=== PATIENT | female | born 1945 | race Caucasian/White ===

== ENCOUNTER → 2025-02-01 11:42 | Outpatient (BNVA) | payer MEDICARE, SELFPAY | PROVIDERS: Visit Provider Internal Medicine Cardiovascular Disease | DX: I11.0 Hypertensive heart disease with heart failure (principal); I50.22 Chronic systolic (congestive) heart failure; I25.10 Atherosclerotic heart disease of native coronary artery without angina pectoris; E78.2 Mixed hyperlipidemia; Z95.0 Presence of cardiac pacemaker; I25.2 Old myocardial infarction; R06.09 Other forms of dyspnea; R06.02 Shortness of breath; R07.9 Chest pain, unspecified | CPT/HCPCS: 36415; 80048; 83880; 93005; 99205 ==

== ENCOUNTER 2025-03-14 19:45 | Inpatient (IN) | payer MEDICARE, SELFPAY ==
--- OUTSIDE RECORDS SUMMARY | 2018-07-20 06:00 | XMS_ITS | Continuity of Care Document ---
Author Organization [facility] Address [address] [place] [address] [place] [id number] Phone Care Team Providers Care Fisher Dip Net Name Role Phone Flako PT, Esperanza Unavailable Unavailable Procedures Procedure Date PT Re-evaluation Therapeutic Exercise Neuromuscular Re-Ed Hot or Cold Pack Therapeutic Exercise Neuromuscular Re-Ed Hot or Cold Pack Therapeutic Exercise Neuromuscular Re-Ed Hot or Cold Pack Therapeutic Exercise Neuromuscular Re-Ed Therapeutic Exercise Neuromuscular Re-Ed Therapeutic Exercise Neuromuscular Re-Ed Therapeutic Exercise Neuromuscular Re-Ed Therapeutic Exercise Neuromuscular Re-Ed Changing And Maintaining Body Position-C urrent Changing And Maintaining Body Position-G oal Therapeutic Exercise Neuromuscular Re-Ed Therapeutic Exercise Neuromuscular Re-Ed Therapeutic Exercise Therapeutic Exercise Neuromuscular Re-Ed Therapeutic Exercise Neuromuscular Re-Ed Therapeutic Exercise Neuromuscular Re-Ed Manual Therapy Progress Note Therapeutic Exercise Neuromuscular Re-Ed Manual Therapy Therapeutic Exercise Neuromuscular Re-Ed Manual Therapy Therapeutic Exercise Neuromuscular Re-Ed Manual Therapy Changing And Maintaining Body Position-C urrent Changing And Maintaining Body Position-G oal Therapeutic Exercise Neuromuscular Re-Ed Manual Therapy Therapeutic Exercise Neuromuscular Re-Ed Manual Therapy Therapeutic Exercise Neuromuscular Re-Ed Manual Therapy Therapeutic Exercise Neuromuscular Re-Ed Manual Therapy Therapeutic Exercise Neuromuscular Re-Ed Manual Therapy Therapeutic Exercise Neuromuscular Re-Ed Manual Therapy Therapeutic Exercise Neuromuscular Re-Ed Manual Therapy Therapeutic Exercise Neuromuscular Re-Ed Progress Note Therapeutic Exercise Neuromuscular Re-Ed Changing And Maintaining Body Position-C urrent Changing And Maintaining Body Position-G oal Therapeutic Exercise Neuromuscular Re-Ed Therapeutic Exercise Neuromuscular Re-Ed Therapeutic Exercise Neuromuscular Re-Ed Therapeutic Exercise Manual Therapy Hot or Cold Pack Therapeutic Exercise Neuromuscular Re-Ed Therapeutic Exercise Neuromuscular Re-Ed Changing And Maintaining Body Position-C urrent Changing And Maintaining Body Position-G oal Therapeutic Exercise Neuromuscular Re-Ed Changing And Maintaining Body Position-C urrent Changing And Maintaining Body Position-G oal PT Evaluation High Complexity 8 Therapeutic Exercise Neuromuscular Re-Ed Changing And Maintaining Body Position-C urrent Changing And Maintaining Body Position-G oal Therapeutic Exercise Neuromuscular Re-Ed Therapeutic Exercise Neuromuscular Re-Ed Therapeutic Exercise Neuromuscular Re-Ed Therapeutic Exercise Neuromuscular Re-Ed Therapeutic Exercise Neuromuscular Re-Ed Therapeutic Exercise Neuromuscular Re-Ed Therapeutic Exercise Neuromuscular Re-Ed Therapeutic Exercise Changing And Maintaining Body Position-C urrent Changing And Maintaining Body Position-G oal PT Evaluation Moderate Complexity Therapeutic Exercise Neuromuscular Re-Ed Changing And Maintaining Body Position-C urrent Changing And Maintaining Body Position-G oal PT Re-Evaluation THERAPEUTIC EXERCISES NEUROMUSCULAR RE-ED FUNC ACTIVITY Mobility: Walking And Moving Limitaion- Discharge Mobility: Walking And Moving Limitation- Goal Medications Name Dose Freq Route DOC Oct THERAPEUTIC EXERCISES MANUAL THERAPY FUNC ACTIVITY HOT/COLD PACK THERAPEUTIC EXERCISES FUNC ACTIVITY HOT/COLD PACK THERAPEUTIC EXERCISES NEUROMUSCULAR RE-ED MANUAL THERAPY FUNC ACTIVITY HOT/COLD PACK THERAPEUTIC EXERCISES NEUROMUSCULAR RE-ED MANUAL THERAPY FUNC ACTIVITY HOT/COLD PACK PT Re-Evaluation THERAPEUTIC EXERCISES MANUAL THERAPY HOT/COLD PACK Mobility: Walking And Moving Limitations -Curent Mobility: Walking And Moving Limitation- Goal Medications Name Dose Freq Route DOC Oct THERAPEUTIC EXERCISES THERAPEUTIC EXERCISES NEUROMUSCULAR RE-ED MANUAL THERAPY HOT/COLD PACK THERAPEUTIC EXERCISES NEUROMUSCULAR RE-ED MANUAL THERAPY FUNC ACTIVITY HOT/COLD PACK THERAPEUTIC EXERCISES MANUAL THERAPY HOT/COLD PACK THERAPEUTIC EXERCISES NEUROMUSCULAR RE-ED MANUAL THERAPY FUNC ACTIVITY HOT/COLD PACK PT Evaluation Moderate Complexity THERAPEUTIC EXERCISES Mobility: Walking And Moving Limitations -Curent Mobility: Walking And Moving Limitation- Goal Medications Name Dose Freq Route DOC Sep Pain Assess Positive DOC 2016 BMI High F/U Plan DOC Future Fall Risk Positive 2+ Falls or 1 Fall w/ Injury RA DOC Scre ened for Fall Risk Plan of Care DOC Functional Outcome Assessmen t documented, deficits identified, treatment plan es Advance Directives Directive Yes / No Effective Date File Name No Information Encounters Encounter Description Practice Location Reason(s) For Visit Diagnoses Date Provider Providers Copied on Encounter [facility] [employer] [address], [place], [place], [id number], [place] tel:[phone] [facility] Spondylolysis, lumbar regionSpinal instabilities, lumbar regionSacroili itis, not elsewhere classifiedLow back pain 201 8 Flako Mata. . Referring Provider: Abigail Eric, [address] [address], [place], [address]. tel:[phone] [facility] [employer] [address], [place], [place], [address], [place] tel:[phone] [facility] Spondylolysis, lumbar regionSpinal instabilities, lumbar regionSacroili itis, not elsewhere classifiedLow back pain Dec-2 8201 8 [place] Esperanza. . Referring Provider: Abigail Eric, [address] [facility] [address], [place], [address]. tel:[phone] [facility], [place], [place], [address], [place] tel:[phone] [facility] Spondylolysis, lumbar regionSpinal instabilities, lumbar regionSacroili itis, not elsewhere classifiedLow back pain Dec-2 8 [place] Esperanza. . Referring Provider: Abigail Eric, [address], [place], [address]. tel:[phone] [facility], [place], [place], [address], [place] tel:[phone] [facility] Spondylolysis, lumbar regionSpinal instabilities, lumbar regionSacroili itis, not elsewhere classifiedLow back pain Dec-2 8 [place]. Referring Provider: Abigail Eric, [address], [place], [address]. tel:[phone] [facility], [place], [place], [address], [place] tel:[phone] [facility] Spondylolysis, lumbar regionSpinal instabilities, lumbar regionSacroili itis, not elsewhere classifiedLow back pain Dec-2 8 [place]. Referring Provider: Abigail Eric, [address] [facility] [address], [place], [address]. tel:[phone] [facility] [address], [place], [place], [address], [place] tel:[phone] [place] Spondylolysis, lumbar regionSpinal instabilities, lumbar regionSacroili itis, not elsewhere classifiedLow back pain Dec-1 8 [place]. Referring Provider: Abigail Eric, [address] [facility] [facility] [address], [place], [address]. tel:[phone] [facility] [address], [place], [place], [address], tel:[phone] [facility] Spondylolysis, lumbar regionSpinal instabilities, lumbar regionSacroili itis, not elsewhere classifiedLow back pain Dec-1 4-201 8 [place]. Referring Provider: Abigail Eric, [address] [facility] [address], [place], [address]. tel:[phone] [facility] [address], [place], [place], [address], [place] tel:[phone] [facility] Spondylolysis, lumbar regionSpinal instabilities, lumbar regionSacroili itis, not elsewhere classifiedLow back pain Dec-1 2-201 8 [place]. Referring Provider: Abigail Eric, [address] [facility], [place], [address]. tel:[phone] [facility] [address], [place], [place], [address], [place] tel:[phone] [facility] Spondylolysis, lumbar regionSpinal instabilities, lumbar regionSacroili itis, not elsewhere classifiedLow back pain Dec-1 0-201 8 [place]. Referring Provider: bAigail Eric, [address] [facility], [place], [address]. tel:[phone] [facility] [address], [place], [place], [address], [place] tel:[phone] [facility] Spondylolysis, lumbar regionSpinal instabilities, lumbar regionSacroili itis, not elsewhere classifiedLow back pain Dec-0 7-201 8 [place]. Referring Provider: Abigail Eric, [address] [facility], [place], [address]. tel:[phone] [facility], [place], [place], [address], [place] tel:[phone] [facility] Spondylolysis, lumbar regionSpinal instabilities, lumbar regionSacroili itis, not elsewhere classifiedLow back pain Dec-0 5-201 8 [place]. Referring Provider: Abigail Eric, [address] [facility] [address], [place], [address]. tel:[phone] [facility], [place], [place], [address], [place] tel:[phone] [facility] Spondylolysis, lumbar regionSpinal instabilities, lumbar regionSacroili itis, not elsewhere classifiedLow back pain Dec-0 3-201 8 [place]. Referring Provider: Abigail Eric, [address] [facility] [address], [place], [address]. tel:[phone] [facility], [place], [place], [address], [place] tel:[phone] [facility] Spondylolysis, lumbar regionSpinal instabilities, lumbar regionSacroili itis, not elsewhere classifiedLow back pain Nov-3 0-201 8 [place]. Referring Provider: Abigail Eric, [address] [facility] [address], [place], [address]. tel:[phone] [facility], [place], [place], [address], [place] tel:[phone] [facility] Spondylolysis, lumbar regionSpinal instabilities, lumbar regionSacroili itis, not elsewhere classifiedLow back pain Nov-2 8-201 8 [place] Referring Provider: Abigail Eric, [address] [facility] [address], [place], [address]. tel:[phone] [facility], [place], [place], [address], [place] tel:[phone] [facility] Spondylolysis, lumbar regionSpinal instabilities, lumbar regionSacroili itis, not elsewhere classifiedLow back pain 8 [place]. Referring Provider: Abigail Eric, [address] [facility] [address], [place], [address]. tel:[phone] [facility], [place], [place], [address], [place] tel:[phone] [facility] Spondylolysis, lumbar regionSpinal instabilities, lumbar regionSacroili itis, not elsewhere classifiedLow back pain 8 [place]. Referring Provider: Abigail Eric, [address] [facility] [address], [place], [address]. tel:[phone] [facility], [place], [place], [address], [place] tel:[phone] [facility] Spondylolysis, lumbar regionSpinal instabilities, lumbar regionSacroili itis, not elsewhere classifiedLow back pain [place]. Referring Provider: Abigail Eric, [address] [facility] [address], [place], [address]. tel:[phone] [facility], [place], [place], [address], [place] tel:[phone] [facility] Spondylolysis, lumbar regionSpinal instabilities, lumbar regionSacroili itis, not elsewhere classifiedLow back pain 8 Redd [place], [place]. Referring Provider: Abigail Eric, [address] [facility] [address], [place], [address]. tel:[phone] [facility], [place], [place], [address], [place] tel:[phone] [facility] Spondylolysis, lumbar regionSpinal instabilities, lumbar regionSacroili itis, not elsewhere classifiedLow back pain Nov-1 - 8 [facility] [place] [place]. Referring Provider: Abigail Eric, [address], [place], [address]. tel:[phone] [facility], [place], [place], [address], [place] tel:[phone] [facility] Spondylolysis, lumbar regionSpinal instabilities, lumbar regionSacroili itis, not elsewhere classifiedLow back pain Nov-1 2-201 8 [facility] [place]. Referring Provider: Abigail Eric, [address], [place], [address]. tel:[phone] [facility], [address], [place], [place], [address], [place] tel:[phone] [facility] Spondylolysis, lumbar regionSpinal instabilities, lumbar regionSacroili itis, not elsewhere classifiedLow back pain Nov-0 - 8 [place]. Referring Provider: Abigail Eric, [address] [facility] [address], [place], [address]. tel:[phone] [facility], [place], [place], [address], [place] tel:[phone] [facility] Spondylolysis, lumbar regionSpinal instabilities, lumbar regionSacroili itis, not elsewhere classifiedLow back pain Nov-0 - 8 [facility] [place]. Referring Provider: Abigail Eric, [address] [facility] [address], [place], [address]. tel:[phone] [facility], [place], [place], [address], [place] tel:[phone] [place] Spondylolysis, lumbar regionSpinal instabilities, lumbar regionSacroili itis, not elsewhere classifiedLow back pain Nov-0 8 [place]. Referring Provider: Abigail Eric, [address] [facility] [facility] [address], [place], [address]. tel:[phone] [facility], [place], [place], [address], tel:[phone] [facility] Spondylolysis, lumbar regionSpinal instabilities, lumbar regionSacroili itis, not elsewhere classifiedLow back pain May-0 8 [place]. Referring Provider: Abigail Eric, [address] [facility] [address], [place], [address]. tel:[phone] [facility] [address], [place], [place], [address], [place] tel:[phone] [place] Spondylolysis, lumbar regionSpinal instabilities, lumbar regionSacroili itis, not elsewhere classifiedLow back pain Apr- 8 [place]. Referring Provider: Abigail Eric, [address] [facility] [address], [place], [address]. tel:[phone] [facility], [place], [place], [address], [place] tel:[phone] [facility] Spondylolysis, lumbar regionSpinal instabilities, lumbar regionSacroili itis, not elsewhere classifiedLow back pain Apr-2 8 [place]. Referring Provider: Abigail Eric, [address] [facility] [address], [place], [address]. tel:[phone] [facility], [place], [place], [address], [place] tel:[phone] [facility] Spondylolysis, lumbar regionSpinal instabilities, lumbar regionSacroili itis, not elsewhere classifiedLow back pain Apr-2 8 [place]. Referring Provider: Abigail Eric, [address] [facility] [address], [place], [address]. tel:[phone] [facility], [place], [place], [address], [place] tel:[phone] [facility] Spondylolysis, lumbar regionSpinal instabilities, lumbar regionSacroili itis, not elsewhere classifiedLow back pain Apr- 8 [place], . Referring Provider: Abigail Eric, [address] [facility] [address], [place], [address]. tel:[phone] [facility], [place], [place], [address], [place] tel:[phone] [facility] Spondylolysis, lumbar regionSpinal instabilities, lumbar regionSacroili itis, not elsewhere classifiedLow back pain Apr- 8 [place], . Referring Provider: Abigail Eric, [address] [facility] [address], [place], [address]. tel:[phone] [facility], [place], [place], [address], [place] tel:[phone] [facility] Spondylolysis, lumbar regionSpinal instabilities, lumbar regionSacroili itis, not elsewhere classifiedLow back pain Apr- 8 Flako Mata. . Referring Provider: Abigail Eric, [address] [facility] [address], [place], [address]. tel:[phone] [facility], [place], [place], [address], [place] tel:[phone] [facility] Spondylolysis, lumbar regionSpinal instabilities, lumbar regionSacroili itis, not elsewhere classifiedLow back pain Apr- 8 [place] Referring Provider: Abigail Eric, [address] [facility] [address], [place], [address]. tel:[phone] [facility], [place], [place], [address], [place] tel:[phone] [facility] Spondylolysis, lumbar regionSpinal instabilities, lumbar regionSacroili itis, not elsewhere classifiedLow back pain 8 Rainey [place]asto. [place]. Referring Provider: Abigail Eric, 3 [facility] [address], [place], [address]. tel:[phone] [facility], [place], [place], [address], [place] tel:[phone] [place] Spondylolysis, lumbar regionSpinal instabilities, lumbar regionSacroili itis, not elsewhere classifiedLow back pain 8 Rainey Erasto. [place]. Referring Provider: Abigail Eric, [address] [facility] [address], [place], [address]. tel:[phone] [facility], [place], [place], [address], [place] tel:[phone] [facility] Spondylolysis, lumbar regionSpinal instabilities, lumbar regionSacroili itis, not elsewhere classifiedLow back pain 0 8 Rainey [place]asto. [place]. Referring Provider: Abigail Eric, [address] [facility] [address], [place], [address]. tel:[phone] [facility], [place], [place], [address], [place] tel:[phone] [facility] No Information 7 Rainey Erasto. , [place], [place]. [facility], [place], [place], [address], [place] tel:[phone] [facility] No Information 7 Rainey Erasto. , [place], [place]. [facility], [place], [place], [address], [place] tel:[phone] [facility] No Information 7 Redd Mal[place]on. , [place], [place]. [facility], [address], [place], [place], [address], [place] tel:[phone] [facility] No Information 0 7 Rainey Erasto. , [place], [place]. [facility], [place], [place], [address], [place] tel:[phone] [facility] No Information 0 7 Redd Maldon[place]on. , [place], [place]. [facility], [place], [place], [address], [place] tel:[phone] [facility] No Information 3 7 Redd Maldon[place]on. , [place], [place]. [facility], [place], [place], [address], [place] tel:[phone] [facility] No Information 7 Redd Mal[place]. , [place], [place]. [facility], [place], [place], [address], [place] tel:[phone] [place] Spondylolysis, site unspecifiedLow back pain 7 Redd Maldon[place]on. , [place], [place]. [facility], [place], [place], [address], [place] tel:[phone] [facility] No Information 7 Redd Maurer. , [place], [place]. [facility], [place], [place], [address], [place] tel:[phone] [facility] No Information 2 0 7 Sutherlin Tahira. [address] [facility], [address], [place], [place], [facility], [place]. tel:[phone] [facility], [place], [place], [address], [place] tel:[phone] [facility] No Information 7 Sutherlin Tahira. [address] [facility], [address], [place], [address], [place]. tel:[phone], [place], [place], [address], [place] tel:[phone] [facility] No Information Apr-1 4-201 7 Sutherlin Tahira. [address] [place] [address], [address], [place], [address], [place]. tel:[phone], [place], [place], [address], [place] tel:[phone] [facility] No Information Apr-1 0-201 7 Whit Tahira. [address] [place] [address], [address], [place], [place], [facility], [place]. tel:[phone], [place], [place], [address], [place] tel:[phone] [facility] No Information Apr-0 7-201 7 Whit Tahira. [address] [place] [address], [address], [place], [place], [facility], [place]. tel:[phone], [place], [place], [address], [place] tel:[phone] [facility] No Information Apr-0 3-201 7 Whit Tahira. [address] [place] [address], [address], [place], [address], [place]. tel:[phone], [place], [place], [address], [place] tel:[phone] [facility] No Information Mar-3 1-201 7 Whit Tahira. [address] [place] [address], [address], [place], [address], [place]. tel:[phone], [place], [place], [address], [place] tel:[phone] [facility] No Information Mar-2 7-201 7 Sutherlin Tahira. [address] [place] [address], [address], [place], [place], [facility], [place]. tel:[phone], [place], [place], [address], tel:[phone] [facility] No Information Sep- 4-201 7 Sutherlin Tahira. [address] [place] [address], [facility] [address] [address], . tel:[phone] [address], [address], tel:[phone] [facility] No Information 0-201 7 Sutherlin Tahira. [address] [place] [address], [facility] [address] [address], . tel:[phone], [place], [place], [address], tel:[phone] [facility] No Information 7-201 7 Sutherlin Tahira. [address] [place] [address], [facility] [address] [address], . tel:[phone], [id number], tel:[phone] [facility] Unilateral primary osteoarthritis , left kneePain in left kneeStiffness of left knee, not elsewhere classifiedOth symptoms and signs involving the musculoskeleta l systemDisorder of muscle, unspecified 4 7 Whit Tahira. [address] [place] [address], [facility] [address], [place], [facility], . tel:[phone] Family History Family Member Type Diagnosis Age At Onset No Information Payers Payer name Insurance type Covered green party ID Authoriza tisalvador(s) Medicare [place] [id number] [facility] [id number] Social History Type Description Quantity Date Captured Comments Sex Female Smoking Status No Information Chief Complaint And Reason For Visit No Information Reason For Referral Reason For Referral No Information History Of Present Illness Encounter Date Complaint History Of Prese nt Illness No Information Functional Status Date Functional Assessmen t No Information Instructions Date Instruction Additional Infor mation No Information Assessments Type Assessment Date No Information Patient Care Teams Name Effective Dates (start - stop) Status Members No Information
[2025-03-14 19:50] VITALS: BP 122/58; PULSE 55; RESP 18; TEMP 36.9; O2SAT 95; BMI 38.0
--- OUTSIDE RECORDS SUMMARY | 2025-03-14 19:55 | XMS_ITS | Encounter Summary ---
Author Organization [facility] [employer], [facility] Address [address] [facility] [address] [place] [address] Phone Care Team Providers Care Software Implementation Specialist Name Role Phone Gemma Schmidt MD Primary Care Provider [phone] Encounter Details Date Type Department Care Team (Late Contact Info) Description 03/11/2025 Telephone [facility] [employer] [address] [facility] [address] [place] [address] Dior Geller Social History Tobacco Use Types Packs/Day Years Used Date Smoking Tobacco: Never Assessed Comments Unknown Sex and Gender Information Value Date Recorded Sex Assigned at Not on file Legal Sex Female 2:32 PM EDT Gender Identity Not on file Sexual Orientation Not on file documented as of this encounter Miscellaneous Notes * Telephone Encounter - Dior Geller - 03/11/2025 4:19 PM CDT Called referring provider's office and notified them that the patient has been scheduled with nephrology. documented in this encounter Plan of Treatment Upcoming Encounters Date Type Department Care Team (Late st Contact Info) Description 08/29/2025 1:00 PM CREELER Office Visit [facility] [employer] [address] [place] [address] Hamlet Andersen MD [address] [place] [address] documented as of this encounter Visit Diagnoses Not on filedocumented in this encounter Care Teams Software Implementation Specialist Relationship Specialty Start Date End Date Gemma Schmidt MD [address] [address] PCP - General Family Medicine 03/04/25 documented as of this encounter
--- OUTSIDE RECORDS SUMMARY | 2025-03-14 19:55 | XMS_ITS | Encounter Summary ---
Author Organization [facility] Address [address] [place] [address] Care Team Providers Care Work Order Detailer Name Role Phone Gemma Schmidt MD Primary Care Provider Encounter Details Date Type Department Care Team (Late Contact Info) Description 12/27/2024 Lab Requisition [facility] [place] [address] [address] Jaja Dillon, [facility] [address] [address] Urinary tract infection, site not specified Social History Tobacco Use Types Packs/Day Years Used Date Smoking Tobacco: Never Smokeless Tobacco: Never Alcohol Use Standard Drinks/Week Comments Not Currently 0 (1 standard drink = 0.6 oz pur e alcohol) Comments No Sex and Gender Information Value Date Recorded Sex Assigned at Not on file Legal Sex Female 1:19 PM CDT Gender Identity Not on file Sexual Orientation Not on file documented as of this encounter Plan of Treatment Upcoming Encounters Date Type Department Care Team (Late Contact Info) Description 04/18/2025 3:20 PM CDT Office Visit [facility] [place] [address] [address] Gemma Schmidt MD [address] [address] 06/06/2025 2:20 PM 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 Office Visit [facility] [address] [address] Gemma Schmidt MD [address] [place] [address] documented as of this encounter Procedures Procedure Name Priority Date/Time Associated Diagnosis Comments CBC WITH DIFFERENTIAL Stat 12/27/2024 9:41 AM CDT Urinary tract infection, site not specified C-REACTIVE PROTEIN Stat 12/27/2024 9: 41 AM CDT Urinary tract infection, site not specified BASIC METABOLIC PANEL Stat 12/27/2024 9:41 AM CDT Urinary tract infection, site not specified documented in this encounter Results * (ABNORMAL) BASIC METABOLIC PANEL (12/27/2024 9:41 AM CDT) SODIUM 134(L) 136 - 145 mmol/L 12/27/2024 10:22 AM [facility] POTASSIUM 4.8 3.5 - 5.1 mmol/L 12/27/2024 10:22 AM [facility] CHLORIDE 96(L) 98 - 107 mmol/L 12/27/2024 10:22 AM [facility] CO2 21(L) 22 - 29 mmol/L 12/27/2024 10:22 AM [facility] CALCIUM 9.3 8.8 - 10.2 mg/dL 12/27/2024 10:22 AM [facility] BUN 71(H) 8 - 23 mg/dL 12/27/2024 10:22 AM [facility] CREATININE 2.16(H) 0.51 - 0.95 mg/dL 12/27/2024 10:22 AM [facility] Comment:The GFR result is no t clinically significant on patients <18 or >70 years of age. GLUCOSE 386(H) 74 - 99 mg/dL 12/27/2024 10:22 AM CDT [facility] GFR 23 mL/min/1.7 3 sq meter 12/27/2024 10:22 AM CDT [facility] Comment:eGFR calculated with 2020 CKD-EPI equation. Vegetarian diet, extremely high or low muscle mass, and may affect results. Cystatin C with Glomerular Filtration Rate is a suitable alternative for these patients. ANION GAP 17 5 - 20 mmol/L 12/27/2024 10:22 AM CDT [facility] Blood 12/27/2024 9:41 AM CDT 12/27/2024 9:56 AM CDT Jaja Dillon [facility] CHEMISTRY ORDERABLES Final Result Performing Organization Address [facility] Co de Phone Number [facility] CLIA # [id number] [address] [place] [address] * C-REACTIVE PROTEIN (12/27/2024 9:41 AM CDT) CRP 4.8 <5.0 mg/L 12/27/2024 10:21 AM CDT [facility] Blood 12/27/2024 9:41 AM CDT 12/27/2024 9:56 AM CDT Jaja Dillon [facility] CHEMISTRY ORDERABLES Final Result Performing Organization Address City/[facility]/ZIP Co de Phone Number [facility] CLIA # [id number] [address] [place] [address] * (ABNORMAL) CBC WITH DIFFERENTIAL (12/27/2024 9:41 AM CDT) WBC 8.6 4.0 - 10.0 K/uL 12/27/2024 9:58 AM CDT [facility] RBC 4.18 3.93 - 5.22 M/uL 12/27/2024 9:58 AM [facility] HEMOGLOBIN 13.3 11.2 - 15.7 g/dL 12/27/2024 9:58 AM [facility] HEMATOCRIT 41.0 34.1 - 44.9 % 12/27/2024 9:58 AM [facility] MCV 98.1(H) 79.4 - 94.8 fL 12/27/2024 9:58 AM [facility] MCH 31.8 25.6 - 32.2 pg 12/27/2024 9:58 AM [facility] MCHC 32.4 32.2 - 35.5 g/dL 12/27/2024 9:58 AM [facility] RDW 14.4 11.0 - 14.5 % 12/27/2024 9:58 AM [facility] RDW-STDEV 52.0 36.9 - 56.9 fL 12/27/2024 9:58 AM [facility] PLATELETS 182 163 - 337 K/uL 12/27/2024 9:58 AM [facility] MPV 11.5 10.0 - 14.8 fL 12/27/2024 9:58 AM [facility] NEUTROPHILS 74(H) 34 - 71 % 12/27/2024 9:58 AM [facility] LYMPHOCYTES 15(L) 19 - 52 % 12/27/2024 9:58 AM [facility] MONOCYTES 7 5 - 13 % 12/27/2024 9:58 AM [facility] EOSINOPHILS 4 1 - 6 % 12/27/2024 9:58 AM [facility] BASOPHILS 1 0 - 1 % 12/27/2024 9:58 AM [facility] IMMATURE GRANULOCYTES 0 % 12/27/2024 9:58 AM [facility] NEUTROPHIL ABSOLUTE 6.32(H) 1.56 - 6.13 K/uL 12/27/2024 9:58 AM [facility] LYMPHOCYTE ABSOLUTE 1.24 1.20 - 3.40 K/uL 12/27/2024 9:58 AM [facility] MONOCYTE ABSOLUTE 0.61(H) 0.24 - 0.36 K/uL 12/27/2024 9:58 AM CDT [facility] EOSINOPHIL ABSOLUTE 0.32 0.04 - 0.36 K/uL 12/27/2024 9:58 AM CDT [facility] BASOPHILS ABSOLUTE 0.04 0.01 - 0.08 K/uL 12/27/2024 9:58 AM CDT [facility] IMMATURE GRANULOCYTES ABSOLUTE 0.02 K/uL 12/27/2024 9:58 AM CDT [facility] Blood 12/27/2024 9:41 AM CDT 12/27/2024 9:55 AM CDT us Jaja Dillon [employer] HEMATOLOGY ORDERABLES Final Result [facility] CLIA # [id number] [address] [id number] documented in this encounter Visit Diagnoses Diagnosis Urinary tract infection, site not specified documented in this encounter Care Teams Work Order Detailer Relationship Specialty Start Date End Date Gemma Schmidt MD [address] [address] PCP - General Family Practice 11/23/24 documented as of this encounter
--- OUTSIDE RECORDS SUMMARY | 2025-03-14 19:55 | XMS_ITS | Encounter Summary ---
Author Organization [facility] Address [address] [place] [address] Phone Care Team Providers Care Small Business Consultant Name Role Phone Gemma Schmidt MD Primary Care Provider [phone] Reason for Referral * Consultation (Routine) - Closed Specialty Diagnoses / Procedures Referred By Sathish t Referred To Contact Nephrology Diagnoses Chronic kidney disease stage 4 (HCC) Hamlet Andersen MD [address] [address] Phone: tel: fax: [facility] [address] [facility] [address] [place] [address] Phone: tel: fax: Referral ID Status Reason Start Date Expiration Date V isits Requested Visits Authorized [id number] Closed Specialty Services Required 03/04/2025 03/04/2026 1 1 Encounter Details Date Type Department Care Team (Late st Contact Info) Description 03/04/2025 Telephone [facility] [employer] [employer] [address] [place] [address] Hamlet Andersen MD [address] [place] [address] Social History Tobacco Use Types Packs/Day Years Used Date Smoking Tobacco: Never Assessed Comments Unknown Sex and Gender Information Value Date Recorded Sex Assigned at Not on file Legal Sex Female 2:32 PM EDT Gender Identity Not on file Sexual Orientation Not on file documented as of this encounter Miscellaneous Notes * Telephone Encounter - Katie Patiño NP - 03/11/2025 8:10 AM CDT Call made to patient for initial scheduling. Left message for return call. * Telephone Encounter - Katie Patiño NP - 03/11/2025 8:10 AM CDT Images from the original note were not included. Hamlet Andersen MD to [place] (Selected Message) 03/10/25 4:21 PM Can do on next 2-3 months Hamlet Lucero * Telephone Encounter - Katie Patiño NP - 03/04/2025 1:42 PM CDT Referral received: 03/04/2025 Referring Provider: Dr. Schmidt Referral Diagnosis: chronic kidney disease 4 Preferred Location: [place] GFR trend: 12/27/2024 23 03/03/2025 26 Comments: Patient moved here from [place] and needs to establish care. Patient previously managed by nephrology. Further records available in [facility]. Referral Scanned to Media. 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 [address] [place] [id number] Scheduled Referrals Name Type Priority Associated Diagnoses Order Schedule Ambulatory referral to Nephrology Outpatient Referral Routine Chronic kidney disease stage 4 (HCC) Expected: 03/04/2025, Expires: 04/04/2026 documented as of this encounter Visit Diagnoses Diagnosis Chronic kidney disease stage 4 (HCC)- Primary documented in this encounter Care Teams Small Business Consultant Relationship Specialty Start Date End Date Gemma Schmidt MD [address] [address] PCP - General Family Medicine 03/04/25 documented as of this encounter
--- OUTSIDE RECORDS SUMMARY | 2025-03-14 19:55 | XMS_ITS | Encounter Summary ---
Author Organization [facility] Healthcare Address [address] [place] [address] Care Team Providers Care Physician'S Aide Name Role Phone Keven Wallace MD Primary Care Provider Keven Wallace MD Unavailable [phone] Fili Nielsen MD Primary Care Provider [phone] Yisel Vega DO Primary Care Provider [phone] Encounter Details Date Type Department Care Team (Late st Contact Info) Description 09/17/2017 Orders Only [facility] Information Management [address] [place] [address] Scanning, Provider Social History Tobacco Use Types Packs/Day Years Used Date Smoking Tobacco: Never Smokeless Tobacco: Never Alcohol Use Standard Drinks/Week Comments Yes 0 (1 standard drink = 0.6 oz pur e alcohol) rarely Comments Unknown Sex and Gender Information Value Date Recorded Sex Assigned at Not on file Legal Sex Female 1:02 PM CDT Gender Identity Not on file Sexual Orientation Not on file documented as of this encounter Plan of Treatment Not on file documented as of this encounter Procedures Procedure Name Priority Date/Time Associated Diagnosis Comments SCAN - LABS 09/17/2017 documented in this encounter Results * SCAN - LABS (09/17/2017) us Provider Scanning Final Result documented in this encounter Visit Diagnoses Not on filedocumented in this encounter Care Teams Physician'S Aide Relationship Specialty Start Date End Date Keven Wallace MD [address] [place] [address] PCP - General Family Medicine 08/11/17 12/20/18 Fili Nielsen MD [address] [place] [address] PCP - General Family Practice 12/21/18 12/14/20 Yisel Vega DO [address] [place] [address] PCP - General Family Practice 12/15/20 Keven Wallace MD [address] [facility] [address] [place] [address] 08/11/17 documented as of this encounter
--- OUTSIDE RECORDS SUMMARY | 2025-03-14 19:55 | XMS_ITS | Encounter Summary ---
Author Organization [facility] Address [address] [place] [address] Care Team Providers Care Enamel Machine Operator Name Role Phone Gemma Schmidt MD Primary Care Provider [phone] Reason for Visit * Reason Onset Date Comments Lab Results 03/06/2025 Provider Call Encounter Details Date Type Department Care Team (Late st Contact Info) Description 03/06/2025 Results Follow-Up [facility] Medicine [address] [address] Gemma Schmidt MD [address] [place] [address] HEMOGLOBIN A1C, BASIC METABOLIC PANEL, CBC WITH DIFFERENTIAL, Additional followed-up results: 2 Social History Tobacco Use Types Packs/Day Years [...] encounter Miscellaneous Notes * Telephone Encounter - NarenNeda rose - 03/11/2025 4:20 PM CDT Copied from [facility] #[id number]. Topic: [id number] Call >> Mar 11, 2025 4:19 PM Neda Yadav wrote: Caller is requesting to speak with Clinical Care Team. Caller Name: [facility] Chad Callback Number: [phone] Is the caller a Physician, Nurse Practitioner or Physician Non Destructive Evaluation Specialist? No Call Notes: Courtesy call: Patient has been scheduled with [facility] . Is this addressing an immediate patient care need? No * Telephone Encounter - Val Gaston RN - 03/07/2025 9:25 AM CDT 03/07/2025 9:25 AM Called and notified patient of results. Voiced understanding. Val WOODWARD * Telephone Encounter - Val Gaston RN - 03/07/2025 9:22 AM CDT ----- Message from Dr. Gemma Schmidt sent at 03/06/2025 8:54 PM CDT ----- Contact patient regarding result. Pt has nephrology referral placed for stage 4 CKD. DM is uncontrolled, changes were discussed at her visit which she will be implementing. Recommend f/u in 6 weeks with blood sugar readings. ----- Message ----- From: Harry Starks [facility]coming [facility] Results Sent: 03/04/2025 5:23 AM CDT To: Gemma Schmidt MD * Result Encounter Note - Gemma Schmidt MD - 03/06/2025 8:54 PM CDT Contact patient regarding result. Pt has nephrology referral placed for stage 4 CKD. DM is uncontrolled, changes were discussed at her visit which she will be implementing. Recommend f/u in 6 weeks with blood sugar readings. documented in this encounter Plan of Treatment Upcoming Encounters Date Type Department Care Team (Late st Contact Info) Description 04/18/2025 3:20 PM CDT Office Visit [facility] [address] [place] [address] Gemma Schmidt MD [address] [place] [address] 06/06/2025 2:20 PM LIQUID YEAST SUPERVISOR Office Visit [facility] [address] [place] [address] Gemma Schmidt MD [address] [place] [address] documented as of this encounter Visit Diagnoses Not on filedocumented in this encounter Care Teams Enamel Machine Operator Relationship Specialty Start Date End Date Gemma Schmidt MD [address] [place] [address] PCP - General Family Practice 11/23/24 documented as of this encounter
--- OUTSIDE RECORDS SUMMARY | 2025-03-14 19:55 | XMS_ITS | Encounter Summary ---
Author Organization [facility] Address [address] [place] [address] Care Team Providers Care Lawn Sprinkler Installer Name Role Phone Gemma Schmidt MD Primary Care Provider Encounter Details Date Type Department Care Team (Late st Contact Info) Description 03/09/2025 External Device Data ST[facility] ABSTRACTION Provider, Abstract NO ADDRESS ON FILE Social History Tobacco Use Types Packs/Day Years [...] Description 04/18/2025 3:20 PM CDT Office Visit [address] [address] Gemma Schmidt MD [address] [address] 06/06/2025 2:20 PM HSE COORDINATOR Office Visit [address] [address] Gemma Schmidt MD [address] [address] documented as of this encounter Visit Diagnoses Not on filedocumented in this encounter Care Teams Lawn Sprinkler Installer Relationship Specialty Start Date End Date Gemma Schmidt MD [address] [address] PCP - General Family Practice 11/23/24 documented as of this encounter
--- OUTSIDE RECORDS SUMMARY | 2025-03-14 19:55 | XMS_ITS | Clinical Summary ---
Author Organization [facility] Michael salazar [place] Address [address] [place] [address] Phone Care Team Providers Care Manager Fraud Name Role Phone Gemma Schmidt MD Primary Care Provider [phone] Allergies Active Allergy Reactions Criticality Noted Date Comments Levofloxacin Other (See Comments) Medium 07/20/2024 Joint pains Penicillins Rash Medium 09/01/2017 Tolerated ceftriaxone 06/26/21 Sulfa (Sulfonamide Antibiotics) Rash Medium 12/30/2011 Medications calcium phosphate trib/vit D3 (calcium phosphate-vitami n D3) 200 mg-5 mcg (200 unit) Tablet, Chewable Take 1 Tablet by mouth daily. Active busPIRone (BUSPAR) 10 mg tablet Take 1 Tablet by mouth 2 times daily. Active OXYGEN-AIR DELIVERY SYSTEMS MISC Administer 2 L/min in each nostril. 4 Active calcium as CARBONATE-vitami n D3 (Oyster Shell Calcium-Vit D3) 500 mg-5 mcg (200 unit) tablet Take 1 Tablet by mouth 2 times daily. Active atorvastatin (LIPITOR) 20 mg tablet Take 20 mg by mouth. 5 Active apixaban (ELIQUIS) 2.5 mg tablet Take 2.5 mg by mouth. 4 025 Active albuterol (PROVENTIL,JOHN PAT) 2.5 mg /3 mL (0.083 %) Solution for Nebulization Take 2.5 mg by inhalation. 3 Active albuterol sulfate HFA 90 mcg/actuation aerosol inhaler Take 2 Puffs by inhalation. 3 Active acetaminophen (TYLENOL) 500 mg tablet Take 2 Tablets by mouth. Active acetaminophen (TYLENOL) 325 mg tablet Take 650 mg by mouth. Active cephALEXin (KEFLEX) 250 mg capsule Take 250 mg by mouth daily. Prophalactic. Active dilTIAZem (CARDIZEM CD, CARTIA XT) 240 mg Controlled Delivery 24 hour capsule Take 240 mg by mouth daily. Active escitalopram oxalate (LEXAPRO) 10 mg tablet Take 15 mg by mouth daily. Active gabapentin (NEURONTIN) 300 mg capsule Take 300 mg by mouth 2 times daily. Active insulin lispro (HumaLOG,ADMELOG ) 100 unit/mL vial Inject by subcutaneous injection 3 times daily with meals. Sliding scale Active hydrOXYzine HCL (ATARAX) 10 mg tablet Take 10 mg by mouth 3 times daily as needed for Itching. Active Insulin [place], Disposable, (Lite Touch Insulin Pen [place]) 29 gauge x 1/2 Needle by [facility].(Non-Drug; Combo Route) route. Active isosorbide mononitrate (ISMO) 20 mg tablet Take 30 mg by mouth daily. Active levothyroxine 100 mcg tablet Take 100 mcg by mouth daily in the morning. Active melatonin 1 mg Tablet Take by mouth nightly as needed. Active memantine (NAMENDA) 5 mg Tablet Take 14 mg by mouth daily. Active metoprolol succinate (TOPROL XL) 25 mg Extended Release 24 hour tablet Take 25 mg by mouth 2 times daily. HOLD IF PULSE LESS THAN 60 Active montelukast (SINGULAIR) 10 mg tablet Take 10 mg by mouth daily at bedtime. Active omeprazole (PriLOSEC) 20 mg Capsule, Delayed Release(E.C.) Take 20 mg by mouth daily. Active Saccharomyces boulardii (FLORASTOR) 250 mg Capsule Take by mouth daily at bedtime. Active phenazopyridine 100 mg tablet Take 100 mg by mouth 3 times daily as needed for Pain. Active QUEtiapine (SEROquel) 25 mg tablet Take 25 mg by mouth daily at bedtime. Active spironolactone (ALDACTONE) 25 mg tablet Take 25 mg by mouth daily. Active diclofenac sodium (VOLTAREN) 1 % gel Apply to affected area 4 times daily. Active fluticasone-umec lidinium-vilante rol (Trelegy Ellipta) 100-62.5-25 mcg Disk with DeviceIndication s:Acute hypoxic respiratory failure (CMS/HCC),Dyspne a on exertion Take 1 Puff by inhalation daily. 1 Each 3 5 Active insulin glargine (LANTUS) 100 unit/mL pen syringeIndicatio ns: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 (CMS/HCC) Inject 26 Units by subcutaneous injection daily with supper. 15 mL 3 5 Active Blood-Glucose Sensor (Dexcom G7 Sensor) DeviceIndication s: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 (CMS/HCC) 1 Device by Other route every 7 days. 1 Each 3 5 Active Blood-Glucose Meter,Continuous (Dexcom G7 Library Aide)Indicat ions: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 (CMS/HCC) Inject 1 Each by subcutaneous injection every 7 days. 4 Each 3 5 Active portable oxygenIndication s:Acute hypoxic respiratory failure (CMS/HCC),Oxygen dependent,Dyspne a on exertion Face to Face completed within 30 days: yes Length of Need: 99 months By: Nasal Cannula Continuously at 2 L/min. 1 Each 5 Active oxygen home deliveryIndicati ons:Acute hypoxic respiratory failure (CMS/HCC) Home Oxygen Concentrator no at 2 L/M Rest, 2 L/M Activity, 2 L/M Sleep, Delivery Device: Nasal Cannula Portability: yes, 2 L/M Rest, 2 L/M Activity, May provide device best for patient needs(E system,home fill, conserving device) Length of Need: 99 months 1 Each 5 Active torsemide (DEMADEX) 20 mg tablet Take 1 Tablet (20 mg) by mouth 2 times daily. 200 Tablet 5 Active SUMAtriptan (IMITREX) 50 mg tablet Take 1 Tablet (50 mg) by mouth every 2 hours as needed for Headaches. may repeat in 2 hours; max dose 200mg in 24 hours 100 Tablet 5 Active ciclopirox (LOPROX) 1 % Shampoo APPLY TOPICALLY TO AFFECTED AREAEVERY DAY FOR 1 WEEK, THEN EVERY OTHER DAY. 5 Active clobetasoL (TEMOVATE) 0.05 % Solution APPLY TO ITCHY AREAS OF SCALP NEEDED Active Dupixent Pen 300 mg/2 mL Pen Injector INJECT ONE pen UNDER THE SKIN EVERY FOUR weeks Active nystatin (NYSTOP) 100,000 unit/gram powder APPLY POWDER TOPICALLY TWICE DAILY NEEDED (GROIN AND BREAST FOLD) Active tacrolimus (PROTOPIC) 0.1 % Ointment APPLY TO FACE TWICE DAILY FOR TWO WEEKS ON AND TWO WEEKS OFF NEEDED-ALTERNATE WITH STEROID Active triamcinolone acetonide (KENALOG) 0.1 % Cream APPLY TWICE DAILY TO RED/ITCHY AREAS ON ARMS,LEGS,ABDOME N, AND BACK NEEDED. NO MORE THAN 2 WEEKS PER MONTH. NOT FOR USE ON FACE, GROIN, OR SKIN FOLDS. Active memantine (NAMENDA XR) 14 mg Extended Release 24 hour capsule Take 1 Tablet by mouth daily. Active Insulin [place], Disposable, 31 gauge x 10/03 Needle USE DIRECTED 3 (THREE) TIMES DAILY BEFORE MEALS AND AT BEDTIME Active tirzepatide (Mounjaro) 2.5 mg/0.5 mL Pen Injector Inject 0.5 mL (2.5 mg) by subcutaneous injection every 7 days. 2 mL 3 Active Active Problems Problem Noted Date Diagnosed Date Pulmonary embolism 03/03/2025 Vitamin B12 deficiency 03/03/2025 Iron deficiency 11/23/2024 Acute hypoxic respiratory failure 06/28/2024 Pneumonia of left lower lobe due to infectious o rganism 06/28/2024 Type 2 NE (myocardial infarction) 06/28/2024 PATRICE (acute kidney injury) 03/02/2024 Stage 3b chronic kidney disease 02/23/2024 CKD (chronic kidney disease) stage 4, GFR 15-29 ml/min 01/14/2024 Heart failure with preserved left ventricular function (HFpEF) 12/17/2023 GERD (gastroesophageal reflux disease) 4 Overview (11/23/2024): only with NSAIDs VRE (vancomycin-resistant Enterococci) infection 09/19/2023 Sepsis with encephalopathy without septic shock 07/01/2023 Type 2 diabetes mellitus wit h stage 3b chronic kidney disease and hypertension 06/03/2023 Weakness 06/01/2023 COVID-19 virus infection 05/21/2023 Detrusor overactivity 01/09/2023 Retention of urine 01/09/2023 Voiding dysfunction 10/04/2022 Urinary frequency 10/04/2022 Urinary urgency 10/04/2022 Vaginal atrophy 10/04/2022 Vulvar irritation 10/04/2022 Vulvar lesion 10/04/2022 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 07/15/2022 Caregiver burden 07/02/2022 Chronic migraine without aur a without status migrainosus, not intractable 02/06/2022 Decrease in appetite 01/29/2022 Gastroparesis 01/29/2022 Stage 3a chronic kidney disease 01/29/2022 Pericardial effusion 01/25/2022 Potential for deficient knowledge of diabetes me llitus 01/24/2022 Pacemaker 12/27/2021 Uncomplicated asthma 08/16/2021 Urinary tract infection without hematuria 2020 Meibomian gland dysfunction (MGD) of both eyes 1 08/11/2020 Coronary artery abnormality 06/06/2021 Chronic heart failure with p reserved ejection fraction (HFpEF) 06/06/2021 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 04/25/2021 EDGAR (obstructive sleep apnea) 03/05/2021 Distal radius fracture 01/22/2021 Scalp pruritus 09/19/2020 Pulmonary hypertension 08/20/2020 Dermatochalasis of both upper eyelids 01/20/2020 Dry eye syndrome of bilateral lacrimal glands Convergence insufficiency 01/20/2020 Disorder of refraction and accommodation 020 Fall at home, initial encounter 05/29/2019 Type 2 diabetes mellitus wit h diabetic autonomic neuropathy, with long-term current use of insulin 05/03/2019 Overview (11/23/2024): Managed by Endocrinology Longstanding type 2 diabetes Complications of diabetes: Neuropathy for which she takes gabapentin Dexcom, is set up to share data remotely Current Medications: Metformin caused GI distress Prior Medications: Lantus 26 units daily Humalog 14-12-14 1u:25>150 on premeal glucose Diabetic Monitoring: Last Diabetic Foot Exam: 02/09/2024 Last Diabetic Eye Exam: 12/31/2023 Last Urine Microalbumin: 01/16/2024 Last Lipid Panel: 01/16/2024 On ACEI/ARB?: No On Statin?: Atorvastatin 20 mg daily emt intermediate current use of anticoagulant therapy 0 07/31/2018 Hyperlipidemia 05/04/2018 Overview (11/23/2024): Statin therapy: Atorvastatin Lipitor 20 mg (low intensity), fenofibrate Labs: FLP q 12 months, CMP if symptoms of myalgia, fatigue, fever, weakness, jaundice, abdominal pain Lumbar pars defect 03/24/2018 Lumbar spine instability 03/24/2018 S/P lumbar spinal fusion 03/24/2018 Spinal pain 03/24/2018 Spinal stenosis of lumbar region 03/24/2018 Preop cardiovascular exam 02/20/2018 Heart block, first degree 12/29/2017 Overview (11/23/2024): Last Assessment & Plan: At this time she is in sinus tachycardia but I cannot increase the diltiazem because of first-degree heart block. Will assess after monitor Paroxysmal atrial fibrillation 09/01/2017 Dyspnea on exertion 09/01/2017 Overview (11/23/2024): Last Assessment & Plan: Normal ejection fraction. Negative stress test for ischemia. Continue to observe. Likely from atrial fibrillation. Will consider repeating a limited echocardiogram next visit to assess pericardial effusion that was small in August 2017. Spondylolisthesis of lumbar region 07/11/2017 Dry ARMD 10/03/2015 Pseudophakia 10/03/2015 Depression 10/13/2014 Renal cyst, right 10/13/2014 Overview (03/03/2025): Noted on US 09/28/14, pt asymptomatic. Degeneration of lumbar or lumbosacral interverte bral disc 02/01/2013 Hypothyroidism 12/01/2012 Overview (11/23/2024): Current levothyroxine dose: 100 mcg daily (dose decreased 07/08/2023) Primary hypertension 12/01/2012 Overview (11/23/2024): BP goal < 130/80 LDL goal < 100 Meds: Diltiazem, lisinopril, metoprolol tartrate Labs: BMP q 6 months, CBC yearly Diet: Heart healthy, DASH, Mediterranean Visit frequency: Every 6 months Next steps: Titrate blood pressure medication for any blood pressures greater than 150/90 Allergic rhinitis 12/01/2012 Resolved Problems Problem Noted Date Diagnosed Date Resolved Date Adverse effect of glucocorti coid or synthetic analogue 05/27/2023 11/23/2024 Encounters Date Type Department Care Team Description 03/10/2025 Orders Only [facility] [address] [place] [address] Provider, Abstract 03/09/2025 External Device Data [facility] ABSTRACTION Provider, Abstract 03/06/2025 Results Follow-Up [address] [phone] Gemma Schmidt MD HEMOGLOBIN A1C, BASIC METABOLIC PANEL, CBC WITH DIFFERENTIAL, Additional followed-up results: 2 03/03/2025 3:20 PM CDT Office Visit [address] [phone] Gemma Schmidt MD CKD (chronic kidney disease) stage 4, GFR 15-29 ml/min (CMS/HCC) (Primary Dx); Controlled type 2 diabetes mellitus without complication, with long-term current use of insulin (CMS/[facility]); Hypertension, unspecified type; Paroxysmal atrial fibrillation (CMS/HCC) 02/08/2025 External Device Data [facility] ABSTRACTION Provider, Abstract 02/02/2025 External Device Data [facility] Provider, Abstract 02/01/2025 External Device Data [facility] [place]STRACTION Provider, Abstract 01/26/[address] [address] Provider, Abstract 01/05/2025 External Device Data [facility] ABSTRACTION Provider, Abstract 01/04/2025 External Device Data [facility] [place]STRACTION Provider, Abstract 12/30/2024 Results Follow-Up [address] [phone] Jaja Dillon, ETIQUETTE COACH POC URINALYSIS DIPSTICK AUTOMATED, URINE CULTURE 12/30/2024 Orders Only [address] [phone] Jaja Dillon, ETIQUETTE COACH Urinary tract infection without hematuria, site unspecified (Primary Dx) 12/28/2024 External Device Data [facility] ABSTRACTION Provider, Abstract 12/28/[address] [phone] Provider, Abstract 12/27/2024 9:29 AM CDT - 12/27/2024 11:59 PM CDT Hospital Encounter [facility] [address] [phone] Jaja Dillon, ETIQUETTE COACH Urinary tract infection, site not specified Discharge Disposition: Home or Self Care 12/27/2024 9:00 AM CDT Office Visit [address] [phone] Jaja Dillon, ETIQUETTE COACH Urinary pain (Primary Dx); Urinary tract infection with hematuria, site unspecified 12/27/2024 Results Follow-Up [address] [place] [phone] Jaja Dillon, ETIQUETTE COACH CBC WITH DIFFERENTIAL, C-REACTIVE PROTEIN, BASIC METABOLIC PANEL 12/27/2024 Lab Requisition [facility] General Laboratory [facility] [address] [phone] Jaja Dillon, ETIQUETTE COACH Urinary tract infection, site not specified 12/20/[address] [phone] Gemma Schmidt MD 12/17/2024 Telephone [place] [address] [place] [address] Nikole Gilliam NP Provider Call from Last 3 Months Immunizations Immunization Administration Dates Next Due (ABRYSVO)(60 YR UP/GA 32-36 WKS) RSV, BIVALENT, PROTEIN SUBUNIT RSVPREF, DILUENT RECONSTITUTED, 0.5 ML, PF 05/05/2023 (ADACEL/BOOSTRIX)(10 YR UP) TDAP VACCINE, 0.5ML, IM 05/25/2019 (COMIRNATY)(12 YR UP) COVID- 19 VACCINE, MRNA, SPIKE PROTEIN, LNP, SHANTELL(PF) 30 MCG/0.3 ML IM SUSP 04/16/2024 (PNEUMOVAX 23)(50 YRS UP) PN EUMOCOCCAL POLYSACCHARIDE (PPV23) 0.5 ML, IM 07/08/2013 (PREVNAR 13)(6 WKS UP) PNEUM OCOCCAL CONJUGATE (PCV13) 0.5 ML, IM 04/20/2019 (SHINGRIX)(50 YRS UP) ZOSTER VACCINE RECOMBINANT, 0.5 ML, IM 11/09/2020,04/20/2019 (TENIVAC)(7 YRS UP) TETANUS AND DIPHTHERIA TOXOIDS, ADSORBED (5 LF OF TETANUS TOXOID AND 2 LF OF DIPHTHERIA TOXOID), 0.5ML (PF), IM 10/20/2003,12/26/1994 INFLUENZA VACCINE HIGH DOSE QUADRIVALENT 65 YR UP PF IM 04/15/2023 INFLUENZA VACCINE QUADRIVALE NT 6 MOS UP PF IM 2010 Influenza Seasonal Unspecifi ed Formulation PF IM 2010 Influenza Vaccine High Dose 65+ Yrs IM 0 04/16/2024,04/20/2022,04/14/2021,04/15,04/20/2019,05/04/2018,05/03/2018 ,05/18/2016 Pneumococcal 7-valent conjug ate vaccine IM 07/21/2014 Social History Tobacco Use Types Packs/Day Years Used Date Smoking Tobacco: Never Smokeless Tobacco: Never Tobacco Cessation:Counseling Given: No Alcohol Use Standard Drinks/Week Comments Not Currently 0 (1 standard drink = 0.6 oz pur e alcohol) Comments No Sex and Gender Information Value Date Recorded Sex Assigned at Not on file Legal Sex Female 1:19 PM CDT Gender Identity Not on file Sexual Orientation Not on file Last Filed Vital Signs Vital Sign Reading Time Taken Comments Blood Pressure 104/58 03/03/2025 3:16 PM CDT Pulse 65 03/03/2025 3:16 PM CDT Temperature 36.6 C (97.8 F) 03/03/2025 3:16 PM CDT Respiratory Rate 17 03/03/2025 3:16 PM CDT Oxygen Saturation 95% 03/03/2025 3:16 PM CDT Inhaled Oxygen Concentration - - Weight 98.9 kg (218 lb) 03/03/2025 3:16 PM CDT Height 160 cm (5' 3 ) 03/03/2025 3:16 PM CDT Body Mass Index 38.62 03/03/2025 3:16 PM CDT Plan of Treatment Upcoming Encounters Date Type Department Care Team (Late st Contact Info) Description 04/18/2025 3:20 PM CDT Office Visit [address] [phone] Gemma Shcmidt MD [address] [phone] 06/06/2025 2:20 PM 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 Office Visit [address] [phone] Gemma Schmidt MD [address] [phone] Health Maintenance Due Date Last Done Comments DIABETES MICROALBUMIN ANNUAL SCREEN 1963 LDL CHOLESTEROL ANNUAL 1963 OSTEOPOROSIS SCREENING 2010 Medicare Advantage ([place]) Preventative Visit/Annual Wellness Visit 07/21/2024 COVID-19 Vaccine (6 2023-2 5 season) 2024 04/16/2024, 03/31/2022, 05/03/2021, Additional history exists DIABETES ANNUAL FOOT EXAM 02/08/2025 02/09/2024 INFLUENZA VACCINE (#1) 2025 , 04/15/2023, 04/20/2022, Additional history exists DIABETES HBA1C Q 6 MONTHS 09/03/2025 03/03/2025, DIABETES ANNUAL RETINAL EXAM 01/28/202605/2025, 07/27/2024, 12/02/2023, Additional history exists DTAP/TDAP/TD VACCINES (2 - T d or Tdap) 05/25/2029 05/25/2019, 10/20/2003, 12/26/1994 PNEUMOCOCCAL VACCINE 50+ YEARS Completed 1 , 07/21/2014, 07/08/2013 ZOSTER VACCINE Completed 11/09/2020, 04/20/2019 RSV VACCINE (60+ or ) Completed 05/05/2023 Procedures Procedure Name Priority Date/Time Associated Diagnosis Comments PTH INTACT Routine 03/03/2025 4:21 PM CDT CKD (chronic kidney disease) stage 4, GFR 15-29 ml/min (CMS/HCC) VITAMIN D 25 HYDROXY Routine 03/03/2025 4:21 PM CDT CKD (chronic kidney disease) stage 4, GFR 15-29 ml/min (CMS/HCC) CBC WITH DIFFERENTIAL Routine 03/03/2025 4:21 PM CDT CKD (chronic kidney disease) stage 4, GFR 15-29 ml/min (CMS/HCC) BASIC METABOLIC PANEL Routine 03/03/2025 4:21 PM CDT CKD (chronic kidney disease) stage 4, GFR 15-29 ml/min (CMS/HCC) HEMOGLOBIN A1C Routine 03/03/2025 4:21 PM CDT Controlled type 2 diabetes mellitus without complication, with long-term current use of insulin (CMS/HCC) HM DIABETES EYE EXAM Routine 01/28/2025 12:20 PM CDT BASIC METABOLIC PANEL Stat 12/27/2024 9:41 AM CDT Urinary tract infection, site not specified C-REACTIVE PROTEIN Stat 12/27/2024 9: 41 AM CDT Urinary tract infection, site not specified CBC WITH DIFFERENTIAL Stat 12/27/2024 9:41 AM CDT Urinary tract infection, site not specified URINE CULTURE Routine 12/27/2024 9:37 AM CDT Urinary tract infection with hematuria, site unspecified POC URINALYSIS DIPSTICK AUTOMATED Routine 12/27/2024 9:08 AM CDT Urinary pain from Last 3 Months Results * CBC WITH DIFFERENTIAL (03/03/2025 4:21 PM CDT) Only the most recent of2 resultswithin the time period is included. WBC 6.6 3.8 - 10.8 Thousand/u L [facility] RBC 4.35 3.80 - 5.10 Million/uL [facility] HEMOGLOBIN 14.3 11.7 - 15.5 g/dL [facility] HEMATOCRIT 43.1 35.0 - 45.0 % [facility] MCV 99.1 80.0 - 100.0 fL [facility] MCH 32.9 27.0 - 33.0 pg [facility] MCHC 33.2 32.0 - 36.0 g/dL [facility] Comment: For adults, a slight decrease in the calculated MCHC value (in the range of 30 to 32 g/dL) is most likely not clinically significant; however, it should be interpreted with caution in correlation with other red cell parameters and the patient's clinical condition. RDW 12.0 11.0 - 15.0 % [facility] PLATELETS 178 140 - 400 Thousand/u L [facility] MPV 11.4 7.5 - 12.5 fL [facility] NEUTROPHIL ABSOLUTE 4,613 1,500 - 7,800 cells/uL [facility] LYMPHOCYTE ABSOLUTE 1,307 850 - 3,900 cells/uL [facility] MONOCYTE ABSOLUTE 449 200 - 950 cells/uL [facility] EOSINOPHIL ABSOLUTE 191 15 - 500 cells/uL [facility] BASOPHILS ABSOLUTE 40 0 - 200 cells/uL [facility] NEUTROPHIL 69.9 % [facility] LYMPHOCYTES 19.8 % [facility] MONOCYTE 6.8 % [facility] EOSINOPHILS 2.9 % [facility] BASOPHILS 0.6 % [facility] Comment: Test Performed at: [facility] [address] Chiquita Rodriguez MD Blood 03/03/2025 4:21 PM CDT 03/04/2025 2:54 AM CDT us Gemma Schmidt MD HEMATOLOGY ORDERABLES Final Result [facility] [phone] [address] * VITAMIN D 25 HYDROXY (03/03/2025 4:21 PM CDT) Pathologist [facility] VITAMIN D, 25 OH, TOTAL 40 30 - 100 ng/mL [facility] Comment: Vitamin D Status 25-OH Vitamin D: Deficiency: <20 ng/mL Insufficiency: 20 - 29 ng/mL Optimal: > or = 30 ng/mL For 25-OH Vitamin D testing on patients on D2-supplementation and patients for whom quantitation of D2 and D3 fractions is required, the [facility] 25-OH VIT D, (D2,D3), LC/MS/MS is recommended: order code 77517 (patients >2yrs). See Note 1 Note 1 For additional information, please refer to [email or web address] (This link is being provided for informational/ educational purposes only.) Test Performed at: [facility] [address] Chiquita Rodriguez MD Blood 03/03/2025 4:21 PM CDT 03/04/2025 2:54 AM CDT Gemma Schmidt MD CHEMISTRY ORDERABLES Final Result Performing Organization Address City/[facility]/ZIP Co de Phone Number [facility] [phone] [facility] [address] [place] [address] * (ABNORMAL) PTH INTACT (03/03/2025 4:21 PM CDT) PTH INTACT 129(H) 16 - 77 pg/mL [facility] Comment: Interpretive Guide Intact PTH Calcium ------- Normal Parathyroid Normal Normal Hypoparathyroidism Low or Low Normal Low Hyperparathyroidism Primary Normal or High High Secondary High Normal or Low Tertiary High High Non-Parathyroid Hypercalcemia Low or Low Normal High Test Performed at: [facility] [address] Chiquita Rodriguez MD Blood 03/03/2025 4:21 PM CDT 03/04/2025 2:54 AM CDT Gemma Schmidt MD CHEMISTRY ORDERABLES Final Result Performing Organization Address [facility] de Phone Number [facility] [phone] [facility] [address] [place] [address] * (ABNORMAL) HEMOGLOBIN A1C (03/03/2025 4:21 PM CDT) HEMOGLOBIN A1C 8.3(H) <5.7 % [facility] Comment: For someone without known diabetes, a hemoglobin A1c value of 6.5% or greater indicates that they may have diabetes and this should be confirmed with a follow-up test. For someone with known diabetes, a value <7% indicates that their diabetes is well controlled and a value greater than or equal to 7% indicates suboptimal control. A1c targets should be individualized based on duration of diabetes, age, comorbid conditions, and other considerations. Currently, no consensus exists regarding use of hemoglobin A1c for diagnosis of diabetes for children. ESTIMATED AVERAGE GLUCOSE (MG/DL) 192 mg/dL [facility] ESTIMATED AVERAGE GLUCOSE (MMOL/L) 10.6 mmol/L [facility] Comment: Test Performed at: [facility] [address] [facility] [place] [address] Chiquita Rodriguez MD Blood 03/03/2025 4:21 PM CDT 03/04/2025 2:54 AM CDT us Gemma Schmidt MD CHEMISTRY ORDERABLES Final Result [facility] [phone] [facility] [address] * (ABNORMAL) BASIC METABOLIC PANEL (03/03/2025 4:21 PM CDT) Only the most recent of2 resultswithin the time period is included. GLUCOSE 227(H) 65 - 99 mg/dL [facility] Comment: Fasting reference interval For someone without known diabetes, a glucose value >125 mg/dL indicates that they may have diabetes and this should be confirmed with a follow-up test. BUN 63(H) 7 - 25 mg/dL [facility] CREATININE 1.92(H) 0.60 - 1.00 mg/dL [facility] GFR 26(L) > OR = 60 mL/min/1.7 3m2 [facility] BUN/CREAT RATIO 33(H) 6 - 22 (calc) [facility] SODIUM 134(L) 135 - 146 mmol/L [facility] POTASSIUM 4.9 3.5 - 5.3 mmol/L [facility] CHLORIDE 100 98 - 110 mmol/L [facility] CO2 21 20 - 32 mmol/L [facility] CALCIUM 9.3 8.6 - 10.4 mg/dL [facility] Comment: Test Performed at: [facility] [address] [place] [address] Chiquita Rodriguez MD Blood 03/03/2025 4:21 PM CDT 03/04/2025 2:54 AM CDT us Gemma Schmidt MD CHEMISTRY ORDERABLES Final Result Performing Organization Address City/[facility]/ZIP Co de Phone Number [facility] [phone] [facility] [address] [place] [address] * DIABETES EYE EXAM (01/28/2025 12:20 PM CDT) us Abstract Provider HEALTH MAINTENANCE Final Resul t * C-REACTIVE PROTEIN (12/27/2024 9:41 AM CDT) CRP 4.8 <5.0 mg/L 12/27/2024 10:21 AM CDT [facility] Blood 12/27/2024 9:41 AM CDT 12/27/2024 9:56 AM CDT us Jaja Dillon ETIQUETTE COACH CHEMISTRY ORDERABLES Final Result Performing Organization Address City/[facility]/ZIP Co de Phone Number [facility] CLIA # [id number] [address] [place] [id number] * (ABNORMAL) URINE CULTURE (12/27/2024 9:37 AM CDT) URINE CULTURE SEE NOTE(A) [facility] Comment: CULTURE, URINE, ROUTINE Micro Number: [id number] Test Status: Final Specimen Source: Urine, clean catch Specimen Quality: Adequate Result: Greater than 100,000 CFU/mL of Enterobacter cloacae E.cloacae INT LAISHA AMOX/CLAVULANATE R >=32 CEFAZOLIN R >=64 1 CEFEPIME S 0.25 CEFTAZIDIME R 16 CIPROFLOXACIN S 0.12 GENTAMICIN S <=1 IMIPENEM S 1 LEVOFLOXACIN S 0.5 MEROPENEM S <=0.25 NITROFURANTOIN R 128 PIP/TAZOBACTAM R 64 TRIMETHOPRIM/SULFA S <=20 S = Susceptible I = Intermediate R = Resistant NS = Not susceptible SDD = Susceptible Dose Dependent * = Not Tested NR = Not Reported NN = See Therapy Comments THERAPY COMMENTS Note 1: For uncomplicated UTI caused by E. coli, K. pneumoniae or P. mirabilis: Cefazolin is susceptible if LAISHA <32 mcg/mL and predicts susceptible to the oral agents cefaclor, cefdinir, cefpodoxime, cefprozil, cefuroxime, cephalexin and loracarbef. Test Performed at: [facility] [place] [address] Chiquita Rodriguez MD Urine URINE SPECIMEN OBTAINED BY CLEAN CATCH PROCEDURE / Unknown 12/27/2024 9:37 AM CDT 12/28/2024 3:14 AM CDT Jaja Dillon [facility] MICROBIOLOGY - [facility]AL [facility] [place] Final Result [facility] [phone] [facility] [address] [place] [address] * (ABNORMAL) POC URINALYSIS DIPSTICK AUTOMATED (12/27/2024 9:08 AM CDT) COLOR UA POC [place](A) Pale to Dark Yellow [facility] CLARITY UA POC Clear Clear, Other [facility] GLUCOSE UA POC Trace(A) Negative, Normal [facility] BILIRUBIN UA POC Negative Negative [facility] [place] UA POC Negative Negative [facility] SPECIFIC GRAVITY UA POC 1.020 1.000 - 1.030 [facility] BLOOD UA POC 3+(A) Negative [facility] UA POC 6.0 5.0 - 8.0 [facility] PROTEIN UA POC 2+(A) Negative [facility] UROBILINOGEN UA POC 0.2 <2.0 mg/dL [facility] NITRITE UA POC Positive(A) Negative [facility] [place] LEUKOCYTE ESTERASE UA POC 3+(A) Negative [facility] KIT LOT NUMBER POC [phone] [facility] KIT EXP DATE POC [id number] [facility] Urine 12/27/2024 9:08 AM CDT Jaja Dillon ETIQUETTE COACH POINT OF CARE TESTING Final Result [facility] CLIA# [id number] [address] [place] [address] from Last 3 Months Insurance [facility] [id number] [place] [id number] Care Teams Manager Fraud Relationship Specialty Start Date End Date Gemma Schmidt MD [address] [place] [address] PCP - General Family Practice 11/23/24
--- OUTSIDE RECORDS SUMMARY | 2025-03-14 19:55 | XMS_ITS | Encounter Summary ---
Author Organization [facility] Address [address] [place] [address] Care Team Providers Care Brick Yard Hand Name Role Phone Gemma Schmidt MD Primary Care Provider Encounter Details Date Type Department Care Team ([facility] Contact Info) Description 03/10/2025 Orders Only [facility] [address] [place] [id number] Provider, Abstract NO ADDRESS ON FILE Social [...] Description 04/18/2025 3:20 PM CDT Office Visit [address] [phone] Gemma Schmidt MD [facility] [address] [address] 06/06/2025 2:20 PM DIGITAL CONTENT PRODUCER Office Visit [address] [address] Gemma Schmidt MD [address] [address] documented as of this encounter Procedures Procedure Name Priority Date/Time Associated Diagnosis Comments DIABETES EYE EXAM Routine 01/28/2025 12:20 PM CDT documented in this encounter Results * DIABETES EYE EXAM (01/28/2025 12:20 PM CDT) us Abstract Provider HEALTH MAINTENANCE Final Resul t documented in this encounter Visit Diagnoses Not on filedocumented in this encounter Care Teams Brick Yard Hand Relationship Specialty Start Date End Date Gemma Schmidt MD [address] [address] PCP - General Family Practice 11/23/24 documented as of this encounter
--- OUTSIDE RECORDS SUMMARY | 2025-03-14 19:55 | XMS_ITS | Clinical Summary ---
Author Organization [facility] [address] Address [address] [place] [address] Care Team Providers Care Yarding And Folding Machine Operator Name Role Phone Keven Wallace MD Unavailable Yisel Vega Christiano DO Primary Care Provider [phone] Allergies Active Allergy Reactions Criticality Noted Date Comments Penicillins Rash,Unknown Medium 09/01/2017 Sulfa (Sulfonamide Antibiotics) Rash Medium 12/19 Medications acetaminophen (TYLENOL) 325 mg tablet Take 650 mg by mouth every 6 (six) hours as needed for pain. Active famotidine (PEPCID) 20 mg tablet Take 20 mg by mouth 2 (two) times a day. Active POTASSIUM CHLORIDE ER 10 mEq CR tablet TK 1 T PO QD WF 0 9 Active atorvastatin (LIPITOR) 20 mg tablet Take 20 mg by mouth 0 Active FreeStyle Lite Strips strip USE DIRECTED EVERY DAY 1 Active blood-glucose meter (FreeStyle Lite Meter) kit 1 each as directed 9 Active Symbicort 160-4.5 mcg/actuation inhaler 1 Active buPROPion SR (WELLBUTRIN SR) 100 mg 12 hr tablet 1 Active cholecalciferol (VITAMIN D-3) 2000 unit tablet Take by mouth Active gabapentin (NEURONTIN) 100 mg capsule Take 1 capsule mid-day, 3 capsules at night. 1 Active lancets 28 gauge misc daily 1 Active busPIRone (BUSPAR) 15 mg tablet 1 Active fluticasone propionate (FLONASE) 50 mcg/actuation nasal spray Apply 2 sprays to mouth 2 (two) times a day 6 Active levothyroxine (SYNTHROID) 125 mcg tablet Take 125 mcg by mouth daily 1 Active montelukast (SINGULAIR) 10 mg tablet Take 10 mg by mouth nightly 0 Active furosemide (LASIX) 20 mg tablet Take 1 tablet (20 mg total) by mouth daily 90 tablet 3 1 Active metoprolol tartrate (LOPRESSOR) 75 mg tablet immediate release tablet Take 1 tablet (75 mg total) by mouth 2 (two) times a day 60 tablet 1 Active dilTIAZem CD (CARDIZEM CD) 300 mg 24 hr capsule Take 1 capsule (300 mg total) by mouth daily 30 capsule 1 Active hydrOXYzine (VISTARIL) 25 mg capsule Take 1 capsule (25 mg total) by mouth every 6 (six) hours as needed for anxiety 30 capsule 1 Active warfarin (COUMADIN) 3 mg tablet Humsini Viswanath 30 tablet 1 Active Active Problems Problem Noted Date Diagnosed Date EDGAR (obstructive sleep apnea) 03/05/2021 Atrial tachycardia 12/28/2018 Atrial fibrillation ([facility]) [I48.91] 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 Next visit recheck lipid panel and if remains elevated then we suggest to add low-dose statin Preop cardiovascular exam 02/20/2018 Assessment & Plan (02/20/2018 9:18 AM CDT): May proceed for the back surgery as planned. Heart block, first degree 12/29/2017 Assessment & Plan (12/29/2017 11:55 AM CDT): At this time she is in sinus tachycardia but I cannot increase the diltiazem because of first-degree heart block. Will assess after monitor Paroxysmal atrial fibrillation 09/01/2017 Assessment & Plan (05/04/2018 9:31 AM CDT): She converted on her own to sinus rhythm. Continue diltiazem, metoprolol and Eliquis. Assessment & Plan (02/20/2018 9:16 AM CDT): Atrial fibrillation is not well controlled. Start metoprolol 25 mg b.i.d. and discontinue losartan to allow blood pressure room.. Will attempt to do cardioversion after her back surgery scheduled on March 24. Continue Eliquis for now. Assessment & Plan (12/29/2017 11:54 AM CDT): In sinus rhythm. Continue Eliquis.. Will arrange for 15 day event monitor to evaluate her symptoms of excessive sweating and fatigue and rule out atrial fibrillation and significant pauses as possible etiology. Assessment & Plan (11/03/2017 1:18 PM CDT): I will increase diltiazem from 120-180 mg daily. Continue Eliquis Assessment & Plan (09/15/2017 11:36 AM SUPERVISOR CAPACITOR PROCESSING): Chads Vasc score 3. Will start Xarelto 20 mg p.o. Daily. Continue diltiazem. No need to take aspirin now. Advised patient to reduce meloxicam intake. Assessment & Plan (09/01/2017 12:28 PM SUPERVISOR CAPACITOR PROCESSING): Will order an echocardiogram to assess cardiac structure and function and rule out underlying structural heart disease as possible etiology. Chads score 1, chads Vasc 3. She will benefit from anticoagulation and therefore I will discuss that with her next visit. Dyspnea on exertion 09/01/2017 Assessment & Plan (02/20/2018 9:17 AM CDT): Normal ejection fraction. Negative stress test for ischemia. Continue to observe. Likely from atrial fibrillation. Will consider repeating a limited echocardiogram next visit to assess pericardial effusion that was small in August 2017. Assessment & Plan (12/29/2017 11:54 AM CDT): Lexiscan nuclear stress test negative for ischemia. She has underlying asthma. Assessment & Plan (11/03/2017 1:19 PM CDT): Lexiscan nuclear stress test was negative for ischemia. Continue to observe. Likely dyspnea on exertion secondary to asthma. Assessment & Plan (09/15/2017 11:31 AM SUPERVISOR CAPACITOR PROCESSING): She has strong family history for coronary artery disease. She gets very fatigue on exertion. Cannot rule out angina equivalent. Schedule Lexiscan nuclear stress test to rule out ischemia. Assessment & Plan (09/01/2017 12:46 PM SUPERVISOR CAPACITOR PROCESSING): This patient does have underlying asthma however given her symptoms and family history for coronary artery disease I will recommend for her to undergo a stress test. Will discuss with her ordering the stress test next visit. Essential hypertension 09/01/2017 Assessment & Plan (05/04/2018 9:31 AM CDT): Blood pressure is controlled. Continue current medications Assessment & Plan (02/20/2018 9:16 AM CDT): Blood pressure is controlled. Continue current treatment Assessment & Plan (12/29/2017 11:54 AM CDT): Blood pressure is well controlled. Continue current treatment Assessment & Plan (11/03/2017 1:19 PM CDT): Blood pressure is controlled. Continue current treatment Assessment & Plan (09/15/2017 11:31 AM SUPERVISOR CAPACITOR PROCESSING): Blood pressure is controlled. Continue current treatment Assessment & Plan (09/01/2017 12:47 PM SUPERVISOR CAPACITOR PROCESSING): Blood pressure is controlled. Continue current medications. Pulmonary embolism Immunizations Immunization Administration Dates Next Due Influenza, Trivalent, High D ose, Split, Preservative Free, Intramuscular 04/15/2020,04/20/2019,05/04/2018,05/03,05/18/2016 Influenza, Trivalent, Preser vative Free, Intramuscular 2010 Pneumococcal Conjugate 7-Valent 07/21/2014 Pneumococcal Conjugate PCV 13 04/20/2019 Pneumococcal Polysaccharide PPV23 07/08/2013 TD Preservative Free 10/20/2003,12/26/1994 Tdap 05/25/2019 ZOSTER Recombinant 11/09/2020,04/20/2019 Surgical History Surgery Date Site/Laterality Comments CATARACT EXTRACTION, BILATERAL CHOLECYSTECTOMY TOTAL HIP ARTHROPLASTY BACK SURGERY Medical History Medical History Date Comments Atrial fibrillation (HCC) Pneumonia Anxiety Depression Asthma Arthritis Hypertension Thyroid disease Hyperlipidemia Family History Medical History Relation Name Comments Heart attack Brother Heart attack Father Heart failure Father Hypertension Father Alzheimer's disease Mother Relation Name Status Comments Brother Father (Age 69) Mother (Age 93) Social History Tobacco Use Types Packs/Day Years Used Date Smoking Tobacco: Never Smokeless Tobacco: Never Alcohol Use Standard Drinks/Week Comments Yes 0 (1 standard drink = 0.6 oz pur e alcohol) rarely Personal Safety Answer Date Recorded Getting School Help Needed Not on file 10/04 Comments Unknown Sex and Gender Information Value Date Recorded Sex Assigned at Not on file Legal Sex Female 1:02 PM CDT Gender Identity Not on file Sexual Orientation Not on file Obstetrics History Last Filed Vital Signs Vital Sign Reading Time Taken Comments Blood Pressure 123/62 03/07/2021 3:57 PM CDT Pulse 95 03/07/2021 3:57 PM CDT Temperature 36.4 C (97.5 F) 03/07/2021 3:57 PM CDT Respiratory Rate 17 03/07/2021 3:57 PM CDT Oxygen Saturation 96% 03/07/2021 11: 20 AM CDT Inhaled Oxygen Concentration - - Weight 86.6 kg (190 lb 14.4 oz) 03/07/2021 1:40 AM CDT Height 160 cm (5' 3 ) 03/05/2021 8:50 PM CDT Body Mass Index 33.82 03/05/2021 8:50 PM CDT Plan of Treatment Not on file Insurance MEDICARE [employer] CHOICE MEDICARE PPO [facility] MEDICARE HMO/PPO Advance Directives For more information, please contact: [phone] * Full Code (Latest Code Status on File) Date Activated Date Inactivated Comments 03/05/2021 9:51 PM 03/07/2021 11:28 PM Care Teams Yarding And Folding Machine Operator Relationship Specialty Start Date End Date Gary Yiselzeinab Alvarado DO [address] [place] [address] PCP - General Family Practice 12/15/20 Keven Wallace MD [address] [place] [address] 08/11/17
--- OUTSIDE RECORDS SUMMARY | 2025-03-14 19:55 | XMS_ITS | Clinical Summary ---
Author Organization [facility] Address [address] [address] Phone Care Team Providers Care Tractor Expert Name Role Phone Gemma Schmidt MD Primary Care Provider Encounters Date Type Department Care Team Description 03/11/[address] [facility], [facility] [address] [place] [address] Dior Geller 03/04/[address] [facility], [facility] [address] [place] [address] Hamlet Andersen MD from Last 3 Months Social History Tobacco Use Types Packs/Day Years Used Date Smoking Tobacco: Never Assessed Comments Unknown Sex and Gender Information Value Date Recorded Sex Assigned at Not on file Legal Sex Female 2:32 PM EDT Gender Identity Not on file Sexual Orientation Not on file Plan of Treatment Upcoming Encounters Date Type Department Care Team (Late st Contact Info) Description 08/29/2025 1:00 PM STATISTICAL TYPIST Office Visit [facility] [address] [address] Hamlet Andersen MD [address] [place] [address] Health Maintenance Due Date Last Done Comments Diabetes: Hemoglobin A1C 03/04/2025 11/08/2024 Diabetes: Ophthalmology Exam 03/04/2025, 06/11/2021, 01/20/2020 Diabetes: Pedal Pulse Checked 03/04/2025 Diabetes: Sensory Foot Exam 03/04/2025 Diabetes: Visual Foot Exam 03/04/2025 Influenza Vaccine (#1) 2025 4, 04/20/2022, 04/14/2021, Additional history exists Pneumococcal Vaccine: 50+ Years Completed 04/20/2019, 07/21/2014, 07/08/2013 Hepatitis B Vaccine Aged Out No longe r eligible based on patient's age to complete this topic Insurance [facility] [place] [address] Care Teams Tractor Expert Relationship Specialty Start Date End Date Gemma Schmidt MD [address] [facility] [address] [place] [address] PCP - General Family Medicine 03/04/25
--- OUTSIDE RECORDS SUMMARY | 2025-03-14 19:55 | XMS_ITS | Encounter Summary ---
Author Organization [facility] Address [address] [place] [address] Care Team Providers Care Cfa Name Role Phone Keven Wallace MD Primary Care Provider Keven Wallace MD Unavailable [phone] Fili Nielsen MD Primary Care Provider + [phone] Yisel Vega DO Primary Care Provider [phone] Encounter Details Date Type Department Care Team (Late st Contact Info) Description 10/01/2017 Orders Only [facility] Health Information Management [address] [place] [id number] Scanning, Provider Social History Tobacco Use [...] Procedure Name Priority Date/Time Associated Diagnosis Comments SLEEP LAB/STUDY - RESULT 10/01/2017 documented in this encounter Results * SLEEP LAB/STUDY - RESULT (10/01/2017) us Provider Scanning Final Result documented in this encounter Visit Diagnoses Not on filedocumented in this encounter Care Teams Cfa Relationship Specialty Start Date End Date Keven Wallace MD [address] [place] [address] PCP - General Family Medicine 08/11/17 12/20/18 Fili Nielsen MD [address] [place] [address] PCP - General Family Practice 12/21/18 12/14/20 Yisel Vega DO [address] [place], [place] [id number] PCP - General Family Practice 12/15/20 Keven Wallace MD [address] [place] [address] 08/11/17 documented as of this encounter
--- NOTE | 2025-03-14 20:11 | XRR_ITS ---
PROCEDURE INFORMATION: Exam: XR Left Ankle Exam date and time: 03/14/2025 8:15 PM Age: 79 years old Clinical indication: Injury or trauma; Fall; Blunt trauma; Ankle; Left TECHNIQUE: Imaging protocol: Radiologic exam of the left ankle. Views: 3 or more views. COMPARISON: No relevant prior studies available. FINDINGS: Bones/joints: Fractures of the medial malleolus and fibula above the level of the ankle mortise, probably with callus formation though no priors for comparison. Heel spurs. Soft tissues: Normal. XR/XR ankle LT min 3V* [id number] IMPRESSION: Fractures of the medial malleolus and fibula above the level of the ankle mortise, probably with callus formation though no priors for comparison. Heel spurs.
--- NOTE | 2025-03-14 20:21 | XRR_ITS ---
PROCEDURE INFORMATION: Exam: XR Chest Exam date and time: 03/14/2025 8:19 PM Age: 79 years old Clinical indication: Condition or disease; Other: Pre-surgical clearance; Prior surgery; Surgery date: 6+ months; Surgery type: Pacemaker TECHNIQUE: Imaging protocol: Radiologic exam of the chest. Views: 1 view. COMPARISON: No relevant prior studies available. FINDINGS: Tubes, catheters and devices: Left chest cardiac device. Lungs: Patchy perihilar opacities in the right irjfo-gaytfqw-dref-left lung, may be related to chronic findings, especially given chronic appearings strands throughout both lungs, although no priors for comparison; correlate for infection. Pleural spaces: Unremarkable. No pleural effusion. No pneumothorax. Heart/Mediastinum: Unremarkable. No cardiomegaly. Bones/joints: Unremarkable. XR/XR chest 1V portable [id number] IMPRESSION: Patchy perihilar opacities in the right xxxyu-jtevxyq-mucj-left lung, may be related to chronic findings, especially given chronic appearings strands throughout both lungs, although no priors for comparison; correlate for infection.
[2025-03-14 20:24] LABS: Hematocrit 38.0 % (36-47); Hemoglobin 12.60 g/dL (11.27-16.99); Mean Corpuscular HGB Conc 33.2 g/dL (30-55); Mean Corpuscular Hemoglobin 31.7 pg (27-33); Mean Corpuscular Volume 95.7 fl (85-98); Nucleated Red Blood Cells % 0 %; Platelet Count 173 10^3/cmm (157-399); Red Blood Count 3.97 10^6/uL (3.85-5.65); White Blood Count 7.83 10^3/uL (3.29-11.43)
[2025-03-14 20:27] VITALS: BP 129/57; PULSE 59; O2SAT 95
[2025-03-14] MEDS: morphine 4 mg/mL SDV 1 mL IVP ×2 (20:27→22:07)
[2025-03-14 20:38] LABS: Alanine Aminotransferase 18 U/L (0-33); Albumin Level 4.2 g/dL (3.5-5.2); Alkaline Phosphatase 133 U/L (35-105); Anion Gap 22.6 (5-19); Aspartate Amino Transferase 14 U/L (0-32); Blood Urea Nitrogen 60 mg/dL (8-23); Calcium 8.9 mg/dL (8.5-10.5); Carbon Dioxide 18 mmol/L (22-29); Chloride 100 mmol/L (98-107); Creatinine Clr Calc Pharmacy 25.3665; Globulin 2.3 g/dL (1.3-4.6); Glucose 176 mg/dL (65-115); Osmolality Calculated 301 mOsm/kg (285-295); Potassium 5.6 mmol/L (3.5-5.1); Sodium 135 mmol/L (136-145); Total Protein 6.5 g/dL (6.6-8.7)
--- NOTE | 2025-03-14 20:40 | ECG_ITS ---
[facility] [employer] Test Date: 2025-03-15 Pat Name: Kiana Trivedi Department: Room: 271 Gender: Female Head Grinder: : 1945 Requested By: Gabriel Cook Order Number: [id number] Naylor MD: Luciano Dumont M.D. Measurements Intervals Sims Rate: 97 P: 0 IL: 0 QRS: -5 QRSD: 100 T: 122 QT: 358 QTc: 456 Interpretive Statements ATRIAL FIBRILLATION LOW QRS VOLTAGE IN PRECORDIAL LEADS [QRS DEFLECTION < 1.0 mV IN CHEST LEADS] PATTERN CONSISTENT WITH PULMONARY DISEASE ST DEVIATION AND MODERATE T-WAVE ABNORMALITY, CONSIDER LATERAL ISCHEMIA [-0.1+ mV T-WAVE IN I/aVL/V5/V6] Compared to ECG 02/01/2025 11:51:12 Low QRS voltage now present T-wave abnormality now present Possible ischemia now present Ventricular-paced complex(es) or rhythm no longer present Electronically Signed On 03-15-2025 08:03:53 CDT by Luciano Dumont M.D. [email or web address]
--- NOTE | 2025-03-14 20:48 | W.ED.FALL ---
HPI - Fall General: Chief Complaint: Fall Stated Complaint: fall Time Seen by Provider: 03/14/25 19:48 Related Data Home Medications ?Medication ?Instructions ?Recorded ?Confirmed Saccharomyces boulardii 250 mg 250 mg PO .q hs 02/01/25 capsule (Florastor) escitalopram oxalate 10 mg tablet 15 mg PO DAILY 02/01/25 fluticasone fur. 100 mcg-umeclid 1 inh inhalation DAILY 02/01/25 62.5 mcg-vilant 25 mcg inhalat.powder (Trelegy Ellipta) gabapentin 300 mg capsule 300 mg PO BID 02/01/25 hydroxyzine HCl 10 mg tablet 10 mg PO TID PRN 02/01/25 insulin glargine 100 unit/mL (3 26 unit SUBCUT QAM 02/01/25 mL) subcutaneous pen (Lantus Solostar U-100 Insulin) insulin lispro 100 unit/mL 3 unit SUBCUT TID 02/01/25 subcutaneous pen, sensor isosorbide mononitrate 30 mg 30 mg PO DAILY 02/01/25 tablet,extended release 24 hr levothyroxine 100 mcg capsule 100 mcg PO DAILY 02/01/25 melatonin 1 mg tablet 1 mg PO DAILY PRN 02/01/25 memantine 5 mg tablet (Namenda) 5 mg PO QAM 02/01/25 metoprolol succinate 25 mg 25 mg PO BID 02/01/25 tablet,extended release 24 hr montelukast 10 mg tablet 10 mg PO DAILY 02/01/25 omeprazole 20 mg capsule,delayed 20 mg PO DAILY 02/01/25 release phenazopyridine 100 mg tablet 100 mg PO TID PRN 02/01/25 quetiapine 25 mg tablet 25 mg PO .q hs 02/01/25 spironolactone 25 mg tablet 25 mg PO DAILY 02/01/25 sumatriptan succinate 50 mg tablet See Rx Instructions PO .COMPLEX 02/01/25 torsemide 20 mg tablet 20 mg PO BID 02/01/25 Allergies Allergy/AdvReac Type Severity Reaction Status Date / Time Penicillins Allergy ALGY-Hives Verified 02/01/25 10:43 Sulfa (Sulfonamide Allergy Rash Verified 02/01/25 10:43 Antibiotics) PFS ED PFSH: Medical History (Updated 02/02/25 @ 00:15 by Luciano Dumont MD) CAD (coronary artery disease) of artery bypass graft Afib Iron deficiency GERD (gastroesophageal reflux disease) CHF (congestive heart failure) Hyperlipemia Pacemaker Hypothyroid EDGAR (obstructive sleep apnea) Hypertension Diabetes mellitus Social History Smoking and tobacco/nicotine status: never used tobacco/nicotine Second hand smoke exposure: Yes Alcohol intake: current Alcohol intake frequency: holidays/special occasions only Substance/Drug Use: never Course Vital Signs: Vital signs: Vital Signs Temperature 98.4 F 03/14/25 19:50 Pulse Rate 59 L 03/14/25 20:27 Respiratory Rate 18 03/14/25 19:50 Blood Pressure 129/57 03/14/25 20:27 Pulse Oximetry 95 03/14/25 20:27 Oxygen Delivery Me thod Nasal Cannula 03/14/25 20:27 Oxygen Flow Rate 2 03/14/25 20:27 MDM - Fall Lab Data 03/14/25 20:15 03/14/25 20:15 Radiology Impressions Ankle X-Ray 03/14/25 20:11 IMPRESSION: Fractures of the medial malleolus and fibula above the level of the ankle mortise, probably with callus formation though no priors for comparison. Heel spurs. Chest X-Ray 03/14/25 20:21 IMPRESSION: Patchy perihilar opacities in the right [id number]-cuiz-left lung, may be related to chronic findings, especially given chronic appearings strands throughout both lungs, although no priors for comparison; correlate for infection. Laboratory Results WBC 7.83 10^3/uL (3.29-11.43) 03/14/25 20:15 RBC 3.97 10^6/uL (3.85-5.65) 03/14/25 20:15 Hgb 12.60 g/dL (11.27-16.99) 03/14/25 20:15 Hct 38.0 % (36-47) 03/14/25 20:15 MCV 95.7 fl (85-98) 03/14/25 20:15 MCH 31.7 pg (27-33) 03/14/25 20:15 MCHC 33.2 g/dL (30-55) 03/14/25 20:15 RDW 12.7 % (12.1-15.1) 03/14/25 20:15 Plt Count 173 10^3/cmm (157-399) 03/14/25 20:15 MPV 11.5 fL (7.4-10.4) H 03/14/25 20:15 Neut % (Auto) 73.5 % 03/14/25 20:15 Lymph % (Auto) 14.4 % 03/14/25 20:15 Collier % (Auto) 7.5 % 03/14/25 20:15 Eos % (Auto) 3.6 % 03/14/25 20:15 Baso % (Auto) 0.5 % 03/14/25 20:15 Neut # (Auto) 5.75 10^3/uL (1.8-7.7) 03/14/25 20:15 Lymph # (Auto) 1.1 10^3/uL (0.8-4.8) 03/14/25 20:15 Collier # (Auto) 0.6 10^3/uL (0.2-0.9) 03/14/25 20:15 Eos # (Auto) 0.3 10^3/uL (0.0-0.8) 03/14/25 20:15 Baso # (Auto) 0.0 10^3/uL (0.0-0.1) 03/14/25 20:15 Nucleated RBC % (auto) 0 % 03/14/25 20:15 Nucleated RBCs # 0.0 /100WBC 03/14/25 20:15 Sodium 135 mmol/L (136-145) L 03/14/25 20:15 Potassium 5.6 mmol/L (3.5-5.1) H 03/14/25 20:15 Chloride 100 mmol/L (98-107) 03/14/25 20:15 Carbon Dioxide 18 mmol/L (22-29) L 03/14/25 20:15 Anion Gap 22.6 (5-19) H 03/14/25 20:15 BUN 60 mg/dL (8-23) H 03/14/25 20:15 Creatinine 2.0 mg/dL (0.5-0.9) H 03/14/25 20:15 GFR Calculation Not Reportable 03/14/25 20:15 Glucose 176 mg/dL (65-115) H 03/14/25 20:15 Calculated Osmolality 301 mOsm/kg (285-295) H 03/14/25 20:15 Calcium 8.9 mg/dL (8.5-10.5) 03/14/25 20:15 Total Bilirubin 0.4 mg/dL (0.15-1.2) 03/14/25 20:15 AST 14 U/L (0-32) 03/14/25 20:15 ALT 18 U/L (0-33) 03/14/25 20:15 Alkaline Phosphatase 133 U/L (35-105) H 03/14/25 20:15 Total Protein 6.5 g/dL (6.6-8.7) L 03/14/25 20:15 Albumin 4.2 g/dL (3.5-5.2) 03/14/25 20:15 Globulin 2.3 g/dL (1.3-4.6) 03/14/25 20:15 Discharge Plan Discharge Condition: Stable Prescriptions: No Action quetiapine 25 mg tablet 25 mg PO .q hs torsemide 20 mg tablet 20 mg PO BID isosorbide mononitrate 30 mg tablet extended release 24 hr 30 mg PO DAILY sumatriptan succinate 50 mg tablet See Rx Instructions PO .COMPLEX Rx Instructions: take 1 tab at onset of headache; if no relief may repeat 1 tab after at least 2 hrs; max = 4 tabs/24 hr PO spironolactone 25 mg tablet 25 mg PO DAILY phenazopyridine 100 mg tablet 100 mg PO TID PRN gabapentin 300 mg capsule 300 mg PO BID omeprazole 20 mg capsule,delayed release(DR/EC) 20 mg PO DAILY montelukast 10 mg tablet 10 mg PO DAILY metoprolol succinate 25 mg tablet extended release 24 hr 25 mg PO BID hydroxyzine HCl 10 mg tablet 10 mg PO TID PRN escitalopram oxalate 10 mg tablet 15 mg PO DAILY melatonin 1 mg tablet 1 mg PO DAILY PRN Saccharomyces boulardii [Florastor] 250 mg capsule 250 mg PO .q hs memantine [Namenda] 5 mg tablet 5 mg PO QAM insulin glargine [Lantus Solostar U-100 Insulin] 100 unit/mL (3 mL) insulin pen 26 unit SUBCUT QAM levothyroxine 100 mcg capsule 100 mcg PO DAILY Trelegy Ellipta 100-62.5-25 mcg blister with device 1 inh inhalation DAILY insulin lispro 100 unit/mL insulin pen, sensor 3 unit SUBCUT TID Rx Instructions: sliding scale Referrals: Nikole Gilliam [Primary Care Provider] Print Language: Cape Verdean Coding Level of Care Code ED Dip Dyer for Ryland Gordillo
--- NOTE | 2025-03-14 20:50 | PM.CONSULT ---
Providers/Reason For Consult Consulting Physician/Specialty*: Torsten Perez D.P.M./podiatry Reason for Consult*: Left trimalleolar fracture Primary Care Provider: Tawana Agustin History of Present Illness History of Present Illness Kiana Trivedi is a 79 year old female presents to the emergency department with left ankle injury, tripped at home while using a walker. Endorses left knee pain. Patient denies any subjective nausea, vomiting, fever, chills, shortness of breath or chest pain. Denies any other concomitant injuries. Denies loss of consciousness, neck pain or back pain. History of insulin-dependent diabetes, is unsure of her A1c but believes it is somewhere between 8 and 9. History of A-fib, CHF, hypertension, atherosclerotic heart disease. 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 Saw Dr. Dumont 02/01/2025 to establish care with cardiology after having moved here from [place] 3 months ago. Review of Systems Const: Denies: fever(s) or chills Resp: Denies: dyspnea or productive cough GI: Denies: abdominal pain, nausea or vomiting : Denies: difficulty voiding Musc: Reports: extremity pain and limited range of motion; Denies: extremity swelling, joint pain, joint swelling or deformity Skin/Breast: Denies: changes in skin color, dry skin, nail changes or change in hair Neuro: Denies: numbness in extremities or weakness in extremities Psych: Denies: anxiety Denys/Lymph: Denies: easy bruising or easy bleeding Medications/Allergies Home Medications ?Medication ?Instructions ?Recorded ?Confirmed ?Last Taken ?Type Saccharomyces boulardii 250 mg 250 mg PO .q hs 02/01/25 Unknown History capsule (Florastor) escitalopram oxalate 10 mg tablet 15 mg PO DAILY 02/01/25 Unknown History fluticasone fur. 100 mcg-umeclid 1 inh inhalation DAILY 02/01/25 Unknown History 62.5 mcg-vilant 25 mcg inhalat.powder (Trelegy Ellipta) gabapentin 300 mg capsule 300 mg PO BID 02/01/25 Unknown History hydroxyzine HCl 10 mg tablet 10 mg PO TID PRN 02/01/25 Unknown History insulin glargine 100 unit/mL (3 26 unit SUBCUT QAM 02/01/25 Unknown History mL) subcutaneous pen (Lantus Solostar U-100 Insulin) insulin lispro 100 unit/mL 3 unit SUBCUT TID 02/01/25 Unknown History subcutaneous pen, sensor isosorbide mononitrate 30 mg 30 mg PO DAILY 02/01/25 Unknown History tablet,extended release 24 hr levothyroxine 100 mcg capsule 100 mcg PO DAILY 02/01/25 Unknown History melatonin 1 mg tablet 1 mg PO DAILY PRN 02/01/25 Unknown History memantine 5 mg tablet (Namenda) 5 mg PO QAM 02/01/25 Unknown History metoprolol succinate 25 mg 25 mg PO BID 02/01/25 Unknown History tablet,extended release 24 hr montelukast 10 mg tablet 10 mg PO DAILY 02/01/25 Unknown History omeprazole 20 mg capsule,delayed 20 mg PO DAILY 02/01/25 Unknown History release phenazopyridine 100 mg tablet 100 mg PO TID PRN 02/01/25 Unknown History quetiapine 25 mg tablet 25 mg PO .q hs 02/01/25 Unknown History spironolactone 25 mg tablet 25 mg PO DAILY 02/01/25 Unknown History sumatriptan succinate 50 mg tablet See Rx Instructions PO .COMPLEX 02/01/25 Unknown History torsemide 20 mg tablet 20 mg PO BID 02/01/25 Unknown History Allergies Allergy/AdvReac Type Severity Reaction Status Date / Time Penicillins Allergy ALGY-Hives Verified 02/01/25 10:43 Sulfa (Sulfonamide Allergy Rash Verified 02/01/25 10:43 Antibiotics) PFSH Acute PFSH: Medical History (Updated 03/14/25 @ 21:40 by Torsten Perez DPM) CAD (coronary artery disease) of artery bypass graft Afib Iron deficiency GERD (gastroesophageal reflux disease) CHF (congestive heart failure) Hyperlipemia Pacemaker Hypothyroid EDGAR (obstructive sleep apnea) Hypertension Diabetes mellitus Social History Smoking and tobacco/nicotine status: never used tobacco/nicotine Second hand smoke exposure: Yes Alcohol intake: current Alcohol intake frequency: holidays/special occasions only Substance/Drug Use: never Vitals/I&O/Wt Last Vital Signs Temp 98.4 F 03/14/25 19:50 Pulse 59 L 03/14/25 20:27 Resp 18 03/14/25 19:50 BP 129/57 03/14/25 20:27 Pulse Ox 95 03/14/25 20:27 O2 Del Method Nasal Cannula 03/14/25 20:27 O2 Flow Rate 2 03/14/25 20:27 Weight last 48 hrs Weight 215 lb Physical Exam Const: COMMON NORMALS: no acute distress, patient oriented x3 and alert HENMT: COMMON NORMALS: normocephalic HEAD & SCALP: normocephalic Eye: COMMON NORMALS: Equal, round and reactive pupils present, EOMs intact bilaterally and conjunctivae normal CONJUNCTIVA: Yes conjunctivae normal PUPIL: Yes Equal, round and reactive pupils present Chest: CHEST: Yes Symmetrical chest wall rise Resp: COMMON NORMALS: normal respiratory effort, No use of accessory muscles and clear to auscultation bilaterally EFFORT & INSPECTION: Yes able to speak in complete sentences and Yes symmetric chest movement AUSCULTATION: clear to auscultation bilaterally Cardio: COMMON NORMALS: regular rate, regular rhythm, No murmurs present (Cardio) and Peripheral pulses 2+ throughout RATE: regular rate RHYTHM: regular rhythm PERIPHERAL PULSES: Peripheral pulses 2+ throughout Extremity: COMMON NORMALS: capillary refill normal, no calf tenderness and no pedal edema (Focal edema right ankle medial and lateral malleolus) GENERAL: Yes edema LEFT LOWER EXTREMITY: Yes ankle joint (Pain at medial and lateral malleolus.) Left ankle: Yes inspection (No abrasion or laceration), Yes palpation (Pain to palpation medial and lateral malleolus.), Yes ROM (Guarded secondary to pain), Yes neurovascular exam (Dorsalis pedis and posterior tibial arteries palpable) and Yes other Neuro: COMMON NORMALS: patient oriented x3 SENSORIUM/ORIENTATION: Yes alert Psych: COMMON NORMALS: mental status grossly normal and cooperative Skin: NARRATIVE SKIN EXAM: Superficial abrasion at the left anterior medial ankle. No fracture blister. GENERAL SKIN EXAM: no erythema TRAUMA: no lacerations HAIR: general thinning Data 03/14/25 20:15 03/14/25 20:15 A&P Assessment and plan 1. Closed trimalleolar fracture of left ankle, initial encounter: X-ray left ankle 3 views significant for Hugo Mendez B fracture and transverse fracture of the medial malleolus at the level of the tibial plafond, nondisplaced avulsion fracture at the posterior malleolus. Calcaneal enthesophyte and Achilles calcifications. 2. Risk for falls: 3. Abrasion, left ankle, initial encounter: Dressed with Xeroform Plan: 79-year-old insulin-dependent diabetic female with history of CHF presents with left trimalleolar fracture date of injury 03/14/2025 fell at home. Recommend admission to hospital service and anticipate ORIF of left ankle tomorrow morning 03/15/2025 Posterior splint applied to left lower extremity Strict nonweightbearing Elevate left foot N.p.o. at midnight Patient is a fall risk, unsafe to go home due to wheelchair inaccessible living conditions and no help with everyday living. She is agreeable to correction placement after fracture is stabilized and prefers correction in the [facility] if possible. PDMP PDMP Reviewed: Not Reviewed Coding Level of Care Code Acute Code for [facility] Fwd Diagnoses Closed trimalleolar fracture of left ankle, initial encounter S82.852A Encounter type: initial encounter Fracture type: closed Risk for falls Z91.81 Abrasion, left ankle, initial encounter S90.512A
--- NOTE | 2025-03-14 21:03 | W.ED.FALL ---
HPI - Fall General: Chief Complaint: Fall Stated Complaint: fall Time Seen by Provider: 03/14/25 19:48 History of Present Illness: 79 yo F with history of atrial fibrillation on Eliquis presented to the ED after tripping at her doorway while using a walker. She states the walker became stuck, she could not move her right leg, and her left leg ?caved in,? causing her to land on the left ankle and knee. Denies head strike, loss of consciousness, or neck pain. Reports immediate inability to bear weight, with severe pain when standing but current pain 2/10 at rest. She notes chronic knee problems and believes there is ?fluid? in the knee. No numbness; intact sensation to toes. Denies chest pain, shortness of breath, or other injuries. Related Data Home Medications ?Medication ?Instructions ?Recorded ?Confirmed Saccharomyces boulardii 250 mg 250 mg PO .q hs 02/01/25 capsule (Florastor) escitalopram oxalate 10 mg tablet 15 mg PO DAILY 02/01/25 fluticasone fur. 100 mcg-umeclid 1 inh inhalation DAILY 02/01/25 62.5 mcg-vilant 25 mcg inhalat.powder (Trelegy Ellipta) gabapentin 300 mg capsule 300 mg PO BID 02/01/25 hydroxyzine HCl 10 mg tablet 10 mg PO TID PRN 02/01/25 insulin glargine 100 unit/mL (3 26 unit SUBCUT QAM 02/01/25 mL) subcutaneous pen (Lantus Solostar U-100 Insulin) insulin lispro 100 unit/mL 3 unit SUBCUT TID 02/01/25 subcutaneous pen, sensor isosorbide mononitrate 30 mg 30 mg PO DAILY 02/01/25 tablet,extended release 24 hr levothyroxine 100 mcg capsule 100 mcg PO DAILY 02/01/25 melatonin 1 mg tablet 1 mg PO DAILY PRN 02/01/25 memantine 5 mg tablet (Namenda) 5 mg PO QAM 02/01/25 metoprolol succinate 25 mg 25 mg PO BID 02/01/25 tablet,extended release 24 hr montelukast 10 mg tablet 10 mg PO DAILY 02/01/25 omeprazole 20 mg capsule,delayed 20 mg PO DAILY 02/01/25 release phenazopyridine 100 mg tablet 100 mg PO TID PRN 02/01/25 quetiapine 25 mg tablet 25 mg PO .q hs 02/01/25 spironolactone 25 mg tablet 25 mg PO DAILY 02/01/25 sumatriptan succinate 50 mg tablet See Rx Instructions PO .COMPLEX 02/01/25 torsemide 20 mg tablet 20 mg PO BID 02/01/25 Allergies Allergy/AdvReac Type Severity Reaction Status Date / Time Penicillins Allergy ALGY-Hives Verified 02/01/25 10:43 Sulfa (Sulfonamide Allergy Rash Verified 02/01/25 10:43 Antibiotics) PFS ED PFSH: Medical History (Updated 03/14/25 @ 21:00 by Gabriel Trivedi MD) CAD (coronary artery disease) of artery bypass graft Afib Iron deficiency GERD (gastroesophageal reflux disease) CHF (congestive heart failure) Hyperlipemia Pacemaker Hypothyroid EDGAR (obstructive sleep apnea) Hypertension Diabetes mellitus Social History Smoking and tobacco/nicotine status: never used tobacco/nicotine Second hand smoke exposure: Yes Alcohol intake: current Alcohol intake frequency: holidays/special occasions only Substance/Drug Use: never Physical Exam Const: COMMON NORMALS: no acute distress, patient oriented x3 and alert HENMT: COMMON NORMALS: normocephalic and atraumatic HEAD & SCALP: normocephalic and atraumatic Eye: COMMON NORMALS: Equal, round and reactive pupils present, EOMs intact bilaterally and no scleral icterus PUPIL: Yes Equal, round and reactive pupils present Resp: COMMON NORMALS: normal respiratory effort and No retractions Cardio: COMMON NORMALS: regular rate, regular rhythm and No murmurs present (Cardio) RATE: regular rate RHYTHM: regular rhythm GI: COMMON NORMALS: Normal to inspection, nondistended, normoactive bowel sounds present, Soft to palpation and non-tender PALPATION: Yes Soft to palpation Extremity: NARRATIVE EXTREMITY EXAM: Swelling and tenderness of the left ankle with exquisite pain with any motion of the ankle. Very small abrasion overlying the medial lower leg just above the medial malleolus. Distal pulses and sensory intact. Neuro: COMMON NORMALS: patient oriented x3 SENSORIUM/ORIENTATION: Yes alert Procedures Orthopedic Splinting/Casting Injury #1: Side: left Lower Extremity Injury Location: ankle Lower Extremity Immobilizer: posterior splint Course Vital Signs: Vital signs: Vital Signs Temperature 98.4 F 08/25/25 19:50 Pulse Rate 59 L 03/14/25 20:27 Respiratory Rate 18 03/14/25 19:50 Blood Pressure 129/57 03/14/25 20:27 Pulse Oximetry 95 03/14/25 20:27 Oxygen Delivery Me thod Nasal Cannula 03/14/25 20:27 Oxygen Flow Rate 2 03/14/25 20:27 MDM - Fall Medical Decision Making The patient is a 79-year-old female on Eliquis for atrial fibrillation who fell and now has left ankle and knee pain, severe with weight bearing but mild at rest, without head injury or loss of consciousness. . Physical exam shows left ankle swelling, malleolar tenderness, painful range of motion, knee tenderness, and intact neurovascular status. Differential diagnosis: left ankle fracture versus severe sprain; possible occult knee injury. On anticoagulation, but no signs of head trauma or other bleeding. Fracture favored given bony tenderness over both malleoli and painful range of motion. Diagnostics and treatment: Left ankle and knee X-rays ordered; analgesia initiated; will reassess after imaging and manage based on results. X-ray shows bimalleolar fracture. I spoke with on-call podiatry who graciously came and evaluated the patient and will plan to take her to surgery tomorrow. I spoke with the hospitalist service will be the patient to optimize presurgically. Patient is agreeable to the plan. Pain is much better with morphine. She was placed in a short posterior splint. No reduction was necessary Lab Data 03/14/25 20:15 03/14/25 20:15 Radiology Impressions Ankle X-Ray 03/14/25 20:11 IMPRESSION: Fractures of the medial malleolus and fibula above the level of the ankle mortise, probably with callus formation though no priors for comparison. Heel spurs. Chest X-Ray 03/14/25 20:21 IMPRESSION: Patchy perihilar opacities in the right [id number]-dubf-left lung, may be related to chronic findings, especially given chronic appearings strands throughout both lungs, although no priors for comparison; correlate for infection. Laboratory Results WBC 7.83 10^3/uL (3.29-11.43) 03/14/25 20:15 RBC 3.97 10^6/uL (3.85-5.65) 03/14/25 20:15 Hgb 12.60 g/dL (11.27-16.99) 03/14/25 20:15 Hct 38.0 % (36-47) 03/14/25 20:15 MCV 95.7 fl (85-98) 03/14/25 20:15 MCH 31.7 pg (27-33) 03/14/25 20:15 MCHC 33.2 g/dL (30-55) 03/14/25 20:15 RDW 12.7 % (12.1-15.1) 03/14/25 20:15 Plt Count 173 10^3/cmm (157-399) 03/14/25 20:15 MPV 11.5 fL (7.4-10.4) H 03/14/25 20:15 Neut % (Auto) 73.5 % 03/14/25 20:15 Lymph % (Auto) 14.4 % 03/14/25 20:15 Schley % (Auto) 7.5 % 03/14/25 20:15 Eos % (Auto) 3.6 % 03/14/25 20:15 Baso % (Auto) 0.5 % 03/14/25 20:15 Neut # (Auto) 5.75 10^3/uL (1.8-7.7) 03/14/25 20:15 Lymph # (Auto) 1.1 10^3/uL (0.8-4.8) 03/14/25 20:15 Schley # (Auto) 0.6 10^3/uL (0.2-0.9) 03/14/25 20:15 Eos # (Auto) 0.3 10^3/uL (0.0-0.8) 03/14/25 20:15 Baso # (Auto) 0.0 10^3/uL (0.0-0.1) 03/14/25 20:15 Nucleated RBC % (auto) 0 % 03/14/25 20:15 Nucleated RBCs # 0.0 /100WBC 03/14/25 20:15 Sodium 135 mmol/L (136-145) L 03/14/25 20:15 Potassium 5.6 mmol/L (3.5-5.1) H 03/14/25 20:15 Chloride 100 mmol/L (98-107) 03/14/25 20:15 Carbon Dioxide 18 mmol/L (22-29) L 03/14/25 20:15 Anion Gap 22.6 (5-19) H 03/14/25 20:15 BUN 60 mg/dL (8-23) H 03/14/25 20:15 Creatinine 2.0 mg/dL (0.5-0.9) H 03/14/25 20:15 GFR Calculation Not Reportable 03/14/25 20:15 Glucose 176 mg/dL (65-115) H 03/14/25 20:15 Calculated Osmolality 301 mOsm/kg (285-295) H 03/14/25 20:15 Calcium 8.9 mg/dL (8.5-10.5) 03/14/25 20:15 Total Bilirubin 0.4 mg/dL (0.15-1.2) 03/14/25 20:15 AST 14 U/L (0-32) 03/14/25 20:15 ALT 18 U/L (0-33) 03/14/25 20:15 Alkaline Phosphatase 133 U/L (35-105) H 03/14/25 20:15 Total Protein 6.5 g/dL (6.6-8.7) L 03/14/25 20:15 Albumin 4.2 g/dL (3.5-5.2) 03/14/25 20:15 Globulin 2.3 g/dL (1.3-4.6) 03/14/25 20:15 All radiology interpretation(s) finalized by discharge Discharge Plan Discharge Patient Disposition: Admitted As Inpatient Clinical Impression: Ankle fracture, left Qualifiers: Encounter type: initial encounter Fracture type: closed Qualified Code(s): S82.892A - Other fracture of left lower leg, initial encounter for closed fracture Condition: Stable Coding Level of Care Code ED Tie In Machine Operator for Ryland Gordillo
[2025-03-14 21:28] LABS: INR 1.11 (0.8-1.2); Prothrombin Time 15.00 SECONDS (12.1-14.9)
[2025-03-14 21:29] LABS: Partial Thromboplastin Time 28.7 SECONDS (23.9-36.7)
[2025-03-14 21:37] VITALS: BP 119/58; PULSE 60; RESP 16; O2SAT 95
[2025-03-14 22:07] VITALS: RESP 20
[2025-03-14 22:11] VITALS: BP 113/71; PULSE 78; RESP 15; TEMP 36.7; O2SAT 92
--- NOTE | 2025-03-14 22:26 | PM.HP ---
Providers/Chief Complaint Admitting Physician: GARDENIA HEAD DO--patient seen and evaluated before 12 midnight Primary Care Provider: Tawana Agustin Chief Complaint: fall History of Present Illness Kiana Trivedi is a 79 year old female who gets around with a walker, sustained a mechanical fall today and fracturing the left ankle above the mortise. Patient came to the emergency room seeking for help. Left ankle was splinted Dr. Perez was consulted by the emergency room who saw the patient already in the ED. I have seen and evaluated patient patient is in a lot of pain and given a dose of morphine IV 4 mg in the ED. Patient had maintain good circulation and capillary refill less than 3 seconds on the affected leg and was able to move all toes. Patient is n.p.o. and will be going to surgery in the afternoon tomorrow. Patient is also very dry with an acute renal failure significant for a prerenal azotemia with a BUN of 60 and creatinine of 2. I have initiated gentle hydration at this point. Review of Systems Narrative: System review upon 10 organ review were significant for musculoskeletal system regarding left ankle fracture with pain. Patient for surgical repair tomorrow Medications/Allergies Home Medications ?Medication ?Instructions ?Recorded ?Confirmed ?Last Taken ?Type Saccharomyces boulardii 250 mg 250 mg PO .q hs 02/01/25 Unknown History capsule (Florastor) escitalopram oxalate 10 mg tablet 15 mg PO DAILY 02/01/25 Unknown History fluticasone fur. 100 mcg-umeclid 1 inh inhalation DAILY 02/01/25 Unknown History 62.5 mcg-vilant 25 mcg inhalat.powder (Trelegy Ellipta) gabapentin 300 mg capsule 300 mg PO BID 02/01/25 Unknown History hydroxyzine HCl 10 mg tablet 10 mg PO TID PRN 02/01/25 Unknown History insulin glargine 100 unit/mL (3 26 unit SUBCUT QAM 02/01/25 Unknown History mL) subcutaneous pen (Lantus Solostar U-100 Insulin) insulin lispro 100 unit/mL 3 unit SUBCUT TID 02/01/25 Unknown History subcutaneous pen, sensor isosorbide mononitrate 30 mg 30 mg PO DAILY 02/01/25 Unknown History tablet,extended release 24 hr levothyroxine 100 mcg capsule 100 mcg PO DAILY 02/01/25 Unknown History melatonin 1 mg tablet 1 mg PO DAILY PRN 02/01/25 Unknown History memantine 5 mg tablet (Namenda) 5 mg PO QAM 02/01/25 Unknown History metoprolol succinate 25 mg 25 mg PO BID 02/01/25 Unknown History tablet,extended release 24 hr montelukast 10 mg tablet 10 mg PO DAILY 02/01/25 Unknown History omeprazole 20 mg capsule,delayed 20 mg PO DAILY 02/01/25 Unknown History release phenazopyridine 100 mg tablet 100 mg PO TID PRN 02/01/25 Unknown History quetiapine 25 mg tablet 25 mg PO .q hs 02/01/25 Unknown History spironolactone 25 mg tablet 25 mg PO DAILY 02/01/25 Unknown History sumatriptan succinate 50 mg tablet See Rx Instructions PO .COMPLEX 02/01/25 Unknown History torsemide 20 mg tablet 20 mg PO BID 02/01/25 Unknown History Allergies Allergy/AdvReac Type Severity Reaction Status Date / Time Penicillins Allergy ALGY-Hives Verified 02/01/25 10:43 Sulfa (Sulfonamide Allergy Rash Verified 02/01/25 10:43 Antibiotics) PFSH Acute PFSH: Medical History CAD (coronary artery disease) of artery bypass graft Afib Iron deficiency GERD (gastroesophageal reflux disease) CHF (congestive heart failure) Hyperlipemia Pacemaker Hypothyroid EDGAR (obstructive sleep apnea) Hypertension Diabetes mellitus Social History Smoking and tobacco/nicotine status: never used tobacco/nicotine Second hand smoke exposure: Yes Alcohol intake: current Alcohol intake frequency: holidays/special occasions only Substance/Drug Use: never Vitals/I&O/Wt Last Vital Signs Temp 98.4 F 03/14/25 19:50 Pulse 60 03/14/25 21:37 Resp 20 H 03/14/25 22:07 BP 119/58 03/14/25 21:37 Pulse Ox 95 03/14/25 21:37 O2 Del Method Nasal Cannula 03/14/25 20:27 O2 Flow Rate 2 03/14/25 20:27 Weight last 48 hrs Weight 97.522 kg Physical Exam Narrative: Generally patient is relaxed but in pain and was given some morphine IV that helps Patient looking forward to surgical repair tomorrow HEENT normocephalic/atraumatic neck neck is supple cardiovascular heart rate is regular lungs are pretty much clear abdomen soft nontender nondistended unremarkable extremities are intact no edema has good pulses neurology has no focality lab studies lab studies reviewed and noted and significant for prerenal azotemia with acute renal failure and hyperkalemia secondary to acute renal failure Data 03/14/25 20:15 03/14/25 20:15 A&P Assessment and plan 1. Abrasion, left ankle, initial encounter: 2. Closed trimalleolar fracture of left ankle, initial encounter: 3. Benign essential HTN: 4. Arteriosclerotic heart disease (ASHD): 5. Chronic systolic congestive heart failure: Plan: Close trimalleolar fracture of the left ankle - Affected extremity splinted with consultation of podiatry Dr. Perez who had already seen the patient in the emergency room - Patient kept n.p.o. after midnight for impending surgery tomorrow in the afternoon - Pain management in place with morphine patient is not to have Toradol as patient is already in acute renal failure at this time of presentation with a BUN of 60 and creatinine of 2 Acute renal failure - Gentle hydration initiated - Follow up electrolytes such as potassium and also BUN and creatinine for desired result - Must continue to optimize Hypertension - Keep patient normotensive - Continue outpatient medication Chronic systolic congestive heart failure - Patient not in any overt heart failure - Continue to treat and monitor GI and DVT prophylaxis in place PDMP PDMP Reviewed: Last Reviewed 03/15/25 00:58 by Gardenia Head MD Attestations Medical Necessity Statement*: Patient with left ankle fracture in need of surgery tomorrow meets inpatient criteria to optimize left ankle fracture prior to discharge. Patient meets inpatient criteria to spent at least 2 midnights for care. Coding Level of Care Code 16784 Diagnoses Abrasion, left ankle, initial encounter S90.512A Closed trimalleolar fracture of left ankle, initial encounter S82.852A Encounter type: initial encounter Fracture type: closed Benign essential HTN I10 Arteriosclerotic heart disease (ASHD) I25.10 Chronic systolic congestive heart failure I50.22 Heart failure chronicity: chronic Time Spent (min) 60
[2025-03-14 23:13] VITALS: BP 115/76; PULSE 73; RESP 16; O2SAT 95
[2025-03-15] VITALS (103 sets, daily range): BP systolic 65–136; BP diastolic 48–91; PULSE 72–111; RESP 0–31; TEMP 36.5–37.3; O2SAT 88–99
[2025-03-15 05:03] LABS: Hematocrit 41.9 % (36-47); Hemoglobin 12.70 g/dL (11.27-16.99); Mean Corpuscular HGB Conc 30.3 g/dL (30-55); Mean Corpuscular Hemoglobin 31.2 pg (27-33); Mean Corpuscular Volume 102.9 fl (85-98); Nucleated Red Blood Cells % 0 %; Platelet Count 153 10^3/cmm (157-399); Red Blood Count 4.07 10^6/uL (3.85-5.65); White Blood Count 7.22 10^3/uL (3.29-11.43)
[2025-03-15 05:18] LABS: Estmated Average Glucose 200; Hemoglobin A1C 8.6 % (4.0-6.0)
[2025-03-15 05:23] LABS: Alanine Aminotransferase 613 U/L (0-33); Albumin Level 4.1 g/dL (3.5-5.2); Alkaline Phosphatase 453 U/L (35-105); Anion Gap 18.7 (5-19); Blood Urea Nitrogen 58 mg/dL (8-23); Calcium 8.8 mg/dL (8.5-10.5); Carbon Dioxide 22 mmol/L (22-29); Chloride 100 mmol/L (98-107); Creatinine Clr Calc Pharmacy 25.8042; Globulin 2.8 g/dL (1.3-4.6); Glucose 188 mg/dL (65-115); Magnesium 2.5 mg/dL (1.7-2.3); Osmolality Calculated 301 mOsm/kg (285-295); Potassium 5.7 mmol/L (3.5-5.1); Sodium 135 mmol/L (136-145); Total Protein 6.9 g/dL (6.6-8.7)
[2025-03-15 05:33] LABS: Aspartate Amino Transferase > 957 U/L (0-32)
--- NOTE | 2025-03-15 09:05 | CT_ITS ---
WS: [id number] CT ABDOMEN PELVIS TECHNIQUE: Noncontrast CT of the abdomen and pelvis with coronal and sagittal reformatted images. CLINICAL INFORMATION: acute liver failure? COMPARISON: None. DLP: 968.[address] scans at [facility] use at least one of these dose optimization techniques: automated exposure control; mA and/or kV adjustment per patient size (includes targeted exams where dose is matched to clinical indication); or iterative reconstruction. FINDINGS: Slight atelectasis in the lung bases. 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 Cardiomegaly. Mild hepatomegaly. Noncontrast liver otherwise appears normal. Cholecystectomy clips. Adrenal glands are normal. Fatty atrophy of the pancreas. Splenic artery calcifications. Aortic ca lcification. Normal caliber abdominal aorta. Adrenal glands are normal. No hydronephrosis in either kidney. Large RIGHT lower pole renal cyst measuring 5.2 cm. Tiny fat-containing umbilical hernia. Pierce catheter. Sigmoid constipation. Sigmoid diverticulosis. No evidence of small or large bowel obstruction. Air- fluid level in the stomach. No other acute findings. Bilateral THAs degraded images in the pelvis. Pedicle screw fixation L5-S1. Exaggeration of the normal lumbar lordosis. Grade 1 anterolisthesis L5 on S1. CT/CT abdomen pelvis [facility] [id number] IMPRESSION: 1. Mild hepatomegaly. Noncontrast liver otherwise normal. 2. 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 3. Prior cholecystectomy. 4. Sigmoid diverticulosis with constipation. 5. Pierce catheter 6. No other acute findings.
[2025-03-15 09:32] LABS: ABG PCO2 43.4 mmHg (35-45); ABG PH Result 7.35 (7.35-7.45); Alveolar-Arterial Oxygen Gradi 1.9 mmHg (5-10); Arterial Blood Gas Hematocrit 40.0 % (37-47); Blood Gas Allen Test Pos; Blood Gas LPM 2.0 %; Blood Gas Operator Identificat WALCI; Blood Gas Sample Site Radial, left; Blood Gas Sample Type Arterial; Carboxyhemoglobin 0.4 %THgb (0.4-20.1); Glucose Level-ABG 195.0 mg/dL (70-115); HCO3 ABG 24.1 mmol/L (22-26); Ionized Calcium Level - ABG 1.2 mmol/L (1.1-1.4); Methemoglobin 2.2 % (0.4-1.5); Oxygen Saturation ABG 94.7; PO2 ABG 82.6 mmHg (80.0-100.0); Potassium Level - ABG 5.4 mmol/L (3.5-5.0); Sodium Level - ABG 138.0 mmol/L (131-143)
--- NOTE | 2025-03-15 09:41 | PC.CHAP ---
Pastoral Care Encounter/Spiritual Assessment Type of Contact [] Declined supervisor special effects visit [] Patient/Family/Request visit [] Outpatient visit [] Follow-up visit [] Physician referral [] Code/Alert [] Routine visit [] Staff referral [] Actively dying [] Patient sleeping [] Family support [] [] Out of room [] Palliative care [] [x] Receiving care in room [] Pre-surgical visit [] Trauma [] Long length of stay [] ICU visit [] Other: Relational/Emotional Strength [] Patient feels connected with others/family/visitors/staff [] Distress [] Loneliness/isolation [] Abandonment Spirituality of Patient [] Person of Lizabeth [] Attends Congregational of their Lizabeth [] Believes in Prayer [] Reads Bible or Pentecostalism materials [] There are Spiritual issues to be addressed Outpatient Services Director Interventions [] Prayer [] Active listening [] Non-anxious presence [] Spiritual/emotional support [] Crisis/trauma care [] Spiritual counseling [] Bereavement support [] Provided bereavement packet [] Provided Bible/devotional materials [] Provided toy/stuffed animal, coloring book to patient or family member [] Provided Communion [] Anointing/[employer] [] Salvation [] Completed spiritual assessment [] Other: Impact on Illness or Injury [] Angry [] Fearful [] Anxious [] Often cries [] Exhaustion [] Unable to work [] Unable to attend synagogue [] Unable to walk/stand [] Unable to read [] Unable to drive [] Unable to eat/drink [] Unable to sleep [] Unable to be with family [] Patient intubated [] Other: Summary Time spent with patient
--- NOTE | 2025-03-15 09:47 | PHA.VACGOAL ---
Vancomycin Goal - Goal Vancomycin Goal:: 10-15 mg/L Vancomycin Indication:: Other - Therapy Day of therpy:: Day []of [] . Actual body weight (kg): 221 lb 11.2 oz - Data Labs: WBC 7.22 10^3/uL (3.29-11.43) 03/15/25 04:30 RBC 4.07 10^6/uL (3.85-5.65) 03/15/25 04:30 Hgb 12.70 g/dL (11.27-16.99) 03/15/25 04:30 Hct 41.9 % (36-47) 03/15/25 04:30 MCV 102.9 fl (85-98) H D 03/15/25 04:30 MCH 31.2 pg (27-33) 03/15/25 04:30 MCHC 30.3 g/dL (30-55) D 03/15/25 04:30 RDW 12.9 % (12.1-15.1) 03/15/25 04:30 Sodium 135 mmol/L (136-145) L 03/15/25 04:30 Potassium 5.7 mmol/L (3.5-5.1) H 03/15/25 04:30 Chloride 100 mmol/L (98-107) 03/15/25 04:30 Carbon Dioxide 22 mmol/L (22-29) 03/15/25 04:30 Anion Gap 18.7 (5-19) 03/15/25 04:30 BUN 58 mg/dL (8-23) H 03/15/25 04:30 Creatinine 2.0 mg/dL (0.5-0.9) H 03/15/25 04:30 GFR Calculation Not Reportable 03/15/25 04:30 Last dialysis session:: N/A Treatment plan:: new consult Regimen:: LOADING DOSE OF 1500 MG X 1 PER DOSING PROTOCOL. PLAN TO PULSE DOSE DUE TO REDUCED RENAL FUNCTION. Follow up:: WILL OBTAIN TROUGH 24 HOURS POST LOADING DOSE
[2025-03-15 10:00] LABS: Ammonia 48 umol/L (11-51)
[2025-03-15 10:02] LABS: Alanine Aminotransferase 656 U/L (0-33); Albumin Level 4.1 g/dL (3.5-5.2); Alkaline Phosphatase 434 U/L (35-105); Anion Gap 14.8 (5-19); Blood Urea Nitrogen 61 mg/dL (8-23); Calcium 8.7 mg/dL (8.5-10.5); Carbon Dioxide 25 mmol/L (22-29); Chloride 101 mmol/L (98-107); Creatinine Clr Calc Pharmacy 28.6713; Globulin 2.9 g/dL (1.3-4.6); Glucose 216 mg/dL (65-115); Osmolality Calculated 304 mOsm/kg (285-295); Potassium 5.8 mmol/L (3.5-5.1); Sodium 135 mmol/L (136-145); Total Protein 7.0 g/dL (6.6-8.7)
[2025-03-15 10:04] LABS: Acetaminophen < 5.0 ug/mL (10-30)
[2025-03-15 10:20] LABS: Aspartate Amino Transferase 780 U/L (0-32)
--- NOTE | 2025-03-15 10:44 | CT_ITS ---
WS: [id number] CT HEAD TECHNIQUE: Noncontrast CT of the head obtained from the skullbase to the vertex. CLINICAL INFORMATION: ams COMPARISON: None. DLP: 1204.[address] scans at [facility] use at least one of these dose optimization techniques: automated exposure control; mA and/or kV adjustment per patient size (includes targeted exams where dose is matched to clinical indication); or iterative reconstruction. FINDINGS: No evidence of intracranial hemorrhage or mass effect. Ventricular system and basal cisterns are patent. Moderate small vessel changes with moderate parenchymal volume loss. No extra-axial fluid collections. No evidence of mass or mass effect. Vascular calcification. Paranasal sinuses and mastoid air cells are well aerated. Mild mucosal thickening ethmoid air cells.Normal visualized soft tissues. CT/CT head wo con* [id number] IMPRESSION: 1. No evidence of intracranial hemorrhage or mass effect. 2. No acute intracranial findings.
[2025-03-15] MEDS: HYDROcodone-acetaminophen 5-325 mg Tablet 1 TAB PO ×3 (10:54→22:47)
[2025-03-15 11:04] LABS: Salicylate < 0.3 mg/dL (3-10)
--- NOTE | 2025-03-15 11:08 | PC.PHAR ---
Talked to Son about Patient's Medication. He sets them up and states Patient takes morning medications around 10;30am or 11 am, then noon Medications around 3;00pm , 3:30pm, and has dinner around 6:30 or 7:00pm and then night medications around 9pm.
[2025-03-15 11:13] LABS: Lactate (Lactic Acid level) 1.4 mmol/L (0.5-2.2)
--- NOTE | 2025-03-15 11:13 | PC.PHAR ---
Patient's son states he gave staff a list upon arrival ,but a lot of medications weren't listed according to Pharmacy instructions. I have updated them according to the instructions and put in fill dates .
[2025-03-15] MEDS: dextrose 5%-sod chloride 0.9% 1,000 ML 50 ML IV (11:15)
[2025-03-15 11:17] LABS: Vitamin B12 1771 pg/mL (232-1245)
[2025-03-15 11:44] LABS: PCP Screen Urine Negative (Negative)
[2025-03-15 12:15] LABS: Add Urine Microscopic? YES; UA Manual Slide Review YES; UA Slide Review UA Slide Review Perf
--- NOTE | 2025-03-15 12:20 | PM.CONSULT ---
Providers/Reason For Consult Consulting Physician/Specialty*: kommana/nEPHROLOGY Reason for Consult*: Acute on CKD Attending Physician: Flaquito Olea MD Primary Care Provider: Tawana Agustin History of Present Illness History of Present Illness Kiana Trivedi is a 79 year old female With past medical history significant for atrial fibrillation, dyslipidemia, diabetes, hypertension, chronic kidney disease, CHF, history of AV block and status post PPM presented to the emergency department after she had sustained a fall and noted to have left ankle fracture. Patient reports that she had recently moved to this area about 2 months ago and prior to that patient was followed by plans examiner for CKD. Patient is unsure of her baseline creatinine and GFR. On presentation, lab data shows potassium of 5.6, CO2 level of 18 and creatinine of 2.0. Most recent labs are from January 2025 which showed creatinine of 1.8. No prior labs available. Patient has received gentle IV fluids-D5 normal saline at 50 cc an hour and creatinine is 1.8 currently with a potassium of 5.2. CT abdomen did not show any hydronephrosis, noted to have elevated LFTs Review of Systems Narrative: negative Medications/Allergies Home Medications ?Medication ?Instructions ?Recorded ?Confirmed ?Last Taken ?Type escitalopram oxalate 10 mg tablet 15 mg PO DAILY 02/01/25 03/15/25 Unknown History gabapentin 300 mg capsule 300 mg PO BID 02/01/25 03/15/25 03/14/25 11:00 History insulin glargine 100 unit/mL (3 26 unit SUBCUT QPM 02/01/25 03/15/25 03/13/25 19:00 History mL) subcutaneous pen (Lantus Solostar U-100 Insulin) levothyroxine 100 mcg capsule 100 mcg PO QAM 02/01/25 03/15/25 03/14/25 10:00 History melatonin 1 mg tablet 1 mg PO BEDTIME 02/01/25 03/15/25 03/13/25 22:00 History metoprolol succinate 25 mg 25 mg PO BID 02/01/25 03/15/25 03/14/25 11:00 History tablet,extended release 24 hr montelukast 10 mg tablet 10 mg PO BEDTIME 02/01/25 03/15/25 03/13/25 21:00 History omeprazole 20 mg capsule,delayed 20 mg PO DAILY 0703/15/25 03/14/25 History release phenazopyridine 100 mg tablet 100 mg PO TID PRN UTI 02/01/25 03/15/25 Unknown History (Pyridium) quetiapine 25 mg tablet 25 mg PO BEDTIME 02/01/25 03/15/25 03/13/25 22:00 History spironolactone 25 mg tablet 25 mg PO DAILY 02/01/25 03/15/25 03/14/25 11:00 History sumatriptan succinate 50 mg tablet See Rx Instructions PO .COMPLEX 02/01/25 03/15/25 Unknown History PRN Headache Lactobacillus acidophilus 10 10,000 mmu cells PO DAILY 03/15/25 03/15/25 03/14/25 11:00 History billion cell capsule (Probiotic) acetaminophen 500 mg tablet 1,000 mg PO BID Pain / arthritis 03/15/25 03/15/25 Unknown History apixaban 2.5 mg tablet (Eliquis) 2.5 mg PO BID 03/15/25 03/15/25 03/14/25 History lwbmdtg-vdzhknkbccjpc-mkumijnj 250 2 tab PO Q6H PRN Migraine Headache 03/15/25 03/15/25 Unknown History mg-250 mg-65 mg tablet (Excedrin Migraine) atorvastatin 20 mg tablet 20 mg PO QPM 03/15/25 03/15/25 03/14/25 18:35 History cephalexin 250 mg tablet 250 mg PO QNOON 03/15/25 03/15/25 03/14/25 13:00 History clobetasol 0.05 % scalp solution See Rx Instructions .Route .COMPLEX 03/15/25 03/15/25 Unknown History d-mannose 500 mg chewable tablet 500 mg PO BID 03/15/25 03/15/25 03/14/25 10:00 History (AZO D-Mannose) diclofenac sodium 1 % topical gel 1 ea topical BID PRN Pain 03/15/25 03/15/25 Unknown History diltiazem HCl 240 mg capsule,24 240 mg PO QNOON 03/15/25 03/15/25 03/14/25 14:00 History hr,extended release diphenhydramine HCl 25 mg capsule 25 mg PO TID PRN Itching 03/15/25 03/15/25 Unknown History (Benadryl) docusate sodium 100 mg capsule See Rx Instructions .Route 03/15/25 03/15/25 Unknown History (Colace) .COMPLEX PRN Constipation escitalopram oxalate 5 mg tablet 15 mg PO DAILY 03/15/25 03/15/25 03/14/25 10:00 History fluticasone fur. 100 mcg-umeclid 1 inh inhalation DAILY 03/15/25 03/15/25 03/14/25 11:00 History 62.5 mcg-vilant 25 mcg inhalat.powder (Trelegy Ellipta) insulin lispro 100 unit/mL See Rx Instructions .Route .COMPLEX 03/15/25 03/15/25 03/14/25 15:00 History subcutaneous pen (Humalog KwikPen (U-100) Insulin) isosorbide mononitrate 30 mg 30 mg PO DAILY 03/15/25 03/15/25 03/14/25 11:00 History tablet,extended release 24 hr memantine 14 mg capsule 14 mg PO DAILY 03/15/25 03/15/25 03/14/25 11:00 History sprinkle,extended release 24hr tirzepatide 2.5 mg/0.5 mL 2.5 mg SUBCUT Q7D 03/15/25 03/15/25 03/12/25 History subcutaneous pen injector (Mounjaro) torsemide 20 mg tablet 20 mg PO BID 03/15/25 03/15/25 03/14/25 15:35 History Allergies Allergy/AdvReac Type Severity Reaction Status Date / Time Penicillins Allergy ALGY-Hives Verified 02/01/25 10:43 Sulfa (Sulfonamide Allergy Rash Verified 02/01/25 10:43 Antibiotics) Current Medications Generic Name Dose Route Start Last Admin Trade Name Freq PRN Reason Stop Dose Admin Hydrocodone Bitart/Acetaminophen 1 tab 03/14/25 22:16 03/15/25 10:54 Hydrocodone-Acetaminophen 5-325 Mg Tablet PO 1 tab Q4H PRN Administration MODERATE TO SEVERE PAIN Sodium Chloride 1,000 mls @ 100 mls/hr 03/14/25 22:15 03/15/25 11:19 Sodium Chloride 0.9% IV Infused .Q10H POONAM Infusion Dextrose/Sodium Chloride 1,000 mls @ 50 mls/hr 03/15/25 10:45 03/15/25 11:15 Dextrose 5%-Sod Chloride 0.9% IV 03/17/25 10:44 50 mls/hr .Q20H POONAM Administration Pantoprazole Sodium 40 mg 03/15/25 09:00 03/15/25 08:[address] 40 Mg Tablet PO Not Given DAILY POONAM PFSH Acute PFSH: Medical History (Updated 03/15/25 @ 14:28 by Jacki Schumacher MD) CAD (coronary artery disease) of artery bypass graft Afib Iron deficiency GERD (gastroesophageal reflux disease) CHF (congestive heart failure) Hyperlipemia Pacemaker Hypothyroid EDGAR (obstructive sleep apnea) Hypertension Diabetes mellitus Social History Smoking and tobacco/nicotine status: never used tobacco/nicotine Second hand smoke exposure: Yes Alcohol intake: current Alcohol intake frequency: holidays/special occasions only Substance/Drug Use: never Vitals/I&O/Wt Last Vital Signs Temp 99.1 F 03/15/25 07:12 Pulse 97 03/15/25 09:25 Resp 16 03/15/25 09:25 BP 116/76 03/15/25 07:12 Pulse Ox 96 03/15/25 09:25 O2 Del Method Nasal Cannula 03/15/25 09:25 O2 Flow Rate 2 03/15/25 09:25 03/14/25 03/15/25 03/15/25 22:59 06:59 14:59 Intake Total 1000 / 1000 Balance 1000 / 1000 Weight last 48 hrs Weight 100.561 kg Weight 101.469 kg Weight 97.522 kg Physical Exam Narrative: awake , alert ,no distress No jvd PEERLA s1s2 RRR Lungs clear edgard Abd - dost ,non tender Ext , no edema skin , no rash Data 03/15/25 04:30 03/15/25 12:48 A&P Assessment and plan 1. Acute kidney injury superimposed on CKD: 1. Renal insufficiency: Unknown creatinine baseline but patient had known history of CKD. Associated with hyperkalemia. No hydronephrosis, - Agree with gentle IV fluid resuscitation , - Will obtain prior records if available - Check urine analysis, UPCR and urine electrolytes, check CK level avoid IV contrast if possible - No acute indication for dialysis 2. Hyperkalemia, mild, medical management and potassium has improved to 5.2 currently, low K diet, status post 1 dose IV Lasix Patient was on Aldactone at home which is currently on hold 3. CHF , ejection fraction not known, await echocardiogram, as needed Lasix for now, holding scheduled diuretics, patient takes torsemide and spironolactone at home which are currently on hold 4. Metabolic acidosis, mild improved 5. Status post fall and left ankle fracture 6.H/o CAD 7. Elevated LFTs, question etiology, workup in progress, -hepatitis panel pending, question hepatic congestion, check echocardiogram Patient evaluated using audiovisual cart. Time spent 40 minutes. PDMP PDMP Reviewed: Not Reviewed Consult Attestations Medical Necessity Statement: per amina Coding Level of Care Code Acute Code for Chg Fwd Diagnoses Acute kidney injury superimposed on CKD N17.9; N18.9
[2025-03-15 13:12] LABS: Anion Gap 15.2 (5-19); Blood Urea Nitrogen 59 mg/dL (8-23); Calcium 8.4 mg/dL (8.5-10.5); Carbon Dioxide 25 mmol/L (22-29); Chloride 101 mmol/L (98-107); Creatinine Clr Calc Pharmacy 28.6713; Glucose 259 mg/dL (65-115); Osmolality Calculated 307 mOsm/kg (285-295); Potassium 5.2 mmol/L (3.5-5.1); Sodium 136 mmol/L (136-145)
--- NOTE | 2025-03-15 13:36 | PM.PN ---
Subjective Subjective: Patient was seen in the morning and was having dry mouth, a little drowsy state. However alert oriented to place and person. Able to speak sentences. Patient was having positive asterixis Vitals/I&O/Wt Last Vital Signs Temp 98.9 F 03/15/25 12:15 Pulse 93 03/15/25 13:15 Resp 18 03/15/25 13:15 BP 122/71 03/15/25 13:15 Pulse Ox 95 03/15/25 13:15 O2 Del Method Nasal Cannula 03/15/25 09:25 O2 Flow Rate 2 03/15/25 09:25 03/14/25 03/15/25 03/15/25 22:59 06:59 14:59 Intake Total 1300 / 1300 Balance 1300 / 1300 Weight last 48 hrs Weight 100.561 kg Weight 101.469 kg Weight 97.522 kg Physical Exam Narrative: General: Disoriented to time however oriented to place and person. Having positive asterixis HEENT: Normocephalic, atraumatic, EOMI, breathing through 2 to 3 L nasal cannula Cardio: Regular rate rhythm, normal S1-S2, no murmurs rubs gallops, JVD normal Respiratory: Good bilateral air entry, no wheezes no rhonchi appreciated GI: Abdomen soft, nontender, nondistended, normoactive bowel sounds present all 4 quadrants, Neuro: Patient a little bit drowsy however able to protect her airways, alert able to interact however seems little tired no gross focal neurological deficit Behavior: Appropriate and cooperative Extremities: Pulse bilateral equal, mild trace edema Skin: Grossly unremarkable Data 03/15/25 04:30 03/15/25 12:48 A&P Assessment and plan 1. Abrasion, left ankle, initial encounter: 2. Closed trimalleolar fracture of left ankle, initial encounter: 3. Benign essential HTN: 4. Arteriosclerotic heart disease (ASHD): 5. Chronic systolic congestive heart failure: 6. Sepsis: Plan: Sepsis with organ failure not in shock/severe sepsis : Avoid fluid considering patient renal failure and can have fluid overload Blood cultures Serum lactate Levofloxacin and metronidazole considering possible intra-abdominal source versus pneumonia or any other source to cover? Monitor hemodynamics and maintain MAP above 65 Hold any antihypertensive or any beta-blockers at the moment, patient on diltiazem, beta-blockers and nitrates at home to hold it acute liver injury : Increased transaminitis Ammonia levels normal salicylate and acetaminophen levels not raised Possible underlying sepsis ? CT scan abdomen pelvis did not show any acute pathology, patient s/p cholecystectomy, Having mild hepatomegaly Continue to monitor liver enzymes currently mild trending down. Avoid any hepatotoxic drugs, hold statins Acute hepatitis panel Hold any sedating medications to avoid altered sensorium Daily coagulation profile and liver panel, if further deterioration then for possible transfer to higher level of care facility Acute renal failure Nephrology consulted to follow the further plan of care - Gentle hydration initiated - Follow up electrolytes such as potassium and also BUN and creatinine for desired result - Must continue to optimize Hyperkalemia: Stat nebulization and sent for CPK Hold spironolactone (patient is taking 25 mg at home) Calcium polystyrene sulfonate stat and bowel regimen to make the patient have a bowel motion in order to decrease potassium Calcium gluconate stat although the potassium level is less than 6 considering patient acute illness to avoid any further deterioration Lasix dosing in boluses based on the patient blood pressure and potassium level Monitor BMP in the evening and correction accordingly close trimalleolar fracture of the left ankle - Affected extremity splinted with consultation of podiatry Dr. Perez who had already seen the patient in the emergency room - Patient kept n.p.o. after midnight for impending surgery tomorrow in the afternoon - Pain management in place with morphine patient is not to have Toradol as patient is already in acute renal failure at this time of presentation with a BUN of 60 and creatinine of 2 History of COPD: Patient on fluticasone/umeclidinium/vilanter at home DuoNebs while inpatient Monitor O2 sats History of migraine: Patient on sumatriptan succinate 50 mg tablet as needed for migraine To hold considering liver injury Hypothyroidism: Continue home medicine 100 mcg in the morning daily Chronic systolic congestive heart failure - Patient not in any overt heart failure -Patient on nitrates beta-teresa spironolactone at home, hold nitrates beta-blockers and spironolactone considering patient acute illness as mentioned above -Repeat echo - Continue to treat and monitor Diabetes type 2: Patient taking insulin glargine 26 units at home and insulin lispro 14 units at breakfast 12 units at lunch and 14 at dinner Concerning patient acute liver injury, continue on insulin sliding scale moderate dose Based on the blood glucose readings to initiate insulin regimen with reduced home dose Monitor blood glucose GI and DVT prophylaxis in place PDMP PDMP Reviewed: Not Reviewed Attestations Medical Necessity Statement*: Patient will stay in the hospital more than 2 midnights due to acute liver injury, PATRICE on CKD and possible sepsis management Time Spent in Patient Care: 16 - 35 minutes (>than 50% of time spent in counselling and/or direct pt care on unit). Critical Care Time: The high probability of a clinically significant, sudden or life threatening deterioration, as referenced in this documentation, required my full and direct attention, intervention and personal management. The critical care time shown is in addition to time spent performing any reported separately billable procedures and includes the following: [x] Data and vital sign review and interpretation [x] Patient assessment, examination and intervention [x] Medication orders and management [x] Patient/Family updates as able [x] Care Coordination and Documentation. Critical Care Time (min): 35 Other Attestations: Patient condition has been discussed at length with the patient/family, I have independently reviewed the chart labs imaging and diagnostics and EKG. the goals of care and code status with the patient/family/NOK/legal customer service representative teller, and documented accordingly. The patient/family has been informed about the current condition and further plan of care. Agreed with the plan of care and understood without any language barrier. This documentation was created by [employer] ([employer] fence post cutter software. Every effort was made to ensure accuracy of fence post cutter. Any obvious errors or omissions should be clarified with the author of the document. Coding Level of Care Code Critical Care >/= 30 minutes Diagnoses Abrasion, left ankle, initial encounter S90.512A Closed trimalleolar fracture of left ankle, initial encounter S82.852A Encounter type: initial encounter Fracture type: closed Benign essential HTN I10 Arteriosclerotic heart disease (ASHD) I25.10 Chronic systolic congestive heart failure I50.22 Heart failure chronicity: chronic Sepsis A41.9
--- NOTE | 2025-03-15 13:45 | USCV_ITS ---
Kiana Trivedi Age: 79 Gender: F : 1945 Exam Date: 03/15/2025 14:20 Ordering Phys: Flaquito Olea MD Technologist: JLUIS [place] [facility] [place]: CHF BP: 122 / 71 HR: 92 Rhythm: Sinus Technical Quality: MEASUREMENTS (Male / Female) Normal Values 2D ECHO LV Diastolic Diameter PLAX 4.0 cm 4.2 - 5.9 / 3.9 - 5.3 cm IVS Diastolic Thickness 1.1 cm 0.6 - 1.0 / 0.6 - 0.9 cm IVS Systolic Thickness 2.1 cm LVPW Diastolic Thickness 1.0 cm 0.6 - 1.0 / 0.6 - 0.9 cm LVPW Systolic Thickness 1.3 cm LVOT Diameter 1.9 cm LV Ejection Fraction 2D Teich 48.6 % LV Ejection Fraction MOD 4C 56.7 % LV Ejection Fraction MOD 2C 53.2 % LV Ejection Fraction 2C AL 52.6 % LA Diameter 3.6 cm RA Systolic Volume 4C AL 50.0 ml RA Systolic Volume 4C MOD 47.7 ml LA Sys Volume AL 69.6 cm cubed LA Sys Volume Index AL 32.2 cm cubed/m squared Aorta at Sinotubular Diameter 2.2 cm M-MODE LA Ao Ratio MM 1.7 AV Cusp Separation MM 2.0 cm DOPPLER AV Peak Velocity 113.0 cm/s LVOT Peak Velocity 88.0 cm/s AV Area Cont Eq vti 2.1 cm squared AV Area Cont Eq pk 2.3 cm squared MV Peak Velocity 120.0 cm/s MV Area PHT 5.7 cm squared Mitral E to A Ratio 2.9 TR Peak Velocity 257.0 cm/s TR Peak Gradient 26.4 mmHg TV Peak E Velocity 89.0 cm/s PV Peak Velocity 118.0 cm/s FINDINGS Left Ventricle Normal left ventricular size and systolic function, EF 56%. Indeterminate diastolic function due to irregular rhythm. Normal LV wall thickness. Right Ventricle Normal right ventricular size and systolic function. Right Atrium Normal right atrial size. Left Atrium Normal left atrial size. Mitral Valve Trace mitral valve regurgitation. Aortic Valve No aortic valve stenosis. No aortic valve regurgitation. Tricuspid Valve Trace tricuspid valve regurgitation. normal pulmonary pressure. Pulmonic Valve No pulmonary valve stenosis. No pulmonary valve regurgitation. Pericardium No pericardial effusion. Aorta Normal size aortic root and proximal ascending aorta. IVC Inferior vena cava not well visualized. CONCLUSIONS 1. Normal LV size and systolic function, EF 56% 2. Indeterminant left ventricular diastolic function due to irregular rhythm 3. No significant valvular abnormalities. Maldonado Clarke MD, FACC (Electronically Signed) Final Date: 15 March 2025 21:34 S
[2025-03-15 14:32] LABS: Hepatitis A Antibody IgM Non-Reactive (Nonreactive); Hepatitis B Surface Antigen Non-Reactive (Nonreactive)
[2025-03-15] MEDS: levofloxacin-dextrose 5 % 750 MG/150 ML PREMIX 100 MG IV (14:34)
[2025-03-15] MEDS: metroNIDAZOLE IV 500 MG/100 ML PREMIX 100 MG IV ×2 (14:34→21:16)
[2025-03-15] MEDS: FUROsemide 10 mg/mL SDV 4mL 40 MG IVP (14:34)
[2025-03-15] MEDS: APIXABAN 2.5 MG TABLET PO (17:10)
[2025-03-15 18:01] LABS: Creatinine Urine, Random 68 mg/dL (28-217)
[2025-03-15 18:38] LABS: Urine Random Sodium 34 mmol/L
[2025-03-15] MEDS: HYDROmorphone tab 2 MG TABLET 4 MG PO (19:40)
[2025-03-15 20:42] LABS: Alanine Aminotransferase 574 U/L (0-33); Albumin Level 3.8 g/dL (3.5-5.2); Alkaline Phosphatase 412 U/L (35-105); Blood Urea Nitrogen 47 mg/dL (8-23); Calcium 8.4 mg/dL (8.5-10.5); Carbon Dioxide 24 mmol/L (22-29); Chloride 102 mmol/L (98-107); Creatinine Clr Calc Pharmacy 36.8631; Globulin 2.8 g/dL (1.3-4.6); Glucose 222 mg/dL (65-115); Osmolality Calculated 305 mOsm/kg (285-295); Sodium 138 mmol/L (136-145); Total Protein 6.6 g/dL (6.6-8.7)
[2025-03-15 20:57] LABS: Anion Gap 16.3 (5-19); Aspartate Amino Transferase 459 U/L (0-32); Potassium 4.3 mmol/L (3.5-5.1)
[2025-03-16] VITALS (50 sets, daily range): BP systolic 88–152; BP diastolic 55–109; PULSE 86–131; RESP 4–28; TEMP 36.6–37.2; O2SAT 85–98
[2025-03-16 01:16] LABS: Hematocrit 37.3 % (36-47); Hemoglobin 11.70 g/dL (11.27-16.99); Mean Corpuscular HGB Conc 31.4 g/dL (30-55); Mean Corpuscular Hemoglobin 31.8 pg (27-33); Mean Corpuscular Volume 101.4 fl (85-98); Nucleated Red Blood Cells % 0 %; Platelet Count 120 10^3/cmm (157-399); Red Blood Count 3.68 10^6/uL (3.85-5.65); White Blood Count 5.16 10^3/uL (3.29-11.43)
[2025-03-16 01:27] LABS: INR 1.20 (0.8-1.2); Prothrombin Time 16.00 SECONDS (12.1-14.9)
[2025-03-16] MEDS: HYDROmorphone tab 2 MG TABLET 4 MG PO (02:05)
[2025-03-16 02:07] LABS: Alanine Aminotransferase 514 U/L (0-33); Albumin Level 3.6 g/dL (3.5-5.2); Alkaline Phosphatase 391 U/L (35-105); Aspartate Amino Transferase 347 U/L (0-32); Blood Urea Nitrogen 41 mg/dL (8-23); Calcium 8.2 mg/dL (8.5-10.5); Carbon Dioxide 23 mmol/L (22-29); Chloride 102 mmol/L (98-107); Creatinine Clr Calc Pharmacy 39.6987; Globulin 2.6 g/dL (1.3-4.6); Glucose 221 mg/dL (65-115); Osmolality Calculated 303 mOsm/kg (285-295); Sodium 138 mmol/L (136-145); Total Protein 6.2 g/dL (6.6-8.7)
[2025-03-16 02:08] LABS: Anion Gap 17.1 (5-19); Potassium 4.1 mmol/L (3.5-5.1)
[2025-03-16] MEDS: metroNIDAZOLE IV 500 MG/100 ML PREMIX 100 MG IV ×2 (05:07→13:15)
[2025-03-16] MEDS: HYDROcodone-acetaminophen 5-325 mg Tablet 1 TAB PO ×2 (13:15→18:44)
--- NOTE | 2025-03-16 14:23 | P.PN_ITS ---
Subjective 2 Subjective: no new c/o Medications: Reviewed: Yes Vitals/I&O/Wt Last Vital Signs Temp 97.9 F 03/16/25 12:00 Pulse 123 H 03/16/25 13:45 Resp 18 03/16/25 13:33 BP 92/67 03/16/25 13:30 Pulse Ox 94 03/16/25 13:33 O2 Del Method Nasal Cannula 03/16/25 13:33 O2 Flow Rate 2 03/16/25 13:33 03/15/25 03/16/25 03/16/25 22:59 06:59 14:59 Intake Total 350 / 1650 1100 / 2750 Output Total 1400 / 1400 1100 / 2500 Balance -1050 / 250 0 / 250 Weight last 48 hrs Weight 100.68 kg Weight 100.561 kg Weight 101.469 kg Weight 97.522 kg Physical Exam 2 Narrative: awake , alert ,no distress No jvd PEERLA s1s2 RRR Lungs clear edgard Abd - dost ,non tender Ext , no edema skin , no rash Data 03/16/25 01:05 03/16/25 01:00 Micro: Microbiology 03/15/25 10:52 Urine Culture - Preliminary Urine,Clean Catch Gram Negative Rods 03/16/25 01:00 Blood Culture - Preliminary Blood SPECIMEN COLLECTED 03/16/25 01:05 Blood Culture - Preliminary Blood SPECIMEN COLLECTED A&P Assessment and plan 1. Acute kidney injury superimposed on CKD: 1. Renal insufficiency: Unknown creatinine baseline but patient had known history of CKD. Associated with hyperkalemia. No hydronephrosis, - s/p IVFs , - Will obtain prior records if available - If PO intake remains poor, will start Maintenece IVFs - Cr improved 2. Hyperkalemia, mild, improved , low K deit Patient was on Aldactone at home which is currently on hold 3. CHF , EF 56 % , as needed Lasix for now, holding scheduled diuretics, patient takes torsemide and spironolactone at home which are currently on hold 4. Metabolic acidosis, mild improved 5. Status post fall and left ankle fracture 6.H/o CAD 7. Elevated LFTs, question etiology, workup in progress, -hepatitis panel pending, 8.UTI Patient evaluated using audiovisual cart. Time spent 40 minutes. PDMP PDMP Reviewed: Not Reviewed Attestations 2 Medical Necessity Statement*: PER [facility] Coding Level of Care Code Acute Code for Chg Fwd Diagnoses Acute kidney injury superimposed on CKD N17.9; N18.9
[2025-03-16] MEDS: vancomycin 500 MG in sodium chloride 0.9% (plus) 100 ML 200 MG IV (14:25)
--- NOTE | 2025-03-16 15:19 | PC.SOCIAL ---
IMM UPDATED IMM dated and initialed copy given to patient and copy placed in chart.
--- NOTE | 2025-03-16 16:25 | P.PN_ITS ---
Subjective 2 Subjective: Patient seen bedside this p.m. Is conversive and oriented. Endorses left ankle pain. Vitals/I&O/Wt Last Vital Signs Temp 97.8 F 03/17/25 05:16 Pulse 113 H 03/17/25 06:00 Resp 16 03/17/25 06:00 BP 161/83 03/17/25 06:00 Pulse Ox 93 03/17/25 05:00 O2 Del Method Nasal Cannula 03/16/25 20:00 O2 Flow Rate 2 03/17/25 02:23 03/16/25 03/16/25 03/17/25 14:59 22:59 06:59 Intake Total 200 / 200 Output Total 450 / 450 650 / 1100 Balance 200 / 200 -450 / -250 -650 / -900 Weight last 48 hrs Weight 221 lb 1.6 oz Weight 221 lb 15.382 oz Physical Exam 2 Const: COMMON NORMALS: no acute distress, patient oriented x3 and alert HENMT: COMMON NORMALS: normocephalic HEAD & SCALP: normocephalic Eye: COMMON NORMALS: Equal, round and reactive pupils present, EOMs intact bilaterally and conjunctivae normal CONJUNCTIVA: Yes conjunctivae normal P UPIL: Yes Equal, round and reactive pupils present Chest: CHEST: Yes Symmetrical chest wall rise Resp: COMMON NORMALS: normal respiratory effort, No use of accessory muscles and clear to auscultation bilaterally EFFORT & INSPECTION: Yes able to speak in complete sentences and Yes symmetric chest movement AUSCULTATION: clear to auscultation bilaterally Cardio: COMMON NORMALS: regular rate, regular rhythm, No murmurs present (Cardio) and Peripheral pulses 2+ throughout RATE: regular rate RHYTHM: r egular rhythm PERIPHERAL PULSES: Peripheral pulses 2+ throughout Extremity: COMMON NORMALS: capillary refill normal, no calf tenderness and no pedal edema (Focal edema right ankle medial and lateral malleolus) GENERAL: Y es edema LEFT LOWER EXTREMITY: Yes ankle joint (Pain at medial and lateral malleolus.) Left ankle: Yes inspection (No abrasion or laceration), Yes palpation (Pain to palpation medial and lateral malleolus.), Yes ROM (Guarded secondary to pain), Yes neurovascular exam (Dorsalis pedis and posterior tibial arteries palpable) and Yes other Neuro: COMMON NORMALS: patient oriented x3 SENSORIUM/ORIENTATION: Yes alert Psych: COMMON NORMALS: mental status grossly normal and cooperative Skin: NARRATIVE SKIN EXAM: Superficial abrasion at the left anterior medial ankle. No fracture blister. GENERAL SKIN EXAM: no erythema TRAUMA: no lacerations HAIR: general thinning Data 03/17/25 03:50 03/17/25 03:50 Micro: Microbiology 03/16/25 01:00 Blood Culture - Preliminary Blood NEGATIVE TO DATE 03/16/25 01:05 Blood Culture - Preliminary Blood NEGATIVE TO DATE 03/15/25 10:52 Urine Culture - Preliminary Urine,Clean Catch Gram Negative Rods A&P Assessment and plan 1. Closed trimalleolar fracture of left ankle, initial encounter: X-ray left ankle 3 views significant for Hugo Mendez B fracture and transverse fracture of the medial malleolus at the level of the tibial plafond, nondisplaced avulsion fracture at the posterior malleolus. Calcaneal enthesophyte and Achilles calcifications. 2. Risk for falls: 3. Abrasion, left ankle, initial encounter: Dressed with Xeroform Plan: 79-year-old insulin-dependent diabetic female with history of CHF presents with left trimalleolar fracture date of injury 03/14/2025 fell at home. Planned ORIF left ankle tomorrow 03/18/2025 if medically optimized N.p.o. at midnight Patient is a fall risk, unsafe to go home due to wheelchair inaccessible living conditions and no help with everyday living. She is agreeable to fdc placement after fracture is stabilized and prefers fdc in the [facility] if possible. PDMP PDMP Reviewed: Not Reviewed Attestations 2 Medical Necessity Statement*: Deferred to primary Coding Level of Care Code Acute Code for Chg Fwd Diagnoses Closed trimalleolar fracture of left ankle, initial encounter S82.852A Encounter type: initial encounter Fracture type: closed Risk for falls Z91.81 Abrasion, left ankle, initial encounter S90.512A
[2025-03-16] MEDS: dilTIAZem ER (24HR) 240 mg Capsule PO (17:45)
--- NOTE | 2025-03-16 18:12 | P.PN_ITS ---
Subjective 2 Subjective: Reports she is feeling somewhat groggy this morning. She is oriented. Vitals/I&O/Wt Last Vital Signs Temp 97.9 F 03/16/25 12:00 Pulse 116 H 03/16/25 14:00 Resp 18 03/16/25 13:33 BP 92/67 03/16/25 13:30 Pulse Ox 94 03/16/25 13:33 O2 Del Method Nasal Cannula 03/16/25 13:33 O2 Flow Rate 2 03/16/25 13:33 03/16/25 03/16/25 03/16/25 06:59 14:59 22:59 Intake Total 1100 / 2750 200 / 200 Output Total 1100 / 2500 450 / 450 Balance 0 / 250 200 / 200 -450 / -250 Weight last 48 hrs Weight 100.68 kg Weight 100.561 kg Weight 101.469 kg Weight 97.522 kg Physical Exam 2 Const: COMMON NORMALS: patient oriented x3 and alert GENERAL APPEARANCE: c ooperative ORIENTATION/CONSCIOUSNESS: Yes awake HENMT: COMMON NORMALS: oropharynx normal Neck/C-Spine: COMMON NORMALS: no JVD Resp: COMMON NORMALS: normal respiratory effort and clear to auscultation bilaterally AUSCULTATION: clear to auscultation bilaterally Cardio: COMMON NORMALS: no JVD, regular rhythm, S1 normal heart sound present, S2 normal heart sound present and No murmurs present (Cardio) RHYTHM: regular rhythm HEART SOUNDS: S1 normal heart sound present and S2 normal heart sound present GI: COMMON NORMALS: Normal to inspection, nondistended, normoactive bowel sounds present, Soft to palpation and non-tender PALPATION: Yes Soft to palpation Extremity: COMMON NORMALS: no joint enlargement and no pedal edema N ARRATIVE EXTREMITY EXAM: Left ankle boot Neuro: COMMON NORMALS: patient oriented x3 and moves all extremities S ENSORIUM/ORIENTATION: Yes alert Skin: COMMON NORMALS: no rashes or lesions noted GENERAL SKIN EXAM: no rashes or lesions noted Data 03/16/25 01:05 03/16/25 01:00 Micro: Microbiology 03/15/25 10:52 Urine Culture - Preliminary Urine,Clean Catch Gram Negative Rods 03/16/25 01:00 Blood Culture - Preliminary Blood SPECIMEN COLLECTED 03/16/25 01:05 Blood Culture - Preliminary Blood SPECIMEN COLLECTED A&P Assessment and plan 1. Abrasion, left ankle, initial encounter: 2. Closed trimalleolar fracture of left ankle, initial encounter: 3. Benign essential HTN: 4. Arteriosclerotic heart disease (ASHD): 5. Chronic systolic congestive heart failure: 6. Sepsis: Plan: A-fib with RVR: Resume Cardizem. If blood pressure allows resume metoprolol. Monitor on telemetry. If heart rate becomes optimized may be able to proceed to surgery tomorrow. N.p.o. after midnight. Otherwise may need to continue optimization. Transferred to [facility]. close trimalleolar fracture of the left ankle In case A-fib with RVR optimized, may proceed to surgery tomorrow. However, if not, since podiatry service will be unavailable from day after tomorrow over the weekend and back on Friday could consider consultation with orthopedics in case ready to proceed with surgery, in case needing further protracted hospitalization and surgery could be done early next week upon return to podiatry, or if otherwise will be ready for discharge could discharge to [facility] with short-term follow-up with orthopedics for outpatient arrangements for surgical repair early next week. Nonweightbearing on left lower extremity. PT assessment is requested. Discussed with piano case maker, nursing. - Affected extremity splinted with consultation of podiatry Dr. Perez who had already seen the patient in the emergency room - Pain management in place with morphine patient is not to have Toradol as patient is already in acute renal failure at this time of presentation with a BUN of 60 and creatinine of 2 acute liver injury : Decreasing transaminitis on review of CMP. Reassess. Noted lagging bilirubin. Some fluctuation of cognitive function, mild intermittent confusion, although overall improved. Ammonia levels normal salicylate and acetaminophen levels not raised. Reviewed hepatitis panel, noted negative. Repeat CMP. INR. CT scan abdomen pelvis did not show any acute pathology, patient s/p cholecystectomy, Having mild hepatomegaly Continue to monitor liver enzymes currently mild trending down. Avoid any hepatotoxic drugs, hold statins Hold any sedating medications to avoid altered sensorium Daily coagulation profile and liver panel, if further deterioration then for possible transfer to higher level of care facility Sepsis with organ failure not in shock/severe sepsis : Resolved sepsis. Continue treatment of UTI. Continue Cipro. Stop Flagyl. Gram-negative rods in urine. Blood culture reviewed, no organisms. Stop vancomycin. Acute renal failure PATRICE is improving, reviewed BUN, creatinine. Hold further IV fluids today. Reviewed nephrology note. Per nephrology in case of further drop in urine output may resume gentle hydration tonight. Caution with IV fluids with risk of acute CHF. Reassess chemistry. Hyperkalemia: Resolved Reviewed CK Hold spironolactone (patient is taking 25 mg at home) History of COPD: Patient on fluticasone/umeclidinium/vilanter at home DuoNebs while inpatient Monitor O2 sats History of migraine: Patient on sumatriptan succinate 50 mg tablet as needed for migraine To hold considering liver injury Hypothyroidism: Continue home medicine 100 mcg in the morning daily Chronic systolic congestive heart failure - Patient not in any overt heart failure -Patient on nitrates beta-teresa spironolactone at home, hold nitrates beta- blockers and spironolactone considering patient acute illness as mentioned above -Repeat echo reviewed - Continue to treat and monitor Diabetes type 2: Reviewed POC glucose, elevated. Resume Lantus 10 units. Continue SSI, changed to ACHS. Monitor blood glucose DVT prophylaxis: Eliquis held due to possible surgery. Lovenox VTE prophylaxis. PDMP PDMP Reviewed: Not Reviewed Attestations 2 Medical Necessity Statement*: Continue admission for optimization of control of A-fib with RVR, reassessment of liver parameters after acute liver injury, UTI, preparation for left ankle fracture repair, post discharge planning and arrangements. and High MDM includes amount and/or complexity of data reviewed/ordered [ previous or external records, resulted lab(s)/test(s), ordered lab(s)/test(s) and other healthcare professional discussion] and described risk of complication, morbidity or mortality of management as documented Diagnoses Abrasion, left ankle, initial encounter S90.512A Closed trimalleolar fracture of left ankle, initial encounter S82.852A Encounter type: initial encounter Fracture type: closed Benign essential HTN I10 Arteriosclerotic heart disease (ASHD) I25.10 Chronic systolic congestive heart failure I50.22 Heart failure chronicity: chronic Sepsis A41.9
[2025-03-16] MEDS: insulin glargine 100 units/1 mL 10 UNIT SUBCUT (20:54)
[2025-03-17] VITALS (60 sets, daily range): BP systolic 87–161; BP diastolic 39–108; PULSE 100–135; RESP 8–24; TEMP 36.4–36.8; O2SAT 87–98
--- NOTE | 2025-03-17 | XR_ITS ---
WS: [id number] C-ARM RADIOGRAPHS LEFT ANKLE; 5 IMAGES HISTORY: KARYN PICS COMPARISON: 03/14/2025 Plate and screw fixation distal fibular fracture now in good position and alignment. Screw fixation medial malleolus fracture now in good position and alignment. XR/XR ankle LT 2V [id number] IMPRESSION: Status post ORIF bimalleolar fractures in good position and alignment.
[2025-03-17] MEDS: HYDROcodone-acetaminophen 5-325 mg Tablet 1 TAB PO ×3 (01:00→19:59)
[2025-03-17 04:14] LABS: Hematocrit 37.5 % (36-47); Hemoglobin 11.90 g/dL (11.27-16.99); Mean Corpuscular HGB Conc 31.7 g/dL (30-55); Mean Corpuscular Hemoglobin 32.0 pg (27-33); Mean Corpuscular Volume 100.8 fl (85-98); Nucleated Red Blood Cells % 0 %; Platelet Count 132 10^3/cmm (157-399); Red Blood Count 3.72 10^6/uL (3.85-5.65); White Blood Count 5.06 10^3/uL (3.29-11.43)
[2025-03-17 04:27] LABS: INR 1.06 (0.8-1.2); Prothrombin Time 14.60 SECONDS (12.1-14.9)
[2025-03-17 04:39] LABS: Alanine Aminotransferase 349 U/L (0-33); Albumin Level 3.6 g/dL (3.5-5.2); Alkaline Phosphatase 371 U/L (35-105); Anion Gap 19.4 (5-19); Aspartate Amino Transferase 98 U/L (0-32); Blood Urea Nitrogen 30 mg/dL (8-23); Calcium 9.1 mg/dL (8.5-10.5); Carbon Dioxide 23 mmol/L (22-29); Chloride 104 mmol/L (98-107); Creatinine Clr Calc Pharmacy 51.6426; Globulin 3.0 g/dL (1.3-4.6); Glucose 210 mg/dL (65-115); Osmolality Calculated 306 mOsm/kg (285-295); Potassium 4.4 mmol/L (3.5-5.1); Sodium 142 mmol/L (136-145); Total Protein 6.6 g/dL (6.6-8.7)
--- NOTE | 2025-03-17 06:01 | ANES.PREANE2 ---
Pre-Anesthetic Assessment Height/Weight: Height 5 ft 3 in Weight 221 lb 1.6 oz Temp Pulse Resp BP Pulse Ox O2 Del Method O2 Flow Rate 97.8 F 114 H 12 135/87 90 Nasal Cannula 2 03/17/25 05:16 03/17/25 05:55 03/17/25 04:00 03/17/25 04:00 03/17/25 04:00 03/16/25 20:00 03/17/25 02:23 Preop Diagnosis: Left trimalleolar fracture Operation Date: 03/15/25 12:00 Proposed Procedures p ORIF Ankle ORIF Trimalleolar Fracture(Left) - Torsten Perez DPM Operation Date: 03/17/25 07:00 Proposed Procedures p ORIF Ankle ORIF Trimalleolar Fracture(Left) - Torsten Perez DPM Was Beta Griffin taken within 24 hours: Yes Was Clonidine taken within 24 hours: N/A Social No alcohol and No tobacco Exam alert, oriented x 3, clear to auscultation bilaterally and regular rate & rhythm Airway Submandibular: within normal limits Cervical ROM: within normal limits Mallampati: Class III Comments: Comments: Poor dentition, denies any loose Anesthetic Plan ASA status: 3 Anesthesia: General Other: Patient initially admitted 03/14/2026 with a trimalleolar fracture complicated by acute kidney injury Patient is is not the best historian, spoke with patient's son George on the phone in company of Dr. Perez Patient's son states that she has prolonged sedation, took 2-3 days to wake up after her previous surgery Patient admitted to the ICU for hyperkalemia management initially History of hypertension on metoprolol and spironolactone Hypothyroidism on Synthroid IDDM, BS 210 this a.m. Labs from this a.m. reviewed, WBC 5, hemoglobin 11.9, NA 142, K+ 4.4, creatinine 1.0(down from 2.0 at admission) Current pacemaker in place Echo performed on 03/15/2025 reviewed, EF 56% Plan for general anesthesia with popliteal block Medications/Allergies Home Medications ?Medication ?Instructions ?Recorded ?Confirmed ?Last Taken ?Type escitalopram oxalate 10 mg tablet 15 mg PO DAILY 02/01/25 03/15/25 Unknown History gabapentin 300 mg capsule 300 mg PO BID 02/01/25 03/15/25 03/14/25 11:00 History insulin glargine 100 unit/mL (3 26 unit SUBCUT QPM 02/01/25 03/15/25 03/13/25 19:00 History mL) subcutaneous pen (Lantus Solostar U-100 Insulin) levothyroxine 100 mcg capsule 100 mcg PO QAM 02/01/25 03/15/25 03/14/25 10:00 History melatonin 1 mg tablet 1 mg PO BEDTIME 02/01/25 03/15/25 03/13/25 22:00 History metoprolol succinate 25 mg 25 mg PO BID 02/01/25 03/15/25 03/14/25 11:00 History tablet,extended release 24 hr montelukast 10 mg tablet 10 mg PO BEDTIME 02/01/25 03/15/25 03/13/25 21:00 History omeprazole 20 mg capsule,delayed 20 mg PO DAILY 02/01/25 03/15/25 03/14/25 History release phenazopyridine 100 mg tablet 100 mg PO TID PRN UTI 02/01/25 03/15/25 Unknown History (Pyridium) quetiapine 25 mg tablet 25 mg PO BEDTIME 02/01/25 03/15/25 03/13/25 22:00 History spironolactone 25 mg tablet 25 mg PO DAILY 02/01/25 03/15/25 03/14/25 11:00 History sumatriptan succinate 50 mg tablet See Rx Instructions PO .COMPLEX 02/01/25 03/15/25 Unknown History PRN Headache Lactobacillus acidophilus 10 10,000 mmu cells PO DAILY 03/15/25 03/15/25 03/14/25 11:00 History billion cell capsule (Probiotic) acetaminophen 500 mg tablet 1,000 mg PO BID Pain / arthritis 03/15/25 03/15/25 Unknown History apixaban 2.5 mg tablet (Eliquis) 2.5 mg PO BID 03/15/25 03/15/25 03/14/25 History wnnnbry-bxqjibktkhvmg-vlsgoyjm 250 2 tab PO Q6H PRN Migraine Headache 03/15/25 03/15/25 Unknown History mg-250 mg-65 mg tablet (Excedrin Migraine) atorvastatin 20 mg tablet 20 mg PO QPM 03/15/25 03/15/25 03/14/25 18:35 History cephalexin 250 mg tablet 250 mg PO QNOON 03/15/25 03/15/25 03/14/25 13:00 History clobetasol 0.05 % scalp solution See Rx Instructions .Route .COMPLEX 03/15/25 03/15/25 Unknown History d-mannose 500 mg chewable tablet 500 mg PO BID 03/15/25 03/15/25 03/14/25 10:00 History (AZO D-Mannose) diclofenac sodium 1 % topical gel 1 ea topical BID PRN Pain 03/15/25 03/15/25 Unknown History diltiazem HCl 240 mg capsule,24 240 mg PO QNOON 03/15/25 03/15/25 03/14/25 14:00 History hr,extended release diphenhydramine HCl 25 mg capsule 25 mg PO TID PRN Itching 03/15/25 03/15/25 Unknown History (Benadryl) docusate sodium 100 mg capsule See Rx Instructions .Route 03/15/25 03/15/25 Unknown History (Colace) .COMPLEX PRN Constipation escitalopram oxalate 5 mg tablet 15 mg PO DAILY 03/15/25 03/15/25 03/14/25 10:00 History fluticasone fur. 100 mcg-umeclid 1 inh inhalation DAILY 03/15/25 03/15/25 03/14/25 11:00 History 62.5 mcg-vilant 25 mcg inhalat.powder (Trelegy Ellipta) insulin lispro 100 unit/mL See Rx Instructions .Route .COMPLEX 03/15/25 03/15/25 03/14/25 15:00 History subcutaneous pen (Humalog KwikPen (U-100) Insulin) isosorbide mononitrate 30 mg 30 mg PO DAILY 03/15/25 03/15/25 03/14/25 11:00 History tablet,extended release 24 hr memantine 14 mg capsule 14 mg PO DAILY 03/15/25 03/15/25 03/14/25 11:00 History sprinkle,extended release 24hr tirzepatide 2.5 mg/0.5 mL 2.5 mg SUBCUT Q7D 03/15/25 03/15/25 03/12/25 History subcutaneous pen injector (Anjelica) torsemide 20 mg tablet 20 mg PO BID 03/15/25 03/15/2503/14/25 15:35 History Allergies Allergy/AdvReac Type Severity Reaction Status Date / Time Penicillins Allergy ALGY-Hives Verified 02/01/25 10:43 Sulfa (Sulfonamide Allergy Rash Verified 02/01/25 10:43 Antibiotics) Current Medications Generic Name Dose Route Start Last Admin Trade Name Freq PRN Reason Stop Dose Admin Hydrocodone Bitart/Acetaminophen 1 tab 03/14/25 22:16 03/17/25 01:00 Hydrocodone-Acetaminophen 5-325 Mg Tablet PO 1 tab Q4H PRN Administration MODERATE TO SEVERE PAIN Albuterol/Ipratropium 3 ml 03/15/25 14:00 03/17/25 02:23 Ipratropium-Albuterol 3 Ml Neb INHALATION Not Given Q6H.RESP POONAM Diltiazem HCl 240 mg 03/16/25 17:30 03/16/25 17:45 Diltiazem Er (24hr) 240 Mg Capsule PO 240 mg DAILY POONAM Administration Enoxaparin Sodium 30 mg 03/16/25 18:45 03/16/25 20:41 Enoxaparin 30 Mg/0.3 Ml Syringe SUBCUT 30 mg Q24H POONAM Administration Hydromorphone HCl 4 mg 03/14/25 22:35 03/16/25 02:05 Hydromorphone Tab 2 Mg Tablet PO 4 mg Q6H PRN Administration SEVERE PAIN Levofloxacin/Dextrose 750 mg in 150 mls @ 100 mls/hr 03/15/25 14:00 03/15/25 16:24 Levaquin-D5w IV Infused Q48H POONAM Infusion Protocol Insulin Glargine 10 unit 03/16/25 21:00 03/16/25 20:54 Insulin Glargine 100 Units/1 Ml SUBCUT 10 unit BEDTIME POONAM Administration Insulin Human Lispro 0 unit 03/16/25 21:00 03/16/25 20:42 Insulin Lispro 100 Unit/1 Ml SUBCUT 3 unit AC&BEDTIME POONAM Administration Protocol Levothyroxine Sodium 100 mcg 03/16/25 06:00 03/17/25 05:07 Levothyroxine 100 Mcg Tablet PO 100 mcg QAM POONAM Administration Montelukast Sodium 10 mg 03/15/25 21:00 03/16/25 20:42 Montelukast Sodium 10 Mg Tablet PO 10 mg BEDTIME POONAM Administration Pantoprazole Sodium 40 mg 03/15/25 09:00 03/16/25 09:[address] 40 Mg Tablet PO 40 mg DAILY POONAM Administration [facility] Anesthesia Medical History (Updated 03/15/25 @ 14:28 by Jacki Schumacher MD) CAD (coronary artery disease) of artery bypass graft Afib Iron deficiency GERD (gastroesophageal reflux disease) CHF (congestive heart failure) Hyperlipemia Pacemaker Hypothyroid EDGAR (obstructive sleep apnea) Hypertension Diabetes mellitus Social History Smoking and tobacco/nicotine status: never used tobacco/nicotine Second hand smoke exposure: Yes Alcohol intake: current Alcohol intake frequency: holidays/special occasions only Substance/Drug Use: never Data Anesthesia 03/17/25 03:50 03/17/25 03:50 Short CBC 03/16/25 03/17/25 Range/Units 01:05 03:50 WBC 5.16 5.06 (3.29-11.43) 10^3/uL Hgb 11.70 11.90 (11.27-16.99) g/dL Hct 37.3 37.5 (36-47) % MCV 101.4 H 100.8 H (85-98) fl Plt Count 120 L 132 L (157-399) 10^3/cmm Neut % (Auto) 71.5 71.3 % Neut # (Auto) 3.69 3.61 (1.8-7.7) 10^3/uL BMP 03/15/25 03/15/25 03/15/25 09:33 12:48 20:15 Sodium 135 L 136 138 Potassium 5.8 H 5.2 H 4.3 Chloride 101 101 102 Carbon Dioxide 25 25 24 BUN 61 H 59 H 47 H Creatinine 1.8 H 1.8 H 1.4 H Glucose 216 H 259 H 222 H Calcium 8.7 8.4 L 8.4 L 03/16/25 03/17/25 01:00 03:50 Sodium 138 142 Potassium 4.1 4.4 Chloride 102 104 Carbon Dioxide 23 23 BUN 41 H 30 H Creatinine 1.3 H 1.0 H Glucose 221 H 210 H Calcium 8.2 L 9.1 Cardiac Enzymes 03/15/25 Range/Units 15:05 Creatine Kinase 131 (26-192) U/L Liver Function 08/26/25 08/26/25 08/27/25 Range/Units 09:33 20:15 01:00 Total Bilirubin 1.3 H 1.4 H 1.7 H (0.15-1.2) mg/dL AST 780 H 459 H 347 H (0-32) U/L ALT 656 H 574 H 514 H (0-33) U/L Alkaline Phosphatase 434 H 412 H 391 H (35-105) U/L Albumin 4.1 3.8 3.6 (3.5-5.2) g/dL 03/17/25 Range/Units 03:50 Total Bilirubin 1.2 (0.15-1.2) mg/dL AST 98 H (0-32) U/L ALT 349 H (0-33) U/L Alkaline Phosphatase 371 H (35-105) U/L Albumin 3.6 (3.5-5.2) g/dL Urine 03/15/25 Range/Units 10:52 Urine Color Bryan A (Yellow) Urine Appearance Cloudy A (CLEAR) Urine pH Not Reportable Ur Specific Bradley Not Reportable Urine Protein Not Reportable Urine Glucose (UA) Not Reportable Urine Ketones Not Reportable Urine Nitrate Not Reportable Urine Bilirubin Not Reportable Ur Leukocyte Esterase Not Reportable Urine RBC 0-4 H (0-2) /hpf Urine WBC >100 H (0-5) /hpf Coags 03/16/25 03/17/25 01:05 03:50 PT 16.00 H 14.60 INR 1.20 1.06 ABG 03/15/25 09:21 Specimen Type Arterial Sample Site Radial, left ABG pH 7.35 ABG pCO2 43.4 ABG pO2 82.6 ABG HCO3 24.1 ABG O2 Saturation 94.7 ABG Base Excess -1.6 A-a O2 Gradient 1.9 L O2 Delivery Device Nc O2 Liters/Min 2.0 Microbiology 03/16/25 01:00 Blood Culture - Preliminary Blood NEGATIVE TO DATE 03/16/25 01:05 Blood Culture - Preliminary Blood NEGATIVE TO DATE 03/15/25 10:52 Urine Culture - Preliminary Urine,Clean Catch Gram Negative Rods Cardiac Studies: Echocardiogram 03/15/25
--- NOTE | 2025-03-17 06:49 | W.PM.OPSUD ---
Surgery/Procedure H&P Update DATE OF PROCEDURE: March 17, 2025 DATE H&P PERFORMED: 03/14/25 H&P UPDATE INFORMATION: I have reviewed H&P completed within last 30 days, I have examined patient prior to procedure, No changes to prior documentation and Risks and benefits of the procedure reviewed PREOP DIAGNOSIS: Left trimalleolar fracture PLANNED PROCEDURE: Operation Date: 03/15/25 12:00 Proposed Procedures p ORIF Ankle ORIF Trimalleolar Fracture(Left) - Torsten Perez DPM Operation Date: 03/17/25 07:00 Proposed Procedures p ORIF Ankle ORIF Trimalleolar Fracture(Left) - Torsten Perez DPM
--- NOTE | 2025-03-17 07:00 | PC.NURSE ---
Pt off unit to surgery.
--- NOTE | 2025-03-17 08:02 | ANES.PROC ---
Anesthesia Procedures Procedure/Date: 03/17/25 Nerve Block ^: Nerve Block 1: Main Anesthesia: general anesthesia Time Out Performed: Yes Consent: requested by attending/covering physician and from patient Laterality: Left Nerve block location: popliteal Anesthesia monitors applied: pulse oximetry, EKG, BP cuff and oxygen Nerve block position: supine Anesthetic Used: ropivicaine 0.5% Amount of anesthesia used (mL): 30 Ultrasound used to: recognize landmarks Nerve Stimulator Used?: Yes Interscalene/Femoral BLK: other needle (pjunk 4inch) Injection: neg aspiration of heme Patient Tolerated Procedure: well Complications: none Additional Comments: decadron 4mg added to block
--- NOTE | 2025-03-17 08:35 | P.BOP_ITS ---
Date of Procedure: 10/03/23 Surgeon: Torsten Perez DPM Leasing Sales Consultant(s): Carolyn Procedure(s) performed: Open reduction internal fixation left trimalleolar fracture with syndesmotic repair. Findings of the procedure(s): Syndesmotic disruption and trimalleolar fracture left ankle Estimated blood loss: 5 mL Specimen(s) removed: No specimens Post-operative diagnosis: Left trimalleolar fracture with syndesmotic disruption
--- NOTE | 2025-03-17 08:35 | P.OP_ITS ---
Operative Report Date of procedure: March 17, 2025 Pre-op diagnosis: Left trimalleolar fracture. Left ankle syndesmotic disruption. Post-op diagnosis: same Procedure done: 1) open reduction internal fixation left trimalleolar fracture. CPT code 11769 2) open reduction internal fixation left ankle syndesmosis. CPT code 27892 Implants: Waverly 3 mm cannulated headed screw 16 mm in length interfrag screw. Waverly one third tubular plate with 3.5 mm locking screws Waverly reflex syndesmotic fixation Waverly 3.5 mm cannulated screws x 55 mm in length x 2 4-0 nylon 2-0 Vicryl, 3-0 Vicryl, skin diony Specimens removed/disposition: None Pathology: No pathology Surgeon: Torsten Perez DPM Director Of Analytics: Carolyn Estimated blood loss: 5 mL 47 minutes IV fluids: See intraoperative documentation Urine output: See intraoperative documentation Complications: No complications Findings: Left trimalleolar fracture with syndesmotic disruption Brief History: Kiana Trivedi is a 79 year old female presents to the emergency department with left ankle injury, tripped at home while using a walker. Endorses left knee pain. Patient denies any subjective nausea, vomiting, fever, chills, shortness of breath or chest pain. Denies any other concomitant injuries. Denies loss of consciousness, neck pain or back pain. History of insulin-dependent diabetes, is unsure of her A1c but believes it is somewhere between 8 and 9. History of A-fib, CHF, hypertension, atherosclerotic heart disease. 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 Saw Dr. Dumont 02/01/2025 to establish care with cardiology after having moved here from [place] 3 months ago. Educated patient on the nature of her unstable left trimalleolar fracture with suspicion of syndesmotic disruption. Recommended once medically optimized. I reviewed at length with the patient, the risks, potential complications, benefits, alternatives, expectations, and typical outcomes associated with the surgery. The risks and potential complications were explained in detail, including but not limited to infection, wound dehiscence or soft tissue complications, bleeding and hematoma, chronic edema, neuritis or nerve damage producing numbness or chronic pain, CRPS, failure to relieve pain or worsening pain, thick / painful / unsightly scar, limited motion / stiffness, malposition, delayed union, malunion, or nonunion, fracture, reaction to implants, anesthetic complications, venous thromboembolism, and deformity recurrence. I discussed the notion of no regrets with the patient as it pertains to complications and outcomes. The patient seemed to understand the nature of the proposed care and required convalescence. They asked appropriate questions, answered to their satisfaction. They are aware no guarantees can be made as to a satisfactory outcome and they understand there may be other possible unforeseen complications or outcomes not listed here that will be treated accordingly if they arise. There were no written or implied guarantees given to the patient. They gave informed consent to proceed. Procedure: Under mild sedation the patient was brought to the operating room and positioned onto the operating table in supine position. Timeout was performed. Popliteal block performed per anesthesia. Well-padded pneumatic tourniquet applied to the left high calf. The left lower extremity was then scrubbed, prepped and draped utilizing normal aseptic technique. Left foot and ankle were exanguinated with an Esmarch bandage and tourniquet inflated to 250 mmHg. Attention was directed to the left ankle where a linear longitudinal incision made over the distal fibula through skin with a #15 blade with dissection carried down through subcutaneous tissue to layer periosteum and fracture utilizing a combination of sharp and blunt technique. Care was taken to retract and preserve neurovascular and tendinous structures. All bleeders were ligated and cauterized as necessary. Fracture was distracted and curettaged of hematoma followed by saline flush and reduced with fracture forceps in all 3 planes with anatomic reduction having been achieved and then temporarily stabilized this was then fixated utilizing a interfrag screw with 3 mm by Tyrell 16 mm in length short thread overdrill under drill like technique with excellent bony apposition and compression noted, temporary fixation removed and a one third tubular plate utilized to provide additional fixation into the distal fibula with one third tubular plate and 3.5 mm locking screws not violating the ankle mortise confirmed on AP oblique and lateral view with intraoperative C arm. Cotton hook test revealed interruption of the syndesmosis which was fixated utilizing a tricortical soft tissue implant secured to the plate this was a reflex provided by Tyrell 28 with excellent reduction of the syndesmosis and smooth range of motion of the ankle. Attention directed to the medial malleolus which was fixated utilizing standard AO technique with parallel 3.5 mm harshly threaded cannulated screws with excellent bony apposition and compression noted and anatomic reduction of the fracture fragment without violating the ankle mortise confirmed with AP oblique and lateral views and operatively with C arm. Smooth range of motion of the left ankle appreciated intraoperatively with 8 degrees of dorsiflexion and 45 degrees of plantarflexion. No crepitus appreciated. Final x-rays AP oblique and lateral view confirmed excellent placement of hardware and congruent ankle mortise. Incisions were irrigated with saline solution, medial malleolar incisions closed with 4-0 nylon and the lateral incision closed in a layered fashion with periosteum reapproximated with 2-0 Vicryl, subcutaneous tissue with 3-0 Vicryl and skin with skin diony. Dressings consisting of Xeroform, sterile 4 x 4 gauze, Kerlix followed by application of a well-padded short leg cast to the left lower extremity with ankle joint in neutral position. Tourniquet was deflated and a prompt hyperemic response was noted to the distal digits of the left foot. Patient tolerated the procedure and anesthesia well and was transferred to the PACU with vital signs stable and vascular status intact. Following a period of postoperative monitoring she will be transferred back to the ICU. Patient is to remain strict nonweightbearing for the next 6 to 8 weeks. She is to keep the short leg cast clean, dry and intact until her follow-up visit outpatient with Dr. Perez in podiatry clinic 2 weeks from surgery. Patient requires placement to intermediate for rehab, assistance for everyday living, she is a fall risk and is unable to care for herself being nonweightbearing at home but the environment she currently lives in.
--- NOTE | 2025-03-17 08:45 | PC.NURSE ---
Pt back from surgery. Iv noted in left FA patent and infusing NS. Cast noted o left foot. Popliteal pulse palpable. Toes warm with cap refill < 3.
[2025-03-17] MEDS: dilTIAZem ER (24HR) 120 mg Capsule 240 MG PO (09:29)
--- NOTE | 2025-03-17 12:59 | P.PN_ITS ---
Subjective 2 Subjective: s/p OR today for ORIF for ankle fracture Medications: Reviewed: Yes Vitals/I&O/Wt Last Vital Signs Temp 97.6 F 03/17/25 08:45 Pulse 112 H 03/17/25 11:45 Resp 10 L 03/17/25 11:45 BP 136/81 03/17/25 11:45 Pulse Ox 92 03/17/25 11:45 O2 Del Method Room Air 03/17/25 11:45 O2 Flow Rate 3 03/17/25 09:15 03/16/25 03/17/25 03/17/25 22:59 06:59 14:59 Intake Total 400 / 400 Output Total 450 / 450 650 / 1100 305 / 305 Balance -450 / -250 -650 / -900 95 / 95 Weight last 48 hrs Weight 100.289 kg Weight 100.68 kg Physical Exam 2 Narrative: ,no distress No jvd PEERLA s1s2 RRR Lungs clear edgard Abd - dost ,non tender Ext , no edema skin , no rash Data 03/18/25 03:15 03/18/25 03:15 Micro: Microbiology 03/15/25 10:52 Urine Culture - Final Urine,Clean Catch Escherichia coli esbl 03/16/25 01:00 Blood Culture - Preliminary Blood NEGATIVE TO DATE 03/16/25 01:05 Blood Culture - Preliminary Blood NEGATIVE TO DATE A&P Assessment and plan 1. Acute kidney injury superimposed on CKD: 1. Renal insufficiency: Unknown creatinine baseline but patient had known history of CKD. Associated with hyperkalemia. No hydronephrosis, - Cr improved - on maintenence IVFs due to poor PO intake and NPO status - can DC once PO intake adequate 2. Hyperkalemia, mild, improved , low K deit Patient was on Aldactone at home which is currently on hold 3. CHF , EF 56 % , as needed Lasix for now, holding scheduled diuretics, patient takes torsemide and spironolactone at home which are currently on hold 4. Metabolic acidosis, mild improved 5. Status post fall and left ankle fracture 6.H/o CAD 7. Elevated LFTs, question etiology, workup in progress, -hepatitis panel pending, 8.UTI Patient evaluated using audiovisual cart. Time spent 40 minutes. PDMP PDMP Reviewed: Not Reviewed Attestations 2 Medical Necessity Statement*: per medicine Coding Level of Care Code Acute Code for Chg Fwd Diagnoses Acute kidney injury superimposed on CKD N17.9; N18.9
[2025-03-17] MEDS: levofloxacin-dextrose 5 % 750 MG/150 ML PREMIX 100 MG IV (13:38)
--- NOTE | 2025-03-17 14:53 | PC.OT ---
OT TREATMENT HELD DUE TO SX THIS MORNING
--- NOTE | 2025-03-17 16:35 | P.PN_ITS ---
Subjective 2 Subjective: s/p OR today for ORIF for left ankle fracture, seen in the morning. The patient was alert oriented and cooperative No asterixis present at the moment Medications: Reviewed: Yes Vitals/I&O/Wt Last Vital Signs Temp 98.3 F 03/17/25 13:45 Pulse 103 H 03/17/25 14:00 Resp 18 03/17/25 13:51 BP 121/73 03/17/25 13:45 Pulse Ox 93 03/17/25 13:51 O2 Del Method Room Air 03/17/25 13:51 O2 Flow Rate 3 03/17/25 09:15 03/17/25 03/17/25 03/17/25 06:59 14:59 22:59 Intake Total 725 / 725 Output Total 650 / 1100 305 / 305 Balance -650 / -900 420 / 420 Weight last 48 hrs Weight 100.289 kg Weight 100.68 kg Physical Exam 2 Narrative: General: Patient is alert oriented to time place and person. Asterixis is resolved s/p ORIF for left ankle fracture HEENT: Normocephalic, atraumatic, EOMI, breathing comfortably on room air Cardio: Regular rate rhythm, normal S1-S2, no murmurs rubs gallops, JVD normal Respiratory: Good bilateral air entry, no wheezes no rhonchi appreciated GI: Abdomen soft, nontender, nondistended, normoactive bowel sounds present all 4 quadrants, Neuro: Patient alert and interactive, her drowsiness is resolved, gross focal neurological deficit Behavior: Appropriate and cooperative Extremities: Status post left ankle fracture ORIF and stabilized with a stabilizer Skin: Grossly unremarkable Data 03/17/25 03:50 03/17/25 03:50 Micro: Microbiology 03/15/25 10:52 Urine Culture - Final Urine,Clean Catch Escherichia coli esbl 03/16/25 01:00 Blood Culture - Preliminary Blood NEGATIVE TO DATE 03/16/25 01:05 Blood Culture - Preliminary Blood NEGATIVE TO DATE A&P Assessment and plan 1. Abrasion, left ankle, initial encounter: 2. Closed trimalleolar fracture of left ankle, initial encounter: 3. Benign essential HTN: 4. Arteriosclerotic heart disease (ASHD): 5. Chronic systolic congestive heart failure: 6. Sepsis: Plan: A-fib with RVR: Continue Cardizem to 40 mg daily Consider metoprolol if the heart rate is not controlled and the blood pressure is in the normal range Telemetry Transfer to CSU close trimalleolar fracture of the left ankle Patient s/p ORIF of the left ankle fracture Adequate analgesia OT PT evaluation acute liver injury : Acute liver injury of unknown reason possible sepsis?, Currently liver enzyme improving Acute hepatitis workup and CT abdomen pelvis was unremarkable Monitor liver parameters and avoid hepatotoxic medications Sepsis with organ failure not in shock/severe sepsis : Patient out of sepsis however, Urine culture showed E. coli with ESBL sensitive to imipenem, Meropenem based on patient renal parameters started Adequate hydration to maintain Acute renal failure PATRICE is improving, reviewed BUN, creatinine Nephrology on board and to follow the plan Monitor renal parameters Avoid nephrotoxic medications Hyperkalemia: Resolved Reviewed CK Hold spironolactone (patient is taking 25 mg at home) History of COPD: Patient on fluticasone/umeclidinium/vilanter at home DuoNebs while inpatient Monitor O2 sats History of migraine: Patient on sumatriptan succinate 50 mg tablet as needed for migraine Alternative adequate analgesia to initiate Hypothyroidism: Continue home medicine 100 mcg in the morning daily Chronic systolic congestive heart failure - Patient not in any overt heart failure -Patient on nitrates beta-teresa spironolactone at home, hold nitrates beta- blockers and spironolactone considering patient acute illness as mentioned above -Repeat echo reviewed - Continue to treat and monitor Diabetes type 2: Reviewed POC glucose, elevated. Resume Lantus 10 units. Continue SSI, changed to ACHS. Monitor blood glucose DVT prophylaxis: Eliquis held due to possible surgery. Lovenox VTE prophylaxis. PDMP PDMP Reviewed: Not Reviewed Attestations 2 Medical Necessity Statement*: The patient will stay more than 2 midnights for the management of her acute liver injury, PATRICE on CKD, s/p ORIF of the left ankle fracture and ESBL E. coli UTI Time Spent in Patient Care: 16 - 35 minutes (>than 50% of time sp ent in counselling and/or direct pt care on unit) . Critical Care Time: The high probability of a clinically significant, sudden or life threatening deterioration, as referenced in this documentation, required my full and direct attention, intervention and personal management. The critical care time shown is in addition to time spent performing any reported separately billable procedures and includes the following: [x] Data and vital sign review and interpretation [x ] Patient assessment, examination and intervention [x] Medication orders and management [x] Patient/Family updates as able [x] Care Coordination and Documentation. Critical Care Time (min): 35 Coding Level of Care Code Critical Care >/= 30 minutes Diagnoses Abrasion, left ankle, initial encounter S90.512A Closed trimalleolar fracture of left ankle, initial encounter S82.852A Encounter type: initial encounter Fracture type: closed Benign essential HTN I10 Arteriosclerotic heart disease (ASHD) I25.10 Chronic systolic congestive heart failure I50.22 Heart failure chronicity: chronic Sepsis A41.9
[2025-03-17] MEDS: meropenem 1,000 mg SDV 1000 MG IVP ×2 (17:36→23:35)
--- NOTE | 2025-03-17 19:29 | PC.NURSE ---
Shift summary: Pt remains confused. She is able to follow commands. She was parroting staff this am immediately after surgery. VSS. Afebrile. Afib noted on monitor throughout shift. Pt has denied pain in left leg/foot today bu t she did remport generalized discomfort, Hydrocodone admin once this afternoon for her comfort. Urine output of 500ml . Son visisted today. Very attentive. Pt picked at her evening meal, ate slightly less than half.
[2025-03-17] MEDS: insulin glargine 100 units/1 mL 10 UNIT SUBCUT (19:59)
[2025-03-18] VITALS (30 sets, daily range): BP systolic 112–146; BP diastolic 55–101; PULSE 91–125; RESP 11–25; TEMP 36.9–37.2; O2SAT 89–95
[2025-03-18 04:18] LABS: Hematocrit 35.2 % (36-47); Hemoglobin 11.10 g/dL (11.27-16.99); Mean Corpuscular HGB Conc 31.5 g/dL (30-55); Mean Corpuscular Hemoglobin 31.9 pg (27-33); Mean Corpuscular Volume 101.1 fl (85-98); Nucleated Red Blood Cells % 0 %; Platelet Count 131 10^3/cmm (157-399); Red Blood Count 3.48 10^6/uL (3.85-5.65); White Blood Count 5.27 10^3/uL (3.29-11.43)
[2025-03-18 04:51] LABS: Alanine Aminotransferase 214 U/L (0-33); Albumin Level 3.5 g/dL (3.5-5.2); Alkaline Phosphatase 288 U/L (35-105); Aspartate Amino Transferase 33 U/L (0-32); Blood Urea Nitrogen 24 mg/dL (8-23); Calcium 9.0 mg/dL (8.5-10.5); Carbon Dioxide 20 mmol/L (22-29); Chloride 106 mmol/L (98-107); Creatinine Clr Calc Pharmacy 51.5300; Globulin 2.9 g/dL (1.3-4.6); Glucose 279 mg/dL (65-115); Osmolality Calculated 308 mOsm/kg (285-295); Sodium 142 mmol/L (136-145); Total Protein 6.4 g/dL (6.6-8.7)
[2025-03-18 04:55] LABS: Anion Gap 21.0 (5-19); Potassium 5.0 mmol/L (3.5-5.1)
[2025-03-18] MEDS: meropenem 1,000 mg SDV 1000 MG IVP ×2 (07:55→20:01)
[2025-03-18] MEDS: HYDROcodone-acetaminophen 5-325 mg Tablet 1 TAB PO ×3 (08:26→19:43)
[2025-03-18] MEDS: dilTIAZem ER (24HR) 120 mg Capsule 240 MG PO (08:26)
[2025-03-18] MEDS: metoprolol succinate ER (24 HR) 25 mg Tablet PO ×2 (11:08→17:13)
[2025-03-18] MEDS: ondansetron 2 mg/ML SDV 2 mL 4 MG IVP (13:45)
--- NOTE | 2025-03-18 13:56 | P.PN_ITS ---
Subjective 2 Subjective: s/p OR today for ORIF for left ankle fracture, seen in the morning. The patient was alert oriented and cooperative Lying comfortably on the chair, no drowsiness and no asterixis Medications: Reviewed: Yes Vitals/I&O/Wt Last Vital Signs Temp 98.9 F 03/18/25 09:00 Pulse 96 03/18/25 13:51 Resp 16 03/18/25 13:51 BP 122/72 03/18/25 09:00 Pulse Ox 94 03/18/25 13:51 O2 Del Method Room Air 03/18/25 13:51 O2 Flow Rate 3 03/17/25 09:15 03/17/25 03/18/25 03/18/25 22:59 06:59 14:59 Intake Total 500 / 1225 Output Total 500 / 805 875 / 1680 225 / 225 Balance 0 / 420 -875 / -455 -225 / -225 Weight last 48 hrs Weight 100.788 kg Weight 100.289 kg Physical Exam 2 Narrative: General: Patient is alert oriented to time place and person. Asterixis is resolved s/p ORIF for left ankle fracture and feeling better today HEENT: Normocephalic, atraumatic, EOMI, breathing comfortably on room air Cardio: Regular rate rhythm, normal S1-S2, no murmurs rubs gallops, JVD normal Respiratory: Good bilateral air entry, no wheezes no rhonchi appreciated GI: Abdomen soft, nontender, nondistended, normoactive bowel sounds present all 4 quadrants, Neuro: Patient alert and interactive, her drowsiness is resolved, gross focal neurological deficit Behavior: Appropriate and cooperative Extremities: Status post left ankle fracture ORIF and stabilized with a stabilizer Skin: Grossly unremarkable Data 03/18/25 03:15 03/18/25 03:15 Micro: Microbiology 03/15/25 10:52 Urine Culture - Final Urine,Clean Catch Escherichia coli esbl A&P Assessment and plan 1. Abrasion, left ankle, initial encounter: 2. Closed trimalleolar fracture of left ankle, initial encounter: 3. Benign essential HTN: 4. Arteriosclerotic heart disease (ASHD): 5. Chronic systolic congestive heart failure: 6. Sepsis: Plan: A-fib with RVR: Continue Cardizem to 240 mg daily Heart rate still uncontrolled and to start her on home dose metoprolol 25 XL daily Can be transferred to [facility] Echo showed normal left ventricular size and systolic function of 56% close trimalleolar fracture of the left ankle Patient s/p ORIF of the left ankle fracture Adequate analgesia OT PT evaluation acute liver injury : Acute liver injury of unknown reason possible sepsis?, Currently liver enzyme improving Acute hepatitis workup and CT abdomen pelvis was unremarkable Monitor liver parameters and avoid hepatotoxic medications Sepsis with organ failure not in shock/severe sepsis : Resolved Urine culture showed E. coli with ESBL sensitive to imipenem, Meropenem based on patient renal parameters started Adequate hydration to maintain Acute renal failure: Resolved PATRICE is improving, reviewed BUN, creatinine Nephrology on board and to follow the plan Monitor renal parameters Avoid nephrotoxic medications Hyperkalemia: Resolved Reviewed CK Hold spironolactone (patient is taking 25 mg at home) History of COPD: Patient on fluticasone/umeclidinium/vilanter at home DuoNebs while inpatient Monitor O2 sats History of migraine: Patient on sumatriptan succinate 50 mg tablet as needed for migraine Alternative adequate analgesia to initiate Hypothyroidism: Continue home medicine 100 mcg in the morning daily Chronic systolic congestive heart failure - Patient not in any overt heart failure -Patient on nitrates beta-teresa spironolactone at home, hold nitrates beta- blockers and spironolactone considering patient acute illness as mentioned above -Repeat echo reviewed - Continue to treat and monitor Diabetes type 2: Reviewed POC glucose, elevated. Insulin adjustment as per patient's blood glucose readings Increase Lantus to 15 units and continue sliding scale Monitor blood glucose Disposition: Patient need authorization for skilled nursing and case management already informed for further plan of care DVT prophylaxis: Eliquis to continue. PDMP PDMP Reviewed: Not Reviewed Attestations 2 Medical Necessity Statement*: The patient will stay more than 2 midnights since her liver functions are getting better and to see the improvement, urosepsis currently improving on meropenem and further disposition to skilled nursing as per case management and to follow accordingly Time Spent in Patient Care: 16 - 35 minutes (>than 50% of time sp ent in counselling and/or direct pt care on unit) . Other Attestations: Patient condition has been discussed at length with the patient/family, I have independently reviewed the chart labs imaging and diagnostics and EKG. the goals of care and code status with the patient/family/NOK/legal statement services representative, and documented accordingly. The patient/family has been informed about the current condition and further plan of care. Agreed with the plan of care and understood without any language barrier. This documentation was created by [employer] lodge attendant software. Every effort was made to ensure accuracy of lodge attendant. Any obvious errors or omissions should be clarified with the author of the document. Coding Level of Care Code 56267 Diagnoses Abrasion, left ankle, initial encounter S90.512A Closed trimalleolar fracture of left ankle, initial encounter S82.852A Encounter type: initial encounter Fracture type: closed Benign essential HTN I10 Arteriosclerotic heart disease (ASHD) I25.10 Chronic systolic congestive heart failure I50.22 Heart failure chronicity: chronic Sepsis A41.9
--- NOTE | 2025-03-18 14:02 | P.PN_ITS ---
Subjective 2 Subjective: no new c/o on room air Medications: Reviewed: Yes Vitals/I&O/Wt Last Vital Signs Temp 98.9 F 03/18/25 09:00 Pulse 96 03/18/25 13:51 Resp 16 03/18/25 13:51 BP 122/72 03/18/25 09:00 Pulse Ox 94 03/18/25 13:51 O2 Del Method Room Air 03/18/25 13:51 O2 Flow Rate 3 03/17/25 09:15 03/17/25 03/18/25 03/18/25 22:59 06:59 14:59 Intake Total 500 / 1225 1000 / 1000 Output Total 500 / 805 875 / 1680 225 / 225 Balance 0 / 420 -875 / -455 775 / 775 Weight last 48 hrs Weight 100.788 kg Weight 100.289 kg Physical Exam 2 Narrative: ,no distress No jvd PEERLA s1s2 RRR Lungs clear edgard Abd - dost ,non tender Ext , no edema skin , no rash Data 03/18/25 03:15 03/18/25 03:15 Micro: Microbiology 03/15/25 10:52 Urine Culture - Final Urine,Clean Catch Escherichia coli esbl A&P Assessment and plan 1. Acute kidney injury superimposed on CKD: 1. Renal insufficiency: Unknown creatinine baseline but patient had known history of CKD. Associated with hyperkalemia. No hydronephrosis, - Cr improved - on maintenence IVFs due to poor PO intake and NPO status - can DC once PO intake adequate 2. Hyperkalemia, mild, improved , low K deit Patient was on Aldactone at home which is currently on hold 3. CHF , EF 56 % , as needed Lasix for now, holding scheduled diuretics, patient takes torsemide and spironolactone at home which are currently on hold 4. Metabolic acidosis, mild improved 5. Status post fall and left ankle fracture 6.H/o CAD 7. Elevated LFTs, question etiology, workup in progress, -hepatitis panel pending, 8.UTI Patient evaluated using audiovisual cart. Time spent 40 minutes. PDMP PDMP Reviewed: Not Reviewed Attestations 2 Medical Necessity Statement*: per [facility] Coding Level of Care Code Acute Code for Chg Fwd Diagnoses Acute kidney injury superimposed on CKD N17.9; N18.9
[2025-03-18] MEDS: sennosides-docusate Tablet 1 TAB PO (14:45)
--- NOTE | 2025-03-18 18:06 | PC.NURSE ---
SHift SUmmary: Mental status improved, still sluggish responses at times, but much more awake and alert. Can usually answer all orientation questions. Patient has become more indipendent with feeding herself throughout the day. Started on home dose of metoprolol, Heart rate is now frequently below 100 and afib, compared to in the 120's at beginning of shift. Insulin dose increased. Complains of bloating , no bowel movement since arrival, started on senna.
[2025-03-18] MEDS: APIXABAN 2.5 MG TABLET PO (21:06)
[2025-03-18] MEDS: insulin glargine 100 units/1 mL 15 UNIT SUBCUT (21:20)
[2025-03-19] VITALS (21 sets, daily range): BP systolic 107–146; BP diastolic 71–91; PULSE 88–142; RESP 13–29; TEMP 36.6–37.5; O2SAT 89–97; BMI 39.2
[2025-03-19] MEDS: morphine 4 mg/mL SDV 1 mL IVP (02:28)
--- NOTE | 2025-03-19 02:55 | PC.NURSE ---
Pain: patient complained of 10/10 pain in her left ankle. Dr. Head gave telephone orders for 4mg IVP morphine ONCE, and 5-325mg hydrocodone PO PRN Q4h. Patient had also received a nebulizer treatment and her HR increased from 110-140s. Dr. Head gave orders for 25mg PO metoprolol ONCE.
[2025-03-19 04:47] LABS: Hematocrit 34.3 % (36-47); Hemoglobin 10.90 g/dL (11.27-16.99); Mean Corpuscular HGB Conc 31.8 g/dL (30-55); Mean Corpuscular Hemoglobin 31.6 pg (27-33); Mean Corpuscular Volume 99.4 fl (85-98); Nucleated Red Blood Cells % 0 %; Platelet Count 152 10^3/cmm (157-399); Red Blood Count 3.45 10^6/uL (3.85-5.65); White Blood Count 6.54 10^3/uL (3.29-11.43)
[2025-03-19 05:14] LABS: Alanine Aminotransferase 134 U/L (0-33); Albumin Level 3.3 g/dL (3.5-5.2); Alkaline Phosphatase 238 U/L (35-105); Anion Gap 16.6 (5-19); Aspartate Amino Transferase 18 U/L (0-32); Blood Urea Nitrogen 22 mg/dL (8-23); Calcium 8.9 mg/dL (8.5-10.5); Carbon Dioxide 23 mmol/L (22-29); Chloride 105 mmol/L (98-107); Creatinine Clr Calc Pharmacy 64.5921; Globulin 2.8 g/dL (1.3-4.6); Glucose 210 mg/dL (65-115); Osmolality Calculated 300 mOsm/kg (285-295); Potassium 4.6 mmol/L (3.5-5.1); Sodium 140 mmol/L (136-145); Total Protein 6.1 g/dL (6.6-8.7)
[2025-03-19] MEDS: meropenem 1,000 mg SDV 1000 MG IVP ×2 (09:41→20:30)
[2025-03-19] MEDS: dilTIAZem ER (24HR) 120 mg Capsule 240 MG PO (09:42)
[2025-03-19] MEDS: metoprolol succinate ER (24 HR) 25 mg Tablet PO (09:42)
[2025-03-19] MEDS: sennosides-docusate Tablet 1 TAB PO (09:42)
[2025-03-19] MEDS: APIXABAN 2.5 MG TABLET PO ×2 (09:43→20:30)
[2025-03-19] MEDS: water for injection-sterile 10 ML 1000 ML (10:06)
[2025-03-19 10:51] LABS: Thyroid Stimulating Hormone 16.40 uIU/mL (0.27-4.20)
--- NOTE | 2025-03-19 11:44 | PC.NURSE ---
report given , son notified of transfer moved to room 258
--- NOTE | 2025-03-19 12:59 | P.PN_ITS ---
Subjective 2 Subjective: no new c/o Medications: Reviewed: Yes Vitals/I&O/Wt Last Vital Signs Temp 97.8 F 03/19/25 12:00 Pulse 125 H 03/19/25 12:00 Resp 14 03/19/25 12:00 BP 128/85 03/19/25 12:00 Pulse Ox 95 03/19/25 12:00 O2 Del Method Nasal Cannula 03/19/25 12:00 O2 Flow Rate 2 03/19/25 08:00 03/18/25 03/19/25 03/19/25 22:59 06:59 14:59 Intake Total 480 / 1480 1000 / 2480 450 / 450 Output Total 725 / 950 1100 / 2050 Balance -245 / 530 -100 / 430 450 / 450 Weight last 48 hrs Weight 100.5 kg Weight 100.788 kg Physical Exam 2 Narrative: ,no distress No jvd PEERLA s1s2 RRR Lungs clear edgard Abd - dost ,non tender Ext , no edema skin , no rash Data 03/19/25 04:27 03/19/25 04:27 A&P Assessment and plan 1. Acute kidney injury superimposed on CKD: 1. Renal insufficiency: Unknown creatinine baseline but patient had known history of CKD. Associated with hyperkalemia. No hydronephrosis, - Cr improved back to baseline 2. Hyperkalemia, mild, improved , low K deit Patient was on Aldactone at home which is currently on hold 3. CHF , EF 56 % , as needed Lasix for now, holding scheduled diuretics, patient takes torsemide and spironolactone at home which are currently on hold 4. Metabolic acidosis, mild improved 5. Status post fall and left ankle fracture 6.H/o CAD 7.UTI will sign off Patient evaluated using audiovisual cart. Time spent 40 minutes. PDMP PDMP Reviewed: Not Reviewed Attestations 2 Medical Necessity Statement*: per medicine Coding Level of Care Code Acute Code for Chg Fwd Diagnoses Acute kidney injury superimposed on CKD N17.9; N18.9
--- NOTE | 2025-03-19 16:29 | P.PN_ITS ---
Subjective 2 Subjective: Patient was seen in the morning, currently doing well and on 2 to 3 L oxygen nasal cannula and saturating at 94% The patient is alert oriented to time place and person Feels a little tired however relatively better than before Medications: Reviewed: Yes Vitals/I&O/Wt Last Vital Signs Temp 97.8 F 03/19/25 12:00 Pulse 101 H 03/19/25 15:16 Resp 18 03/19/25 14:00 BP 128/85 03/19/25 12:00 Pulse Ox 94 03/19/25 14:00 O2 Del Method Nasal Cannula 03/19/25 14:00 O2 Flow Rate 2 03/19/25 08:00 03/19/25 03/19/25 03/19/25 06:59 14:59 22:59 Intake Total 1000 / 2480 450 / 450 Output Total 1100 / 2050 Balance -100 / 430 450 / 450 Weight last 48 hrs Weight 100.5 kg Weight 100.788 kg Physical Exam 2 Narrative: General: Patient is alert oriented to time place and person. s/p ORIF for left ankle fracture and is much better today HEENT: Normocephalic, atraumatic, EOMI, breathing comfortably on room air Cardio: Regular rate rhythm, normal S1-S2, no murmurs rubs gallops, JVD normal Respiratory: Good bilateral air entry, no wheezes no rhonchi appreciated GI: Abdomen soft, nontender, nondistended, normoactive bowel sounds present all 4 quadrants, Neuro: Patient alert and interactive, her drowsiness is resolved, gross focal neurological deficit Behavior: Appropriate and cooperative Extremities: Status post left ankle fracture ORIF and stabilized with dressing Skin: Grossly unremarkable Data 03/19/25 04:27 03/19/25 04:27 A&P Assessment and plan 1. Abrasion, left ankle, initial encounter: 2. Closed trimalleolar fracture of left ankle, initial encounter: 3. Benign essential HTN: 4. Arteriosclerotic heart disease (ASHD): 5. Chronic systolic congestive heart failure: 6. Sepsis: Plan: A-fib with RVR: Currently on and off uncontrolled and to change metoprolol 25 mg XL to metoprolol 50 mg twice daily Echo showed normal left ventricular size and systolic function of 56% close trimalleolar fracture of the left ankle Patient s/p ORIF of the left ankle fracture Adequate analgesia OT PT evaluation acute liver injury : Resolving Acute liver injury of unknown reason possible sepsis?, Currently liver enzyme improving Acute hepatitis workup and CT abdomen pelvis was unremarkable Monitor liver parameters and avoid hepatotoxic medications Sepsis with organ failure not in shock/severe sepsis : Resolved Urine culture showed E. coli with ESBL sensitive to imipenem, Meropenem based on patient renal parameters started Adequate hydration to maintain Acute renal failure: Resolved PATRICE is improving, reviewed BUN, creatinine Nephrology on board and to follow the plan Monitor renal parameters Avoid nephrotoxic medications Hyperkalemia: Resolved Reviewed CK Hold spironolactone (patient is taking 25 mg at home) History of COPD: Patient on fluticasone/umeclidinium/vilanter at home avoid albuterol Continue on levalbuterol and ipratropium Monitor O2 sats History of migraine: Patient on sumatriptan succinate 50 mg tablet as needed for migraine Alternative adequate analgesia to initiate Hypothyroidism: Continue home medicine 100 mcg in the morning daily Chronic systolic congestive heart failure - Patient not in any overt heart failure - Continue home medications -Repeat echo reviewed - Continue to treat and monitor Diabetes type 2: Reviewed POC glucose, elevated. Insulin adjustment as per patient's blood glucose readings Lantus to 18 units and continue sliding scale Monitor blood glucose Disposition: Patient need authorization for [place] [facility] and case management already informed for further plan of care DVT prophylaxis: Eliquis to continue. PDMP PDMP Reviewed: Not Reviewed Attestations 2 Medical Necessity Statement*: The patient will stay more than 2 midnights since her liver functions are getting better and to see the improvement, urosepsis currently improving on meropenem and further disposition to [place] [facility] as per case management and to follow accordingly Time Spent in Patient Care: 16 - 35 minutes (>than 50% of time sp ent in counselling and/or direct pt care on unit) . Other Attestations: Patient condition has been discussed at length with the patient/family, I have independently reviewed the chart labs imaging and diagnostics and EKG. the goals of care and code status with the patient/family/NOK/legal maintenance representative, and documented accordingly. The patient/family has been informed about the current condition and further plan of care. Agreed with the plan of care and understood without any language barrier. This documentation was created by [employer] ear mold laboratory technician software. Every effort was made to ensure accuracy of ear mold laboratory technician. Any obvious errors or omissions should be clarified with the author of the document. Coding Level of Care Code 05007 Diagnoses Abrasion, left ankle, initial encounter S90.512A Closed trimalleolar fracture of left ankle, initial encounter S82.852A Encounter type: initial encounter Fracture type: closed Benign essential HTN I10 Arteriosclerotic heart disease (ASHD) I25.10 Chronic systolic congestive heart failure I50.22 Heart failure chronicity: chronic Sepsis A41.9
[2025-03-19] MEDS: ATORVASTATIN 10 MG TABLET 20 MG PO (17:23)
[2025-03-19] MEDS: HYDROcodone-acetaminophen 5-325 mg Tablet 1 TAB PO (17:30)
[2025-03-19] MEDS: insulin glargine 100 units/1 mL 18 UNIT SUBCUT (20:32)
--- NOTE | 2025-03-19 22:31 | PC.NURSE ---
Addendum entered by Christin Dumont RN 03/19/25 22:36: Note entered on wrong pt. Pt did not ambulate in hallway. Original Note: 1030 Pt up and ambulating in hallway. Ambulated to end of murphy from her room 261 past room 273 and back to her room. Approximately 150 feet. Tolerated well
[2025-03-20] VITALS (13 sets, daily range): BP systolic 103–150; BP diastolic 64–83; PULSE 58–115; RESP 16–19; TEMP 36.7–37.7; O2SAT 91–95
[2025-03-20] MEDS: dilTIAZem ER (24HR) 120 mg Capsule 240 MG PO (08:41)
[2025-03-20] MEDS: APIXABAN 2.5 MG TABLET PO ×2 (08:42→20:26)
[2025-03-20] MEDS: sennosides-docusate Tablet 1 TAB PO (08:42)
[2025-03-20] MEDS: meropenem 1,000 mg SDV 1000 MG IVP ×2 (08:42→20:24)
[2025-03-20] MEDS: MEMANTINE 14 MG 14 EACH PO (10:16)
--- NOTE | 2025-03-20 13:06 | PM.PN ---
Subjective Subjective: Patient was seen in the morning,overall improving no acute concerns voiced by the patient Medications: Reviewed: Yes Vitals/I&O/Wt Last Vital Signs Temp 98.8 F 03/20/25 11:09 Pulse 108 H 03/20/25 11:09 Resp 19 H 03/20/25 11:09 BP 112/66 03/20/25 11:09 Pulse Ox 91 03/20/25 11:09 O2 Del Method Nasal Cannula 03/20/25 11:09 O2 Flow Rate 2 03/20/25 07:44 03/19/25 03/20/25 03/20/25 22:59 06:59 14:59 Intake Total 360 / 810 120 / 120 Output Total 925 / 925 600 / 1525 Balance -565 / -115 -600 / -715 120 / 120 Weight last 48 hrs Weight 103.646 kg Weight 100.5 kg Physical Exam Narrative: General: Patient is alert oriented to time place and person. s/p ORIF for left ankle fracture on 2-3 L NC without any resp distress HEENT: Normocephalic, atraumatic, EOMI, breathing comfortably Cardio: Regular rate rhythm, normal S1-S2, no murmurs rubs gallops, JVD normal Respiratory: Good bilateral air entry, no wheezes no rhonchi appreciated GI: Abdomen soft, nontender, nondistended, normoactive bowel sounds present all 4 quadrants, Neuro: Patient alert and interactive, her drowsiness is resolved, gross focal neurological deficit Behavior: Appropriate and cooperative Extremities: Status post left ankle fracture ORIF and stabilized with dressing and healing well, no tenderness or skin changes seen around the tissue Skin: Grossly unremarkable Data 03/20/25 13:21 03/20/25 13:21 A&P Assessment and plan 1. Abrasion, left ankle, initial encounter: 2. Closed trimalleolar fracture of left ankle, initial encounter: 3. Benign essential HTN: 4. Arteriosclerotic heart disease (ASHD): 5. Chronic systolic congestive heart failure: 6. Sepsis: Plan: A-fib with RVR: intermittently uncontrolled Currently on and off uncontrolled and to change metoprolol 25 mg XL to metoprolol 50 mg twice daily Echo showed normal left ventricular size and systolic function of 56% tsh was high, t3, t4 requested close trimalleolar fracture of the left ankle Patient s/p ORIF of the left ankle fracture Adequate analgesia OT PT evaluation acute liver injury : Resolving Acute liver injury of unknown reason possible sepsis?, Currently liver enzyme improving Acute hepatitis workup and CT abdomen pelvis was unremarkable Monitor liver parameters and avoid hepatotoxic medications Sepsis with organ failure not in shock/severe sepsis : Resolved Urine culture showed E. coli with ESBL sensitive to imipenem, Meropenem based on patient renal parameters started Adequate hydration to maintain Acute renal failure: Resolved PATRICE is improving, reviewed BUN, creatinine Nephrology on board and to follow the plan Monitor renal parameters Avoid nephrotoxic medications Hyperkalemia: Resolved Reviewed CK Hold spironolactone (patient is taking 25 mg at home) History of COPD: Patient on fluticasone/umeclidinium/vilanter at home avoid albuterol Continue on levalbuterol and ipratropium Monitor O2 sats History of migraine: Patient on sumatriptan succinate 50 mg tablet as needed for migraine Alternative adequate analgesia to initiate Hypothyroidism: Continue home medicine 100 mcg in the morning daily tsh was high, t3, t4 requested Chronic systolic congestive heart failure - Patient not in any overt heart failure - Continue home medications -Repeat echo reviewed - Continue to treat and monitor Diabetes type 2: Reviewed POC glucose, elevated. Insulin adjustment as per patient's blood glucose readings Lantus to 18 units and continue sliding scale Monitor blood glucose Disposition: Patient need authorization for long term and case management already informed for further plan of care DVT prophylaxis: Eliquis to continue. PDMP PDMP Reviewed: Not Reviewed Attestations Medical Necessity Statement*: The patient will stay more than 2 midnights since her liver functions are getting better and to see the improvement, urosepsis currently improving on meropenem and further disposition to long term as per case management and to follow accordingly Time Spent in Patient Care: 16 - 35 minutes (>than 50% of time spent in counselling and/or direct pt care on unit). Other Attestations: Patient condition has been discussed at length with the patient/family, I have independently reviewed the chart labs imaging and diagnostics and EKG. the goals of care and code status with the patient/family/NOK/legal client support representative, and documented accordingly. The patient/family has been informed about the current condition and further plan of care. Agreed with the plan of care and understood without any language barrier. This documentation was created by dragon administrative supervisor software. Every effort was made to ensure accuracy of administrative supervisor. Any obvious errors or omissions should be clarified with the author of the document. Coding Level of Care Code 50311 Diagnoses Abrasion, left ankle, initial encounter S90.512A Closed trimalleolar fracture of left ankle, initial encounter S82.852A Encounter type: initial encounter Fracture type: closed Benign essential HTN I10 Arteriosclerotic heart disease (ASHD) I25.10 Chronic systolic congestive heart failure I50.22 Heart failure chronicity: chronic Sepsis A41.9
[2025-03-20 13:27] LABS: Hematocrit 35.5 % (36-47); Hemoglobin 11.20 g/dL (11.27-16.99); Mean Corpuscular HGB Conc 31.5 g/dL (30-55); Mean Corpuscular Hemoglobin 31.3 pg (27-33); Mean Corpuscular Volume 99.2 fl (85-98); Nucleated Red Blood Cells % 0 %; Platelet Count 167 10^3/cmm (157-399); Red Blood Count 3.58 10^6/uL (3.85-5.65); White Blood Count 6.45 10^3/uL (3.29-11.43)
[2025-03-20 13:55] LABS: Alanine Aminotransferase 72 U/L (0-33); Albumin Level 3.0 g/dL (3.5-5.2); Alkaline Phosphatase 195 U/L (35-105); Anion Gap 17.5 (5-19); Aspartate Amino Transferase 11 U/L (0-32); Blood Urea Nitrogen 15 mg/dL (8-23); Calcium 8.6 mg/dL (8.5-10.5); Carbon Dioxide 23 mmol/L (22-29); Chloride 103 mmol/L (98-107); Creatinine Clr Calc Pharmacy 65.6212; Free T4 Free Thyroxine 1.12 ng/dL (0.82-1.77); Globulin 3.0 g/dL (1.3-4.6); Glucose 189 mg/dL (65-115); Osmolality Calculated 294 mOsm/kg (285-295); Potassium 4.5 mmol/L (3.5-5.1); Sodium 139 mmol/L (136-145); Total Protein 6.0 g/dL (6.6-8.7)
[2025-03-20] MEDS: ATORVASTATIN 10 MG TABLET 20 MG PO (17:09)
[2025-03-20] MEDS: insulin glargine 100 units/1 mL 18 UNIT SUBCUT (20:26)
[2025-03-21] VITALS (11 sets, daily range): BP systolic 113–137; BP diastolic 66–81; PULSE 70–93; RESP 16–21; TEMP 36.5–37.2; O2SAT 93–97
[2025-03-21 00:04] LABS: Procalcitonin 0.07 ng/mL (0-0.5)
[2025-03-21 00:41] LABS: Iron 27 ug/dL (37-145); Total Iron Binding Capacity 197 mcg/dl; Unsaturated Iron Binding 170 ug/dL (112-347)
[2025-03-21 03:20] LABS: Hematocrit 34.8 % (36-47); Hemoglobin 11.30 g/dL (11.27-16.99); Mean Corpuscular HGB Conc 32.5 g/dL (30-55); Mean Corpuscular Hemoglobin 32.4 pg (27-33); Mean Corpuscular Volume 99.7 fl (85-98); Nucleated Red Blood Cells % 0 %; Platelet Count 165 10^3/cmm (157-399); Red Blood Count 3.49 10^6/uL (3.85-5.65); White Blood Count 6.70 10^3/uL (3.29-11.43)
[2025-03-21 03:51] LABS: Cholesterol 111 mg/dL (0-200); HDL Cholesterol 31 mg/dL (60-100); Magnesium 1.9 mg/dL (1.7-2.3); Triglycerides 118 mg/dL (0-150); VLDL Cholestrol Calculation 24 mg/dL (0-30)
[2025-03-21 03:53] LABS: Alanine Aminotransferase 54 U/L (0-33); Albumin Level 2.9 g/dL (3.5-5.2); Alkaline Phosphatase 169 U/L (35-105); Anion Gap 12.1 (5-19); Aspartate Amino Transferase 9 U/L (0-32); Blood Urea Nitrogen 18 mg/dL (8-23); Calcium 8.4 mg/dL (8.5-10.5); Carbon Dioxide 27 mmol/L (22-29); Chloride 106 mmol/L (98-107); Creatinine Clr Calc Pharmacy 64.7884; Globulin 2.7 g/dL (1.3-4.6); Glucose 123 mg/dL (65-115); Osmolality Calculated 295 mOsm/kg (285-295); Potassium 4.1 mmol/L (3.5-5.1); Sodium 141 mmol/L (136-145); Total Protein 5.6 g/dL (6.6-8.7)
[2025-03-21] MEDS: HYDROcodone-acetaminophen 5-325 mg Tablet 1 TAB PO ×3 (06:40→20:55)
--- NOTE | 2025-03-21 07:54 | PC.SOCIAL ---
IMM Update Pg 2 of IMM Updated. Copy provided at bedside.
[2025-03-21] MEDS: meropenem 1,000 mg SDV 1000 MG IVP ×2 (08:45→20:27)
[2025-03-21] MEDS: dilTIAZem ER (24HR) 120 mg Capsule 240 MG PO (08:49)
[2025-03-21] MEDS: MEMANTINE 14 MG 14 EACH PO (08:49)
[2025-03-21] MEDS: APIXABAN 2.5 MG TABLET PO (08:52)
[2025-03-21] MEDS: sennosides-docusate Tablet 1 TAB PO (08:52)
--- NOTE | 2025-03-21 13:51 | PC.NURSE ---
Pierce catheter removed at 1230
--- NOTE | 2025-03-21 14:22 | P.PN_ITS ---
Subjective 2 Subjective: Hospital course, labs appreciated. Patient has remained hemodynamically stable and afebrile. Laying comfortably in bed. Denies any nausea, vomiting, headache. Vitals/I&O/Wt Last Vital Signs Temp 98.5 F 03/21/25 11:21 Pulse 82 03/21/25 13:21 Resp 18 03/21/25 13:21 BP 119/66 03/21/25 11:21 Pulse Ox 96 03/21/25 13:21 O2 Del Method Nasal Cannula 03/21/25 13:21 O2 Flow Rate 1 03/21/25 13:21 03/20/25 03/21/25 03/21/25 22:59 06:59 14:59 Intake Total 320 / 520 600 / 600 Output Total 700 / 700 650 / 1350 450 / 450 Balance -380 / -180 -650 / -830 150 / 150 Weight last 48 hrs Weight 101.333 kg Weight 103.646 kg Physical Exam 2 Narrative: General: Patient is alert oriented to time place and person. s/p ORIF for left ankle fracture on 2-3 L NC without any resp distress HEENT: Normocephalic, atraumatic, EOMI, breathing comfortably Cardio: Regular rate rhythm, normal S1-S2, no murmurs rubs gallops, JVD normal Respiratory: Good bilateral air entry, no wheezes no rhonchi appreciated GI: Abdomen soft, nontender, nondistended, normoactive bowel sounds present all 4 quadrants, Neuro: Patient alert and interactive, her drowsiness is resolved, gross focal neurological deficit Behavior: Appropriate and cooperative Extremities: Status post left ankle fracture ORIF and stabilized with dressing and healing well, no tenderness or skin changes seen around the tissue Skin: Grossly unremarkable Data 03/21/25 02:19 03/21/25 02:19 Micro: Microbiology 03/16/25 01:00 Blood Culture - Final Blood NO GROWTH AFTER 5 DAYS 03/16/25 01:05 Blood Culture - Final Blood NO GROWTH AFTER 5 DAYS A&P Assessment and plan 1. Closed trimalleolar fracture of left ankle, initial encounter: 2. Sepsis: 3. UTI due to extended-spectrum beta lactamase (ESBL) producing Escherichia coli: 4. Acute on chronic diastolic congestive heart failure: 5. Benign essential HTN: 6. Arteriosclerotic heart disease (ASHD): 7. Abrasion, left ankle, initial encounter: Plan: A-fib with RVR: Currently rate controlled. Continue with metoprolol 50 mg twice daily. Eliquis 2.5 mg twice daily. Will increase the dose to 5 mg twice daily to match the correct dose given her age and creatinine. Echo showed normal left ventricular size and systolic function of 56% Appreciate thyroid panel Close trimalleolar fracture of the left ankle Patient s/p ORIF of the left ankle fracture Adequate analgesia OT PT evaluation. Patient most likely will require transition to SNF for rehabitation. DC Pierce catheter. Acute liver injury : Resolved. Monitor daily. Hepatitis panel negative. Sepsis with organ failure not in shock/severe sepsis: Due to ESBL UTI : Resolved Urine culture showed E. coli with ESBL sensitive to imipenem. Continue on meropenem. Will plan for overall 5-day course. DC Pierce catheter., Acute renal failure: Resolved Monitor daily. Hyperkalemia: Resolved Reviewed CK Hold spironolactone (patient is taking 25 mg at home) History of COPD: Patient on fluticasone/umeclidinium/vilanter at home Avoid albuterol Continue on levalbuterol and ipratropium Monitor O2 sats Hypothyroidism: Continue home medicine 100 mcg in the morning daily Appreciate thyroid panel. Chronic systolic congestive heart failure Repeat echo shows EF of 56%. Possible diastolic dysfunction. Diabetes type 2: A1c- 8.6. Sliding scale insulin. Lantus 18 U Monitor blood glucose Disposition: Patient would benefit from SNF placement for rehabitation given nonweightbearing status of the ankle. Case management alerted. Carb cardiac diet Protonix for PUD ppx DVT prophylaxis: Eliquis to continue. PDMP PDMP Reviewed: Not Reviewed Attestations 2 Medical Necessity Statement*: Requires further hospitalization while safe discharge planning is sought in setting of post ORIF care for ankle fracture, ESBL E. coli UTI Diagnoses Closed trimalleolar fracture of left ankle, initial encounter A32.825T Encounter type: initial encounter Fracture type: closed Sepsis A41.9 UTI due to extended-spectrum beta lactamase (ESBL) producing Escherichia coli N39.0; B96.29; Z16.12 Acute on chronic diastolic congestive heart failure I50.33 Heart failure type: diastolic Heart failure chronicity: acute on chronic Benign essential HTN I10 Arteriosclerotic heart disease (ASHD) I25.10 Abrasion, left ankle, initial encounter S90.575A
[2025-03-21] MEDS: ATORVASTATIN 10 MG TABLET 20 MG PO (17:14)
[2025-03-21] MEDS: insulin glargine 100 units/1 mL 18 UNIT SUBCUT (20:55)
[2025-03-22] VITALS (10 sets, daily range): BP systolic 111–132; BP diastolic 69–85; PULSE 72–91; RESP 16–18; TEMP 36.5–38; O2SAT 94–98
[2025-03-22 03:20] LABS: Hematocrit 33.1 % (36-47); Hemoglobin 10.40 g/dL (11.27-16.99); Mean Corpuscular HGB Conc 31.4 g/dL (30-55); Mean Corpuscular Hemoglobin 31.1 pg (27-33); Mean Corpuscular Volume 99.1 fl (85-98); Nucleated Red Blood Cells % 0 %; Platelet Count 185 10^3/cmm (157-399); Red Blood Count 3.34 10^6/uL (3.85-5.65); White Blood Count 6.43 10^3/uL (3.29-11.43)
[2025-03-22 03:51] LABS: Magnesium 1.9 mg/dL (1.7-2.3)
[2025-03-22 04:02] LABS: Alanine Aminotransferase 40 U/L (0-33); Albumin Level 3.0 g/dL (3.5-5.2); Alkaline Phosphatase 163 U/L (35-105); Anion Gap 15.4 (5-19); Aspartate Amino Transferase 11 U/L (0-32); Blood Urea Nitrogen 21 mg/dL (8-23); Calcium 8.2 mg/dL (8.5-10.5); Carbon Dioxide 25 mmol/L (22-29); Chloride 102 mmol/L (98-107); Creatinine Clr Calc Pharmacy 64.7884; Globulin 2.2 g/dL (1.3-4.6); Glucose 130 mg/dL (65-115); Osmolality Calculated 291 mOsm/kg (285-295); Potassium 4.4 mmol/L (3.5-5.1); Sodium 138 mmol/L (136-145); Total Protein 5.2 g/dL (6.6-8.7)
[2025-03-22] MEDS: meropenem 1,000 mg SDV 1000 MG IVP ×2 (08:18→19:37)
[2025-03-22] MEDS: dilTIAZem ER (24HR) 120 mg Capsule 240 MG PO (08:18)
[2025-03-22] MEDS: MEMANTINE 14 MG 14 EACH PO (08:19)
[2025-03-22] MEDS: sennosides-docusate Tablet 1 TAB PO (08:19)
--- NOTE | 2025-03-22 11:14 | P.PN_ITS ---
Subjective 2 Subjective: No acute events overnight. Patient has remained hemodynamically stable and afebrile. Denies any nausea, vomiting, headache. Sitting up in chair today. Medications: Reviewed: Yes Vitals/I&O/Wt Last Vital Signs Temp 97.7 F 03/22/25 07:52 Pulse 84 03/22/25 08:16 Resp 16 03/22/25 08:03 BP 116/79 03/22/25 07:52 Pulse Ox 96 03/22/25 08:03 O2 Del Method Nasal Cannula 03/22/25 08:03 O2 Flow Rate 1 03/22/25 08:03 03/21/25 03/22/25 03/22/25 22:59 06:59 14:59 Intake Total 240 / 840 240 / 240 Balance 240 / 390 240 / 240 Weight last 48 hrs Weight 100.357 kg Weight 101.333 kg Physical Exam 2 Narrative: General: Patient is alert oriented to time place and person. s/p ORIF for left ankle fracture on 2-3 L NC without any resp distress HEENT: Normocephalic, atraumatic, EOMI, breathing comfortably Cardio: Regular rate rhythm, normal S1-S2, no murmurs rubs gallops, JVD normal Respiratory: Good bilateral air entry, no wheezes no rhonchi appreciated GI: Abdomen soft, nontender, nondistended, normoactive bowel sounds present all 4 quadrants, Neuro: Patient alert and interactive, her drowsiness is resolved, gross focal neurological deficit Behavior: Appropriate and cooperative Extremities: Status post left ankle fracture ORIF and stabilized with dressing and healing well, no tenderness or skin changes seen around the tissue Skin: Grossly unremarkable Data 03/22/25 01:35 03/22/25 01:35 A&P Assessment and plan 1. Closed trimalleolar fracture of left ankle, initial encounter: 2. Sepsis: 3. UTI due to extended-spectrum beta lactamase (ESBL) producing Escherichia coli: 4. Acute on chronic diastolic congestive heart failure: 5. Benign essential HTN: 6. Arteriosclerotic heart disease (ASHD): 7. Abrasion, left ankle, initial encounter: Plan: A-fib with RVR: Currently rate controlled. Continue with metoprolol 50 mg twice daily. Eliquis 2.5 mg twice daily. Will increase the dose to 5 mg twice daily to match the correct dose given her age and creatinine. Echo showed normal left ventricular size and systolic function of 56% Appreciate thyroid panel Close trimalleolar fracture of the left ankle Patient s/p ORIF of the left ankle fracture Adequate analgesia OT PT evaluation. Patient most likely will require transition to SNF for rehabitation. DC Pierce catheter. Acute liver injury : Resolved. Monitor daily. Hepatitis panel negative. Sepsis with organ failure not in shock/severe sepsis: Due to ESBL UTI : Resolved Urine culture showed E. coli with ESBL sensitive to imipenem. Continue on meropenem. Will plan for overall 5-day course. DC Pierce catheter., Acute renal failure: Resolved Monitor daily. Hyperkalemia: Resolved Reviewed CK Hold spironolactone (patient is taking 25 mg at home) History of COPD: Patient on fluticasone/umeclidinium/vilanter at home Avoid albuterol Continue on levalbuterol and ipratropium Monitor O2 sats Hypothyroidism: Continue home medicine 100 mcg in the morning daily Appreciate thyroid panel. Chronic systolic congestive heart failure Repeat echo shows EF of 56%. Possible diastolic dysfunction. Diabetes type 2: A1c- 8.6. Sliding scale insulin. Lantus 18 U Monitor blood glucose Disposition: Patient would benefit from SNF placement for rehabitation given nonweightbearing status of the ankle. Case management alerted. Carb cardiac diet Protonix for PUD ppx DVT prophylaxis: Eliquis to continue. Plan for the day: Continue with meropenem for overall 5-day course. Awaiting SNF placement. Out of bed to chair. Physical therapy. Lab holiday tomorrow. PDMP PDMP Reviewed: Not Reviewed Attestations 2 Medical Necessity Statement*: Requires further hospitalization for safe discharge planning in a patient admitted for trimalleolar fracture of left ankle, ESBL E. coli UTI Diagnoses Closed trimalleolar fracture of left ankle, initial encounter R92.360J Encounter type: initial encounter Fracture type: closed Sepsis A41.9 UTI due to extended-spectrum beta lactamase (ESBL) producing Escherichia coli N39.0; B96.29; Z16.12 Acute on chronic diastolic congestive heart failure I50.33 Heart failure type: diastolic Heart failure chronicity: acute on chronic Benign essential HTN I10 Arteriosclerotic heart disease (ASHD) I25.10 Abrasion, left ankle, initial encounter S92.682W
[2025-03-22] MEDS: ATORVASTATIN 10 MG TABLET 20 MG PO (17:05)
[2025-03-22] MEDS: HYDROcodone-acetaminophen 5-325 mg Tablet 1 TAB PO (21:22)
[2025-03-22] MEDS: insulin glargine 100 units/1 mL 18 UNIT SUBCUT (21:24)
[2025-03-23] VITALS (14 sets, daily range): BP systolic 90–130; BP diastolic 51–77; PULSE 62–90; RESP 16–17; TEMP 36.6–37.4; O2SAT 92–97
--- NOTE | 2025-03-23 08:50 | USR_ITS ---
PROCEDURE INFORMATION: Exam: US Duplex Lower Extremity Veins, Bilateral Exam date and time: 03/23/2025 6:02 PM Age: 79 years old Clinical indication: Edema, localized; Lower extremity, bilateral; Additional info: Possible dvt TECHNIQUE: Imaging protocol: Real-time duplex ultrasound of the bilateral extremities with 2-D newby scale, color Doppler flow and spectral waveform analysis including responses to compression and other maneuvers (when performed) with image documentation. Complete exam focused on the lower extremity veins. 3011 image(s) are submitted. COMPARISON: CT abdomen pelvis wo con [id number] 03/15/2025 11:02 AM FINDINGS: Right deep veins: Unremarkable. The common femoral, femoral, proximal profunda femoral and popliteal veins are patent without thrombus. Normal Doppler waveforms. Normal compressibility and/or augmentation response. Left deep veins: Limited examination due to patient's mobility. Patient has a knee high cast, resulting in inability to evaluate left-side posterior tibial vein, greater saphenous vein below knee and ankle as well as left-sided popliteal vein and peroneal vein. Left side femoral vein, profunda vein, common femoral vein and greater saphenous vein are unremarkable. Superficial veins: Greater saphenous veins at the saphenofemoral junctions are patent bilaterally without thrombus. Soft tissues: Unremarkable. Other findings: No evidence of DVT or superficial venous thrombus of bilateral leg. US/CV venous duplex [facility] [id number] IMPRESSION: No evidence of DVT or superficial venous thrombus of bilateral leg. Limited examination due to patient's mobility. Patient has a knee high cast, resulting in inability to evaluate left-side posterior tibial vein, greater saphenous vein below knee and ankle as well as left-sided popliteal vein and peroneal vein.
[2025-03-23] MEDS: HYDROcodone-acetaminophen 5-325 mg Tablet 1 TAB PO ×2 (10:04→16:38)
[2025-03-23] MEDS: dilTIAZem ER (24HR) 120 mg Capsule 240 MG PO (10:05)
[2025-03-23] MEDS: sennosides-docusate Tablet 1 TAB PO (10:06)
[2025-03-23] MEDS: meropenem 1,000 mg SDV 1000 MG IVP ×2 (10:06→20:51)
[2025-03-23] MEDS: MEMANTINE 14 MG 14 EACH PO (10:06)
--- NOTE | 2025-03-23 12:13 | P.PN_ITS ---
Subjective 2 Subjective: No acute events overnight. Patient has remained hemodynamically stable. Tmax of 100.4 one-time fever yesterday evening. Otherwise patient states she is feeling better. Denies any headache. Denies any abdominal pain or vomiting. Medications: Reviewed: Yes Vitals/I&O/Wt Last Vital Signs Temp 98.8 F 03/23/25 11:44 Pulse 83 03/23/25 11:44 Resp 17 03/23/25 11:44 BP 93/54 03/23/25 11:44 Pulse Ox 97 03/23/25 11:44 O2 Del Method Nasal Cannula 03/23/25 11:44 O2 Flow Rate 2 03/23/25 08:00 03/22/25 03/23/25 03/23/25 22:59 06:59 14:59 Intake Total 480 / 1200 240 / 240 Output Total 200 / 200 Balance 280 / 1000 240 / 240 Weight last 48 hrs Weight 99.79 kg Weight 100.357 kg Physical Exam 2 Narrative: General: Patient is alert oriented to time place and person. s/p ORIF for left ankle fracture on 2-3 L NC without any resp distress HEENT: Normocephalic, atraumatic, EOMI, breathing comfortably Cardio: Regular rate rhythm, normal S1-S2, no murmurs rubs gallops, JVD normal Respiratory: Good bilateral air entry, no wheezes no rhonchi appreciated GI: Abdomen soft, nontender, nondistended, normoactive bowel sounds present all 4 quadrants, Neuro: Patient alert and interactive, her drowsiness is resolved, gross focal neurological deficit Behavior: Appropriate and cooperative Extremities: Status post left ankle fracture ORIF and stabilized with dressing and healing well, no tenderness or skin changes seen around the tissue Skin: Grossly unremarkable Data 03/22/25 01:35 03/22/25 01:35 A&P Assessment and plan 1. Closed trimalleolar fracture of left ankle, initial encounter: 2. Sepsis: 3. UTI due to extended-spectrum beta lactamase (ESBL) producing Escherichia coli: 4. Acute on chronic diastolic congestive heart failure: 5. Benign essential HTN: 6. Arteriosclerotic heart disease (ASHD): 7. Abrasion, left ankle, initial encounter: Plan: A-fib with RVR: Currently rate controlled. Continue with metoprolol 50 mg twice daily, home dose of Cardizem to 40 mg daily, Eliquis 5 mg twice daily. Echo showed normal left ventricular size and systolic function of 56% Appreciate thyroid panel Close trimalleolar fracture of the left ankle Patient s/p ORIF of the left ankle fracture Adequate analgesia OT PT evaluation. Patient most likely will require transition to SNF for rehabitation. DC Pierce catheter. Acute liver injury : Resolved. Monitor daily. Hepatitis panel negative. Sepsis with organ failure not in shock/severe sepsis: Due to ESBL UTI : Resolved Urine culture showed E. coli with ESBL sensitive to imipenem. Continue on meropenem. Will plan for overall 5-day course. DC Pierce catheter., Acute renal failure: Resolved Monitor daily. Hyperkalemia: Resolved Reviewed CK Hold spironolactone (patient is taking 25 mg at home) History of COPD: Patient on fluticasone/umeclidinium/vilanter at home Avoid albuterol Continue on levalbuterol and ipratropium Monitor O2 sats Hypothyroidism: Continue home medicine 100 mcg in the morning daily Appreciate thyroid panel. Chronic systolic congestive heart failure Repeat echo shows EF of 56%. Possible diastolic dysfunction. Diabetes type 2: A1c- 8.6. Sliding scale insulin. Lantus 18 U Monitor blood glucose Disposition: Patient would benefit from SNF placement for rehabitation given nonweightbearing status of the ankle. Case management alerted. Carb cardiac diet Protonix for PUD ppx DVT prophylaxis: Eliquis to continue. Plan for the day: Continue with IV meropenem. Patient having occasional episodes of fever. Will plan to finish IV antibiotics for a 7-day course. Check lower limb Doppler to rule out DVT. Blood pressure slightly soft most likely due to pain medications. Hold off on home dose of Imdur and spironolactone. Continue with metoprolol, Cardizem. Patient has been declined by multiple SNF. Case management trying to set up transition to swing bed. Unfortunately a swing bed also declines plan will be to discharge home with home health versus equipment depending on availability and acceptance from home health. Discussed in detail with patient and she verbalized understanding. PDMP PDMP Reviewed: Not Reviewed Attestations 2 Medical Necessity Statement*: Requires further hospitalization for management of ESBL E. coli UTI, post operative care for post ORIF for ankle fracture while safe discharge planning is sought. Diagnoses Closed trimalleolar fracture of left ankle, initial encounter M12.151M Encounter type: initial encounter Fracture type: closed Sepsis A41.9 UTI due to extended-spectrum beta lactamase (ESBL) producing Escherichia coli N39.0; B96.29; Z16.12 Acute on chronic diastolic congestive heart failure I50.33 Heart failure type: diastolic Heart failure chronicity: acute on chronic Benign essential HTN I10 Arteriosclerotic heart disease (ASHD) I25.10 Abrasion, left ankle, initial encounter S93.201Q
--- NOTE | 2025-03-23 14:47 | P.PN_ITS ---
Subjective 2 Subjective: Patient seen bedside this p.m. Is conversive and oriented. Denies left ankle pain. Vitals/I&O/Wt Last Vital Signs Temp 98.8 F 03/23/25 11:44 Pulse 66 03/23/25 14:02 Resp 16 03/23/25 13:52 BP 93/54 03/23/25 11:44 Pulse Ox 96 03/23/25 13:52 O2 Del Method Nasal Cannula 03/23/25 13:52 O2 Flow Rate 2 03/23/25 13:52 03/22/25 03/23/25 03/23/25 22:59 06:59 14:59 Intake Total 480 / 1200 720 / 720 Output Total 200 / 200 Balance 280 / 1000 720 / 720 Weight last 48 hrs Weight 220 lb Weight 221 lb 4 oz Physical Exam 2 Narrative: GENERAL: Patient is alert and oriented ?3 and in no acute distress. The following is a focused bilateral lower extremity exam. VASCULAR: Dorsalis pedis palpable, posterior tibial arteries palpable. Capillary refill time less than 3 seconds to the distal hallux bilaterally. Calf is supple and nontender proximally and distally. NEUROLOGICAL: Protective sensation intact 0/10 sites, tested with [employer] Farhana monofilament to bilateral feet. DERMATOLOGICAL: Cast is intact clean and dry. No irritation, wounds or friction. MUSCULOSKELETAL: Deferred due to postoperative state. Data 03/24/25 02:52 03/24/25 02:52 A&P Assessment and plan 1. Closed trimalleolar fracture of left ankle, initial encounter: X-ray left ankle 3 views significant for Hugo Mendez B fracture and transverse fracture of the medial malleolus at the level of the tibial plafond, nondisplaced avulsion fracture at the posterior malleolus. Calcaneal enthesophyte and Achilles calcifications. 2. Risk for falls: 3. Abrasion, left ankle, initial encounter: Plan: 79-year-old insulin-dependent diabetic female with history of CHF presents with left trimalleolar fracture date of injury 03/14/2025 fell at home. ORIF left ankle tomorrow 03/18/2025 if medically optimized Keep short leg cast left lower extremity clean dry and intact. Strict nonweightbearing left lower extremity Elevate left foot while resting Follow-up in podiatry clinic for continued care PDMP PDMP Reviewed: Not Reviewed Attestations 2 Medical Necessity Statement*: Deferred to primary Coding Level of Care Code Acute Code for Chg Fwd Diagnoses Closed trimalleolar fracture of left ankle, initial encounter S82.852A Encounter type: initial encounter Fracture type: closed Risk for falls Z91.81 Abrasion, left ankle, initial encounter S90.512A
--- NOTE | 2025-03-23 15:14 | PICC.NOTE ---
Midline placed to left basilic vein. Referred to vascular access nurse for midline placement for IV antibiotics x 5 days. Risks and benefits discussed and informed consent obtained from pt. Left arm assessed with left basilic vein measuring 3.4 mm, straight, and apparent best choice for placement. Using sterile technique and MST, left basilic vein accessed x 1 stick. Mid-arm circumference measured 10 cm from left AC 34 cm. Trimmed cath 10 cm with 0 cm external length noted. Line secured with stat-lock. Insertion site covered with Biopatch and TSM. Report given to bedside nurse, JENELLE Ferreira.
[2025-03-23] MEDS: ATORVASTATIN 10 MG TABLET 20 MG PO (16:37)
[2025-03-23] MEDS: insulin glargine 100 units/1 mL 18 UNIT SUBCUT (20:59)
[2025-03-24] VITALS (9 sets, daily range): BP systolic 102–145; BP diastolic 63–85; PULSE 65–100; RESP 16–18; TEMP 36.4–37; O2SAT 93–96
[2025-03-24 04:09] LABS: Hematocrit 31.8 % (36-47); Hemoglobin 10.00 g/dL (11.27-16.99); Mean Corpuscular HGB Conc 31.4 g/dL (30-55); Mean Corpuscular Hemoglobin 31.1 pg (27-33); Mean Corpuscular Volume 98.8 fl (85-98); Nucleated Red Blood Cells % 0 %; Platelet Count 231 10^3/cmm (157-399); Red Blood Count 3.22 10^6/uL (3.85-5.65); White Blood Count 6.15 10^3/uL (3.29-11.43)
[2025-03-24 04:52] LABS: Alanine Aminotransferase 24 U/L (0-33); Albumin Level 3.0 g/dL (3.5-5.2); Alkaline Phosphatase 139 U/L (35-105); Anion Gap 13.5 (5-19); Aspartate Amino Transferase 11 U/L (0-32); Blood Urea Nitrogen 22 mg/dL (8-23); Calcium 8.3 mg/dL (8.5-10.5); Carbon Dioxide 26 mmol/L (22-29); Chloride 103 mmol/L (98-107); Creatinine Clr Calc Pharmacy 51.3862; Globulin 2.7 g/dL (1.3-4.6); Glucose 138 mg/dL (65-115); Osmolality Calculated 292 mOsm/kg (285-295); Potassium 4.5 mmol/L (3.5-5.1); Sodium 138 mmol/L (136-145); Total Protein 5.7 g/dL (6.6-8.7)
[2025-03-24] MEDS: MEMANTINE 14 MG 14 EACH PO (08:22)
[2025-03-24] MEDS: meropenem 1,000 mg SDV 1000 MG IVP ×2 (08:23→20:53)
[2025-03-24] MEDS: sennosides-docusate Tablet 1 TAB PO (08:25)
[2025-03-24] MEDS: dilTIAZem ER (24HR) 120 mg Capsule 240 MG PO (08:26)
[2025-03-24] MEDS: HYDROcodone-acetaminophen 5-325 mg Tablet 1 TAB PO ×2 (08:26→13:49)
--- NOTE | 2025-03-24 12:28 | P.PN_ITS ---
Subjective 2 Subjective: No events overnight. Patient has remained hemodynamically stable and afebrile. Denies any new complaints. Medications: Reviewed: Yes Vitals/I&O/Wt Last Vital Signs Temp 97.5 F L 03/24/25 11:44 Pulse 73 03/24/25 11:44 Resp 18 03/24/25 11:44 BP 102/63 03/24/25 11:44 Pulse Ox 94 03/24/25 11:44 O2 Del Method Nasal Cannula 03/24/25 11:44 O2 Flow Rate 2 03/24/25 08:00 03/23/25 03/24/25 03/24/25 22:59 06:59 14:59 Intake Total 600 / 1320 480 / 480 Output Total 300 / 300 200 / 500 Balance 300 / 1020 -200 / 820 480 / 480 Weight last 48 hrs Weight 99.337 kg Weight 99.79 kg Physical Exam 2 Narrative: General: Patient is alert oriented to time place and person. s/p ORIF for left ankle fracture on 2-3 L NC without any resp distress HEENT: Normocephalic, atraumatic, EOMI, breathing comfortably Cardio: Regular rate rhythm, normal S1-S2, no murmurs rubs gallops, JVD normal Respiratory: Good bilateral air entry, no wheezes no rhonchi appreciated GI: Abdomen soft, nontender, nondistended, normoactive bowel sounds present all 4 quadrants, Neuro: Patient alert and interactive, her drowsiness is resolved, gross focal neurological deficit Behavior: Appropriate and cooperative Extremities: Status post left ankle fracture ORIF and stabilized with dressing and healing well, no tenderness or skin changes seen around the tissue Skin: Grossly unremarkable Data 03/24/25 02:52 03/24/25 02:52 A&P Assessment and plan 1. Closed trimalleolar fracture of left ankle, initial encounter: 2. Sepsis: 3. UTI due to extended-spectrum beta lactamase (ESBL) producing Escherichia coli: 4. Acute on chronic diastolic congestive heart failure: 5. Benign essential HTN: 6. Arteriosclerotic heart disease (ASHD): 7. Abrasion, left ankle, initial encounter: Plan: A-fib with RVR: Currently rate controlled. Continue with metoprolol 50 mg twice daily, home dose of Cardizem to 40 mg daily, Eliquis 5 mg twice daily. Echo showed normal left ventricular size and systolic function of 56% Appreciate thyroid panel Close trimalleolar fracture of the left ankle Patient s/p ORIF of the left ankle fracture Adequate analgesia OT PT evaluation. Patient most likely will require transition to SNF for rehabitation. DC Pierce catheter. Acute liver injury : Resolved. Monitor daily. Hepatitis panel negative. Sepsis with organ failure not in shock/severe sepsis: Due to ESBL UTI : Resolved Urine culture showed E. coli with ESBL sensitive to imipenem. Continue on meropenem. Will plan for overall 5-day course. DC Pierce catheter., Acute renal failure: Resolved Monitor daily. Hyperkalemia: Resolved Reviewed CK Hold spironolactone (patient is taking 25 mg at home) History of COPD: Patient on fluticasone/umeclidinium/vilanter at home Avoid albuterol Continue on levalbuterol and ipratropium Monitor O2 sats Hypothyroidism: Continue home medicine 100 mcg in the morning daily Appreciate thyroid panel. Chronic systolic congestive heart failure Repeat echo shows EF of 56%. Possible diastolic dysfunction. Diabetes type 2: A1c- 8.6. Sliding scale insulin. Lantus 18 U Monitor blood glucose Disposition: Patient would benefit from SNF placement for rehabitation given nonweightbearing status of the ankle. Case management alerted. Carb cardiac diet Protonix for PUD ppx DVT prophylaxis: Eliquis to continue. Plan for the day: Awaiting safe discharge planning. Continue with meropenem to finish a 7-day course. Last dose on 03/25. Can transition to ertapenem if needed for discharge. Lower limb DVT ruled out. Blood pressure better controlled. Continue with Cardizem and metoprolol. Holding off on Imdur. Discharge plan: Patient has been declined by multiple SNF. Case management trying to set up transition to swing bed. Unfortunately a swing bed also declines plan will be to discharge home with home health versus equipment depending on availability and acceptance from home health. Discussed in detail with patient and she verbalized understanding. PDMP PDMP Reviewed: Not Reviewed Attestations 2 Medical Necessity Statement*: Requires further hospitalization while safe discharge planning is sought in a patient admitted for ankle fracture, post ORIF, treated for ESBL E. coli UTI Diagnoses Closed trimalleolar fracture of left ankle, initial encounter I52.621N Encounter type: initial encounter Fracture type: closed Sepsis A41.9 UTI due to extended-spectrum beta lactamase (ESBL) producing Escherichia coli N39.0; B96.29; Z16.12 Acute on chronic diastolic congestive heart failure I50.33 Heart failure type: diastolic Heart failure chronicity: acute on chronic Benign essential HTN I10 Arteriosclerotic heart disease (ASHD) I25.10 Abrasion, left ankle, initial encounter O85.383V
[2025-03-24] MEDS: ATORVASTATIN 10 MG TABLET 20 MG PO (17:36)
[2025-03-24] MEDS: insulin glargine 100 units/1 mL 18 UNIT SUBCUT (20:54)
[2025-03-25] VITALS (8 sets, daily range): BP systolic 107–127; BP diastolic 63–75; PULSE 60–80; RESP 16–17; TEMP 36.6–37; O2SAT 93–97
[2025-03-25] MEDS: MEMANTINE 14 MG 14 EACH PO (07:44)
[2025-03-25] MEDS: meropenem 1,000 mg SDV 1000 MG IVP (07:44)
[2025-03-25] MEDS: sennosides-docusate Tablet 1 TAB PO (07:46)
[2025-03-25] MEDS: HYDROcodone-acetaminophen 5-325 mg Tablet 1 TAB PO (07:47)
[2025-03-25] MEDS: dilTIAZem ER (24HR) 120 mg Capsule 240 MG PO (07:47)
--- NOTE | 2025-03-25 08:02 | PM.DCS ---
Discharge Providers Date of Admission: 03/14/25 21:01 Date of Discharge: March 25, 2025 Attending Provider at Admission: Gardenia Head MD Attending Provider at Discharge: Brent Medina MD Consults: [facility] Primary Care Provider: Tawana Agustin Diagnoses at Discharge Discharge Diagnosis 1. Closed trimalleolar fracture of left ankle, initial encounter: 2. Sepsis: 3. UTI due to extended-spectrum beta lactamase (ESBL) producing Escherichia coli: 4. Acute on chronic diastolic congestive heart failure: 5. Benign essential HTN: 6. Arteriosclerotic heart disease (ASHD): 7. Abrasion, left ankle, initial encounter: Reason for Visit Reason for Visit: fall Brief History: Per HPI: Kiana Trivedi is a 79 year old female who gets around with a walker, sustained a mechanical fall today and fracturing the left ankle above the mortise. Patient came to the emergency room seeking for help. Left ankle was splinted Dr. Perez was consulted by the emergency room who saw the patient already in the ED. I have seen and evaluated patient patient is in a lot of pain and given a dose of morphine IV 4 mg in the ED. Patient had maintain good circulation and capillary refill less than 3 seconds on the affected leg and was able to move all toes. Patient is n.p.o. and will be going to surgery in the afternoon tomorrow. Patient is also very dry with an acute renal failure significant for a prerenal azotemia with a BUN of 60 and creatinine of 2. I have initiated gentle hydration at this point. Hospital Course Hospital Course She was admitted to the hospital further evaluation and management of closed trimalleolar fracture of left ankle. Podiatry was consulted on admission. During hospitalization she was found to have acute kidney injury on admission for which nephrology was consulted. She was better explained fluid management and hydration. Eventually her PATRICE resolved. She underwent ORIF on 03/17. She did have episodes of fever for which UA was consistent with UTI. Blood culture remain negative, urine culture grew ESBL E. coli. She has finished her treatment of IV antibiotics for complicated UTI with Pierce in place on 03/25. Her hospitalization was prolonged because of difficulty to find safe discharge planning. Multiple SNF along with acute rehab were tried all of which he refused. Home health could not be arranged as well. Multiple equipment to help patient with therapy, safety at home to prevent fall has been requested. She has been discharged in hemodynamically stable condition and asked to follow-up with her PCP within next 1 week and podiatry team within next 10 days. Physical Exam Narrative: General: Patient is alert oriented to time place and person. s/p ORIF for left ankle fracture on 2-3 L NC without any resp distress HEENT: Normocephalic, atraumatic, EOMI, breathing comfortably Cardio: Regular rate rhythm, normal S1-S2, no murmurs rubs gallops, JVD normal Respiratory: Good bilateral air entry, no wheezes no rhonchi appreciated GI: Abdomen soft, nontender, nondistended, normoactive bowel sounds present all 4 quadrants, Neuro: Patient alert and interactive, her drowsiness is resolved, gross focal neurological deficit Behavior: Appropriate and cooperative Extremities: Status post left ankle fracture ORIF and stabilized with dressing and healing well, no tenderness or skin changes seen around the tissue Skin: Grossly unremarkable Discharge Data Studies Completed and Pending Completed Studies During Hospitalization Category Date Time Status CT abdomen pelvis wo con [id number] Stat Cat Scan 03/15/25 09:[address] head wo con* [id number] Stat Cat Scan 03/15/25 10:44 Completed XR ankle LT 2V [id number] Routine Exams 03/17/25 00:00 Completed XR ankle LT min 3V* [id number] Stat Exams 03/14/25 20:11 Completed XR chest 1V portable [id number] Stat Exams 03/14/25 20:21 [place] [id number] Routine Ultrasound 03/23/25 08:50 Completed CV. echo complete* [id number] Routine Ultrasound 03/15/25 13:45 Completed Radiology Impressions Chest X-Ray 03/14/25 20:21 IMPRESSION: Patchy perihilar opacities in the right izfbn-hzudohf-swmu-left lung, may be related to chronic findings, especially given chronic appearings strands throughout both lungs, although no priors for comparison; correlate for infection. Abdomen/Pelvis CT 03/15/25 09:05 IMPRESSION: 1. Mild hepatomegaly. Noncontrast liver otherwise normal. 2. 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 3. Prior cholecystectomy. 4. Sigmoid diverticulosis with constipation. 5. Pierce catheter 6. No other acute findings. Head CT 03/15/25 10:44 IMPRESSION: 1. No evidence of intracranial hemorrhage or mass effect. 2. No acute intracranial findings. Ankle X-Ray 03/17/25 00:00 IMPRESSION: Status post ORIF bimalleolar fractures in good position and alignment. Microbiology 03/16/25 01:00 Blood Blood Culture - Final NO GROWTH AFTER 5 DAYS 03/16/25 01:05 Blood Blood Culture - Final NO GROWTH AFTER 5 DAYS 03/15/25 10:52 Urine,Clean Catch Urine Culture - Final Escherichia coli esbl Venous Duplex 03/23/25 08:50 IMPRESSION: No evidence of DVT or superficial venous thrombus of bilateral leg. Limited examination due to patient's mobility. Patient has a knee high cast, resulting in inability to evaluate left-side posterior tibial vein, greater saphenous vein below knee and ankle as well as left-sided popliteal vein and peroneal vein. Laboratory Results WBC 6.15 10^3/uL (3.29-11.43) 03/24/25 02:52 RBC 3.22 10^6/uL (3.85-5.65) L 03/24/25 02:52 Hgb 10.00 g/dL (11.27-16.99) L 03/24/25 02:52 Hct 31.8 % (36-47) L 03/24/25 02:52 MCV 98.8 fl (85-98) H 03/24/25 02:52 MCH 31.1 pg (27-33) 03/24/25 02:52 MCHC 31.4 g/dL (30-55) 03/24/25 02:52 RDW 12.7 % (12.1-15.1) 03/24/25 02:52 Plt Count 231 10^3/cmm (157-399) 03/24/25 02:52 MPV 11.0 fL (7.4-10.4) H 03/24/25 02:52 Neut % (Auto) 65.3 % 03/24/25 02:52 Lymph % (Auto) 19.2 % 03/24/25 02:52 [place] % (Auto) 8.9 % 03/24/25 02:52 Eos % (Auto) 5.4 % 03/24/25 02:52 Baso % (Auto) 0.7 % 03/24/25 02:52 Neut # (Auto) 4.02 10^3/uL (1.8-7.7) 03/24/25 02:52 Lymph # (Auto) 1.2 10^3/uL (0.8-4.8) 03/24/25 02:52 [place] # (Auto) 0.6 10^3/uL (0.2-0.9) 03/24/25 02:52 Eos # (Auto) 0.3 10^3/uL (0.0-0.8) 03/24/25 02:52 Baso # (Auto) 0.0 10^3/uL (0.0-0.1) 03/24/25 02:52 Nucleated RBC % (auto) 0 % 03/24/25 02:52 Nucleated RBCs # 0.0 /100WBC 03/24/25 02:52 PT 14.60 SECONDS (12.1-14.9) 03/17/25 03:50 INR 1.06 (0.8-1.2) 03/17/25 03:50 APTT 28.7 SECONDS (23.9-36.7) 03/14/25 20:15 Specimen Type Arterial 03/15/25 09:21 Sample Site Radial, left 03/15/25 09:21 ABG pH 7.35 (7.35-7.45) 03/15/25 09:21 ABG pCO2 43.4 mmHg (35-45) 03/15/25 09:21 ABG pO2 82.6 mmHg (80.0-100.0) 03/15/25 09:21 ABG HCO3 24.1 mmol/L (22-26) 03/15/25 09:21 ABG O2 Saturation 94.7 03/15/25 09:21 ABG Base Excess -1.6 mmol/L (-2.0-2.0) 03/15/25 09:21 [place] Test Pos 03/15/25 09:21 A-a O2 Gradient 1.9 mmHg (5-10) L 03/15/25 09:21 Hematocrit 40.0 % (37-47) 03/15/25 09:21 Hgb O2 Saturation 92.2 % (95-100) L 03/15/25 09:21 Carboxyhemoglobin 0.4 %THgb (0.4-20.1) 03/15/25 09:21 Methemoglobin 2.2 % (0.4-1.5) H 03/15/25 09:21 Total Hemoglobin 13.1 g/dL (12-16) 03/15/25 09:21 Sodium 138.0 mmol/L (131-143) 03/15/25 09:21 Potassium 5.4 mmol/L (3.5-5.0) H 03/15/25 09:21 Glucose 195.0 mg/dL (70-115) H 03/15/25 09:21 Ionized Calcium 1.2 mmol/L (1.1-1.4) 03/15/25 09:21 O2 Delivery Device Nc 03/15/25 09:21 O2 Liters/Min 2.0 % 03/15/25 09:21 [employer] ID [place] 03/15/25 09:21 Sodium 138 mmol/L (136-145) 03/24/25 02:52 Potassium 4.5 mmol/L (3.5-5.1) 03/24/25 02:52 Chloride 103 mmol/L (98-107) 03/24/25 02:52 Carbon Dioxide 26 mmol/L (22-29) 03/24/25 02:52 Anion Gap 13.5 (5-19) 03/24/25 02:52 BUN 22 mg/dL (8-23) 03/24/25 02:52 Creatinine 1.0 mg/dL (0.5-0.9) H 03/24/25 02:52 GFR Calculation Not Reportable 03/24/25 02:52 Glucose 138 mg/dL (65-115) H 03/24/25 02:52 POC Glucose 145 mg/dL (70-110) H 03/25/25 06:02 Estimat Average Glucose 200 03/15/25 04:30 Hemoglobin A1c 8.6 % (4.0-6.0) H 03/15/25 04:30 Calculated Osmolality 292 mOsm/kg (285-295) 03/24/25 02:52 Lactate 1.4 mmol/L (0.5-2.2) 03/15/25 09:33 Calcium 8.3 mg/dL (8.5-10.5) L 03/24/25 02:52 Phosphorus 5.6 mg/dL (2.5-4.5) H 03/15/25 04:30 Magnesium 1.9 mg/dL (1.7-2.3) 03/22/25 01:35 Iron 27 ug/dL (37-145) L 03/20/25 13:21 TIBC 197 mcg/dl 03/20/25 13:21 % Saturation 13.7 % (20-50) L 03/20/25 13:21 Unsat Iron Binding 170 ug/dL (112-347) 03/20/25 13:21 Total Bilirubin 0.6 mg/dL (0.15-1.2) 03/24/25 02:52 AST 11 U/L (0-32) 03/24/25 02:52 ALT 24 U/L (0-33) 03/24/25 02:52 Alkaline Phosphatase 139 U/L (35-105) H 03/24/25 02:52 Ammonia 48 umol/L (11-51) 03/15/25 09:33 Creatine Kinase 131 U/L (26-192) 03/15/25 15:05 Total Protein 5.7 g/dL (6.6-8.7) L 03/24/25 02:52 Albumin 3.0 g/dL (3.5-5.2) L 03/24/25 02:52 Globulin 2.7 g/dL (1.3-4.6) 03/24/25 02:52 Triglycerides 118 mg/dL (0-150) 03/21/25 02:19 Cholesterol 111 mg/dL (0-200) 03/21/25 02:19 LDL Cholesterol, Calc 56 mg/dL (50-129) 03/21/25 02:19 Total VLDL Cholesterol 24 mg/dL (0-30) 03/21/25 02:19 HDL Cholesterol 31 mg/dL (60-100) L 03/21/25 02:19 Cholesterol/HDL Ratio 3.58 mg/dL (0.0-4.40) 03/21/25 02:19 Vitamin B12 1771 pg/mL (232-1245) H 03/15/25 09:33 Folate 7.4 ng/mL (4.8-37.3) 03/21/25 02:19 Procalcitonin 0.07 ng/mL (0-0.5) 03/20/25 13:21 TSH 16.40 uIU/mL (0.27-4.20) H 03/19/25 04:27 Free T4 1.12 ng/dL (0.82-1.77) 03/20/25 13:21 Free T3 1.6 PG/ML (2.0-4.4) L 03/20/25 13:21 Urine Color [place] (Yellow) A 03/15/25 10:52 Urine Appearance Cloudy (CLEAR) A 03/15/25 10:52 Urine pH Not Reportable 03/15/25 10:52 Ur Specific [place] Not Reportable 03/15/25 10:52 Urine Protein Not Reportable 03/15/25 10:52 Urine Glucose (UA) Not Reportable 03/15/25 10:52 Urine Ketones Not Reportable 03/15/25 10:52 Urine Blood Not Reportable 03/15/25 10:52 Urine Nitrate Not Reportable 03/15/25 10:52 Urine Bilirubin Not Reportable 03/15/25 10:52 Urine Urobilinogen Not Reportable 03/15/25 10:52 Ur Leukocyte Esterase Not Reportable 03/15/25 10:52 Urine RBC 0-4 /hpf (0-2) H 03/15/25 10:52 Urine WBC >100 /hpf (0-5) H 03/15/25 10:52 Ur Squamous Epith Cells 0-4 /hpf (0-5) H 03/15/25 10:52 Amorphous Sediment Not Reportable 03/15/25 10:52 Urine Bacteria 2+ /hpf (NONE) H 03/15/25 10:52 Hyaline Casts 0-4 /lpf H 03/15/25 10:52 Urine Mucus 1+ /hpf 03/15/25 10:52 Ur Random Sodium 34 mmol/L 03/15/25 10:52 Urine Creatinine 68 mg/dL (28-217) 03/15/25 10:52 Vancomycin Trough 8.1 ug/mL (10-15) L 03/16/25 11:21 Salicylates < 0.3 mg/dL (3-10) L 03/15/25 09:33 Urine Opiates Screen Positive ng/mL (Negative) H 03/15/25 10:52 Acetaminophen < 5.0 ug/mL (10-30) L 03/15/25 09:33 Ur Barbiturates Screen Negative ng/mL (Negative) 03/15/25 10:52 Ur Phencyclidine Scrn Negative ng/mL (Negative) 03/15/25 10:52 Ur Amphetamines Screen Negative ng/mL (Negative) 03/15/25 10:52 U Benzodiazepines Scrn Negative ng/mL (Negative) 03/15/25 10:52 Urine Cocaine Screen Negative ng/mL (Negative) 03/15/25 10:52 U Marijuana (THC) Screen Negative ng/mL (Negative) 03/15/25 10:52 Hepatitis A IgM Ab Non-reactive (Nonreactive) 03/15/25 09:33 Hep Bs Antigen Non-reactive (Nonreactive) 03/15/25 09:33 Hep B Core IgM Ab Non-reactive (Nonreactive) 03/15/25 09:33 Hepatitis C Antibody Non-reactive (Nonreactive) 03/15/25 09:33 Vitals Last Vital Signs Temp 98.0 F 03/25/25 04:00 Pulse 80 03/25/25 04:00 Resp 16 03/25/25 04:00 BP 114/71 03/25/25 04:00 Pulse Ox 93 03/25/25 04:00 O2 Del Method Nasal Cannula 03/25/25 03:15 O2 Flow Rate 2 03/25/25 07:53 Discharge Plan Discharge Patient Disposition: Home Condition: Stable Prescriptions: New Eliquis 5 mg Tablet 5 mg PO BID@0500,1700 Qty: 60 0RF Continued quetiapine 25 mg tablet 25 mg PO BEDTIME sumatriptan succinate 50 mg tablet See Rx Instructions PO .COMPLEX PRN (Reason: Headache) Rx Instructions: take 1 tab at onset of headache; if no relief may repeat 1 tab after at least 2 hrs; max = 4 tabs/24 hr PO phenazopyridine [Pyridium] 100 mg tablet 100 mg PO TID PRN (Reason: UTI) gabapentin 300 mg capsule 300 mg PO BID omeprazole 20 mg capsule,delayed release(DR/EC) 20 mg PO DAILY montelukast 10 mg tablet 10 mg PO BEDTIME escitalopram oxalate 10 mg tablet 15 mg PO DAILY melatonin 1 mg tablet 1 mg PO BEDTIME levothyroxine 100 mcg capsule 100 mcg PO QAM atorvastatin 20 mg Tablet 20 mg PO QPM acetaminophen 500 mg Tablet 1,000 mg PO BID diphenhydramine HCl [Benadryl] 25 mg Capsule 25 mg PO TID PRN (Reason: Itching) docusate sodium [Colace] 100 mg Capsule See Rx Instructions .ROUTE .COMPLEX PRN (Reason: Constipation) Rx Instructions: 100-200mg daily PRN AZO D-Mannose 500 mg Tablet,Chewable 500 mg PO BID diltiazem HCl 240 mg Capsule,Extended Release 24 Hr 240 mg PO QNOON fqybljc-feagcikjpylks-evzgszvy [Excedrin Migraine] 250-250-65 mg Tablet 2 tab PO Q6H PRN (Reason: Migraine Headache) diclofenac sodium 1 % Gel 1 ea TOPICAL BID PRN (Reason: Pain) Rx Instructions: apply to single elbow, wrist or hand; for hand includes palm/fingers/back of hand torsemide 20 mg tablet 20 mg PO BID clobetasol 0.05 % solution See Rx Instructions .ROUTE .COMPLEX Rx Instructions: APPLY TO ITCHY AREAS OF SCALP NEEDED insulin lispro [Humalog KwikPen Insulin] 100 unit/mL insulin pen See Rx Instructions .ROUTE .COMPLEX Rx Instructions: INJECT 14 UNITS SUBCUTANEOUSLY AT BREAKFAST. INJECT 12 UNITS SUBCUTANEOUSLY AT LUNCH. THEN INJECT 14 UNITS SUBCUTANEOUSLY AT DINNER. PLUS 1 UNIT 25 > 150 ON PRE-MEAL GLUCOSE. MAX DAILY AMOUNT IS 60 UNITS. escitalopram oxalate 5 mg tablet 15 mg PO DAILY Probiotic 10 billion cell Capsule 10,000 mmu cells PO DAILY memantine 14 mg capsule,sprinkle,ER 24hr 14 mg PO DAILY Trelegy Ellipta 100-62.5-25 mcg blister with device 1 inh INHALATION DAILY Mounjaro 2.5 mg/0.5 mL pen injector 2.5 mg SUBCUT Q7D Rx Instructions: on Saturdays Changed metoprolol succinate 25 mg tablet extended release 24 hr 50 mg PO BID Qty: 120 0RF insulin glargine [Lantus Solostar U-100 Insulin] 100 unit/mL (3 mL) insulin pen 22 unit SUBCUT QPM Qty: 15 0RF Discontinued spironolactone 25 mg tablet 25 mg PO DAILY cephalexin 250 mg Tablet 250 mg PO QNOON Eliquis 2.5 mg Tablet 2.5 mg PO BID isosorbide mononitrate 30 mg tablet extended release 24 hr 30 mg PO DAILY Discharge Order = DC NOW: Discharge Order (Routine); Ordered 03/25/25 Ordered By: Brent Medina Other Ambulatory Orders: DME: Commode (Order) Location: None Selected Ordered By: Brent Medina DME: Miscellaneous (Order) Location: None Selected Ordered By: Brent Medina DME: Wheelchair (Order) Location: None Selected Ordered By: Brent Medina Referrals: Torsten Peerz DPM [Physician, Podiatry] - 03/30/25 11:15 am Nikole Gilliam [Primary Care Provider] - 03/28/25 1:40 pm Discharge Diet: Advance as tolerated Discharge Activity: Limit activity as instructed Patient Instructions: Apixaban (By mouth), Urinary Tract Infection in Women (DC), Acute Wound Care (DC), Opioid Safety, Post Anesthesia Care, Patient Portal & Shanae Instructions Activity Restrictions/Additional Instructions: Please continue with nonweightbearing status. Continue to increase activity with physical therapy. Follow-up with your PCP and podiatry on set appointment. Discharge Attestations Time Spent in Discharge Care*: greater than 30 min Specific Discharge Activities: educating patient, educating and/or supporting family/caregiver, discussing with pcp/other providers, discussing with spring encaser/social workers/dc planners, documenting/other paperwork and evaluating patient/reviewing data Status at Discharge: Cognitive status at discharge: cognitively intact, Behavioral status at discharge: cooperative, Functional status at discharge: other, Overall status at discharge: patient is progressing back to baseline Quality Metrics Clinical Quality Measures [ No reported AMI, CVA or VTE this stay] Coding Level of Care Code 48794 Total time (in minutes) for Discharge: 65 Diagnoses Closed trimalleolar fracture of left ankle, initial encounter S82.303R Encounter type: initial encounter Fracture type: closed Sepsis A41.9 UTI due to extended-spectrum beta lactamase (ESBL) producing Escherichia coli N39.0; B96.29; Z16.12 Acute on chronic diastolic congestive heart failure I50.33 Heart failure chronicity: acute on chronic Heart failure type: diastolic Benign essential HTN I10 Arteriosclerotic heart disease (ASHD) I25.10 Abrasion, left ankle, initial encounter S90.512A
[2025-03-25] MEDS: ertapenem 1,000 mg SDV 1000 MG IVP (08:47)
--- NOTE | 2025-03-25 13:42 | PC.NURSE ---
This nurse called to notify son, Fred, that EMS was here to get pt and they will be headed home with her shortly. Fred verbalized understanding.
--- NOTE | 2025-03-25 16:03 | PC.NURSE ---
Pt's son Fred calls and he is upset that pt was discharged home with no pain medication. This nurse contacts Dr. Medina and advises. Dr. Medina gives verbal order to call in Tramadol 50mg PO Q6h prn pain. 14 tabs. No refills. This nurse calls rx in to [facility]. Fred advised and will pickle cutter.
== END 2025-03-25 14:09 | disposition home or self-care (01) | DRG 492 ==
LOC: ER 21:39 → MEDSURG 22:29 → ICU 03-15 09:46 → MEDSURG 03-19 11:10
PROVIDERS: Hospitalist; Internal Medicine; Podiatrist Foot & Ankle Surgery; Student in an Organized Health Care Education/Training Program; Admitting Provider Internal Medicine; Emergency Provider Student in an Organized Health Care Education/Training Program; Visit Provider Student in an Organized Health Care Education/Training Program
PROC: 0QSK04Z Reposition Left Fibula with Internal Fixation Device, Open Approach (ICD-10-PCS; principal; 2025-03-17 07:00)
DX: S82.852A Displaced trimalleolar fracture of left lower leg, initial encounter for closed fracture (principal); A41.9 Sepsis, unspecified organism; R65.20 Severe sepsis without septic shock; I50.33 Acute on chronic diastolic (congestive) heart failure; N39.0 Urinary tract infection, site not specified; I13.0 Hypertensive heart and chronic kidney disease with heart failure and stage 1 through stage 4 chronic kidney disease, or unspecified chronic kidney disease; N17.9 Acute kidney failure, unspecified; E87.20 Acidosis, unspecified; W19.XXXA Unspecified fall, initial encounter; B96.20 Unspecified Escherichia coli [E. coli] as the cause of diseases classified elsewhere; E11.22 Type 2 diabetes mellitus with diabetic chronic kidney disease; N18.9 Chronic kidney disease, unspecified; Z79.4 Long term (current) use of insulin; I25.10 Atherosclerotic heart disease of native coronary artery without angina pectoris; G47.33 Obstructive sleep apnea (adult) (pediatric); K21.9 Gastro-esophageal reflux disease without esophagitis; E03.9 Hypothyroidism, unspecified; E87.5 Hyperkalemia; K76.89 Other specified diseases of liver; J44.9 Chronic obstructive pulmonary disease, unspecified; G43.909 Migraine, unspecified, not intractable, without status migrainosus; Z95.0 Presence of cardiac pacemaker
CPT/HCPCS: 36415; 36416; 36569; 36592; 36600; 70450; 71045; 73600; 73610; 74176; 76000; 80048; 80051; 80053; 80061; 80074; 80202; 80306; 80307; 81001; 82140; 82330; 82550; 82575; 82607; 82746; 82805; 82962; 83036; 83540; 83550; 83605; 83735; 84100; 84145; 84300; 84439; 84443; 84481; 85025; 85610; 85730; 87040; 87077; 87086; 87186; 93005; 93306; 93970; 94640; 96372; 96374; 96376; 97110; 97162; 97167; 97530; 97535; 99285; C1713; C1751; J1335; J1650; J1815; J1938; J1956; J2185; J2270; J2405; J2704; J3010; J3373; J3490; J7030; J7042; J7611; J7614; J7626; J7644; J9999; Q3014

== ENCOUNTER → 2025-03-30 15:05 | Outpatient (BNVA) | payer MEDICARE, SELFPAY | PROVIDERS: Visit Provider Podiatrist Foot & Ankle Surgery | DX: S82.852A Displaced trimalleolar fracture of left lower leg, initial encounter for closed fracture (principal); S93.432A Sprain of tibiofibular ligament of left ankle, initial encounter; X58.XXXA Exposure to other specified factors, initial encounter | CPT/HCPCS: 29405; 73610; 99024 ==

== ENCOUNTER → 2025-05-02 07:09 | Outpatient (BNVA) | payer MEDICARE, SELFPAY | PROVIDERS: Visit Provider Podiatrist Foot & Ankle Surgery | DX: S82.852A Displaced trimalleolar fracture of left lower leg, initial encounter for closed fracture (principal); X58.XXXA Exposure to other specified factors, initial encounter | CPT/HCPCS: 73610; 99024 ==

== ENCOUNTER 2025-05-02 09:58 | Outpatient (CLI) | payer MEDICARE, SELFPAY | END 2025-05-02 09:59 | disposition home or self-care (01) | LOC: SPT 09:59 | PROVIDERS: Visit Provider Podiatrist Foot & Ankle Surgery | DX: Z46.89 Encounter for fitting and adjustment of other specified devices (principal); S82.852D Displaced trimalleolar fracture of left lower leg, subsequent encounter for closed fracture with routine healing; X58.XXXD Exposure to other specified factors, subsequent encounter | CPT/HCPCS: L4361 ==

== ENCOUNTER → 2025-05-16 07:50 | Outpatient (BNVA) | payer MEDICARE, SELFPAY | PROVIDERS: Visit Provider Podiatrist Foot & Ankle Surgery | DX: S82.852A Displaced trimalleolar fracture of left lower leg, initial encounter for closed fracture (principal); S82.852D Displaced trimalleolar fracture of left lower leg, subsequent encounter for closed fracture with routine healing; X58.XXXD Exposure to other specified factors, subsequent encounter; Z98.890 Other specified postprocedural states | CPT/HCPCS: 73610 ==

== ENCOUNTER 2025-05-16 11:24 | Outpatient (CLI) | payer MEDICARE, SELFPAY | END 2025-05-16 11:25 | disposition home or self-care (01) | LOC: SPT 11:24 | PROVIDERS: Visit Provider Podiatrist Foot & Ankle Surgery | DX: Z47.89 Encounter for other orthopedic aftercare (principal); Z98.890 Other specified postprocedural states; S82.852D Displaced trimalleolar fracture of left lower leg, subsequent encounter for closed fracture with routine healing; X58.XXXD Exposure to other specified factors, subsequent encounter | CPT/HCPCS: L1902 ==

== ENCOUNTER 2025-05-18 10:19 | Inpatient (IN) | payer MEDICARE, SELFPAY ==
[2025-05-18] VITALS (9 sets, daily range): BP systolic 113–146; BP diastolic 57–88; PULSE 63–97; RESP 16–18; TEMP 36.6–36.7; O2SAT 94–99; BMI 35.7
--- OUTSIDE RECORDS SUMMARY | 2025-05-18 10:45 | XMS_ITS | Continuity of Care Document ---
Author Organization [facility] ([facility]) Address [address] [place] [address] Insurance Providers Payer Plan Claims Address Claims Phone Policy Number Group Number Relation Employer Guarantor Name Guarantor Guarantor Address Guarantor Phone [facility] Medic are Advan tage [id number] Self Kiana Trivedi [address] [place] [address] HEALT H [employer] NCE [employer] AL PLAN ADVNT G [address] [address] [address] tel:[phone] [id number] Self Kiana Trivedi [address] [place] [address] [place] [employer] ARE [employer] [address] [address], [place] [address] tel:[phone] [id number] Self Kiana Trivedi [address] [place] [address] Problems Condition ICD9 code ICD10 code SNOMED code Start Date End Date S tatus Urinary tract infection, site not specified N39.0 04/15/2025 Active 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 04/15/2025 Active Paroxysmal atrial fibrillation I48.0 04/15/2025 Active meterman (current) use of anticoagulants Z79.01 04/15/2025 Active Hypertensive heart and chronic kidney disease with heart failure and stage 1 through stage 4 chronic kidney disease, or unspecified chronic kidney disease I13.0 04/15/2025 Active Heart failure, unspecified I50.9 04/15/2025 Active Chronic kidney disease, stage 4 (severe) N18.4 04/15/2025 Active Type 2 diabetes mellitus with diabetic chronic kidney disease E11.22 04/15/2025 Active Type 2 diabetes mellitus with diabetic neuropathy, unspecified E11.40 04/15/2025 Active Long-term (current) use of injectable non-insulin antidiabetic drugs Z79.85 04/15/2025 Active meterman (current) use of insulin Z79.4 04/15/2025 Active Hypoxemia R09.02 04/15/2025 Active USP (current) use of inhaled steroids Z79.51 04/15/2025 Activ e History of falling Z91.81 04/15/2025 Ac tive Unspecified dementia, unspecified severity, with mood disturbance F03.93 04/15/2025 Act berna Depression, unspecified F32.A 04/15/2025 Active Hypothyroidism, unspecified E03.9 04/15/2025 Active Gastro-esophageal reflux disease without esophagitis K21.9 04/15/2025 Active Unspecified urinary incontinence R32 04/15/2025 Active Presence of cardiac pacemaker Z95.0 04/15/2025 Active Do not resuscitate Z66 04/15/2025 Ac tive Displaced trimalleolar fracture of left lower leg, subsequent encounter for closed fracture with routine healing S82.852D 04/15/2025 Active Other specified joint disorders, left ankle and foot M25.872 04/15/2025 Active Enterococcus as the cause of diseases classified elsewhere B95.2 04/15/2025 Active Unsteadiness on feet R26.81 04/18/2025 Active Muscle weakness (generalized) M62.81 04/18/2025 Active Type 2 diabetes mellitus with hyperglycemia E11.65 04/25/2025 Active Major depressive disorder, recurrent, moderate F33.1 04/25/2025 Active Acute atopic conjunctivitis, bilateral H10.13 05/02/2025 Active Cognitive communication deficit R41.841 04/20/2025 Active Results Test Result Date/Time Value / Unit Interp. Refere nce Range Blood chemistry[[id number]] Glucose [Mass/volume] in Serum or Plasma [2345-7] 05/18/2025 01:20 PM 198 mg/dL N Blood chemistry[[id number]] Glucose [Mass/volume] in Serum or Plasma [2345-7] 05/17/2025 11:28 AM 129 mg/dL N Blood chemistry[[id number]] Glucose [Mass/volume] in Serum or Plasma [2345-7] 05/17/2025 05:01 PM 185 mg/dL N Blood chemistry[[id number]] Glucose [Mass/volume] in Serum or Plasma [2345-7] 05/17/2025 12:26 PM 145 mg/dL N Blood chemistry[[id number]] Glucose [Mass/volume] in Serum or Plasma [2345-7] 05/16/2025 12:03 PM 138 mg/dL N Blood chemistry[[id number]] Glucose [Mass/volume] in Serum or Plasma [2345-7] 05/16/2025 05:42 PM 212 mg/dL N Blood chemistry[[id number]] Glucose [Mass/volume] in Serum or Plasma [2345-7] 05/16/2025 12:28 PM 182 mg/dL N Blood chemistry[[id number]] Glucose [Mass/volume] in Serum or Plasma [2345-7] 05/16/2025 09:24 AM 210 mg/dL N Blood chemistry[[id number]] Glucose [Mass/volume] in Serum or Plasma [2345-7] 05/15/2025 12:43 PM 186 mg/dL N Blood chemistry[[id number]] Glucose [Mass/volume] in Serum or Plasma [2345-7] 05/15/2025 05:43 PM 168 mg/dL N Blood chemistry[[id number]] Glucose [Mass/volume] in Serum or Plasma [2345-7] 05/15/2025 08:48 AM 155 mg/dL N Blood chemistry[[id number]] Glucose [Mass/volume] in Serum or Plasma [2345-7] 05/15/2025 01:41 PM 217 mg/dL N Blood chemistry[[id number]] Glucose [Mass/volume] in Serum or Plasma [2345-7] 05/14/2025 11:27 AM 245 mg/dL N Blood chemistry[[id number]] Glucose [Mass/volume] in Serum or Plasma [2345-7] 05/14/2025 05:48 PM 217 mg/dL N Blood chemistry[[id number]] Glucose [Mass/volume] in Serum or Plasma [2345-7] 05/14/2025 02:13 PM 155 mg/dL N Blood chemistry[[id number]] Glucose [Mass/volume] in Serum or Plasma [2345-7] 05/14/2025 09:47 AM 192 mg/dL N Blood chemistry[[id number]] Glucose [Mass/volume] in Serum or Plasma [2345-7] 05/13/2025 11:17 AM 223 mg/dL N Blood chemistry[[id number]] Glucose [Mass/volume] in Serum or Plasma [2345-7] 05/13/2025 10:41 AM 184 mg/dL N Blood chemistry[[id number]] Glucose [Mass/volume] in Serum or Plasma [2345-7] 05/13/2025 04:52 PM 120 mg/dL N Blood chemistry[[id number]] Glucose [Mass/volume] in Serum or Plasma [2345-7] 05/13/2025 01:55 PM 313 mg/dL N Blood chemistry[[id number]] Glucose [Mass/volume] in Serum or Plasma [2345-7] 05/12/2025 11:41 AM 147 mg/dL N Blood chemistry[[id number]] Glucose [Mass/volume] in Serum or Plasma [2345-7] 05/12/2025 10:20 AM 160 mg/dL N Blood chemistry[[id number]] Glucose [Mass/volume] in Serum or Plasma [2345-7] 05/12/2025 05:12 PM 156 mg/dL N Blood chemistry[[id number]] Glucose [Mass/volume] in Serum or Plasma [2345-7] 05/12/2025 12:38 PM 160 mg/dL N Blood chemistry[[id number]] Glucose [Mass/volume] in Serum or Plasma [2345-7] 05/11/2025 11:40 AM 212 mg/dL N Blood chemistry[[id number]] Glucose [Mass/volume] in Serum or Plasma [2345-7] 05/11/2025 03:07 PM 155 mg/dL N Blood chemistry[[id number]] Glucose [Mass/volume] in Serum or Plasma [2345-7] 05/11/2025 09:13 AM 240 mg/dL N Blood chemistry[[id number]] Glucose [Mass/volume] in Serum or Plasma [2345-7] 05/11/2025 06:00 AM 162 mg/dL N Blood chemistry[[id number]] Glucose [Mass/volume] in Serum or Plasma [2345-7] 05/10/2025 12:03 PM 182 mg/dL N Blood chemistry[[id number]] Glucose [Mass/volume] in Serum or Plasma [2345-7] 05/10/2025 09:30 AM 227 mg/dL N Blood chemistry[[id number]] Glucose [Mass/volume] in Serum or Plasma [2345-7] 05/10/2025 06:49 AM 148 mg/dL N Blood chemistry[[id number]] Glucose [Mass/volume] in Serum or Plasma [2345-7] 05/10/2025 11:51 AM 142 mg/dL N Blood chemistry[[id number]] Glucose [Mass/volume] in Serum or Plasma [2345-7] 2025 11:49 AM 174 mg/dL N Blood chemistry[[id number]] Glucose [Mass/volume] in Serum or Plasma [2345-7] 2025 04:38 PM 165 mg/dL N Blood chemistry[[id number]] Glucose [Mass/volume] in Serum or Plasma [2345-7] 2025 09:18 AM 186 mg/dL N Blood chemistry[[id number]] Glucose [Mass/volume] in Serum or Plasma [2345-7] 2025 12:10 PM 153 mg/dL N Blood chemistry[[id number]] Glucose [Mass/volume] in Serum or Plasma [2345-7] 05/08/2025 11:47 AM 190 mg/dL N Blood chemistry[[id number]] Glucose [Mass/volume] in Serum or Plasma [2345-7] 05/08/2025 10:10 AM 177 mg/dL N Blood chemistry[[id number]] Glucose [Mass/volume] in Serum or Plasma [2345-7] 05/08/2025 05:34 PM 163 mg/dL N Blood chemistry[[id number]] Glucose [Mass/volume] in Serum or Plasma [2345-7] 05/08/2025 12:37 PM 159 mg/dL N Blood chemistry[[id number]] Glucose [Mass/volume] in Serum or Plasma [2345-7] 05/07/2025 11:56 AM 230 mg/dL N Blood chemistry[[id number]] Glucose [Mass/volume] in Serum or Plasma [2345-7] 05/07/2025 11:09 AM 210 mg/dL N Blood chemistry[[id number]] Glucose [Mass/volume] in Serum or Plasma [2345-7] 05/07/2025 12:37 PM 147 mg/dL N Blood chemistry[[id number]] Glucose [Mass/volume] in Serum or Plasma [2345-7] 05/06/2025 11:34 AM 212 mg/dL N Blood chemistry[[id number]] Glucose [Mass/volume] in Serum or Plasma [2345-7] 05/06/2025 02:01 PM 156 mg/dL N Blood chemistry[[id number]] Glucose [Mass/volume] in Serum or Plasma [2345-7] 05/06/2025 11:54 AM 156 mg/dL N Blood chemistry[[id number]] Glucose [Mass/volume] in Serum or Plasma [2345-7] 05/06/2025 09:44 AM 221 mg/dL N Blood chemistry[[id number]] Glucose [Mass/volume] in Serum or Plasma [2345-7] 05/06/2025 07:22 AM 171 mg/dL N Blood chemistry[[id number]] Glucose [Mass/volume] in Serum or Plasma [2345-7] 05/05/2025 11:29 AM 187 mg/dL N Blood chemistry[[id number]] Glucose [Mass/volume] in Serum or Plasma [2345-7] 05/05/2025 10:31 AM 236 mg/dL N Blood chemistry[[id number]] Glucose [Mass/volume] in Serum or Plasma [2345-7] 05/05/2025 04:13 PM 213 mg/dL N Blood chemistry[[id number]] Glucose [Mass/volume] in Serum or Plasma [2345-7] 05/05/2025 11:43 AM 174 mg/dL N Blood chemistry[[id number]] Glucose [Mass/volume] in Serum or Plasma [2345-7] 05/04/2025 11:55 AM 205 mg/dL N Blood chemistry[[id number]] Glucose [Mass/volume] in Serum or Plasma [2345-7] 05/04/2025 04:22 PM 181 mg/dL N Blood chemistry[[id number]] Glucose [Mass/volume] in Serum or Plasma [2345-7] 05/04/2025 09:03 AM 216 mg/dL N Blood chemistry[[id number]] Glucose [Mass/volume] in Serum or Plasma [2345-7] 05/04/2025 12:04 PM 140 mg/dL N Blood chemistry[[id number]] Glucose [Mass/volume] in Serum or Plasma [2345-7] 05/03/2025 11:33 AM 186 mg/dL N Blood chemistry[[id number]] Glucose [Mass/volume] in Serum or Plasma [2345-7] 05/03/2025 04:50 PM 137 mg/dL N Blood chemistry[[id number]] Glucose [Mass/volume] in Serum or Plasma [2345-7] 05/03/2025 08:59 AM 148 mg/dL N Blood chemistry[[id number]] Glucose [Mass/volume] in Serum or Plasma [2345-7] 05/03/2025 11:44 AM 156 mg/dL N Blood chemistry[[id number]] Glucose [Mass/volume] in Serum or Plasma [2345-7] 05/02/2025 11:56 AM 300 mg/dL N Blood chemistry[[id number]] Glucose [Mass/volume] in Serum or Plasma [2345-7] 05/02/2025 04:54 PM 209 mg/dL N Blood chemistry[[id number]] Glucose [Mass/volume] in Serum or Plasma [2345-7] 05/02/2025 10:14 AM 234 mg/dL N Blood chemistry[[id number]] Glucose [Mass/volume] in Serum or Plasma [2345-7] 05/01/2025 02:13 PM 242 mg/dL N Blood chemistry[[id number]] Glucose [Mass/volume] in Serum or Plasma [2345-7] 05/01/2025 10:20 AM 191 mg/dL N Blood chemistry[[id number]] Glucose [Mass/volume] in Serum or Plasma [2345-7] 05/01/2025 03:49 PM 279 mg/dL N Blood chemistry[[id number]] Glucose [Mass/volume] in Serum or Plasma [2345-7] 05/01/2025 01:00 PM 151 mg/dL N Blood chemistry[[id number]] Glucose [Mass/volume] in Serum or Plasma [2345-7] 04/30/2025 02:43 PM 152 mg/dL N Blood chemistry[[id number]] Glucose [Mass/volume] in Serum or Plasma [2345-7] 04/30/2025 05:56 PM 215 mg/dL N Blood chemistry[[id number]] Glucose [Mass/volume] in Serum or Plasma [2345-7] 04/30/2025 05:53 PM 251 mg/dL N Blood chemistry[[id number]] Glucose [Mass/volume] in Serum or Plasma [2345-7] 04/30/2025 09:16 AM 222 mg/dL N Blood chemistry[[id number]] Glucose [Mass/volume] in Serum or Plasma [2345-7] 04/30/2025 01:32 PM 149 mg/dL N Blood chemistry[[id number]] Glucose [Mass/volume] in Serum or Plasma [2345-7] 04/29/2025 12:14 PM 242 mg/dL N Blood chemistry[[id number]] Glucose [Mass/volume] in Serum or Plasma [2345-7] 04/29/2025 10:33 AM 139 mg/dL N Blood chemistry[[id number]] Glucose [Mass/volume] in Serum or Plasma [2345-7] 04/29/2025 02:09 PM 162 mg/dL N Blood chemistry[[id number]] Glucose [Mass/volume] in Serum or Plasma [2345-7] 04/29/2025 06:25 AM 240 mg/dL N Blood chemistry[[id number]] Glucose [Mass/volume] in Serum or Plasma [2345-7] 04/28/2025 11:49 AM 202 mg/dL N Blood chemistry[[id number]] Glucose [Mass/volume] in Serum or Plasma [2345-7] 04/28/2025 10:40 AM 195 mg/dL N Blood chemistry[[id number]] Glucose [Mass/volume] in Serum or Plasma [2345-7] 04/28/2025 05:10 PM 162 mg/dL N Blood chemistry[[id number]] Glucose [Mass/volume] in Serum or Plasma [2345-7] 04/28/2025 01:13 PM 149 mg/dL N Blood chemistry[[id number]] Glucose [Mass/volume] in Serum or Plasma [2345-7] 04/27/2025 11:28 AM 203 mg/dL N Blood chemistry[[id number]] Glucose [Mass/volume] in Serum or Plasma [2345-7] 04/27/2025 04:07 PM 56 mg/dL N Blood chemistry[[id number]] Glucose [Mass/volume] in Serum or Plasma [2345-7] 04/27/2025 09:04 AM 204 mg/dL N Blood chemistry[[id number]] Glucose [Mass/volume] in Serum or Plasma [5-7] 04/27/2025 12:00 PM 129 mg/dL N Blood chemistry[[id number]] Glucose [Mass/volume] in Serum or Plasma [5-7] 04/26/2025 12:21 PM 164 mg/dL N Blood chemistry[[id number]] Glucose [Mass/volume] in Serum or Plasma [2344-7] 04/26/2025 05:19 PM 159 mg/dL N Blood chemistry[[id number]] Glucose [Mass/volume] in Serum or Plasma [5-7] 04/26/2025 09:28 AM 119 mg/dL N Blood chemistry[[id number]] Glucose [Mass/volume] in Serum or Plasma [5-7] 04/26/2025 11:58 AM 136 mg/dL N Tuberculosis reaction wheal[ 35891-9] Tuberculosis reaction wheal [70879-9] 04/23/2025 05:00 PM 0 mm NEG Blood chemistry[[id number]] Glucose [Mass/volume] in Serum or Plasma [2345-7] 04/25/2025 11:50 AM 192 mg/dL N Blood chemistry[[id number]] Glucose [Mass/volume] in Serum or Plasma [2345-7] 04/25/2025 10:53 AM 150 mg/dL N Blood chemistry[[id number]] Glucose [Mass/volume] in Serum or Plasma [2345-7] 04/25/2025 05:22 PM 161 mg/dL N Blood chemistry[[id number]] Glucose [Mass/volume] in Serum or Plasma [2345-7] 04/25/2025 11:36 AM 113 mg/dL N Blood chemistry[[id number]] Glucose [Mass/volume] in Serum or Plasma [2345-7] 04/24/2025 11:16 AM 188 mg/dL N Blood chemistry[[id number]] Glucose [Mass/volume] in Serum or Plasma [2345-7] 04/24/2025 05:20 PM 161 mg/dL N Blood chemistry[[id number]] Glucose [Mass/volume] in Serum or Plasma [2345-7] 04/24/2025 10:04 AM 103 mg/dL N Blood chemistry[[id number]] Glucose [Mass/volume] in Serum or Plasma [2345-7] 04/24/2025 01:35 PM 115 mg/dL N Blood chemistry[[id number]] Glucose [Mass/volume] in Serum or Plasma [5-7] 04/23/2025 11:37 AM 106 mg/dL N Blood chemistry[[id number]] Glucose [Mass/volume] in Serum or Plasma [2345-7] 04/23/2025 11:36 AM 202 mg/dL N Glucose [Mass/volume] in Serum or Plasma [2345-7] 04/23/2025 11:36 AM 106 mg/dL N Blood chemistry[[id number]] Glucose [Mass/volume] in Serum or Plasma [2345-7] 04/23/2025 11:21 AM 103 mg/dL N Blood chemistry[[id number]] Glucose [Mass/volume] in Serum or Plasma [2345-7] 04/23/2025 06:05 AM 203 mg/dL N Tuberculosis reaction wheal[ 01801-0] Tuberculosis reaction wheal [91994-4] 04/23/2025 05:00 PM See note TB test Blood chemistry[[id number]] Glucose [Mass/volume] in Serum or Plasma [2345-7] 04/23/2025 12:47 PM 108 mg/dL N Glucose [Mass/volume] in Serum or Plasma [2345-7] 04/23/2025 12:47 PM 108 mg/dL N Blood chemistry[[id number]] Glucose [Mass/volume] in Serum or Plasma [2345-7] 04/22/2025 11:03 AM 180 mg/dL N Blood chemistry[[id number]] Glucose [Mass/volume] in Serum or Plasma [2345-7] 04/22/2025 09:12 AM 151 mg/dL N Blood chemistry[[id number]] Glucose [Mass/volume] in Serum or Plasma [2345-7] 04/22/2025 01:09 PM 172 mg/dL N Blood chemistry[[id number]] Glucose [Mass/volume] in Serum or Plasma [2345-7] 04/21/2025 10:45 AM 213 mg/dL N Blood chemistry[[id number]] Glucose [Mass/volume] in Serum or Plasma [2345-7] 04/21/2025 10:42 AM 130 mg/dL N Blood chemistry[[id number]] Glucose [Mass/volume] in Serum or Plasma [2345-7] 04/21/2025 05:15 PM 233 mg/dL N Blood chemistry[[id number]] Glucose [Mass/volume] in Serum or Plasma [2345-7] 04/21/2025 12:48 PM 192 mg/dL N Blood chemistry[[id number]] Glucose [Mass/volume] in Serum or Plasma [2345-7] 04/21/2025 05:04 PM 164 mg/dL N Blood chemistry[[id number]] Glucose [Mass/volume] in Serum or Plasma [2345-7] 04/20/2025 10:53 AM 184 mg/dL N Blood chemistry[[id number]] Glucose [Mass/volume] in Serum or Plasma [2345-7] 04/20/2025 04:27 PM 178 mg/dL N Blood chemistry[[id number]] Glucose [Mass/volume] in Serum or Plasma [2345-7] 04/20/2025 02:03 PM 164 mg/dL N Blood chemistry[[id number]] Glucose [Mass/volume] in Serum or Plasma [2345-7] 04/19/2025 11:54 AM 350 mg/dL N Blood chemistry[[id number]] Glucose [Mass/volume] in Serum or Plasma [2345-7] 04/19/2025 11:13 AM 194 mg/dL N Blood chemistry[[id number]] Glucose [Mass/volume] in Serum or Plasma [2345-7] 04/19/2025 05:26 PM 224 mg/dL N Blood chemistry[[id number]] Glucose [Mass/volume] in Serum or Plasma [2344-7] 04/19/2025 12:48 PM 149 mg/dL N Blood chemistry[[id number]] Glucose [Mass/volume] in Serum or Plasma [2344-7] 04/18/2025 11:44 AM 240 mg/dL N Blood chemistry[[id number]] Glucose [Mass/volume] in Serum or Plasma [2344-7] 04/18/2025 03:55 PM 243 mg/dL N Blood chemistry[[id number]] Glucose [Mass/volume] in Serum or Plasma [2344-7] 04/18/2025 09:02 AM 139 mg/dL N Blood chemistry[[id number]] Glucose [Mass/volume] in Serum or Plasma [2344-7] 04/18/2025 11:43 AM 188 mg/dL N Blood chemistry[[id number]] Glucose [Mass/volume] in Serum or Plasma [2344-7] 04/17/2025 11:27 AM 258 mg/dL N Blood chemistry[[id number]] Glucose [Mass/volume] in Serum or Plasma [2344-7] 04/17/2025 03:45 PM 314 mg/dL N Blood chemistry[[id number]] Glucose [Mass/volume] in Serum or Plasma [2344-7] 04/17/2025 09:47 AM 238 mg/dL N Tuberculosis reaction wheal[ 64466-7] Tuberculosis reaction wheal [26479-8] 04/15/2025 11:23 AM 0 mm NEG Blood chemistry[[id number]] Glucose [Mass/volume] in Serum or Plasma [2344-7] 04/17/2025 01:17 PM 201 mg/dL N Blood chemistry[[id number]] Glucose [Mass/volume] in Serum or Plasma [2344-7] 04/16/2025 11:10 AM 316 mg/dL N Blood chemistry[[id number]] Glucose [Mass/volume] in Serum or Plasma [2344-7] 04/16/2025 05:11 PM 199 mg/dL N Blood chemistry[[id number]] Glucose [Mass/volume] in Serum or Plasma [2344-7] 04/16/2025 08:44 AM 399 mg/dL N Blood chemistry[[id number]] Glucose [Mass/volume] in Serum or Plasma [2345-01] 04/16/2025 12:30 PM 227 mg/dL N Blood chemistry[[id number]] Glucose [Mass/volume] in Serum or Plasma [2344-7] 04/15/2025 01:37 PM 370 mg/dL N Tuberculosis reaction wheal[ 46521-7] Tuberculosis reaction wheal [79203-0] 04/15/2025 11:23 AM See note TB test Blood chemistry[[id number]] Glucose [Mass/volume] in Serum or Plasma [2345-01] 04/15/2025 10:36 AM 326 mg/dL N Blood chemistry[[id number]] Glucose [Mass/volume] in Serum or Plasma [2345-01] 04/15/2025 05:56 PM 209 mg/dL N Allergies, adverse reactions, alerts Substance Reaction Date Status Type No allergies have been recorded Non Drug levofloxacin 04/15/2025 Non Drug Sulfa (Sulfonamide Antibiotics) 04/15/2025 Non Drug Penicillins 04/15/2025 Non Drug Immunizations Vaccine Route Date Status Pneumococcal Vaccine Unassigned Route of Administratio n 04/15/2025 Completed Influenza Vaccine Unassigned Route of Administration 1 Completed Medications Medication Instructions Route Dosage Frequency Start Date Stop Date Indications Status albuterol sulfate 0.63 mg/3 mL solution for nebulization (albuterol sulfate) 1 vial, inhalation, Every 4 Hours - PRN, clinical indication: Hypoxia inhalatio n 1.0 4.0 h 04/15 Active atorvastatin 20 mg tablet (atorvastatin) 1 tab, oral, Once A Day oral 1.0 1.0 d 2024 Active Calcium with Vitamin D (calcium carbonate-vitam in d3) 600 mg-10 mcg (400 unit) tablet (Calcium with Vitamin D (calcium carbonate-vitam in d3)) 1 TAB, oral, Twice A Day, TI for Calcium Phosphate-Madelin min D3 oral 1.0 12.0 h 2024 Active cephalexin 250 mg tablet (cephalexin) 1 TAB, oral, Once A Day, for prophylaxis oral 1.0 1.0 d 04/18 Active ciclopirox 1 % shampoo (ciclopirox) 1 KIM, topical, Once A Day, Apply to affected area. For 1 week topical 1.0 1.0 d 04/22 Active clobetasol 0.05 % solution (clobetasol) 1 KIM, scalp, Once A Day - PRN, Apply to itchy areas of the scalp 1.0 1.0 d 2024 Active diclofenac sodium 1 % gel (diclofenac sodium) 2 g, topical, Four Times A Day, Apply to affected area topical 1.0 6.0 h 2024 Active diltiazem HCl 240 mg capsule,extende d release 24 hr (diltiazem HCl) 1 CAP, oral, Once A Day oral 1.0 1.0 d 2024 Active Dulcolax (bisacodyl) (bisacodyl) 10 mg suppository (Dulcolax (bisacodyl) (bisacodyl)) 1 suppository, rectal, Once A Day - PRN, Give rectally if can't take p/o, if no results from MOM rectal 1.0 1.0 d 2024 Active Dupixent Pen (dupilumab) 300 mg/2 mL pen injector (Dupixent Pen (dupilumab)) 2 mL (300mg), subcutaneous, Once A Day on Fri Every 4 Weeks subcutane ous 1.0 1.0 d 2024 Active Eliquis (apixaban) 2.5 mg tablet (Eliquis (apixaban)) 1 TAB, oral, Twice A Day oral 1.0 12.0 h 2024 Active gabapentin 300 mg capsule (gabapentin) 1 CAP, oral, Twice A Day oral 1.0 12.0 h 2024 Active hydroxyzine HCl 10 mg tablet (hydroxyzine HCl) 1 TAB, oral, Every 8 Hours - PRN, For itching, for 14 days oral 1.0 8.0 h 04/29 Active insulin glargine-yfgn 100 unit/mL (3 mL) insulin pen (insulin glargine-yfgn) 26 UNITS, subcutaneous, At Bedtime, TI for Lantus. subcutane ous 1.0 04/21 Active insulin lispro 100 unit/mL insulin pen (insulin lispro) Per Sliding Scale, subcutaneous, Before Meals and At Bedtime, If Blood Sugar is less than 60, call MD.If Blood Sugar is 201 to 250, give 2 Units.If Blood Sugar is 251 to 300, give 4 Units.If Blood Sugar is 301 to 350, give 6 Units.If Blood Sugar is 351 to 400, give 8 Units. subcutane ous 1.0 2024 Active isosorbide mononitrate 10 mg tablet (isosorbide mononitrate) 3 TABS (30 mg), oral, Once A Day oral 1.0 1.0 d 2024 Active Lactobacillus acidophilus 500 million cell capsule (Lactobacillus acidophilus) 1 cap, oral, Twice A Day, For 7 days. TI for Saccharomyces Boulardii. oral 1.0 12.0 h 04/22 Active levothyroxine 100 mcg tablet (levothyroxine) 1 TAB, oral, Once A Day oral 1.0 1.0 d 2024 Active linezolid 600 mg tablet (linezolid) 1 TAB, oral, Twice A Day, For 9 days oral 1.0 12.0 h 04/24 Active melatonin 1 mg tablet (melatonin) 1 TAB, oral, At Bedtime - PRN, For insomnia for 14 days oral 1.0 04/29 Active memantine 5 mg tablet (memantine) 1 TAB, oral, Twice A Day, TI for Memantine XR 14 mg oral 1.0 12.0 h 2024 Active metoprolol succinate 25 mg tablet extended release 24 hr (metoprolol succinate) 1 TAB, oral, Twice A Day, Hold if pulse less than 60 oral 1.0 12.0 h 2024 Active montelukast 10 mg tablet (montelukast) 1 TAB, oral, At Bedtime, Clinical indication: Hypoxia oral 1.0 04/15 Active Mounjaro (tirzepatide) 2.5 mg/0.5 mL pen injector (Mounjaro (tirzepatide)) 0.5 mL (2.5 g), subcutaneous, Once a Day on Mon subcutane ous 1.0 1.0 d 2024 Active nystatin 100,000 unit/gram powder (nystatin) 1 KIM, topical, Twice A Day - PRN, Apply to groin and breast fold topical 1.0 12.0 h 2024 Active omeprazole 20 mg capsule,delayed release(DR/EC) (omeprazole) 1 CAP, oral, Once A Day oral 1.0 1.0 d 2024 Active phenazopyridine 100 mg tablet (phenazopyridin e) 1 TAB, oral, Three Times A Day - PRN, For pain oral 1.0 8.0 h 2024 Active quetiapine 25 mg tablet (quetiapine) 1 TAB, oral, At Bedtime, Auto stop 5 days per TI oral 1.0 04/20 Active spironolactone 25 mg tablet (spironolactone ) 1 TAB, oral, Once A Day oral 1.0 1.0 d 2024 Active torsemide 20 mg tablet (torsemide) 1 TAB, oral, Twice A Day, at 7am and 2pm oral 1.0 12.0 h 2024 Active Trelegy Ellipta (fluticasone-um eclidin-vilante r) 100-62.5-25 mcg blister with device (Trelegy Ellipta (fluticasone-um eclidin-vilante r)) 1 INH, inhalation, Once A Day, Rinse mouth with water and spit after useClinical Indication: Hypoxia inhalatio n 1.0 1.0 d 04/15 Active triamcinolone acetonide 0.1 % cream (triamcinolone acetonide) 1 application, topical, Twice A Day Give 14 Days Hold 14 Days - PRN, to red/itchy areas on arms/legs/abd, alternate with tacrolimus, do not use on face/groin/ski n folds. topical 1.0 12.0 h 2024 Active Tylenol (acetaminophen) 325 mg tablet (Tylenol (acetaminophen) ) 2 tabs/650mg, oral, Every 6 Hours - PRN, as needed for PRN pain/increased tempMay give rectally if necessary oral 1.0 6.0 h 2024 Active Acidophilus Probiotic Blend (l.acidoph,sali va-b.bif-s.ther m) 175 mg capsule (Acidophilus Probiotic Blend (l.acidoph,sali va-b.bif-s.ther m)) 1 CAP, oral, Twice A Day, For 7 days. TI for Saccharomyces Boulardii. oral 1.0 12.0 h 04/15 Active Tubersol (tuberculin ppd) 5 tub. unit /0.1 mL solution (Tubersol (tuberculin ppd)) 0.1ml, intradermal, Once - One Time, Administer the morning after admission intraderm al 1.0 04/15 Active hydrocodone-jeanie taminophen 5-325 mg tablet (hydrocodone-ac etaminophen) 1 Tablet, oral, Every 4 Hours - PRN, Q4 PRN x3 weeks oral 1.0 4.0 h 05/08 Active cephalexin 250 mg tablet (cephalexin) 1 TAB, oral, Once A Day oral 1.0 1.0 d 2024 Active insulin glargine-yfgn 100 unit/mL (3 mL) insulin pen (insulin glargine-yfgn) 30 UNITS, subcutaneous, At Bedtime, TI for Lantus. subcutane ous 1.0 2024 Active insulin lispro 100 unit/mL insulin pen (insulin lispro) 8 units, subcutaneous, With Meals subcutane ous 1.0 2024 Active Tubersol (tuberculin ppd) 5 tub. unit /0.1 mL solution (Tubersol (tuberculin ppd)) 0.1ml, intradermal, Once - One Time, Administer on the day shift intraderm al 1.0 04/23 Active ciclopirox 1 % shampoo (ciclopirox) 1 KIM, topical, Once A Day Every Other Day, Apply to affected area. topical 1.0 1.0 d 2024 Active ondansetron 4 mg tablet,disinteg rating (ondansetron) 1 tablet, oral, Once - One Time - PRN oral 1.0 04/24 Active Macrobid (nitrofurantoin monohyd/m-cryst ) 100 mg capsule (Macrobid (nitrofurantoin monohyd/m-cryst )) 100mg, oral, Twice A Day, macrobid 100mg BID for 10 days UTI oral 1.0 12.0 h 05/10 Active tacrolimus 0.1 % ointment (tacrolimus) 1 application, topical, Twice A Day Give 14 Days Hold 14 Days - PRN, to face, alternate with triamcinolone topical 1.0 12.0 h 2024 Active Pataday Twice Daily Relief (olopatadine) 0.1 % drops (Pataday Twice Daily Relief (olopatadine)) 2 gtt each eye, ophthalmic (eye), Three Times A Day 1.0 8.0 h 05/07 Active Pataday Twice Daily Relief (olopatadine) 0.1 % drops (Pataday Twice Daily Relief (olopatadine)) 2 gtt each eye, ophthalmic (eye), Twice A Day - PRN, Clinical Indication: dry eyes 1.0 12.0 h 2024 Active Afluria (3yr up)(PF) (flu vac [id number] 36mos up(pf)) 45 mcg (15 mcg x 3)/0.5 m syringe (Afluria (3yr up)(PF) (flu vac [id number] 36mos up(pf))) 0.5ml, intramuscular, Once - One Time intramusc ular 1.0 05/03 Active Macrobid (nitrofurantoin monohyd/m-cryst ) 100 mg capsule (Macrobid (nitrofurantoin monohyd/m-cryst )) 100mg, oral, Twice A Day, macrobid 100mg BID for 10 days UTI oral 1.0 12.0 h 05/09 Active hydrocodone-jeanie taminophen 5-325 mg tablet (hydrocodone-ac etaminophen) 1 Tablet, oral, Every 4 Hours - PRN, Q4 PRN re eval next rounds per Dr. Maxwell oral 1.0 4.0 h 05/10 Active hydrocodone-jeanie taminophen 5-325 mg tablet (hydrocodone-ac etaminophen) 1 Tablet, oral, Every 4 Hours - PRN, Q4 PRN re eval next rounds per Dr. Maxwell oral 1.0 4.0 h 2024 Active hydroxyzine HCl 10 mg tablet (hydroxyzine HCl) 1, oral, Three Times A Day - PRN oral 1.0 8.0 h 2024 Active ondansetron 4 mg tablet,disinteg rating (ondansetron) 1, oral, Every 4 Hours - PRN oral 1.0 4.0 h 2024 Active Vital Signs Date Vital Result Comment 04/15/2025 06:06 PM Temperature (8310-5) 98.5 [degF] Oxygen Saturation (07145-4) 96 % Respiratory Rate (9279-1) 18 /min Heart Rate (8867-4) 98 /min Blood Pressure Systolic (8480-6) 132 mm[Hg] Blood Pressure Diastolic (8462-4) 78 mm[Hg] 04/15/2025 06:52 PM Temperature (8310-5) 98.5 [degF] Respiratory Rate (9279-1) 18 /min Heart Rate (8867-4) 74 /min 04/15/2025 06:53 PM Oxygen Saturation (40036-9) 96 % Blood Pressure Systolic (8480-6) 132 mm[Hg] Blood Pressure Diastolic (8462-4) 78 mm[Hg] 04/16/2025 08:48 AM Heart Rate (8867-4) 78 /min 04/16/2025 10:22 AM Temperature (8310-5) 98.6 [degF] Oxygen Saturation (02661-8) 96 % Respiratory Rate (9279-1) 19 /min Heart Rate (8867-4) 81 /min Blood Pressure Systolic (8480-6) 133 mm[Hg] Blood Pressure Diastolic (8462-4) 86 mm[Hg] 04/16/2025 08:55 PM Temperature (8310-5) 98.6 [degF] Oxygen Saturation (77022-8) 93 % Respiratory Rate (9279-1) 17 /min Heart Rate (8867-4) 84 /min Blood Pressure Systolic (8480-6) 140 mm[Hg] Blood Pressure Diastolic (8462-4) 72 mm[Hg] 04/16/2025 06:10 PM Heart Rate (8867-4) 84 /min 04/17/2025 08:18 AM Temperature (8310-5) 98 [degF] Oxygen Saturation (72949-2) 92 % Respiratory Rate (9279-1) 17 /min Blood Pressure Systolic (8480-6) 105 mm[Hg] Blood Pressure Diastolic (8462-4) 65 mm[Hg] 04/17/2025 08:17 AM Heart Rate (8867-4) 74 /min 04/17/2025 04:14 PM Body mass index (BMI) [Ratio] (391 56-5) 0.0 kg/m2 Body Weight (53887-1) 208.2 [lb_av] Body Mass Index (65949-8) 36.88 kg/m2 04/17/2025 06:27 PM Heart Rate (8867-4) 69 /min 04/17/2025 06:46 PM Temperature (8310-5) 98.6 [degF] Respiratory Rate (9279-1) 17 /min Heart Rate (8867-4) 60 /min 04/17/2025 06:47 PM Oxygen Saturation (01723-8) 97 % Blood Pressure Systolic (8480-6) 120 mm[Hg] Blood Pressure Diastolic (8462-4) 60 mm[Hg] 04/18/2025 08:45 AM Heart Rate (8867-4) 75 /min 04/18/2025 09:04 AM Temperature (8310-5) 97.7 [degF] Oxygen Saturation (48561-3) 96 % Respiratory Rate (9279-1) 18 /min Blood Pressure Systolic (8480-6) 119 mm[Hg] Blood Pressure Diastolic (8462-4) 65 mm[Hg] 04/18/2025 12:11 PM Body Height (8302-2) 63 [in_us] 04/18/2025 06:46 PM Heart Rate (8867-4) 62 /min 04/18/2025 09:02 PM Temperature (8310-5) 96.9 [degF] Oxygen Saturation (54378-0) 96 % Respiratory Rate (9279-1) 20 /min Heart Rate (8867-4) 76 /min Blood Pressure Systolic (8480-6) 115 mm[Hg] Blood Pressure Diastolic (8462-4) 69 mm[Hg] 04/19/2025 11:34 AM Heart Rate (8867-4) 79 /min 04/19/2025 11:35 AM Temperature (8310-5) 97.2 [degF] Oxygen Saturation (22296-3) 94 % Respiratory Rate (9279-1) 20 /min Heart Rate (8867-4) 79 /min Blood Pressure Systolic (8480-6) 97 mm[Hg] Blood Pressure Diastolic (8462-4) 62 mm[Hg] 04/19/2025 07:44 PM Temperature (8310-5) 97.6 [degF] Oxygen Saturation (64378-6) 98 % Respiratory Rate (9279-1) 16 /min Heart Rate (8867-4) 68 /min Blood Pressure Systolic (8480-6) 120 mm[Hg] Blood Pressure Diastolic (8462-4) 79 mm[Hg] 04/19/2025 06:52 PM Heart Rate (8867-4) 80 /min 04/20/2025 09:03 AM Heart Rate (8867-4) 70 /min 04/20/2025 11:27 AM Temperature (8310-5) 99 [degF] Oxygen Saturation (11815-7) 97 % Respiratory Rate (9279-1) 14 /min Heart Rate (8867-4) 70 /min Blood Pressure Systolic (8480-6) 118 mm[Hg] Blood Pressure Diastolic (8462-4) 76 mm[Hg] 04/20/2025 02:41 PM Body Weight (56547-8) 209.8 [lb_av ] Body Mass Index (43409-7) 37.16 kg/m2 04/20/2025 05:46 PM Heart Rate (8867-4) 75 /min 04/21/2025 02:22 AM Temperature (8310-5) 97.6 [degF] Oxygen Saturation (82255-7) 99 % Respiratory Rate (9279-1) 20 /min Heart Rate (8867-4) 44 /min Blood Pressure Systolic (8480-6) 132 mm[Hg] Blood Pressure Diastolic (8462-4) 65 mm[Hg] 04/21/2025 07:50 AM Heart Rate (8867-4) 84 /min 04/21/2025 12:16 PM Temperature (8310-5) 97.7 [degF] Oxygen Saturation (26992-6) 92 % Respiratory Rate (9279-1) 16 /min Heart Rate (8867-4) 84 /min Blood Pressure Systolic (8480-6) 100 mm[Hg] Blood Pressure Diastolic (8462-4) 58 mm[Hg] 04/21/2025 07:21 PM Temperature (8310-5) 98.5 [degF] Oxygen Saturation (19235-0) 97 % Respiratory Rate (9279-1) 17 /min Heart Rate (8867-4) 66 /min Blood Pressure Systolic (8480-6) 126 mm[Hg] Blood Pressure Diastolic (8462-4) 71 mm[Hg] 04/21/2025 06:15 PM Heart Rate (8867-4) 68 /min 04/22/2025 10:50 AM Heart Rate (8867-4) 84 /min 04/22/2025 10:51 AM Temperature (8310-5) 97.7 [degF] Oxygen Saturation (32714-7) 92 % Respiratory Rate (9279-1) 16 /min Blood Pressure Systolic (8480-6) 100 mm[Hg] Blood Pressure Diastolic (8462-4) 58 mm[Hg] 04/22/2025 09:04 PM Temperature (8310-5) 98.6 [degF] Oxygen Saturation (86320-6) 97 % Respiratory Rate (9279-1) 18 /min Heart Rate (8867-4) 65 /min Blood Pressure Systolic (8480-6) 98 mm[Hg] Blood Pressure Diastolic (8462-4) 55 mm[Hg] 04/22/2025 06:04 PM Heart Rate (8867-4) 74 /min 04/23/2025 06:58 AM Heart Rate (8867-4) 67 /min 04/23/2025 11:36 PM Temperature (8310-5) 97.5 [degF] 04/23/2025 11:37 PM Respiratory Rate (9279-1) 17 /min Heart Rate (8867-4) 76 /min Blood Pressure Systolic (8480-6) 140 mm[Hg] Blood Pressure Diastolic (8462-4) 70 mm[Hg] 04/23/2025 06:35 PM Temperature (8310-5) 97.9 [degF] Oxygen Saturation (20372-4) 93 % Respiratory Rate (9279-1) 17 /min Blood Pressure Systolic (8480-6) 109 mm[Hg] Blood Pressure Diastolic (8462-4) 63 mm[Hg] 04/24/2025 07:23 AM Heart Rate (8867-4) 71 /min 04/24/2025 09:10 AM Temperature (8310-5) 97.7 [degF] Oxygen Saturation (21353-7) 97 % Respiratory Rate (9279-1) 18 /min Heart Rate (8867-4) 71 /min Blood Pressure Systolic (8480-6) 121 mm[Hg] Blood Pressure Diastolic (8462-4) 70 mm[Hg] 04/24/2025 08:12 PM Temperature (8310-5) 97.6 [degF] Heart Rate (8867-4) 65 /min 04/24/2025 06:16 PM Heart Rate (8867-4) 88 /min 04/24/2025 08:13 PM Oxygen Saturation (46206-8) 92 % Respiratory Rate (9279-1) 18 /min Blood Pressure Systolic (8480-6) 115 mm[Hg] Blood Pressure Diastolic (8462-4) 70 mm[Hg] 04/25/2025 06:37 AM Heart Rate (8867-4) 70 /min 04/25/2025 08:15 AM Temperature (8310-5) 97.7 [degF] Oxygen Saturation (95059-1) 95 % Respiratory Rate (9279-1) 19 /min Heart Rate (8867-4) 71 /min Blood Pressure Systolic (8480-6) 128 mm[Hg] Blood Pressure Diastolic (8462-4) 67 mm[Hg] 04/25/2025 07:29 PM Temperature (8310-5) 96.7 [degF] Oxygen Saturation (06629-1) 94 % Respiratory Rate (9279-1) 17 /min Heart Rate (8867-4) 92 /min Blood Pressure Systolic (8480-6) 106 mm[Hg] Blood Pressure Diastolic (8462-4) 69 mm[Hg] 04/25/2025 06:45 PM Heart Rate (8867-4) 92 /min 04/26/2025 07:59 AM Heart Rate (8867-4) 52 /min 04/26/2025 08:53 AM Temperature (8310-5) 97.2 [degF] Oxygen Saturation (38479-6) 92 % Respiratory Rate (9279-1) 18 /min Blood Pressure Systolic (8480-6) 99 mm[Hg] Blood Pressure Diastolic (8462-4) 61 mm[Hg] 04/26/2025 06:42 PM Heart Rate (8867-4) 67 /min 04/26/2025 07:50 PM Temperature (8310-5) 96.8 [degF] Oxygen Saturation (92106-3) 95 % Respiratory Rate (9279-1) 19 /min Heart Rate (8867-4) 67 /min Blood Pressure Systolic (8480-6) 135 mm[Hg] Blood Pressure Diastolic (8462-4) 62 mm[Hg] 04/27/2025 10:53 AM Temperature (8310-5) 97.2 [degF] Oxygen Saturation (15535-0) 97 % Respiratory Rate (9279-1) 19 /min Heart Rate (8867-4) 89 /min Blood Pressure Systolic (8480-6) 104 mm[Hg] Blood Pressure Diastolic (8462-4) 62 mm[Hg] 04/27/2025 10:03 AM Heart Rate (8867-4) 72 /min 04/27/2025 02:41 PM Body Weight (75545-1) 202.4 [lb_av ] Body Mass Index (27237-2) 35.85 kg/m2 04/27/2025 06:27 PM Heart Rate (8867-4) 85 /min 04/27/2025 06:51 PM Temperature (8310-5) 97.3 [degF] Oxygen Saturation (49474-7) 97 % Respiratory Rate (9279-1) 17 /min Blood Pressure Systolic (8480-6) 128 mm[Hg] Blood Pressure Diastolic (8462-4) 76 mm[Hg] 04/28/2025 12:09 PM Heart Rate (8867-4) 81 /min 04/28/2025 12:10 PM Temperature (8310-5) 97.3 [degF] Oxygen Saturation (90047-9) 95 % Respiratory Rate (9279-1) 18 /min Blood Pressure Systolic (8480-6) 102 mm[Hg] Blood Pressure Diastolic (8462-4) 58 mm[Hg] 04/28/2025 07:24 PM Temperature (8310-5) 97.1 [degF] Oxygen Saturation (27303-3) 96 % Blood Pressure Systolic (8480-6) 120 mm[Hg] Blood Pressure Diastolic (8462-4) 79 mm[Hg] 04/28/2025 06:41 PM Heart Rate (8867-4) 79 /min 04/29/2025 07:48 AM Heart Rate (8867-4) 68 /min 04/29/2025 05:55 PM Temperature (8310-5) 97.8 [degF] Oxygen Saturation (01701-0) 93 % Respiratory Rate (9279-1) 12 /min Heart Rate (8867-4) 80 /min Blood Pressure Systolic (8480-6) 86 mm[Hg] Blood Pressure Diastolic (8462-4) 52 mm[Hg] 04/29/2025 08:17 PM Temperature (8310-5) 98.5 [degF] Respiratory Rate (9279-1) 18 /min Heart Rate (8867-4) 85 /min Blood Pressure Systolic (8480-6) 117 mm[Hg] Blood Pressure Diastolic (8462-4) 73 mm[Hg] 04/29/2025 08:18 PM Oxygen Saturation (43170-0) 96 % 04/30/2025 08:33 AM Temperature (8310-5) 97.6 [degF] Oxygen Saturation (54816-6) 95 % Respiratory Rate (9279-1) 18 /min Heart Rate (8867-4) 71 /min Blood Pressure Systolic (8480-6) 115 mm[Hg] Blood Pressure Diastolic (8462-4) 61 mm[Hg] 04/30/2025 08:32 AM Heart Rate (8867-4) 71 /min 04/30/2025 10:01 PM Temperature (8310-5) 98 [degF] Oxygen Saturation (12797-3) 96 % Respiratory Rate (9279-1) 16 /min Heart Rate (8867-4) 80 /min Blood Pressure Systolic (8480-6) 112 mm[Hg] Blood Pressure Diastolic (8462-4) 78 mm[Hg] 04/30/2025 09:44 PM Heart Rate (8867-4) 70 /min 05/01/2025 08:00 AM Temperature (8310-5) 97.5 [degF] Oxygen Saturation (30128-4) 91 % Respiratory Rate (9279-1) 17 /min Heart Rate (8867-4) 65 /min Blood Pressure Systolic (8480-6) 108 mm[Hg] Blood Pressure Diastolic (8462-4) 65 mm[Hg] 05/01/2025 09:14 PM Heart Rate (8867-4) 74 /min 05/01/2025 10:12 PM Temperature (8310-5) 97 [degF] Oxygen Saturation (33239-8) 96 % Respiratory Rate (9279-1) 16 /min Heart Rate (8867-4) 88 /min Blood Pressure Systolic (8480-6) 122 mm[Hg] Blood Pressure Diastolic (8462-4) 78 mm[Hg] 05/02/2025 08:35 AM Heart Rate (8867-4) 66 /min 05/02/2025 12:49 PM Temperature (8310-5) 97.6 [degF] Oxygen Saturation (72986-0) 95 % Respiratory Rate (9279-1) 18 /min Heart Rate (8867-4) 66 /min Blood Pressure Systolic (8480-6) 102 mm[Hg] Blood Pressure Diastolic (8462-4) 66 mm[Hg] 05/02/2025 08:38 PM Temperature (8310-5) 97.4 [degF] Oxygen Saturation (03150-4) 95 % Respiratory Rate (9279-1) 16 /min Heart Rate (8867-4) 80 /min Blood Pressure Systolic (8480-6) 129 mm[Hg] Blood Pressure Diastolic (8462-4) 56 mm[Hg] 05/02/2025 06:55 PM Heart Rate (8867-4) 80 /min 05/03/2025 08:34 AM Temperature (8310-5) 97.5 [degF] Oxygen Saturation (07250-7) 95 % Respiratory Rate (9279-1) 18 /min Heart Rate (8867-4) 66 /min Blood Pressure Systolic (8480-6) 109 mm[Hg] Blood Pressure Diastolic (8462-4) 58 mm[Hg] 05/03/2025 06:46 AM Heart Rate (8867-4) 66 /min 05/03/2025 01:16 PM Temperature (8310-5) 97.5 [degF] 05/03/2025 07:24 PM Temperature (8310-5) 97.5 [degF] Oxygen Saturation (56401-7) 98 % Respiratory Rate (9279-1) 17 /min Heart Rate (8867-4) 64 /min Blood Pressure Systolic (8480-6) 102 mm[Hg] Blood Pressure Diastolic (8462-4) 65 mm[Hg] 05/03/2025 06:35 PM Temperature (8310-5) 97.5 [degF] 05/03/2025 06:31 PM Heart Rate (8867-4) 64 /min 05/04/2025 08:04 AM Heart Rate (8867-4) 74 /min 05/04/2025 02:01 PM Body Weight (94011-5) 206.2 [lb_av ] Body Mass Index (38299-2) 36.52 kg/m2 05/04/2025 09:41 AM Temperature (8310-5) 97.7 [degF] Oxygen Saturation (10371-9) 92 % Respiratory Rate (9279-1) 20 /min Heart Rate (8867-4) 74 /min Blood Pressure Systolic (8480-6) 97 mm[Hg] Blood Pressure Diastolic (8462-4) 63 mm[Hg] 05/04/2025 06:55 PM Heart Rate (8867-4) 76 /min 05/04/2025 07:28 PM Temperature (8310-5) 97.7 [degF] Oxygen Saturation (16639-7) 95 % Respiratory Rate (9279-1) 20 /min Heart Rate (8867-4) 76 /min Blood Pressure Systolic (8480-6) 124 mm[Hg] Blood Pressure Diastolic (8462-4) 67 mm[Hg] 05/05/2025 11:13 AM Heart Rate (8867-4) 74 /min 05/05/2025 06:41 PM Heart Rate (8867-4) 85 /min 05/05/2025 08:56 PM Temperature (8310-5) 97.4 [degF] Oxygen Saturation (14282-3) 96 % Respiratory Rate (9279-1) 17 /min Heart Rate (8867-4) 70 /min Blood Pressure Systolic (8480-6) 112 mm[Hg] Blood Pressure Diastolic (8462-4) 68 mm[Hg] 05/06/2025 09:00 AM Temperature (8310-5) 96.8 [degF] Oxygen Saturation (90674-9) 97 % Respiratory Rate (9279-1) 20 /min Heart Rate (8867-4) 74 /min Blood Pressure Systolic (8480-6) 92 mm[Hg] Blood Pressure Diastolic (8462-4) 55 mm[Hg] 05/06/2025 07:00 PM Temperature (8310-5) 98.1 [degF] Oxygen Saturation (36964-0) 98 % Respiratory Rate (9279-1) 17 /min Heart Rate (8867-4) 81 /min Blood Pressure Systolic (8480-6) 100 mm[Hg] Blood Pressure Diastolic (8462-4) 81 mm[Hg] 05/06/2025 06:34 PM Heart Rate (8867-4) 88 /min 05/07/2025 07:36 AM Heart Rate (8867-4) 71 /min 05/07/2025 10:05 AM Temperature (8310-5) 97.5 [degF] Oxygen Saturation (22719-0) 96 % Respiratory Rate (9279-1) 18 /min Heart Rate (8867-4) 71 /min Blood Pressure Systolic (8480-6) 132 mm[Hg] Blood Pressure Diastolic (8462-4) 73 mm[Hg] 05/07/2025 06:57 PM Temperature (8310-5) 98.1 [degF] Respiratory Rate (9279-1) 17 /min Heart Rate (8867-4) 70 /min Blood Pressure Systolic (8480-6) 128 mm[Hg] Blood Pressure Diastolic (8462-4) 70 mm[Hg] 05/08/2025 06:55 AM Oxygen Saturation (11299-5) 97 % Respiratory Rate (9279-1) 19 /min Heart Rate (8867-4) 69 /min Blood Pressure Systolic (8480-6) 125 mm[Hg] Blood Pressure Diastolic (8462-4) 66 mm[Hg] 05/08/2025 06:54 AM Temperature (8310-5) 97.7 [degF] 05/08/2025 06:47 PM Heart Rate (8867-4) 67 /min 05/08/2025 10:19 PM Temperature (8310-5) 97.4 [degF] Oxygen Saturation (01539-1) 93 % Respiratory Rate (9279-1) 17 /min Heart Rate (8867-4) 67 /min Blood Pressure Systolic (8480-6) 107 mm[Hg] Blood Pressure Diastolic (8462-4) 80 mm[Hg] 2025 08:10 AM Heart Rate (8867-4) 71 /min 2025 06:44 PM Heart Rate (8867-4) 76 /min 2025 08:37 PM Temperature (8310-5) 98.5 [degF] Oxygen Saturation (47196-8) 97 % Respiratory Rate (9279-1) 16 /min Heart Rate (8867-4) 65 /min Blood Pressure Systolic (8480-6) 130 mm[Hg] Blood Pressure Diastolic (8462-4) 82 mm[Hg] 2025 05:35 PM Temperature (8310-5) 97.6 [degF] Oxygen Saturation (43924-1) 96 % Respiratory Rate (9279-1) 18 /min Heart Rate (8867-4) 71 /min Blood Pressure Systolic (8480-6) 118 mm[Hg] Blood Pressure Diastolic (8462-4) 64 mm[Hg] 05/10/2025 08:32 AM Temperature (8310-5) 98 [degF] Oxygen Saturation (48927-7) 95 % Respiratory Rate (9279-1) 14 /min Heart Rate (8867-4) 80 /min Blood Pressure Systolic (8480-6) 115 mm[Hg] Blood Pressure Diastolic (8462-4) 60 mm[Hg] 05/10/2025 08:00 AM Heart Rate (8867-4) 80 /min 05/10/2025 07:52 PM Temperature (8310-5) 97.6 [degF] Oxygen Saturation (02169-8) 94 % Respiratory Rate (9279-1) 19 /min Heart Rate (8867-4) 65 /min Blood Pressure Systolic (8480-6) 134 mm[Hg] Blood Pressure Diastolic (8462-4) 60 mm[Hg] 05/10/2025 07:01 PM Heart Rate (8867-4) 65 /min 05/11/2025 01:09 PM Temperature (8310-5) 97.9 [degF] Oxygen Saturation (08995-0) 98 % Respiratory Rate (9279-1) 18 /min Heart Rate (8867-4) 64 /min Blood Pressure Systolic (8480-6) 120 mm[Hg] Blood Pressure Diastolic (8462-4) 72 mm[Hg] 05/11/2025 04:13 PM Body Weight (50128-1) 205.1 [lb_av ] Body Mass Index (85777-8) 36.33 kg/m2 05/11/2025 10:07 AM Heart Rate (8867-4) 78 /min 05/11/2025 06:38 PM Heart Rate (8867-4) 70 /min 05/11/2025 07:17 PM Temperature (8310-5) 98.3 [degF] Oxygen Saturation (75283-2) 94 % Respiratory Rate (9279-1) 20 /min Heart Rate (8867-4) 84 /min Blood Pressure Systolic (8480-6) 126 mm[Hg] Blood Pressure Diastolic (8462-4) 74 mm[Hg] 05/12/2025 06:59 AM Heart Rate (8867-4) 80 /min 05/12/2025 10:52 AM Temperature (8310-5) 98.1 [degF] Oxygen Saturation (77001-5) 93 % Respiratory Rate (9279-1) 20 /min Heart Rate (8867-4) 89 /min Blood Pressure Systolic (8480-6) 110 mm[Hg] Blood Pressure Diastolic (8462-4) 62 mm[Hg] 05/12/2025 07:43 PM Temperature (8310-5) 97.8 [degF] Oxygen Saturation (87561-7) 97 % Respiratory Rate (9279-1) 19 /min Heart Rate (8867-4) 75 /min Blood Pressure Systolic (8480-6) 139 mm[Hg] Blood Pressure Diastolic (8462-4) 60 mm[Hg] 05/12/2025 06:39 PM Heart Rate (8867-4) 76 /min 05/13/2025 09:00 AM Temperature (8310-5) 98.2 [degF] Oxygen Saturation (65159-8) 94 % Respiratory Rate (9279-1) 16 /min Heart Rate (8867-4) 94 /min Blood Pressure Systolic (8480-6) 114 mm[Hg] Blood Pressure Diastolic (8462-4) 73 mm[Hg] 05/13/2025 06:47 PM Temperature (8310-5) 97.7 [degF] Oxygen Saturation (96661-1) 97 % Respiratory Rate (9279-1) 18 /min Blood Pressure Systolic (8480-6) 112 mm[Hg] Blood Pressure Diastolic (8462-4) 65 mm[Hg] 05/13/2025 06:33 PM Heart Rate (8867-4) 83 /min 05/14/2025 09:13 AM Heart Rate (8867-4) 87 /min 05/14/2025 09:14 AM Temperature (8310-5) 98.4 [degF] Oxygen Saturation (34490-6) 98 % Respiratory Rate (9279-1) 18 /min Blood Pressure Systolic (8480-6) 122 mm[Hg] Blood Pressure Diastolic (8462-4) 77 mm[Hg] 05/14/2025 06:27 PM Heart Rate (8867-4) 82 /min 05/14/2025 07:39 PM Temperature (8310-5) 97.3 [degF] Oxygen Saturation (50156-1) 96 % Respiratory Rate (9279-1) 19 /min Heart Rate (8867-4) 67 /min Blood Pressure Systolic (8480-6) 137 mm[Hg] Blood Pressure Diastolic (8462-4) 67 mm[Hg] 05/15/2025 08:42 AM Temperature (8310-5) 96.8 [degF] Oxygen Saturation (88140-2) 98 % Respiratory Rate (9279-1) 22 /min Heart Rate (8867-4) 68 /min Blood Pressure Systolic (8480-6) 133 mm[Hg] Blood Pressure Diastolic (8462-4) 61 mm[Hg] 05/15/2025 08:41 AM Heart Rate (8867-4) 68 /min 05/15/2025 09:20 PM Temperature (8310-5) 98.2 [degF] Oxygen Saturation (26704-7) 93 % Respiratory Rate (9279-1) 16 /min Heart Rate (8867-4) 82 /min Blood Pressure Systolic (8480-6) 130 mm[Hg] Blood Pressure Diastolic (8462-4) 82 mm[Hg] 05/15/2025 06:11 PM Heart Rate (8867-4) 87 /min 05/16/2025 09:28 AM Heart Rate (8867-4) 68 /min 05/16/2025 06:52 PM Heart Rate (8867-4) 70 /min 05/17/2025 06:07 AM Heart Rate (8867-4) 72 /min 05/17/2025 06:29 PM Heart Rate (8867-4) 76 /min 05/18/2025 08:21 AM Heart Rate (8867-4) 82 /min Social History No smoking Hx information available Encounters Type CPT Code Date Location Provider Indication s encounter report 04/15/2025 10:53 AM Penelope Maxwell DO 01 Advance Directives Directive Description Verification Date Supporting Document(s) Resuscitation
--- OUTSIDE RECORDS SUMMARY | 2025-05-18 10:45 | XMS_ITS | Clinical Summary ---
Author Organization 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 Will start Xarelto 20 mg p.o. Daily. Continue diltiazem. No need to take aspirin now. Advised patient to reduce meloxicam intake. Assessment & Plan (09/01/2017 12:28 PM SENIOR FINANCIAL CONSULTANT): Will order an echocardiogram to assess cardiac [...] asthma. Assessment & Plan (09/15/2017 11:31 AM SENIOR FINANCIAL CONSULTANT): She has strong family history for coronary artery disease. She gets very fatigue on exertion. Cannot rule out angina equivalent. Schedule Lexiscan nuclear stress test to rule out ischemia. Assessment & Plan (09/01/2017 12:46 PM SENIOR FINANCIAL CONSULTANT): This patient does have underlying asthma however [...] treatment Assessment & Plan (09/15/2017 11:31 AM SENIOR FINANCIAL CONSULTANT): Blood pressure is controlled. Continue current treatment Assessment & Plan (09/01/2017 12:47 PM SENIOR FINANCIAL CONSULTANT): Blood pressure is controlled. Continue current medications. 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
--- OUTSIDE RECORDS SUMMARY | 2025-05-18 10:46 | XMS_ITS | Clinical Summary ---
Author Organization [facility] [place], [facility] Address [address] [address] Phone Care Team Providers Care Board Setter Name Role Phone Gemma Schmidt MD Primary Care Provider [phone] Encounters Date Type Department Care Team Description 04/08/2025 Telephone [facility] [address] [place] [address] Katie Patiño NP 03/11/2025 Telephone [facility] [address] [place] [address] Dior Geller 03/04/2025 Telephone [facility] [address] [place] [address] Hamlet Andersen MD from Last [...] st Contact Info) Description 08/29/2025 1:00 PM PHYSICAL THERAPIST ASSISTANT Office Visit [facility] [address] [address] Hamlet Andersen MD [address] [place] [address] Health Maintenance Due Date Last [...] patient's age to complete this topic [facility] Care Teams Board Setter Relationship Specialty Start Date End Date Gemma Schmidt MD [address] [address] PCP - General Family Medicine 03/04/25
--- OUTSIDE RECORDS SUMMARY | 2025-05-18 10:46 | XMS_ITS | Encounter Summary ---
Author Organization [facility] Healthcare Address [address] [place] [address] Care Team Providers Care Pilates Coordinator Name Role Phone Keven aWllace MD Primary Care Provider Keven Wallace MD Unavailable [phone] Fili Nielsen MD Primary Care Provider + [phone] Yisel Vega DO Primary Care Provider [phone] Encounter Details Date Type Department Care Team (Late st Contact Info) Description 10/01/2017 Orders Only [facility] [place] Health Information Management [address] [place] [id number] Scanning, Provider Social History Tobacco Use [...] on filedocumented in this encounter Care Teams Pilates Coordinator Relationship Specialty Start Date End Date Keven Wallace MD [address] [place] [address] PCP - General Family Medicine 08/11/17 12/20/18 Fili Nielsen MD [address] [place] [address] PCP - General Family Practice 12/21/18 12/14/20 Yisel Vega DO [address] [place], [place] [id number] PCP - General Family Practice 12/15/20 Keven Wallace MD [address] [place] [address] 08/11/17 documented as of this encounter
--- OUTSIDE RECORDS SUMMARY | 2025-05-18 10:46 | XMS_ITS | Encounter Summary ---
Author Organization [facility] Healthcare Address [address] [place] [address] Care Team Providers Care Pattern Marking Supervisor Name Role Phone Keven Wallace MD Primary Care Provider Keven Wallace MD Unavailable [phone] Fili Nielsen MD Primary Care Provider + [phone] Yisel Vega DO Primary Care Provider [phone] Encounter Details Date Type Department Care Team (Late st Contact Info) Description 09/17/2017 Orders Only [facility] [place] Information Management [address] [place] [id number] Scanning, Provider Social History Tobacco Use [...] on filedocumented in this encounter Care Teams Pattern Marking Supervisor Relationship Specialty Start Date End Date Keven Wallace MD [address] [place] [address] PCP - General Family Medicine 08/11/17 12/20/18 Fili Nielsen MD [address] [place] [address] PCP - General Family Practice 12/21/18 12/14/20 Yisel Vega DO [address] [place] [address] PCP - General Family Practice 12/15/20 Keven Wallace MD [address] [facility] [address] [place] [address] 08/11/17 documented as of this encounter
--- OUTSIDE RECORDS SUMMARY | 2025-05-18 10:46 | XMS_ITS | Encounter Summary ---
Author Organization [facility] Address [address] [place] [address] Care Team Providers Care Service Center Specialist Name Role Phone Gemma Schmidt MD Primary Care Provider [phone] Encounter Details Date Type Department Care Team (Late Contact Info) Description 12/27/2024 Lab Requisition [facility] General Laboratory Services [place] [address] [address] Jaja De La Cruz, [facility] [address] [address] Urinary tract infection, site not [...] Department Care Team (Late Contact Info) Description 06/06/2025 2:20 PM BUTTON SEWING MACHINE OPERATOR Office Visit [facility] [place] [address] [address] Gemma Schmidt MD [address] [address] documented as of this encounter [...] 136 - 145 mmol/L 12/27/2024 10:22 AM [facility] POTASSIUM 4.8 3.5 - 5.1 mmol/L 12/27/2024 10:22 AM [facility] CHLORIDE 96(L) 98 - 107 mmol/L 12/27/2024 10:22 AM [facility] CO2 21(L) 22 - 29 mmol/L 12/27/2024 10:22 AM [facility] CALCIUM 9.3 8.8 - 10.2 mg/dL 12/27/2024 10:22 AM [facility] BUN 71(H) 8 - 23 mg/dL 12/27/2024 10:22 AM [facility] CREATININE 2.16(H) 0.51 - 0.95 mg/dL 12/27/2024 10:22 AM [facility] Comment:The GFR result is no t clinically significant on patients <18 or >70 years of age. GLUCOSE 386(H) 74 - 99 mg/dL 12/27/2024 10:22 AM [facility] GFR 23 mL/min/1.7 3 sq meter 12/27/2024 10:22 AM [facility] Comment:eGFR calculated with 2020 CKD-EPI equation. Vegetarian diet, extremely high or low muscle mass, and may affect results. Cystatin C with Glomerular Filtration Rate is a suitable alternative for these patients. ANION GAP 17 5 - 20 mmol/L 12/27/2024 10:22 AM CDT [facility] Blood 12/27/2024 9:41 AM CDT 12/27/2024 9:56 AM CDT Jaja Macias Dorothy [facility] CHEMISTRY ORDERABLES Final Result Performing Organization Address City/[facility]/ZIP Co de Phone Number [facility] CLIA # [id number] [address] [place] [phone] * C-REACTIVE PROTEIN (12/27/2024 9:41 AM CDT) CRP 4.8 <5.0 mg/L 12/27/2024 10:21 AM CDT [facility] Blood 12/27/2024 9:41 AM CDT 12/27/2024 9:56 AM CDT us Jajabernadine Macias Dorothy [facility] CHEMISTRY ORDERABLES Final Result Performing Organization Address City/[facility]/ZIP Co de Phone Number [facility] CLIA # [id number] [address] [place] [phone] * (ABNORMAL) CBC WITH DIFFERENTIAL (12/27/2024 9:41 AM CDT) WBC 8.6 4.0 - 10.0 K/uL 12/27/2024 9:58 [facility] RBC 4.18 3.93 - 5.22 M/uL 12/27/2024 9:58 AM [facility] HEMOGLOBIN 13.3 11.2 - 15.7 g/dL 12/27/2024 9:58 AM [facility] HEMATOCRIT 41.0 34.1 - 44.9 % 12/27/2024 9:58 AM [facility] MCV 98.1(H) 79.4 - 94.8 fL 12/27/2024 9:58 AM [facility] MCH 31.8 25.6 - 32.2 pg 12/27/2024 9:58 AM [facility] MCHC 32.4 32.2 - 35.5 g/dL 12/27/2024 9:58 AM [facility] RDW 14.4 11.0 - 14.5 % 12/27/2024 9:58 AM [facility] RDW-STDEV 52.0 36.9 - 56.9 fL 12/27/2024 9:58 AM [facility] PLATELETS 182 163 - 337 K/uL 12/27/2024 9:58 AM [facility] MPV 11.5 10.0 - 14.8 fL 12/27/2024 9:58 AM [facility] NEUTROPHILS 74(H) 34 - 71 % 12/27/2024 9:58 AM [facility] LYMPHOCYTES 15(L) 19 - 52 % 12/27/2024 9:58 AM [facility] MONOCYTES 7 5 - 13 % 12/27/2024 9:58 AM [facility] EOSINOPHILS 4 1 - 6 % 12/27/2024 9:58 AM [facility] BASOPHILS 1 0 - 1 % 12/27/2024 9:58 AM [facility] IMMATURE GRANULOCYTES 0 % 12/27/2024 9:58 AM [facility] NEUTROPHIL ABSOLUTE 6.32(H) 1.56 - 6.13 K/uL 12/27/2024 9:58 AM [facility] LYMPHOCYTE ABSOLUTE 1.24 1.20 - 3.40 K/uL 12/27/2024 9:58 AM [facility] MONOCYTE ABSOLUTE 0.61(H) 0.24 - 0.36 K/uL 12/27/2024 9:58 AM [facility] EOSINOPHIL ABSOLUTE 0.32 0.04 - 0.36 K/uL 12/27/2024 9:58 AM [facility] BASOPHILS ABSOLUTE 0.04 0.01 - 0.08 K/uL 12/27/2024 9:58 AM CDT [facility] IMMATURE GRANULOCYTES ABSOLUTE 0.02 K/uL 12/27/2024 9:58 AM CDT [facility] Blood 12/27/2024 9:41 AM CDT 12/27/2024 9:55 AM CDT us Jaja De La Cruz VESSEL OPERATOR HEMATOLOGY ORDERABLES Deonna l Result [facility] CLIA # [id number] [address] [address] documented in this encounter Visit Diagnoses Diagnosis Urinary tract infection, site not specified documented in this encounter 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
--- OUTSIDE RECORDS SUMMARY | 2025-05-18 10:46 | XMS_ITS | Encounter Summary ---
Author Organization [facility] Address [address] [place] [address] Care Team Providers Care Media Consultant Name Role Phone Gemma Schmidt MD Primary Care Provider [phone] Encounter Details Date Type Department Care Team (Late Contact Info) Description 05/10/2025 External Device Data [facility] ABSTRACTION Provider, Abstract NO ADDRESS ON FILE Social History Tobacco Use Types Packs/Day Years Used Date Smoking Tobacco: Never Smokeless Tobacco: Never Alcohol Use Standard Drinks/Week Comments Not Currently 0 (1 standard drink = 0.6 oz pur e alcohol) Feeling Safe Answer Date Recorded Are you in a relationship wi th someone who hurts you emotionally and/or physically? No 04/08/2025 Food Insecurity Answer Date Recorded Patient needs follow up regardin 04/08/2025 Transportation Needs Answer Date Record ed Patient needs follow up regardin 04/08/2025 Utility Needs Answer Date Recorded Patient needs follow up regardin 04/08/2025 Comments No Sex and Gender Information Value Date Recorded Sex Assigned at Not on file Legal Sex Female 1:19 PM CDT Gender Identity Not on file Sexual Orientation Not on file documented as of this encounter Plan of Treatment Upcoming Encounters Date Type Department Care Team (Late Contact Info) Description 06/06/2025 2:20 PM QUITLINE COUNSELOR Office Visit [address] [phone] Gemma Schmidt MD [address] [phone] documented as of this encounter Visit Diagnoses Not on filedocumented in this encounter Care Teams Media Consultant Relationship Specialty Start Date End Date Gemma Schmidt MD [address] [phone] PCP - General Family Practice 11/23/24 documented as of this encounter
--- OUTSIDE RECORDS SUMMARY | 2025-05-18 10:47 | XMS_ITS | Clinical Summary ---
Author Organization [facility] Michael salazar [place] Address [address] [place] [address] Phone Care Team Providers Care Tunnel Mucker Name Role Phone Gemma Schmidt MD Primary Care Provider Allergies Active Allergy Reactions Criticality Noted Date Comments Levofloxacin Other (See Comments) Medium 07/20/2024 Joint pains Penicillins Rash Medium 09/01/2017 Tolerated ceftriaxone 06/26/21 Sulfa (Sulfonamide Antibiotics) Rash Medium 12/30/2011 Medications calcium phosphate trib/vit D3 (calcium phosphate-vitam in D3) 200 mg-5 mcg (200 unit) Tablet, Chewable Take 1 Tablet by mouth daily. Active OXYGEN-AIR DELIVERY SYSTEMS MISC Administer 2 L/min in each nostril. 07/09/20 24 Active calcium as CARBONATE-vitam in D3 (Oyster Shell Calcium-Vit D3) 500 mg-5 mcg (200 unit) tablet Take 1 Tablet by mouth 2 times daily. Active atorvastatin (LIPITOR) 20 mg tablet Take 20 mg by mouth. 11/16/19 25 Active apixaban (ELIQUIS) 2.5 mg tablet Take 2.5 mg by mouth. 07/08/20 24 2024 Active albuterol (PROVENTIL,VENT SURAJ) 2.5 mg /3 mL (0.083 %) Solution for Nebulization Take 2.5 mg by inhalation. 02/27/20 23 Active albuterol sulfate HFA 90 mcg/actuation aerosol inhaler Take 2 Puffs by inhalation. 02/27/20 23 Active acetaminophen (TYLENOL) 500 mg tablet Take 2 Tablets by mouth. Active acetaminophen (TYLENOL) 325 mg tablet Take 650 mg by mouth. Active cephALEXin (KEFLEX) 250 mg capsule Take 250 mg by mouth daily. Prophalactic. Active dilTIAZem (CARDIZEM CD, CARTIA XT) 240 mg Controlled Delivery 24 hour capsule Take 240 mg by mouth daily. Active gabapentin (NEURONTIN) 300 mg capsule Take 300 mg by mouth 2 times daily. Active insulin lispro (HumaLOG,ADMELO G) 100 unit/mL vial Inject by subcutaneous injection 3 times daily with meals. Sliding scale Active hydrOXYzine HCL (ATARAX) 10 mg tablet Take 10 mg by mouth 3 times daily as needed for Itching. Active Insulin Wayne, Disposable, (Lite Touch Insulin Pen Wayne) 29 gauge x 1/2 Needle by [facility].(Non-Drug; Combo Route) route. Active isosorbide mononitrate (ISMO) 20 mg tablet Take 30 mg by mouth daily. Active levothyroxine 100 mcg tablet Take 100 mcg by mouth daily in the morning. Active melatonin 1 mg Tablet Take by mouth nightly as needed. Active memantine (NAMENDA) 5 mg Tablet Take 5 mg by mouth 2 times daily. Active metoprolol succinate (TOPROL XL) 25 [...] to affected area 4 times daily. Active fluticasone-ume clidinium-vilan terol (Trelegy Ellipta) 100-62.5-25 mcg Disk with DeviceIndicatio ns:Acute hypoxic respiratory failure (CMS/HCC),Dyspn ea on exertion Take 1 Puff by inhalation daily. 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 4 Each 3 11/24/19 25 Active portable oxygenIndicatio ns:Acute hypoxic respiratory failure (CMS/HCC),Oxyge n dependent,Dyspn ea on exertion Face to Face completed within 30 days: yes Length of Need: 99 months By: Nasal Cannula Continuously at 2 L/min. 1 Each 12/10/19 25 Active oxygen home deliveryIndicat ions:Acute hypoxic respiratory failure (CMS/HCC) Home Oxygen Concentrator no at 2 L/M Rest, 2 L/M Activity, 2 L/M Sleep, Delivery Device: Nasal Cannula Portability: yes, 2 L/M Rest, 2 L/M Activity, May provide device best for patient needs(E system,home fill, conserving device) Length of Need: 99 months 1 Each 12/10/19 25 Active torsemide (DEMADEX) 20 mg tablet Take 1 Tablet (20 mg) by mouth 2 times daily. 200 Tablet 12/21/19 25 Active ciclopirox (LOPROX) 1 % Shampoo APPLY TOPICALLY TO AFFECTED AREAEVERY DAY FOR 1 WEEK, THEN EVERY OTHER DAY. 11/10/19 25 2025 Active clobetasoL (TEMOVATE) 0.05 % Solution APPLY TO ITCHY AREAS OF SCALP NEEDED 01/27/20 25 Active Dupixent Pen 300 mg/2 mL Pen Injector INJECT ONE pen UNDER THE SKIN EVERY FOUR weeks 02/10/20 25 Active nystatin (NYSTOP) 100,000 unit/gram powder APPLY POWDER TOPICALLY TWICE DAILY NEEDED (GROIN AND BREAST FOLD) 01/27/20 Active tacrolimus (PROTOPIC) 0.1 % Ointment APPLY TO FACE TWICE DAILY FOR TWO WEEKS ON AND TWO WEEKS OFF NEEDED-ALTERNAT E WITH STEROID 01/28/20 Active triamcinolone acetonide (KENALOG) 0.1 % Cream APPLY TWICE DAILY TO RED/ITCHY AREAS ON ARMS,LEGS,ABDOM EN, AND BACK NEEDED. NO MORE THAN 2 WEEKS PER MONTH. NOT FOR USE ON FACE, GROIN, OR SKIN FOLDS. 01/04/20 25 Active memantine (NAMENDA XR) 14 mg Extended Release 24 hour capsule Take 1 Tablet by mouth daily. 02/18/20 25 Active Insulin Wayne, Disposable, 31 gauge x 10/03 Needle USE DIRECTED 3 (THREE) TIMES DAILY BEFORE MEALS AND AT BEDTIME 11/16/19 25 2025 Active tirzepatide (Mounjaro) 2.5 mg/0.5 mL Pen Injector Inject 0.5 mL (2.5 mg) by subcutaneous injection every 7 days. 2 mL 3 03/03/20 25 Active fluticasone propionate (FLONASE) 50 mcg/spray [place], Suspension nasal inhaler Administer 2 Sprays in each nostril daily. 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 1 Each 3 11/24/19 25 2024 Discontinued linezolid (ZYVOX) 600 mg tabletIndicatio ns:VRE Take 1 Tablet (600 mg) by mouth every 12 hours for 9 days. 18 Tablet 04/12/20 25 2024 Active Problems Problem Noted Date Diagnosed Date VRE (vancomycin resistant enterococcus) culture positive 04/11/2025 Pulmonary embolism 03/03/2025 Vitamin B12 deficiency 03/03/2025 Iron deficiency 11/23/2024 Acute hypoxic respiratory failure 06/28/2024 Pneumonia of left lower lobe due to infectious o rganism 06/28/2024 Type 2 [place] (myocardial infarction) 06/28/2024 PATRICE (acute kidney injury) 03/02/2024 Stage 3b chronic kidney disease 02/23/2024 Heart failure with preserved left ventricular function (HFpEF) 12/17/2023 GERD (gastroesophageal reflux disease) Overview (11/23/2024): only with NSAIDs VRE (vancomycin-resistant [...] eyes 1 08/11/2020 Coronary artery abnormality 06/06/2021 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 Will assess after monitor Dyspnea on exertion 09/01/2017 Overview (11/23/2024): Last [...] Problem Noted Date Diagnosed Date Resolved Date Complicated UTI (urinary tract infection) 04/08/2025 04/12/2025 CKD (chronic kidney disease) stage 4, GFR 15-29 ml/min 01/14/2024 04/12/2025 Adverse effect of glucocorti coid or synthetic analogue 05/27/2023 11/23/2024 Chronic heart failure with p reserved ejection fraction (HFpEF) 06/06/2021 04/12/2025 EDGAR (obstructive sleep apnea) 03/05/2021 04/12/2025 Distal radius fracture 01/22/202104/12 Type 2 diabetes mellitus wit h diabetic autonomic neuropathy, with long-term current use of insulin 05/03/2019 04/12/2025 Overview (11/23/2024): Managed by Endocrinology Longstanding type [...] No On Statin?: Atorvastatin 20 mg daily Paroxysmal atrial fibrillation 09/01/2017 04/12/2025 Encounters Date Type Department Care Team Description 05/10/2025 External Device Data ST[facility] ABSTRACTION Provider, Abstract 04/25/2025 Refill [facility] [place] [address] [address] Nikole Gilliam NP 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 04/19/2025 External Device Data ST[facility] ABSTRACTION Provider, Abstract 04/15/2025 5:15 AM CDT - 04/15/2025 11:59 PM CDT Hospital Encounter [facility] [place] [address] [address] Ambulance, [facility] Tee Tse MD Discharge Disposition: Intermediate Care Facility 04/12/2025 External Device Data ST[facility] ABSTRACTION Provider, Abstract 04/12/2025 External Device Data [facility] ABSTRACTION Provider, Abstract 04/12/2025 External Device Data [facility] ABSTRACTION Provider, Abstract 04/08/2025 1:28 PM CDT - 04/15/2025 9:00 AM CDT Hospital Encounter [facility] [address] [place] [address] Tee Tse MD VRE (vancomycin resistant enterococcus) culture positive Discharge Disposition: [facility](SNF) with Medicare Certification in Anticipation of Skilled Care 04/08/2025 - 04/08/2025 11:59 PM CDT Hospital Encounter [facility] [address] [place] [address] Ambulance, [facility] Discharge Disposition: [facility] 04/08/2025 Travel 04/08/2025 Nurse Triage [facility] [address] [address] Gemma Schmidt MD 04/06/2025 External Device Data ST[place] ABSTRACTION Provider, Abstract 03/23/2025 Telephone [facility] [address] [address] Gemma Schmidt MD Provider Call 03/22/2025 External Device Data ST[facility] ABSTRACTION Provider, Abstract 03/15/2025 Orders Only [facility] Information Management [place] [address] [place] [address] Provider, Abstract 03/14/2025 6:30 AM CDT - 03/14/2025 11:59 PM CDT Hospital Encounter [facility] [address] [place] [address] Ambulance, [facility] Discharge Disposition: [facility] 03/10/2025 Orders Only [facility] [address] [place] [address] Provider, Abstract 03/09/2025 External Device Data ST[place] ABSTRACTION Provider, Abstract 03/06/2025 Results Follow-Up [facility] [address] [address] Gemma Schmidt MD HEMOGLOBIN A1C, BASIC METABOLIC PANEL, CBC WITH DIFFERENTIAL, Additional followed-up results: 2 03/03/2025 3:20 PM CDT Office Visit [address] [address] Gemma Schmidt MD CKD (chronic kidney disease) stage 4, GFR 15-29 ml/min (CMS/HCC) (Primary Dx); Controlled type 2 diabetes mellitus without complication, with long-term current use of insulin (CMS/HCC); Hypertension, unspecified type; Paroxysmal atrial fibrillation (CMS/HCC) from Last 3 Months Immunizations Immunization Administration Dates Next Due (ABRYSVO)(60 YR UP/GA 32-36 WKS) RSV, BIVALENT, PROTEIN SUBUNIT RSVPREF, DILUENT RECONSTITUTED, 0.5 ML, PF 05/05/2023 (ADACEL/BOOSTRIX)(10 YR UP) TDAP VACCINE, 0.5ML, IM 05/25/2019 (COMRINATY)(12YR UP) COVID-1 9 VACCINE, MRNA (PF)30 MCG/0.3 ML, IM SYRINGE 04/16/2024 (PNEUMOVAX 23)(50 YRS UP) PN EUMOCOCCAL [...] Sign Reading Time Taken Comments Blood Pressure 102/63 04/15/2025 7:16 AM CDT Pulse 71 04/15/2025 7:16 AM CDT Temperature 36.6 C (97.8 F) 04/15/2025 7:16 AM CDT Respiratory Rate 16 04/15/2025 7:16 AM CDT Oxygen Saturation 92% 04/15/2025 7:16 AM CDT Inhaled Oxygen Concentration - - Weight 94.8 kg (209 lb 1.6 oz) 04/08/2025 4:01 P M CDT Height 160 cm (5' 3 ) 04/08/2025 4:01 PM CDT Body Mass Index 37.04 04/08/2025 4:01 PM CDT Plan of Treatment Upcoming Encounters Date Type Department Care Team (Late st Contact Info) Description 06/06/2025 2:20 PM CONTINUITY TESTER Office Visit [facility] [place] [address] [address] Gemma Schmidt MD [address] [address] Health Maintenance Due Date Last Done Comments DIABETES MICROALBUMIN ANNUAL SCREEN 1963 LDL CHOLESTEROL ANNUAL 1963 OSTEOPOROSIS SCREENING 2010 [place]) Preventative Visit/Annual Wellness Visit 07/21/2024 DIABETES ANNUAL FOOT EXAM 02/08/2025 02/09/2024 INFLUENZA VACCINE (#1) 2025 , 04/15/2023, 04/20/2022, Additional history exists COVID-19 Vaccine (2023-2 5 season) 2025 04/16/2024, 03/31/2022, 05/03/2021, Additional history exists DIABETES HBA1C Q 6 MONTHS 09/03/2025 03/03/2025, DIABETES ANNUAL RETINAL EXAM 01/28/202605/2025, 07/27/2024, 12/02/2023, Additional history exists DTAP/TDAP/TD VACCINES (2 - T d or Tdap) 05/25/2029 05/25/2019, 10/20/2003, 12/26/1994 PNEUMOCOCCAL VACCINE 50+ YEARS Completed 1 , 07/21/2014, 07/08/2013 ZOSTER VACCINE Completed 11/09/2020, 04/20/2019 RSV VACCINE (60+ or ) Completed 05/05/2023 Procedures Procedure Name Priority Date/Time Associated Diagnosis Comments POC GLUCOSE Routine 04/15/2025 7:19 AM CDT POC GLUCOSE Routine 04/14/2025 9:14 PM CDT POC GLUCOSE Routine 04/14/2025 5:06 PM CDT POC GLUCOSE Routine 04/14/2025 11:49 AM CDT POC GLUCOSE Routine 04/14/2025 7:25 AM CDT POC GLUCOSE Routine 04/14/2025 12:22 AM CDT POC GLUCOSE Routine 04/13/2025 4:31 PM CDT POC GLUCOSE Routine 04/13/2025 12:10 PM CDT POC GLUCOSE Routine 04/13/2025 7:09 AM CDT POC GLUCOSE Routine 04/12/2025 9:15 PM CDT POC GLUCOSE Routine 04/12/2025 5:05 PM CDT POC GLUCOSE Routine 04/12/2025 11:48 AM CDT POC GLUCOSE Routine 04/12/2025 7:25 AM CDT POC GLUCOSE Routine 04/11/2025 9:00 PM CDT POC GLUCOSE Routine 04/11/2025 5:06 PM CDT POC GLUCOSE Routine 04/11/2025 11:46 AM CDT POC GLUCOSE Routine 04/11/2025 7:48 AM CDT POC GLUCOSE Routine 04/10/2025 9:21 PM CDT POC GLUCOSE Routine 04/10/2025 4:46 PM CDT POC GLUCOSE Routine 04/10/2025 11:55 AM CDT POC GLUCOSE Routine 04/10/2025 7:21 AM CDT CBC WITHOUT DIFFERENTIAL Routine 04/10/2025 5:05 AM CDT BASIC METABOLIC PANEL Routine 04/10/2025 5:05 AM CDT POC GLUCOSE Routine 04/09/2025 10:29 PM CDT POC GLUCOSE Routine 04/09/2025 4:26 PM CDT POC GLUCOSE Routine 04/09/2025 11:29 AM CDT POC GLUCOSE Routine 04/09/2025 7:16 AM CDT CBC WITHOUT DIFFERENTIAL Routine 04/09/2025 5:10 AM CDT BASIC METABOLIC PANEL Routine 04/09/2025 5:10 AM CDT POC GLUCOSE Routine 04/08/2025 4:56 PM CDT URINALYSIS MICROSCOPY ONLY Stat 04/08/2025 1:45 PM CDT URINALYSIS W/REFLEX MICROSCOPIC Stat 04/08/2025 1:45 PM CDT URINE CULTURE Stat 04/08/2025 1:45 PM CDT COMPREHENSIVE METABOLIC PANEL Routine 03/14/2025 9:56 AM CDT PTH INTACT Routine 03/03/2025 4:21 PM CDT [...] EYE EXAM Routine 01/28/2025 12:20 PM CDT from Last 3 Months or Most Recently Relevant to Health Maintenance Results * (ABNORMAL) POC GLUCOSE (04/15/2025 7:19 AM CDT) Only the most recent of26 resultswithin the time period is included. GLUCOSE POC 146(H) 74 - 99 mg/dL 04/15/2025 7:19 AM CDT [facility] SPECIMEN SOURCE, GLUCOSE POC Whole Blood 04/15[facility]2025 [facility] Blood, whole 04/15/2025 7:19 AM CDT 04/15/2025 7:34 AM CDT Tee Tse MD POINT OF CARE TESTING Final Result [facility] CLIA # [id number] [address] [place] [id number] * CBC WITHOUT DIFFERENTIAL (04/10/2025 5:05 AM CDT) Only the most recent of2 resultswithin the time period is included. Pathologist [facility] WBC 5.9 4.0 - 10.0 K/uL 04/10/2025 5:41 AM [facility] RBC 4.22 3.93 - 5.22 M/uL 04/10/2025 5:41 AM [facility] HEMOGLOBIN 13.1 11.2 - 15.7 g/dL 04/10/2025 5:41 AM [facility] HEMATOCRIT 39.4 34.1 - 44.9 % 04/10/2025 5:41 AM [facility] MCV 93.4 79.4 - 94.8 fL 04/10/2025 5:41 AM [facility] MCH 31.0 25.6 - 32.2 pg 04/10/2025 5:41 AM [facility] MCHC 33.2 32.2 - 35.5 g/dL 04/10/2025 5:41 AM [facility] PLATELETS 182 163 - 337 K/uL 04/10/2025 5:41 AM [facility] MPV 11.2 10.0 - 14.8 fL 04/10/2025 5:41 AM [facility] RDW 13.5 11.0 - 14.5 % 04/10/2025 5:41 AM [facility] RDW-STDEV 45.5 36.9 - 56.9 fL 04/10/2025 5:41 AM [facility] Blood BLOOD SPECIMEN / Unknown Venipuncture / Unknown 04/10/2025 5:05 AM CDT 04/10/2025 5:34 AM CDT us Cass Mcbride CORRUGATOR OPERATOR HELPER HEMATOLOGY ORDERABLES Final Result [facility] CLIA # [id number] [address] [place] [address] * (ABNORMAL) BASIC METABOLIC PANEL (04/10/2025 5:05 AM CDT) Only the most recent of3 resultswithin the time period is included. SODIUM 139 136 - 145 mmol/L 04/10/2025 5:58 AM [facility] POTASSIUM 4.1 3.5 - 5.1 mmol/L 04/10/2025 5:58 AM [facility] CHLORIDE 100 98 - 107 mmol/L 04/10/2025 5:58 AM [facility] CO2 26 22 - 29 mmol/L 04/10/2025 5:58 AM [facility] CALCIUM 10.0 8.8 - 10.2 mg/dL 04/10/2025 5:58 AM [facility] BUN 48(H) 8 - 23 mg/dL 04/10/2025 5:58 AM [facility] CREATININE 1.68(H) 0.51 - 0.95 mg/dL 04/10/2025 5:58 AM [facility] Comment:The GFR result is no t clinically significant on patients <18 or >70 years of age. GLUCOSE 155(H) 74 - 99 mg/dL 04/10/2025 5:58 AM CDT [facility] GFR 31 mL/min/1.7 3 sq meter 04/10/2025 5:58 AM CDT [facility] Comment:eGFR calculated with 2020 CKD-EPI equation. Vegetarian diet, extremely high or low muscle mass, and may affect results. Cystatin C with Glomerular Filtration Rate is a suitable alternative for these patients. ANION GAP 13 5 - 20 mmol/L 04/10/2025 5:58 AM CDT [facility] Blood BLOOD SPECIMEN / Unknown Venipuncture / Unknown 04/10/2025 5:05 AM CDT 04/10/2025 5:34 AM CDT us Cass NOLAN CHEMISTRY ORDERABLES Final Result [facility] CLIA # [id number] [address] [place] [address] * (ABNORMAL) URINALYSIS MICROSCOPY ONLY (04/08/2025 1:45 PM CDT) WBC UA >100(A) 0 - 2 /hpf 04/08/2025 2:20 PM CDT [facility] RBC UA 3-5(A) 0 - 2 /hpf 04/08/2025 2:20 PM CDT [facility] BACTERIA UA 1+(A) Negative /hpf 04/08/2025 2:20 PM CDT [facility] EPITHELIAL CELLS, URINE 6-10(A) 0 - 5 /hpf 04/08/2025 2:20 PM CDT [facility] YEAST, HYPHAE Present(A ) Absent 04/08/2025 2:20 PM CDT [facility] Urine URINE SPECIMEN OBTAINED BY CLEAN CATCH PROCEDURE / Unknown Collection / Unknown 04/08/2025 1:45 PM CDT 04/08/2025 2:05 PM CDT us Tee Tse MD URINE ORDERABLES Deonna l Result [facility] CLIA # [id number] [address] [address] * (ABNORMAL) URINALYSIS WITH REFLEX MICROSCOPIC (04/08/2025 1:45 PM CDT) COLOR UA Yellow Pale to Dark Yellow 04/08/2025 2:20 PM CDT [facility] CLARITY UA Cloudy(A) Clear 04/08/2025 2:20 PM CDT [facility] SPECIFIC GRAVITY UA 1.025 1.003 - 1.035 04/08/2025 2:20 PM CDT [facility] PH UA 6.0 5.0 - 8.0 04/08/2025 2:20 PM CDT [facility] LEUKOCYTE ESTERASE UA 3+(A) Negative 04/08/2025 2:20 PM CDT [facility] NITRITE UA Negative Negative 04/08/2025 2:20 PM CDT [facility] PROTEIN UA 2+(A) Negative 04/08/2025 2:20 PM CDT [facility] GLUCOSE UA Negative Negative 04/08/2025 2:20 PM CDT [facility] KETONES UA Negative Negative 04/08/2025 2:20 PM CDT [facility] UROBILINOGEN UA 0.2 <2.0 mg/dL 2:20 PM CDT [facility] BILIRUBIN UA Negative Negative 04/08/2025 2:20 PM CDT [facility] BLOOD UA 2+(A) Negative 04/08/2025 2:20 PM CDT [facility] Urine URINE SPECIMEN OBTAINED BY CLEAN CATCH PROCEDURE / Unknown Collection / Unknown 04/08/2025 1:45 PM CDT 04/08/2025 2:05 PM CDT us Tee Tse MD URINE ORDERABLES Deonna l Result [facility] CLIA # [id number] [address] [address] * (ABNORMAL) URINE CULTURE (04/08/2025 1:45 PM CDT) CULTURE VANCOMYCIN RESISTANT ENTEROCOCCUS(A ) LAISHA MCG/ML 04/11/2025 11:56 AM CDT [facility] Urine URINE SPECIMEN OBTAINED BY CLEAN CATCH PROCEDURE / Unknown Collection / Unknown 04/08/2025 1:45 PM CDT 04/08/2025 2:05 PM CDT Narrative [facility] - 04/11/2025 11:56 AM CDT VRE Enterococcus faecium called to Tatiana Ordaz [place] ([facility]) by Isabelle Ortiz on 04/11/2025 at 11:54 AM with verbal readback. Organism Antibiotic Method Susceptibility Enterococcus faecium VRE AMPICILLIN LAISHA MCG/ML >=32 mcg/mL: Resistant Enterococcus faecium VRE VANCOMYCIN LAISHA MCG/ML >=32 mcg/mL: Resistant Enterococcus faecium VRE CIPROFLOXACIN LAISHA MCG/ML >=8 mcg/mL: Resistant Enterococcus faecium VRE LEVOFLOXACIN LAISHA MCG/ML >=8 mcg/mL: Resistant Enterococcus faecium VRE NITROFURANTOIN LAISHA MCG/ML 64 mcg/mL: Intermediate Enterococcus faecium VRE LINEZOLID LAISHA MCG/ML 2 mcg/mL: Susceptible Enterococcus faecium VRE DAPTOMYCIN E TEST 4 mcg/mL: S-DD Comment:The breakpoi nt for SDD is based on a dosage regimen of 8-12 mg/kg administered every 24 h and is intended for serious infections due to E.faecium. Comment:If Inpatient, place patient in Contact Precautions - Gown and gloves for every entry into patient rooms. us Tee Tse MD MICROBIOLOGY - GENERA L ORDERABLES Final Result [facility] CLIA # [id number] [facility] [address] [place] [address] * COMPREHENSIVE METABOLIC PANEL (03/14/2025 9:56 AM CDT) Blood us Abstract Provider CHEMISTRY ORDERABLES Final Res ult * CBC WITH DIFFERENTIAL (03/03/2025 4:21 PM CDT) WBC 6.6 3.8 - 10.8 Thousand/u L [...] [facility] Comment: Test Performed at: [place] [address] [address], [place] [address] Chiquita Rodriguez MD Blood 03/03/2025 4:21 PM CDT 03/04/2025 2:54 AM CDT Gemma Schmidt MD HEMATOLOGY ORDERABLES Final Result Performing Organization Address [facility] Co de Phone Number [facility] [phone] [facility] [address] [place] [address] * VITAMIN D 25 HYDROXY (03/03/2025 4:21 PM CDT) VITAMIN D, 25 OH, TOTAL 40 30 - 100 ng/mL [facility] Comment: Vitamin D Status 25-OH Vitamin D: Deficiency: <20 ng/mL Insufficiency: 20 - 29 ng/mL Optimal: > or = 30 ng/mL For 25-OH Vitamin D testing on patients on D2-supplementation and patients for whom quantitation of D2 and D3 fractions is required, the [facility](TM) 25-OH VIT D, (D2,D3), LC/MS/MS is recommended: order code 88499 (patients >2yrs). See Note 1 Note 1 For additional information, please refer to http://education.[employer]/faq/KVJ713 (This link is being provided for informational/ educational purposes only.) Test Performed at: [facility] [address] [place] [id number] Chiquita Rodriguez MD Blood 03/03/2025 4:21 PM CDT 03/04/2025 2:54 AM CDT us Gemma Schmidt MD CHEMISTRY ORDERABLES Final Result Performing Organization Address [facility]/ZIP Co de Phone Number [facility] [phone] [facility] [place] [id number] [place] [address] * (ABNORMAL) PTH INTACT (03/03/2025 4:21 PM CDT) PTH INTACT 129(H) 16 - 77 pg/mL [facility] Comment: Interpretive Guide Intact PTH Calcium ------- Normal Parathyroid Normal Normal Hypoparathyroidism Low or Low Normal Low Hyperparathyroidism Primary Normal or High High Secondary High Normal or Low Tertiary High High Non-Parathyroid Hypercalcemia Low or Low Normal High Test Performed at: [facility] [address] [place] [address] Chiquita Rodriguez MD Blood 03/03/2025 4:21 PM CDT 03/04/2025 2:54 AM CDT Gemma Schmidt MD CHEMISTRY ORDERABLES Final Result Performing Organization Address City/[facility] Co md Phone Number [facility] [phone] [employer] [address] [place] [address] [place] [address] * (ABNORMAL) HEMOGLOBIN A1C (03/03/2025 4:21 PM CDT) HEMOGLOBIN A1C 8.3(H) <5.7 % [facility] Comment: For someone without known diabetes, [...] children. ESTIMATED AVERAGE GLUCOSE (MG/DL) 192 mg/dL [facility] ESTIMATED AVERAGE GLUCOSE (MMOL/L) 10.6 mmol/L [facility] Comment: Test Performed at: [facility] [place] [address] Chiquita Rodriguez MD Blood 03/03/2025 4:21 PM CDT 03/04/2025 2:54 AM CDT Gemma Schmidt MD CHEMISTRY ORDERABLES Final Result [facility] [phone] [facility] [address] [address] [id number] * DIABETES EYE EXAM (01/28/2025 12:20 PM CDT) us Abstract Provider HEALTH MAINTENANCE Final Resul t from Last 3 Months or Most Recently Relevant to Health Maintenance Insurance [facility] [id number] Advance Directives For more information, please contact: [phone] * Full Code (Latest Code Status on File) Date Activated Date Inactivated Comments 04/10/2025 11:09 AM 04/15/2025 11:55 AM Care Teams Tunnel Mucker Relationship Specialty Start Date End Date Gemma Schmidt MD [address] [place] [id number] PCP - General Family Practice 11/23/24
--- NOTE | 2025-05-18 12:20 | W.ED.FEMALGU ---
HPI - Female Genitourinary General: Chief complaint: Urogenital-Female Stated complaint: abd pain Time Seen by Provider: 05/18/25 12:20 History of Present Illness: 80-year-old female with history of urinary tract infections, congestive heart failure, coronary artery disease status post CABG, atrial fibrillation, chronic anticoagulation on Eliquis, hyperlipidemia, pacemaker placement, hypothyroidism, obstructive sleep apnea, hypertension and diabetes who presents to the emergency room with urinary symptoms. She was treated for a urinary tract infection recently. She says now she started to have feelings like she needs to urinate but that she cannot. She says every once in a while she will have some burning with her urination. No fevers. No nausea or vomiting. No altered mental status. In February she grew ESBL E. coli in her urine. Related Data Home Medications ?Medication ?Instructions ?Recorded ?Confirmed escitalopram oxalate 10 mg tablet 15 mg PO DAILY 02/01/25 05/16/25 gabapentin 300 mg capsule 300 mg PO BID 02/01/25 05/16/25 levothyroxine 100 mcg capsule 100 mcg PO QAM 02/01/25 05/16/25 melatonin 1 mg tablet 1 mg PO BEDTIME 02/01/25 05/16/25 montelukast 10 mg tablet 10 mg PO BEDTIME 02/01/25 05/16/25 omeprazole 20 mg capsule,delayed 20 mg PO DAILY 02/01/25 05/16/25 release phenazopyridine 100 mg tablet 100 mg PO TID PRN UTI 02/01/25 05/16/25 (Pyridium) quetiapine 25 mg tablet 25 mg PO BEDTIME 02/01/25 05/16/25 sumatriptan succinate 50 mg tablet See Rx Instructions PO .COMPLEX 02/01/25 05/16/25 PRN Headache Lactobacillus acidophilus 10 10,000 mmu cells PO DAILY 03/15/25 05/16/25 billion cell capsule (Probiotic) acetaminophen 500 mg tablet 1,000 mg PO BID Pain / arthritis 03/15/25 05/16/25 memgwyy-vcfreytrgaima-yomjviau 250 2 tab PO Q6H PRN Migraine Headache 03/15/25 05/16/25 mg-250 mg-65 mg tablet (Excedrin Migraine) atorvastatin 20 mg tablet 20 mg PO QPM 03/15/25 05/16/25 clobetasol 0.05 % scalp solution See Rx Instructions .Route .COMPLEX 03/15/25 05/16/25 d-mannose 500 mg chewable tablet 500 mg PO BID 03/15/25 05/16/25 (AZO D-Mannose) diclofenac sodium 1 % topical gel 1 ea topical BID PRN Pain 03/15/25 05/16/25 diltiazem HCl 240 mg capsule,24 240 mg PO QNOON 03/15/25 05/16/25 hr,extended release diphenhydramine HCl 25 mg capsule 25 mg PO TID PRN Itching 03/15/25 05/16/25 (Benadryl) docusate sodium 100 mg capsule See Rx Instructions .Route 03/15/25 05/16/25 (Colace) .COMPLEX PRN Constipation escitalopram oxalate 5 mg tablet 15 mg PO DAILY 03/15/25 05/16/25 fluticasone fur. 100 mcg-umeclid 1 inh inhalation DAILY 03/15/25 05/16/25 62.5 mcg-vilant 25 mcg inhalat.powder (Trelegy Ellipta) insulin lispro 100 unit/mL See Rx Instructions .Route .COMPLEX 03/15/25 05/16/25 subcutaneous pen (Humalog KwikPen (U-100) Insulin) memantine 14 mg capsule 14 mg PO DAILY 03/15/25 05/16/25 sprinkle,extended release 24hr tirzepatide 2.5 mg/0.5 mL 2.5 mg SUBCUT Q7D 03/15/25 05/16/25 subcutaneous pen injector (Anjelica) torsemide 20 mg tablet 20 mg PO BID 03/15/25 05/16/25 Previous Rx's ?Medication ?Instructions ?Recorded apixaban 5 mg tablet (Eliquis) 5 mg PO BID@0500,1700 #60 tabs 03/25/25 insulin glargine 100 unit/mL (3 22 unit (0.22 mL) SUBCUT QPM #15 mL 03/25/25 mL) subcutaneous pen (Lantus Solostar U-100 Insulin) metoprolol succinate 25 mg 50 mg (2 x 25 mg) PO BID #120 tabs 03/25/25 tablet,extended release 24 hr hydrocodone 5 mg-acetaminophen 325 1 tab PO Q8H PRN pain 7 days #21 03/30/25 mg tablet tabs CAM walker #1 ea 05/02/25 ASO to left #1 ea 05/16/25 Allergies Allergy/AdvReac Type Severity Reaction Status Date / Time Penicillins Allergy ALGY-Hives Verified 05/16/25 07:51 Sulfa (Sulfonamide Allergy Rash Verified 05/16/25 07:51 Antibiotics) Review of Systems Narrative: Constitutional symptoms: Negative except as documented in HPI. Skin symptoms: Negative except as documented in HPI. Eye symptoms: Negative except as documented in HPI. ENMT symptoms: Negative except as documented in HPI. Respiratory symptoms: Negative except as documented in HPI. Cardiovascular symptoms: Negative except as documented in HPI. Gastrointestinal symptoms: Negative except as documented in HPI. Genitourinary symptoms: Negative except as documented in HPI. Musculoskeletal symptoms: Negative except as documented in HPI. Neurologic symptoms: Negative except as documented in HPI. Psychiatric symptoms: Negative except as documented in HPI. Endocrine symptoms: Negative except as documented in HPI. PFS ED PFSH: Medical History (Updated 05/18/25 @ 13:29 by Ashly Steven MD) UTI due to extended-spectrum beta lactamase (ESBL) producing Escherichia coli Chronic systolic congestive heart failure CAD (coronary artery disease) of artery bypass graft Afib Iron deficiency GERD (gastroesophageal reflux disease) Acute on chronic diastolic congestive heart failure Hyperlipemia Pacemaker Hypothyroid EDGAR (obstructive sleep apnea) Hypertension Diabetes mellitus Social History Smoking and tobacco/nicotine status: never used tobacco/nicotine Second hand smoke exposure: Yes Alcohol intake: current Alcohol intake frequency: holidays/special occasions only Substance/Drug Use: never Physical Exam Narrative: EXAM NARRATIVE: General: Alert, no acute distress. Skin: Warm, dry. Head: Normocephalic, atraumatic. Neck: Supple, trachea midline. Eye: Extraocular movements are intact. Ears, nose, mouth and throat: mucosa moist. Cardiovascular: Regular, Normal peripheral perfusion. Respiratory: Lungs are clear to auscultation, respirations are non-labored, breath sounds are equal, Symmetrical chest wall expansion. Gastrointestinal: Soft, some mild suprapubic tenderness to palpation, Non distended Musculoskeletal: Normal ROM, no deformity. Neurological: Alert and oriented, No focal neurological deficit observed. Psychiatric: Cooperative, appropriate mood & affect. Course Vital Signs: Vital signs: Vital Signs Temperature 98.0 F 05/18/25 10:24 Pulse Rate 69 05/18/25 12:30 Respiratory Rate 16 05/18/25 12:30 Blood Pressure 123/77 05/18/25 12:30 Pulse Oximetry 97 05/18/25 12:30 Oxygen Delivery Me thod Room Air 05/18/25 12:30 MDM - Female Medical Decision Making Medical decision making: Patient's reason for coming to the emergency room: Dysuria Social determinants: Patient is a assisted resident. I reviewed the patient's medical record. 80-year-old female with history of urinary tract infections, congestive heart failure, coronary artery disease status post CABG, atrial fibrillation, chronic anticoagulation on Eliquis, hyperlipidemia, pacemaker placement, hypothyroidism, obstructive sleep apnea, hypertension and diabetes. In February patient's urine was positive for ESBL E. coli. I reviewed the patient's current home meds Patient currently anticoagulated with Eliquis. I reviewed prescription monitoring program. She receives 30 hydrocodone monthly. Alternate historians: Son is present but patient provides history herself. Differential diagnosis including but not limited to and based on the above HPI, review of systems and physical exam: Differential diagnosis for patient with dysuria / lower abdominal pain: Ureterolithiasis. Urinary tract infection. Cystitis. With the possibility of sepsis, pyelonephritis and renal failure. Orders placed to evaluate differential diagnosis based on the above differential, HPI and physical exam Lab Review: Laboratory results were reviewed and interpreted by myself the emergency room physician. No leukocytosis. No anemia. Patient's creatinine is back up to 1.6. She was down to 1 most recently. Lactate is negative. Bladder scan: Patient had over 400 cc of urine in her bladder after attempting urination. Assessment of risk: Level of risk: High risk patient. Complex medical history. Hospitalization considerations: Patient does not display any signs of sepsis at this point but she has a history of ESBL recently. She also has renal insufficiency today. Gastroesophageal reflux this was susceptible to Macrobid, but Macrobid is not appropriate in the elderly population. As it is bacteriostatic not bacteriocidal. Reexamination: Patient remained stable. No increased work of breathing. No altered mental status. No focal motor deficits. Pain was improved with Pierce catheter placement. Consultation: I spoke with Dr. Hendrickson who is on-call for the hospitalist service who agrees to admission. Assessment and plan: Urinary tract infection History of ESBL E. coli Acute on chronic renal insufficiency Urinary retention ?Pierce catheter, 1 L normal saline bolus, and IV meropenem -I discussed the patient with the hospitalist on-call who is admitting the patient. - Discussed findings and plan with patient. Answered any questions. - All laboratory values were reviewed and interpreted personally by myself, the ER physician - Evaluation and treatment of this problem were appropriate in the emergency setting Lab Data 05/18/25 12:09 05/18/25 12:09 Laboratory Results WBC 6.40 10^3/uL (3.29-11.43) 05/18/25 12:09 RBC 4.17 10^6/uL (3.85-5.65) 05/18/25 12:09 Hgb 12.80 g/dL (11.27-16.99) 05/18/25 12:09 Hct 39.5 % (36-47) 05/18/25 12:09 MCV 94.7 fl (85-98) 05/18/25 12:09 MCH 30.7 pg (27-33) 05/18/25 12:09 MCHC 32.4 g/dL (30-55) 05/18/25 12:09 RDW 13.8 % (12.1-15.1) 05/18/25 12:09 Plt Count 201 10^3/cmm (157-399) 05/18/25 12:09 MPV 11.7 fL (7.4-10.4) H 05/18/25 12:09 Neut % (Auto) 58.4 % 05/18/25 12:09 Lymph % (Auto) 28.6 % 05/18/25 12:09 Stephens % (Auto) 7.7 % 05/18/25 12:09 Eos % (Auto) 3.9 % 05/18/25 12:09 Baso % (Auto) 1.1 % 05/18/25 12:09 Neut # (Auto) 3.74 10^3/uL (1.8-7.7) 05/18/25 12:09 Lymph # (Auto) 1.8 10^3/uL (0.8-4.8) 05/18/25 12:09 Stephens # (Auto) 0.5 10^3/uL (0.2-0.9) 05/18/25 12:09 Eos # (Auto) 0.3 10^3/uL (0.0-0.8) 05/18/25 12:09 Baso # (Auto) 0.1 10^3/uL (0.0-0.1) 05/18/25 12:09 Nucleated RBC % (auto) 0 % 05/18/25 12:09 Nucleated RBCs # 0.0 /100WBC 05/18/25 12:09 Sodium 139 mmol/L (136-145) 05/18/25 12:09 Potassium 4.6 mmol/L (3.5-5.1) 05/18/25 12:09 Chloride 100 mmol/L (98-107) 05/18/25 12:09 Carbon Dioxide 24 mmol/L (22-29) 05/18/25 12:09 Anion Gap 19.6 (5-19) H 05/18/25 12:09 BUN 27 mg/dL (8-23) H 05/18/25 12:09 Creatinine 1.6 mg/dL (0.5-0.9) H 05/18/25 12:09 GFR Calculation Not Reportable 05/18/25 12:09 Glucose 152 mg/dL (65-115) H 05/18/25 12:09 Calculated Osmolality 296 mOsm/kg (285-295) H 05/18/25 12:09 Lactic Acid 1.7 mmol/L (0.5-2.2) 05/18/25 12:09 Calcium 9.3 mg/dL (8.5-10.5) 05/18/25 12:09 Total Bilirubin 0.5 mg/dL (0.15-1.2) 05/18/25 12:09 AST 15 U/L (0-32) 05/18/25 12:09 ALT 12 U/L (0-33) 05/18/25 12:09 Alkaline Phosphatase 132 U/L (35-105) H 05/18/25 12:09 Total Protein 6.9 g/dL (6.6-8.7) 05/18/25 12:09 Albumin 3.9 g/dL (3.5-5.2) 05/18/25 12:09 Globulin 3.0 g/dL (1.3-4.6) 05/18/25 12:09 Urine Color Yellow (Yellow) 05/18/25 12:35 Urine Appearance Turbid (CLEAR) A 05/18/25 12:35 Urine pH 5.5 (5-7) 05/18/25 12:35 Ur Specific [place] 1.011 (1.005-1.030) 05/18/25 12:35 Urine Protein 1+ (Negative) A 05/18/25 12:35 Urine Glucose (UA) Negative (Normal) 05/18/25 12:35 Urine Ketones Negative (Negative) 05/18/25 12:35 Urine Blood 2+ (Negative) A 05/18/25 12:35 Urine Nitrate Negative (Negative) 05/18/25 12:35 Urine Bilirubin Negative (Negative) 05/18/25 12:35 Urine Urobilinogen 0.2 mg/dL (Negative) 05/18/25 12:35 Ur Leukocyte Esterase 3+ (Negative) A 05/18/25 12:35 Urine RBC 3-5 /hpf (0-2) 05/18/25 12:35 Urine WBC >100 /hpf (0-5) H 05/18/25 12:35 Ur Squamous Epith Cells 11-20 /hpf (0-5) H 05/18/25 12:35 Amorphous Sediment Not Reportable 05/18/25 12:35 Urine Bacteria 4+ /hpf (NONE) H 05/18/25 12:35 Hyaline Casts 3.48 /lpf 05/18/25 12:35 No radiology studies performed this visit Discharge Plan Discharge Patient Disposition: Admitted As Inpatient Clinical Impression: Urinary tract infection, History of ESBL E. coli infection, Acute on chronic renal insufficiency, Urinary retention Condition: Stable Coding Level of Care Code ED Market Intelligence Consultant for Ryland Gordillo
[2025-05-18 12:25] LABS: Hematocrit 39.5 % (36-47); Hemoglobin 12.80 g/dL (11.27-16.99); Mean Corpuscular HGB Conc 32.4 g/dL (30-55); Mean Corpuscular Hemoglobin 30.7 pg (27-33); Mean Corpuscular Volume 94.7 fl (85-98); Nucleated Red Blood Cells % 0 %; Platelet Count 201 10^3/cmm (157-399); Red Blood Count 4.17 10^6/uL (3.85-5.65); White Blood Count 6.40 10^3/uL (3.29-11.43)
[2025-05-18 12:45] LABS: Alanine Aminotransferase 12 U/L (0-33); Albumin Level 3.9 g/dL (3.5-5.2); Alkaline Phosphatase 132 U/L (35-105); Anion Gap 19.6 (5-19); Aspartate Amino Transferase 15 U/L (0-32); Blood Urea Nitrogen 27 mg/dL (8-23); Calcium 9.3 mg/dL (8.5-10.5); Carbon Dioxide 24 mmol/L (22-29); Chloride 100 mmol/L (98-107); Creatinine Clr Calc Pharmacy 30.1442; Globulin 3.0 g/dL (1.3-4.6); Glucose 152 mg/dL (65-115); Lactic Sepsis W/Reflex 1.7 mmol/L (0.5-2.2); Osmolality Calculated 296 mOsm/kg (285-295); Potassium 4.6 mmol/L (3.5-5.1); Sodium 139 mmol/L (136-145); Total Protein 6.9 g/dL (6.6-8.7)
[2025-05-18 12:58] LABS: Glucose Urine UA Negative (Normal); Nitrate Urine Negative (Negative); Specific Gravity, Urine 1.011 (1.005-1.030)
[2025-05-18 13:21] LABS: UA Slide Review UA Slide Review Perf
[2025-05-18] MEDS: insulin glargine 100 units/1 mL 30 UNIT SUBCUT (18:03)
--- NOTE | 2025-05-18 18:34 | PM.HP ---
Providers/Chief Complaint Admitting Physician: Dewayne Hendrickson MD Primary Care Provider: Tawana Agustin Chief Complaint: abd pain History of Present Illness Kiana Trivedi is a 80 year old female with urinary incontinence as well as urinary retention and a long history of recurrent UTIs taking antibiotics 11 months out of 12. She has had ESBL February 2025. Patient states she moved here from [place] 6 months ago to live with her daughter who is dying of cancer and help then she lives with her son but after she broke her ankle with a fall and has incontinence of urine and stool her son was not able to take care of her and so she has been placed at [facility]. Patient reports abdominal pain and urinary frequency with hesitancy and incontinence. She states that she has been peeing more frequently than usual if she tries to hold if she gets abdominal pain. 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 she has had her uterus and 1 ovary removed for dysfunctional uterine bleeding and pain at age 60 Neuro no seizures strokes limb weakness Malignancy history negative Hematologic no clots in legs or lungs Medications/Allergies Home Medications ?Medication ?Instructions ?Recorded ?Confirmed ?Last Taken ?Type gabapentin 300 mg capsule 300 mg PO BID 02/01/25 05/18/25 05/18/25 06:35 History levothyroxine 100 mcg capsule 100 mcg PO QAM 02/01/25 05/18/25 05/18/25 06:30 History omeprazole 20 mg capsule,delayed 20 mg PO DAILY 02/01/25 05/18/25 05/18/25 06:30 History release phenazopyridine 100 mg tablet 100 mg PO TID PRN UTI 02/01/25 05/18/25 04/30/25 06:40 History (Pyridium) Lactobacillus acidophilus 10 10,000 mmu cells PO DAILY 03/15/25 05/18/25 03/14/25 11:00 History billion cell capsule (Probiotic) atorvastatin 20 mg tablet 20 mg PO QPM 03/15/25 05/18/25 05/18/25 06:35 History clobetasol 0.05 % scalp solution See Rx Instructions .Route .COMPLEX 03/15/25 05/18/25 Unknown History d-mannose 500 mg chewable tablet 500 mg PO BID 03/15/25 05/18/25 03/14/25 10:00 History (AZO D-Mannose) diclofenac sodium 1 % topical gel 1 ea topical BID PRN Pain 03/15/25 05/18/25 05/18/25 04:00 History diltiazem HCl 240 mg capsule,24 240 mg PO QNOON 03/15/25 05/18/25 05/18/25 06:35 History hr,extended release docusate sodium 100 mg capsule See Rx Instructions .Route 03/15/25 05/18/25 Unknown History (Colace) .COMPLEX PRN Constipation fluticasone fur. 100 mcg-umeclid 1 inh inhalation DAILY 03/15/25 05/18/25 05/18/25 06:35 History 62.5 mcg-vilant 25 mcg inhalat.powder (Trelegy Ellipta) insulin lispro 100 unit/mL See Rx Instructions .Route .COMPLEX 03/15/25 05/18/25 05/17/25 18:30 History subcutaneous pen (Humalog KwikPen (U-100) Insulin) tirzepatide 2.5 mg/0.5 mL 2.5 mg SUBCUT Q7D 03/15/25 05/18/25 05/16/25 09:35 History subcutaneous pen injector (Mounjaro) torsemide 20 mg tablet 20 mg PO BID 03/15/25 05/18/25 05/18/25 06:35 History hydrocodone 5 mg-acetaminophen 325 1 tab PO Q8H PRN pain 7 days #21 03/30/25 05/18/25 05/17/25 18:30 Rx mg tablet tabs CAM walker #1 ea 05/02/25 05/18/25 Unknown Rx ASO to left #1 ea 05/16/25 05/18/25 Unknown Rx acetaminophen 325 mg tablet 650 mg PO QID PRN Fever Or Pain 05/18/25 05/18/25 05/13/25 08:55 History (Tylenol) albuterol sulfate 0.63 mg/3 mL 0.63 mg inhalation Q4H PRN hypoxia 05/18/25 05/18/25 Unknown History solution for nebulization apixaban 2.5 mg tablet (Eliquis) 2.5 mg PO BID 05/18/25 05/18/25 05/18/25 06:35 History bisacodyl 10 mg rectal suppository 10 mg AL DAILY PRN Constipation 05/18/25 05/18/25 Unknown History (Dulcolax (bisacodyl)) calcium 600 mg (as 1 tab PO BID 05/18/25 05/18/25 05/18/25 10:35 History carbonate)-vitamin D3 10 mcg (400 unit) tablet cephalexin 250 mg capsule 250 mg PO DAILY 05/18/25 05/18/25 05/18/25 06:35 History ciclopirox 1 % shampoo 1 ea topical Q48H 05/18/25 05/18/25 05/18/25 06:35 History dupilumab 300 mg/2 mL subcutaneous 300 mg SUBCUT Q7D 05/18/25 05/18/25 05/16/25 09:35 History syringe (Dupixent) hydroxyzine HCl 10 mg tablet 10 mg PO TID 05/18/25 05/18/25 05/17/25 18:30 History insulin glargine 100 unit/mL (3 30 unit SUBCUT QPM 05/18/25 05/18/25 05/17/25 18:30 History mL) subcutaneous pen (Lantus Solostar U-100 Insulin) insulin lispro 100 unit/mL 8 unit SUBCUT TIDWMEAL 05/18/25 05/18/25 05/18/25 08:20 History subcutaneous pen isosorbide mononitrate 10 mg tablet 30 mg PO DAILY 05/18/25 05/18/25 05/18/25 06:30 History memantine 5 mg tablet 5 mg PO BID 05/18/25 05/18/25 05/18/25 06:35 History metoprolol succinate 25 mg 25 mg PO BID 05/18/25 05/18/25 05/18/25 08:20 History tablet,extended release 24 hr nystatin 100,000 unit/gram topical See Rx Instructions .Route .COMPLEX 05/18/25 05/18/25 Unknown History powder olopatadine 0.1 % eye drops 2 drp ophthalmic (eye) BID PRN dry 05/18/25 05/18/25 Unknown History (Pataday Twice Daily Relief) eye ondansetron 4 mg disintegrating 4 mg PO Q4H PRN Nausea And Vomiting 05/18/25 05/18/25 05/16/25 14:50 History tablet spironolactone 25 mg tablet 25 mg PO DAILY 05/18/25 05/18/25 05/18/25 06:35 History tacrolimus 0.1 % topical ointment See Rx Instructions .Route .COMPLEX 05/18/25 05/18/25 Unknown History triamcinolone acetonide 0.1 % 1 applic topical BID PRN itchy 05/18/25 05/18/25 Unknown History topical cream spots Allergies Allergy/AdvReac Type Severity Reaction Status Date / Time Penicillins Allergy ALGY-Hives Verified 05/16/25 07:51 Sulfa (Sulfonamide Allergy Rash Verified 05/16/25 07:51 Antibiotics) PFSH Acute PFSH: Medical History (Updated 05/18/25 @ 13:29 by Ashly Steven MD) UTI due to extended-spectrum beta lactamase (ESBL) producing Escherichia coli Chronic systolic congestive heart failure CAD (coronary artery disease) of artery bypass graft Afib Iron deficiency GERD (gastroesophageal reflux disease) Acute on chronic diastolic congestive heart failure Hyperlipemia Pacemaker Hypothyroid EDGAR (obstructive sleep apnea) Hypertension Diabetes mellitus Social History (Updated 05/18/25 @ 18:38 by Dewayne Hendrickson MD) Smoking and tobacco/nicotine status: never used tobacco/nicotine Second hand smoke exposure: Yes Alcohol intake: current Alcohol intake frequency: holidays/special occasions only Substance/Drug Use: never Additional social history: Patient states she smoked for a month at age 15 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 managing [employer] Vitals/I&O/Wt Last Vital Signs Temp 98.0 F 05/18/25 10:24 Pulse 69 05/18/25 16:44 Resp 16 05/18/25 12:30 BP 146/88 05/18/25 16:44 Pulse Ox 95 05/18/25 16:44 O2 Del Method Room Air 05/18/25 16:36 05/18/25 05/18/25 05/18/25 06:59 14:59 22:59 Intake Total 1000 / 1000 Output Total 1000 / 1000 Balance 0 / 0 Weight last 48 hrs Weight 91.881 kg Weight 91.626 kg Physical Exam Narrative: General well-developed well-nourished obese female no acute cardiopulmonary stress CV irregular but rate is controlled Lungs clear to auscultation Abdomen positive bowel tones soft she reports some pain she is not obviously tender Back bilateral mild tenderness left greater than right but also not obviously tender Calves no tenderness cords or pretibial edema Skin warm and dry Urinary Catheter Management: Pierce: Cath Placed During This Visit: yes Reason for Continuing Indwelling Catheter: Acute Urinary Retention or Obstruction Urinary Catheter Date of Insertion: 05/18/25 Urinary Catheter Time of Insertion: 13:24 Data 05/18/25 12:09 05/18/25 12:09 Micro: Microbiology 05/18/25 12:16 Blood Culture - Preliminary Blood SPECIMEN COLLECTED 05/18/25 12:09 Blood Culture - Preliminary Blood SPECIMEN COLLECTED A&P Assessment and plan 1. Urinary tract infection: Admitted and treated with meropenem. Follow CBC and renal function 2. History of ESBL E. coli infection: As above Merrem due to ESBL. Anticipate PICC line for Merrem if culture positive. While awaiting culture will use peripheral IV 3. Urinary retention: Place Pierce and leave this in for 2 weeks minimum due to urine retention 400 cc and incontinence 4. Acute on chronic renal insufficiency: Follow-up labs in the morning PDMP PDMP Reviewed: Not Reviewed Attestations Medical Necessity Statement*: Patient mid to the hospital for UTI and will require 1-2 midnight Coding Level of Care Code 68715 Diagnoses Urinary tract infection N39.0 History of ESBL E. coli infection Z86.19 Urinary retention R33.9 Acute on chronic renal insufficiency N28.9; N18.9 Time Spent (min) 55
--- NOTE | 2025-05-18 18:46 | PC.NURSE ---
Patient unable to wear DONELL due to L ankle fx in brace
[2025-05-18] MEDS: HYDROcodone-acetaminophen 5-325 mg Tablet 1 TAB PO (20:25)
[2025-05-19] VITALS (10 sets, daily range): BP systolic 118–142; BP diastolic 6–79; PULSE 60–89; RESP 16–18; TEMP 36.4–36.8; O2SAT 91–97
[2025-05-19] MEDS: metoprolol succinate ER (24 HR) 25 mg Tablet PO ×2 (04:36→18:00)
[2025-05-19] MEDS: APIXABAN 2.5 MG TABLET PO ×2 (04:36→18:01)
[2025-05-19 06:18] LABS: Hematocrit 37.6 % (36-47); Hemoglobin 11.90 g/dL (11.27-16.99); Mean Corpuscular HGB Conc 31.6 g/dL (30-55); Mean Corpuscular Hemoglobin 30.9 pg (27-33); Mean Corpuscular Volume 97.7 fl (85-98); Nucleated Red Blood Cells % 0 %; Platelet Count 169 10^3/cmm (157-399); Red Blood Count 3.85 10^6/uL (3.85-5.65); White Blood Count 5.16 10^3/uL (3.29-11.43)
[2025-05-19 06:47] LABS: Anion Gap 17.0 (5-19); Blood Urea Nitrogen 19 mg/dL (8-23); Calcium 8.9 mg/dL (8.5-10.5); Carbon Dioxide 26 mmol/L (22-29); Chloride 106 mmol/L (98-107); Creatinine Clr Calc Pharmacy 40.5134; Glucose 156 mg/dL (65-115); Osmolality Calculated 305 mOsm/kg (285-295); Potassium 4.0 mmol/L (3.5-5.1); Sodium 145 mmol/L (136-145); Thyroid Stimulating Hormone 1.25 uIU/mL (0.27-4.20)
[2025-05-19 07:38] LABS: Estmated Average Glucose 166; Hemoglobin A1C 7.4 % (4.0-6.0)
--- NOTE | 2025-05-19 12:01 | P.PN_ITS ---
Subjective 2 Subjective: 80-year-old female admitted wi th UTI states her abdominal and flank pain is improved. She still has some pain. She has history of ESBL not sensitive to most antibiotics but sensitive to meropenem which she is currently on Vitals/I&O/Wt Last Vital Signs Temp 97.9 F 05/19/25 11:54 Pulse 72 05/19/25 11:54 Resp 18 05/19/25 11:54 BP 124/56 05/19/25 11:54 Pulse Ox 94 05/19/25 11:54 O2 Del Method Room Air 05/19/25 11:54 05/18/25 05/19/25 05/19/25 22:59 06:59 14:59 Intake Total 1000 / 1000 1471.667 / 2471.667 480 / 480 Output Total 1300 / 1300 350 / 1650 Balance -300 / -300 1121.667 / 821.667 480 / 480 Weight last 48 hrs Weight 92.986 kg Weight 91.881 kg Weight 91.626 kg Physical Exam 2 Narrative: General well-developed well-nourished obese female no acute cardiopulmonary stress CV irregular but rate is controlled Lungs clear to auscultation Abdomen positive bowel tones soft she reports some pain she is not obviously tender Back bilateral mild tenderness left greater than right but also not obviously tender Calves no tenderness cords or pretibial edema Skin warm and dry Urinary Catheter Management: Pierce: Cath Placed During This Visit: yes Reason for Continuing Indwelling Catheter: Acute Urinary Retention or Obstruction Urinary Catheter Date of Insertion: 05/18/25 Urinary Catheter Time of Insertion: 13:24 Data 05/19/25 05:58 05/19/25 05:58 Micro: Microbiology 05/18/25 12:35 Urine Culture - Preliminary Urine,Clean Catch Gram Negative Rods 05/18/25 12:16 Blood Culture - Preliminary Blood SPECIMEN COLLECTED 05/18/25 12:09 Blood Culture - Preliminary Blood SPECIMEN COLLECTED A&P Assessment and plan 1. Urinary tract infection: Admitted and treated with meropenem. Did white count stable at 5.16. We are awaiting sensitivities to determine if she can be treated with oral medication or has to be on meropenem IV at which point she will need a PICC line 2. History of ESBL E. coli infection: As above Merrem due to ESBL. Anticipate PICC line for Merrem if culture positive. While awaiting culture will use peripheral IV 3. Urinary retention: Place Pierce and leave this in for 2 weeks minimum due to urine retention 400 cc and incontinence. Creatinine improved from 1.6-1.2. TSH is 4. Acute on chronic renal insufficiency: Improved PDMP PDMP Reviewed: Not Reviewed Attestations 2 Medical Necessity Statement*: Patient ana in the hospital for IV meropenem pending sensitivities and will require additional 1 to 2-midnights Coding Level of Care Code 17414 Diagnoses Urinary tract infection N39.0 History of ESBL E. coli infection Z86.19 Urinary retention R33.9 Acute on chronic renal insufficiency N28.9; N18.9
[2025-05-19] MEDS: HYDROcodone-acetaminophen 5-325 mg Tablet 1 TAB PO ×2 (15:22→22:43)
[2025-05-19] MEDS: dilTIAZem ER (24HR) 240 mg Capsule PO (18:00)
[2025-05-19] MEDS: ATORVASTATIN 20 MG TABLET PO (18:00)
[2025-05-19] MEDS: insulin glargine 100 units/1 mL 30 UNIT SUBCUT (18:01)
[2025-05-20] VITALS (10 sets, daily range): BP systolic 121–161; BP diastolic 70–87; PULSE 66–99; RESP 16–20; TEMP 36.3–36.9; O2SAT 92–97
[2025-05-20] MEDS: APIXABAN 2.5 MG TABLET PO ×2 (05:19→18:49)
[2025-05-20] MEDS: metoprolol succinate ER (24 HR) 25 mg Tablet PO ×2 (05:19→18:49)
--- NOTE | 2025-05-20 10:22 | PC.SOCIAL ---
IMM Updated Updated pt on IMM. No questions voiced. Provided pt a copy. Initialed, dated, & timed a copy & placed in chart.
[2025-05-20] MEDS: dilTIAZem ER (24HR) 240 mg Capsule PO (13:04)
--- NOTE | 2025-05-20 13:15 | P.PN_ITS ---
Subjective 2 Subjective: 80-year-old female admitted wi th UTI states her abdominal and flank pain is improved. She still has some pain. She has history of ESBL not sensitive to most antibiotics but sensitive to meropenem which she is currently on. Patient states she had more abdominal pain following bowel movement but bowel movement was normal Vitals/I&O/Wt Last Vital Signs Temp 97.3 F L 05/20/25 12:00 Pulse 75 05/20/25 12:00 Resp 18 05/20/25 12:00 BP 121/81 05/20/25 12:00 Pulse Ox 95 05/20/25 12:00 O2 Del Method Room Air 05/20/25 12:00 05/19/25 05/20/25 05/20/25 22:59 06:59 14:59 Intake Total 1600 / 2440 1465 / 3905 1070 / 1070 Output Total 1000 / 1000 1550 / 2550 Balance 600 / 1440 -85 / 1355 1070 / 1070 Weight last 48 hrs Weight 92.805 kg Weight 92.986 kg Weight 91.881 kg Physical Exam 2 Narrative: General well-developed well-nourished obese female no acute cardiopulmonary stress CV irregular but rate is controlled Lungs clear to auscultation Abdomen positive bowel tones soft she reports some pain she is not obviously tender Back mild tenderness left greater right no longer tender Calves no tenderness cords or pretibial edema Skin warm and dry Urinary Catheter Management: Pierce: Cath Placed During This Visit: yes Reason for Continuing Indwelling Catheter: Acute Urinary Retention or Obstruction Urinary Catheter Date of Insertion: 05/18/25 Urinary Catheter Time of Insertion: 13:24 Data 05/19/25 05:58 05/19/25 05:58 Micro: Microbiology 05/18/25 12:16 Blood Culture - Preliminary Blood NEGATIVE TO DATE 05/18/25 12:09 Blood Culture - Preliminary Blood NEGATIVE TO DATE 05/18/25 12:35 Urine Culture - Preliminary Urine,Clean Catch Gram Negative Rods A&P Assessment and plan 1. Urinary tract infection: Admitted and treated with meropenem. white count stable at 5.16. We are awaiting sensitivities to determine if she can be treated with oral medication or has to be on meropenem IV at which point she will need a PICC line 2. History of ESBL E. coli infection: As above Merrem due to ESBL. Anticipate PICC line for Merrem if culture positive. While awaiting culture will use peripheral IV Urine growing E. coli but sensitivities not back 3. Urinary retention: Place Pierce and leave this in for 2 weeks minimum due to urine retention 400 cc and incontinence. Creatinine improved from 1.6-1.2. TSH is 4. Acute on chronic renal insufficiency: Improved PDMP PDMP Reviewed: Not Reviewed Attestations 2 Medical Necessity Statement*: Anticipate discharge to senior living facility this evening once authorization is approved. We will seek this after sensitivities back to determine if she needs IV antibiotic. Anticipate 1 more midnight Coding Level of Care Code 18152 Diagnoses Urinary tract infection N39.0 History of ESBL E. coli infection Z86.19 Urinary retention R33.9 Acute on chronic renal insufficiency N28.9; N18.9 Time Spent (min) 25
[2025-05-20] MEDS: ATORVASTATIN 20 MG TABLET PO (18:49)
[2025-05-20] MEDS: HYDROcodone-acetaminophen 5-325 mg Tablet 1 TAB PO (18:57)
[2025-05-20] MEDS: insulin glargine 100 units/1 mL 30 UNIT SUBCUT (21:15)
--- NOTE | 2025-05-20 22:04 | PM.MISC ---
Miscellaneous Note Purpose of Documentation: Patient with ESBL urine sensitive to imipenem will initiate imipenem instead of meropenem at this time. And this is a final culture that is complete. Note: This is E. coli sensitive to the family of meropenem. Will follow through with imipenem that showed up to be sensitive less than 1 LAISHA. Will follow through with this. Ordering imipenem 1 g IV daily. Urine Culture Final 05/20/25-1334 Organism 1 Escherichia coli esbl [place] Count >100,000 CFU/ml DAY 2 [facility]. RX --------- ------ * Amikacin <=16 S * Amoxicillin/Clavulanate 16/8 I * Ampicillin >16 R * Ampicillin/Sulbactam >16/8 R * Aztreonam >16 R * Cefepime >16 R * Ceftriaxone >32 R * Cefuroxime >16 R * Ciprofloxacin >2 R * Gentamicin <=2 S * Imipenem <=1 S * Levofloxacin >4 R * Nitrofurantoin >64 R * Tetracycline >8 R * Trimethoprim/Sulfamethoxazole <=2/38 S * Piperacillin/Tazobactam <=16 S
[2025-05-21] VITALS (10 sets, daily range): BP systolic 115–161; BP diastolic 65–76; PULSE 69–84; RESP 16–18; TEMP 36.4–36.8; O2SAT 90–96
[2025-05-21] MEDS: APIXABAN 2.5 MG TABLET PO ×2 (04:56→17:01)
[2025-05-21] MEDS: metoprolol succinate ER (24 HR) 25 mg Tablet PO ×2 (04:56→17:02)
[2025-05-21] MEDS: HYDROcodone-acetaminophen 5-325 mg Tablet 1 TAB PO ×2 (05:58→19:23)
[2025-05-21] MEDS: ertapenem 1,000 mg SDV 1000 MG IVP (07:02)
[2025-05-21] MEDS: meropenem 1,000 mg SDV 1000 MG IVP (11:35)
[2025-05-21] MEDS: dilTIAZem ER (24HR) 240 mg Capsule PO (11:35)
--- NOTE | 2025-05-21 14:04 | P.PN_ITS ---
Subjective 2 Subjective: 80-year-old female admitted wi th UTI states her abdominal and flank pain is improved but still present. Patient was noted last night by nurse and Dr. Christensen to not be on any antibiotics. Merrem was given in the emergency department but order was not continued after admitted to the hospital. Patient was written for Invanz but that was not able to be mixed until this morning and patient did finally receive a dose at 7 AM. She then received meropenem at 1135 am and that is currently ordered for twice a day day. Apparently the ertapenem is intended for outpatient use only Patient reports some constipation had a bowel movement yesterday with discomfort Vitals/I&O/Wt Last Vital Signs Temp 97.6 F 05/21/25 11:30 Pulse 69 05/21/25 11:30 Resp 18 05/21/25 11:30 BP 115/65 05/21/25 11:30 Pulse Ox 93 05/21/25 11:30 O2 Del Method Room Air 05/21/25 11:30 FiO2 21 05/21/25 11:09 05/20/25 05/21/25 05/21/25 22:59 06:59 14:59 Intake Total 360 / 1430 0 / 1430 720 / 720 Output Total 1000 / 1000 1225 / 2225 600 / 600 Balance -640 / 430 -1225 / -795 120 / 120 Weight last 48 hrs Weight 94.347 kg Weight 92.805 kg Physical Exam 2 Narrative: General well-developed well-nourished obese female no acute cardiopulmonary stress CV irregular but rate is controlled Lungs trace left basilar crackle Abdomen positive bowel tones soft she reports some pain she is not obviously tender Back mild tenderness left greater then right Calves no tenderness cords or pretibial edema Skin warm and dry Urinary Catheter Management: Pierce: Cath Placed During This Visit: yes Reason for Continuing Indwelling Catheter: Other Urinary Catheter Date of Insertion: 05/18/25 Urinary Catheter Time of Insertion: 13:24 Data 05/19/25 05:58 05/19/25 05:58 Micro: Microbiology 05/18/25 12:35 Urine Culture - Final Urine,Clean Catch Escherichia coli esbl A&P Assessment and plan 1. Urinary tract infection: E. coli is resistant to many antibiotics but sensitive to pip-tazo and imipenem. Will plan for ertapenem daily once PICC line can be performed on Friday. Will obtain renal ultrasound 2. History of ESBL E. coli infection: PICC line and continue ertapenem will determine duration of antibiotic 3. Urinary retention: Place Pierce and leave this in for 2 weeks minimum due to urine retention 400 cc and incontinence. Creatinine improved from 1.6-1.2. TSH is 1.25 4. Acute on chronic renal insufficiency: Improved but will obtain renal ultrasound as patient has urine retention PDMP PDMP Reviewed: Not Reviewed Attestations 2 Medical Necessity Statement*: Patient remains hospitalized for IV meropenem and will switch to PICC line and ertapenem for discharge back to [facility] once authorization obtained and PICC line in Coding Level of Care Code 74437 Diagnoses Urinary tract infection N39.0 History of ESBL E. coli infection Z86.19 Urinary retention R33.9 Acute on chronic renal insufficiency N28.9; N18.9 Time Spent (min) 25
[2025-05-21] MEDS: insulin glargine 100 units/1 mL 30 UNIT SUBCUT (17:01)
[2025-05-21] MEDS: ATORVASTATIN 20 MG TABLET PO (17:02)
[2025-05-22] VITALS (12 sets, daily range): BP systolic 125–148; BP diastolic 69–88; PULSE 65–87; RESP 16–20; TEMP 36.6–37.2; O2SAT 91–95
[2025-05-22] MEDS: meropenem 1,000 mg SDV 1000 MG IVP ×3 (00:18→23:40)
[2025-05-22] MEDS: APIXABAN 2.5 MG TABLET PO ×2 (04:13→18:43)
[2025-05-22] MEDS: polyethylene glycol 3350 Pkt 17 gm PO (04:13)
[2025-05-22] MEDS: metoprolol succinate ER (24 HR) 25 mg Tablet PO ×2 (04:14→18:43)
[2025-05-22] MEDS: HYDROcodone-acetaminophen 5-325 mg Tablet 1 TAB PO (04:23)
[2025-05-22 05:49] LABS: Hematocrit 37.2 % (36-47); Hemoglobin 11.90 g/dL (11.27-16.99); Mean Corpuscular HGB Conc 32.0 g/dL (30-55); Mean Corpuscular Hemoglobin 30.4 pg (27-33); Mean Corpuscular Volume 94.9 fl (85-98); Nucleated Red Blood Cells % 0 %; Platelet Count 149 10^3/cmm (157-399); Red Blood Count 3.92 10^6/uL (3.85-5.65); White Blood Count 7.33 10^3/uL (3.29-11.43)
[2025-05-22 06:01] LABS: Alanine Aminotransferase 9 U/L (0-33); Albumin Level 3.6 g/dL (3.5-5.2); Alkaline Phosphatase 116 U/L (35-105); Anion Gap 14.9 (5-19); Aspartate Amino Transferase 11 U/L (0-32); Blood Urea Nitrogen 8 mg/dL (8-23); Calcium 8.9 mg/dL (8.5-10.5); Carbon Dioxide 22 mmol/L (22-29); Chloride 108 mmol/L (98-107); Creatinine Clr Calc Pharmacy 61.2521; Globulin 2.3 g/dL (1.3-4.6); Glucose 159 mg/dL (65-115); Osmolality Calculated 294 mOsm/kg (285-295); Potassium 3.9 mmol/L (3.5-5.1); Sodium 141 mmol/L (136-145); Total Protein 5.9 g/dL (6.6-8.7)
--- NOTE | 2025-05-22 09:07 | CTR_ITS ---
PROCEDURE INFORMATION: Exam: CT Abdomen And Pelvis Without Contrast Exam date and time: 05/22/2025 10:43 AM Age: 80 years old Clinical indication: Abdominal/flank and bladder pain. Recurrent UTI. Prior cholecystectomy, lumbar fusion and bilateral hip surgery. TECHNIQUE: Imaging protocol: Computed tomography of the abdomen and pelvis without contrast. Radiation optimization: All CT scans at this facility use at least one of these dose optimization techniques: automated exposure control; mA and/or kV adjustment per patient size (includes targeted exams where dose is matched to clinical indication); or iterative reconstruction. COMPARISON: CR XR chest 1V portable [id number] 03/14/2025 8:19 PM RADIATION DOSE METRICS: Total DLP (mGy-cm): 957.59 FINDINGS: Tubes, catheters and devices: Pacer leads are noted. Lungs: Hazy opacities at the lung bases with interlobular septal thickening raising concern for pulmonary edema. Pleural spaces: Small bilateral pleural effusions. Heart: The heart is enlarged. No pericardial effusion. Coronary arteries: Coronary arterial calcifications are seen. Diaphragm: Moderate hiatal hernia. Liver: The liver is unremarkable. Gallbladder and biliary ducts: The gallbladder has been removed. Pancreas: The pancreas is unremarkable. Spleen: The spleen is unremarkable. Adrenal glands: The adrenal glands are unremarkable. Kidneys and ureters: Simple renal cysts measure up to 5.4 cm. No hydronephrosis. No nephrolithiasis. No obstructive ureteral stone. Stomach and bowel: The stomach and small bowel are unremarkable. Colonic diverticulosis without evidence of acute diverticulitis. Appendix: The appendix is not identified. Intraperitoneal space: No free intraperitoneal air. Vasculature: No abdominal aortic aneurysm. Lymph nodes: No retroperitoneal lymphadenopathy. Urinary bladder: The bladder is suboptimally assess, but the bladder wall appears thickened. A Pierce catheter is present in the bladder. Reproductive: Probable prior hysterectomy. This region is not well assessed. Bones/joints: Bilateral hip arthroplasties are noted. There has been prior posterior lumbosacral fusion extending from L5-S1. No acute fracture is seen. Soft tissues: Small fat containing umbilical hernia. CT/CT kidney stone [id number] IMPRESSION: 1. The bladder is suboptimally assessed, but the bladder wall appears thickened. Correlate with urinalysis to assess for cystitis. 2. No nephrolithiasis, hydronephrosis or obstructive ureteral stone. 3. Cardiomegaly with small bilateral pleural effusions and probable pulmonary edema; query CHF. 4. Moderate hiatal hernia. COMMENTS: Consistent with the [employer]'s Incidental Findings Committee white paper (J Am Trina Radiol 2018): Any incidental renal lesion less than 1 cm or classified as too small to characterize, or any incidental cystic renal lesion characterized as simple-appearing, is likely benign. No follow-up imaging is recommended for these lesions per consensus recommendations based on imaging criteria.
[2025-05-22] MEDS: dilTIAZem ER (24HR) 240 mg Capsule PO (15:26)
--- NOTE | 2025-05-22 16:00 | P.PN_ITS ---
Subjective 2 Subjective: 80-year-old female admitted wi th UTI states she has never been on a bladder relaxer such as oxybutynin but has been on multiple antibiotics in the past. She had 400 cc urine retention on presentation has had a catheter in place since that time. She did not have initial CT scan done but I had 1 done today and it showed thickening of the bladder suspicious for chronic cystitis though the bladder was not distended at the time of CT scan. Pierce catheter already in place. It was not clamped. Kidneys did not show obstruction or hydronephrosis or stone. Patient has had ESBL 03/15/2025 resistant to Bactrim and intermediate to pip-tazo at that time. This admission her ESBL E. coli is sensitive to pip-tazo and Bactrim. I am not sure if that can be trusted to be effective. We were awaiting urine cultures and looks like she will need a PICC line unless we go with Bactrim. Vitals/I&O/Wt Last Vital Signs Temp 98.2 F 05/22/25 12:05 Pulse 68 05/22/25 15:02 Resp 18 05/22/25 15:02 BP 131/71 05/22/25 12:05 Pulse Ox 95 05/22/25 15:02 O2 Del Method Room Air 05/22/25 15:02 FiO2 21 05/21/25 11:09 05/22/25 05/22/25 05/22/25 05:59 14:59 22:59 Intake Total 720 / 720 Output Total 550 / 1950 250 / 250 Balance -550 / 10 470 / 470 Weight last 48 hrs Weight 94.347 kg Weight 94.347 kg Physical Exam 2 Narrative: General well-developed well-nourished obese female no acute cardiopulmonary stress CV irregular but rate is controlled Lungs trace left basilar crackle Abdomen positive bowel tones soft she reports some pain she is not obviously tender Back not tender but patient reports mild left flank pain Calves no tenderness cords or pretibial edema Skin warm and dry Urinary Catheter Management: Pierce: Cath Placed During This Visit: yes Reason for Continuing Indwelling Catheter: Other Urinary Catheter Date of Insertion: 05/18/25 Urinary Catheter Time of Insertion: 13:24 Data 05/22/25 05:10 05/22/25 05:10 A&P Assessment and plan 1. Urinary tract infection: E. coli is resistant to many antibiotics but sensitive to pip-tazo and imipenem. Will plan for ertapenem daily once PICC line can be performed on Friday. CT scan showed the following 05/22/2025 IMPRESSION: 1. The bladder is suboptimally assessed, but the bladder wall appears thickened. Correlate with urinalysis to assess for cystitis. 2. No nephrolithiasis, hydronephrosis or obstructive ureteral stone. 3. Cardiomegaly with small bilateral pleural effusions and probable pulmonary edema; query CHF. 4. Moderate hiatal hernia. I am going to have the Pierce catheter change in the morning and a PICC or midline placed with plan for ertapenem for 10 days then Pierce to be in for another 10 days. After Pierce is removed she will need to have bladder scan to make sure that she is voiding well or she will have to see a urologist. I think there is potential for this to be a recurrent problem 2. History of ESBL E. coli infection: PICC line and continue ertapenem will determine duration of antibiotic As above may be helpful to enlist infectious disease physician Dr. Sal to recommend antibiotic course and duration 3. Urinary retention: Place Pierce and leave this in for 2 weeks minimum due to urine retention 400 cc and incontinence. Creatinine improved from 1.6-1.2. TSH is 1.25 Pierce out in 10 days from 05/22/2024 will be 14 days 4. Acute on chronic renal insufficiency: CT scan shows no obstruction renal function is returned and PDMP PDMP Reviewed: Not Reviewed Attestations 2 Medical Necessity Statement*: Patient remains in the hospital for PICC line and determine antibiotic course and discharge potentially back to [facility] tomorrow Coding Level of Care Code 87249 Diagnoses Urinary tract infection N39.0 History of ESBL E. coli infection Z86.19 Urinary retention R33.9 Acute on chronic renal insufficiency N28.9; N18.9 Time Spent (min) 35
[2025-05-22] MEDS: ATORVASTATIN 20 MG TABLET PO (18:42)
--- NOTE | 2025-05-22 18:49 | PC.NURSE ---
Held insulin for 1700, did not want to bottom out the pt. no issues at this time.
[2025-05-22] MEDS: morphine 4 mg/mL SDV 1 mL IVP (19:45)
[2025-05-23] VITALS (11 sets, daily range): BP systolic 107–129; BP diastolic 60–80; PULSE 71–91; RESP 16–18; TEMP 36.5–36.8; O2SAT 92–96
[2025-05-23] MEDS: polyethylene glycol 3350 Pkt 17 gm PO (04:00)
[2025-05-23] MEDS: APIXABAN 2.5 MG TABLET PO ×2 (04:01→17:32)
[2025-05-23] MEDS: metoprolol succinate ER (24 HR) 25 mg Tablet PO ×2 (04:01→17:32)
[2025-05-23] MEDS: HYDROcodone-acetaminophen 5-325 mg Tablet 1 TAB PO ×2 (09:22→20:49)
--- NOTE | 2025-05-23 12:53 | PICC.NOTE ---
Midline placed to right basilic vein. Referred to vascular access nurse for midline placement due to need for IV antibiotics x 10 days. Risks and benefits discussed and informed consent obtained from pt. Right arm assessed with right basilic vein measuring 4.5 mm, straight, and apparent best choice for placement. Using sterile technique and MST, right basilic vein accessed x 1 stick. Mid-arm circumference measured 10 cm from right AC 34 cm. Trimmed cath 12 cm with 0 cm external length noted. Line secured with stat-lock. Insertion site covered with Biopatch and TSM. Report given to charge nurse, CRISSY Abdi.
[2025-05-23] MEDS: meropenem 1,000 mg SDV 1000 MG IVP (12:59)
[2025-05-23] MEDS: dilTIAZem ER (24HR) 240 mg Capsule PO (12:59)
[2025-05-23 13:09] LABS: Hematocrit 40.0 % (36-47); Hemoglobin 12.40 g/dL (11.27-16.99); Mean Corpuscular HGB Conc 31.0 g/dL (30-55); Mean Corpuscular Hemoglobin 30.4 pg (27-33); Mean Corpuscular Volume 98.0 fl (85-98); Nucleated Red Blood Cells % 0 %; Platelet Count 158 10^3/cmm (157-399); Red Blood Count 4.08 10^6/uL (3.85-5.65); White Blood Count 6.64 10^3/uL (3.29-11.43)
[2025-05-23 13:29] LABS: Alanine Aminotransferase 31 U/L (0-33); Albumin Level 3.5 g/dL (3.5-5.2); Alkaline Phosphatase 248 U/L (35-105); Anion Gap 15.5 (5-19); Aspartate Amino Transferase 35 U/L (0-32); Blood Urea Nitrogen 10 mg/dL (8-23); Calcium 8.7 mg/dL (8.5-10.5); Carbon Dioxide 22 mmol/L (22-29); Chloride 109 mmol/L (98-107); Creatinine Clr Calc Pharmacy 54.4463; Globulin 2.8 g/dL (1.3-4.6); Glucose 125 mg/dL (65-115); Osmolality Calculated 295 mOsm/kg (285-295); Potassium 4.5 mmol/L (3.5-5.1); Sodium 142 mmol/L (136-145); Total Protein 6.3 g/dL (6.6-8.7)
--- NOTE | 2025-05-23 14:49 | P.PN_ITS ---
Subjective 2 Subjective: Hospital course, labs appreciated. Patient seen laying comfortably in bed. Denies nausea, vomiting, headache. Was upset earlier in the morning as her pain medications have been discontinued. Denies any chest pain. Vitals/I&O/Wt Last Vital Signs Temp 98.3 F 05/23/25 11:17 Pulse 71 05/23/25 12:54 Resp 16 05/23/25 12:54 BP 129/79 05/23/25 11:17 Pulse Ox 94 05/23/25 12:54 O2 Del Method Room Air 05/23/25 12:54 FiO2 21 05/21/25 11:09 05/22/25 05/23/25 05/23/25 22:59 06:59 14:59 Intake Total 360 / 1080 240 / 240 Output Total 500 / 750 350 / 1100 200 / 200 Balance -140 / 330 -350 / -20 40 / 40 Weight last 48 hrs Weight 94.347 kg Physical Exam 2 Narrative: General well-developed well-nourished obese female no acute cardiopulmonary stress CV irregular but rate is controlled Lungs trace left basilar crackle Abdomen positive bowel tones soft she reports some pain she is not obviously tender Back not tender but patient reports mild left flank pain Calves no tenderness cords or pretibial edema Skin warm and dry Urinary Catheter Management: Pierce: Cath Placed During This Visit: yes Reason for Continuing Indwelling Catheter: Other Urinary Catheter Date of Insertion: 05/18/25 Urinary Catheter Time of Insertion: 13:24 Data 05/23/25 12:37 05/23/25 12:37 Micro: Microbiology 05/18/25 12:16 Blood Culture - Final Blood NO GROWTH AFTER 5 DAYS 05/18/25 12:09 Blood Culture - Final Blood NO GROWTH AFTER 5 DAYS A&P Assessment and plan 1. Urinary tract infection: E. coli is resistant to many antibiotics but sensitive to pip-tazo and imipenem. Will plan for ertapenem daily once PICC line can be performed on Friday. CT scan showed the following 05/22/2025 IMPRESSION: 1. The bladder is suboptimally assessed, but the bladder wall appears thickened. Correlate with urinalysis to assess for cystitis. 2. No nephrolithiasis, hydronephrosis or obstructive ureteral stone. 3. Cardiomegaly with small bilateral pleural effusions and probable pulmonary edema; query CHF. 4. Moderate hiatal hernia. I am going to have the Pierce catheter change in the morning and a PICC or midline placed with plan for ertapenem for 10 days then Pierce to be in for another 10 days. After Pierce is removed she will need to have bladder scan to make sure that she is voiding well or she will have to see a urologist. I think there is potential for this to be a recurrent problem 2. History of ESBL E. coli infection: PICC line and continue ertapenem will determine duration of antibiotic As above may be helpful to enlist infectious disease physician Dr. Sal to recommend antibiotic course and duration 3. Urinary retention: Place Pierce and leave this in for 2 weeks minimum due to urine retention 400 cc and incontinence. Creatinine improved from 1.6-1.2. TSH is 1.25 Pierce out in 10 days from 05/22/2024 will be 14 days 4. Acute on chronic renal insufficiency: CT scan shows no obstruction renal function is returned and Plan: Plan for the day: Plan for midline not PICC line. Patient will most likely need 10 days of overall IV antibiotics for concerns for complicated UTI versus possible pyelonephritis. Urine culture positive for ESBL. Blood cultures so far negative. Follow-up continue with IV meropenem. Will plan to discharge on ertapenem 1 g daily for overall 10-day course from 05/21 when meropenem was initiated. DC Pierce catheter for voiding trial. Repeat bladder scan after patient urinates. Start on Flomax 0.4 mg daily. If patient has urinary retention with volume more than 12 cc will replace Pierce catheter. Restart Hessel at 5 mg every 12 hourly as needed, tramadol 50 mg every 6 hours as needed. Patient requesting not to be on a weight loss diet. Switch to carb consistent cardiac ADA diet. Continue other chronic home medication. Plan to discharge to SNF once authorization is received, voiding trial is done and outpatient antibiotics are arranged PDMP PDMP Reviewed: Last Reviewed 05/23/25 09:05 by Brent Medina MD Attestations 2 Medical Necessity Statement*: Requires further hospitalization for management of complicated ESBL UTI, urinary retention Diagnoses Urinary tract infection N39.0 History of ESBL E. coli infection Z86.19 Urinary retention R33.9 Acute on chronic renal insufficiency N28.9; N18.9
--- NOTE | 2025-05-23 15:35 | PC.SOCIAL ---
IMM updated IMM dated and initialed, Copy given to patient and copy put in chart.
[2025-05-23] MEDS: insulin glargine 100 units/1 mL 30 UNIT SUBCUT (17:33)
[2025-05-23] MEDS: ATORVASTATIN 20 MG TABLET PO (17:39)
[2025-05-24] VITALS (8 sets, daily range): BP systolic 97–117; BP diastolic 59–69; PULSE 75–97; RESP 16–19; TEMP 36.5–36.7; O2SAT 95–98
[2025-05-24] MEDS: meropenem 1,000 mg SDV 1000 MG IVP (02:15)
[2025-05-24] MEDS: metoprolol succinate ER (24 HR) 25 mg Tablet PO ×2 (04:38→16:11)
[2025-05-24] MEDS: APIXABAN 2.5 MG TABLET PO ×2 (04:38→16:11)
[2025-05-24 05:18] LABS: Hematocrit 35.3 % (36-47); Hemoglobin 11.10 g/dL (11.27-16.99); Mean Corpuscular HGB Conc 31.4 g/dL (30-55); Mean Corpuscular Hemoglobin 30.2 pg (27-33); Mean Corpuscular Volume 96.2 fl (85-98); Nucleated Red Blood Cells % 0 %; Platelet Count 133 10^3/cmm (157-399); Red Blood Count 3.67 10^6/uL (3.85-5.65); White Blood Count 4.94 10^3/uL (3.29-11.43)
[2025-05-24 05:38] LABS: Alanine Aminotransferase 21 U/L (0-33); Albumin Level 3.3 g/dL (3.5-5.2); Alkaline Phosphatase 195 U/L (35-105); Anion Gap 12.1 (5-19); Aspartate Amino Transferase 17 U/L (0-32); Blood Urea Nitrogen 12 mg/dL (8-23); Calcium 8.7 mg/dL (8.5-10.5); Carbon Dioxide 24 mmol/L (22-29); Chloride 110 mmol/L (98-107); Creatinine Clr Calc Pharmacy 54.4463; Globulin 2.4 g/dL (1.3-4.6); Glucose 126 mg/dL (65-115); Osmolality Calculated 295 mOsm/kg (285-295); Potassium 4.1 mmol/L (3.5-5.1); Sodium 142 mmol/L (136-145); Total Protein 5.7 g/dL (6.6-8.7)
--- NOTE | 2025-05-24 08:57 | PM.DCS ---
Discharge Providers Date of Admission: 05/18/25 14:32 Date of Discharge: May 24, 2025 Attending Provider at Admission: Dewayne Hendrickson MD Attending Provider at Discharge: Brent Medina MD Primary Care Provider: Tawana Agustin Diagnoses at Discharge Discharge Diagnosis 1. Urinary tract infection: 2. History of ESBL E. coli infection: 3. Urinary retention: 4. Acute on chronic renal insufficiency: Reason for Visit Reason for Visit: abd pain Brief History: Per HPI Kiana Trivedi is a 80 year old female with urinary incontinence as well as urinary retention and a long history of recurrent UTIs taking antibiotics 11 months out of 12. She has had ESBL February 2025. Patient states she moved here from [place] 6 months ago to live with her daughter who is dying of cancer and help then she lives with her son but after she broke her ankle with a fall and has incontinence of urine and stool her son was not able to take care of her and so she has been placed at [facility]. Patient reports abdominal pain and urinary frequency with hesitancy and incontinence. She states that she has been peeing more frequently than usual if she tries to hold if she gets abdominal pain. She found to have UTI in the emergency department started on [facility] Hospital Course Patient was admitted to the hospital for evaluation and management of UTI with history of ESBL E. coli. She was started on appropriate IV antibiotics to which she responded well. Blood cultures remain negative and urine culture was again positive for ESBL E. coli. Mid line was placed. She is discharged back to SNF in hemodynamically stable condition with advised to finish her ertapenem for overall 10-day course. Midline should be removed after completion of IV antibiotic course. Physical Exam Narrative: General well-developed well-nourished obese female no acute cardiopulmonary stress CV irregular but rate is controlled Lungs trace left basilar crackle Abdomen positive bowel tones soft she reports some pain she is not obviously tender Back not tender but patient reports mild left flank pain Calves no tenderness cords or pretibial edema Skin warm and dry Urinary Catheter Management: Pierce: Cath Placed During This Visit: yes Reason for Continuing Indwelling Catheter: Other Urinary Catheter Date of Insertion: 05/18/25 Urinary Catheter Time of Insertion: 13:24 Discharge Data Studies Completed and Pending Completed Studies During Hospitalization Category Date Time Status CT abdomen renal stone [CT kidney stone [id number]] Routine Cat Scan 05/22/25 09:07 Completed Radiology Impressions Abdomen/Pelvis CT 05/22/25 09:07 IMPRESSION: 1. The bladder is suboptimally assessed, but the bladder wall appears thickened. Correlate with urinalysis to assess for cystitis. 2. No nephrolithiasis, hydronephrosis or obstructive ureteral stone. 3. Cardiomegaly with small bilateral pleural effusions and probable pulmonary edema; query CHF. 4. Moderate hiatal hernia. COMMENTS: Consistent with the [employer]'s Incidental Findings Committee white paper (J Am Trina Radiol 2018): Any incidental renal lesion less than 1 cm or classified as too small to characterize, or any incidental cystic renal lesion characterized as simple-appearing, is likely benign. No follow-up imaging is recommended for these lesions per consensus recommendations based on imaging criteria. Microbiology 05/18/25 12:16 Blood Blood Culture - Final NO GROWTH AFTER 5 DAYS 05/18/25 12:09 Blood Blood Culture - Final NO GROWTH AFTER 5 DAYS 05/18/25 12:35 Urine,Clean Catch Urine Culture - Final Escherichia coli esbl Laboratory Results WBC 4.94 10^3/uL (3.29-11.43) 05/24/25 05:05 RBC 3.67 10^6/uL (3.85-5.65) L 05/24/25 05:05 Hgb 11.10 g/dL (11.27-16.99) L 05/24/25 05:05 Hct 35.3 % (36-47) L 05/24/25 05:05 MCV 96.2 fl (85-98) 05/24/25 05:05 MCH 30.2 pg (27-33) 05/24/25 05:05 MCHC 31.4 g/dL (30-55) 05/24/25 05:05 RDW 13.7 % (12.1-15.1) 05/24/25 05:05 Plt Count 133 10^3/cmm (157-399) L 05/24/25 05:05 MPV 11.6 fL (7.4-10.4) H 05/24/25 05:05 Neut % (Auto) 62.7 % 05/24/25 05:05 Lymph % (Auto) 22.3 % 05/24/25 05:05 Bacon % (Auto) 7.7 % 05/24/25 05:05 Eos % (Auto) 6.5 % 05/24/25 05:05 Baso % (Auto) 0.6 % 05/24/25 05:05 Neut # (Auto) 3.10 10^3/uL (1.8-7.7) 05/24/25 05:05 Lymph # (Auto) 1.1 10^3/uL (0.8-4.8) 05/24/25 05:05 Bacon # (Auto) 0.4 10^3/uL (0.2-0.9) 05/24/25 05:05 Eos # (Auto) 0.3 10^3/uL (0.0-0.8) 05/24/25 05:05 Baso # (Auto) 0.0 10^3/uL (0.0-0.1) 05/24/25 05:05 Nucleated RBC % (auto) 0 % 05/24/25 05:05 Nucleated RBCs # 0.0 /100WBC 05/24/25 05:05 Sodium 142 mmol/L (136-145) 05/24/25 05:05 Potassium 4.1 mmol/L (3.5-5.1) 05/24/25 05:05 Chloride 110 mmol/L (98-107) H 05/24/25 05:05 Carbon Dioxide 24 mmol/L (22-29) 05/24/25 05:05 Anion Gap 12.1 (5-19) 05/24/25 05:05 BUN 12 mg/dL (8-23) 05/24/25 05:05 Creatinine 0.9 mg/dL (0.5-0.9) 05/24/25 05:05 GFR Calculation Not Reportable 05/24/25 05:05 Glucose 126 mg/dL (65-115) H 05/24/25 05:05 POC Glucose 144 mg/dL (70-110) H 05/24/25 08:05 Estimat Average Glucose 166 05/19/25 05:58 Hemoglobin A1c 7.4 % (4.0-6.0) H 05/19/25 05:58 Calculated Osmolality 295 mOsm/kg (285-295) 05/24/25 05:05 Lactic Acid 1.7 mmol/L (0.5-2.2) 05/18/25 12:09 Calcium 8.7 mg/dL (8.5-10.5) 05/24/25 05:05 Total Bilirubin 0.3 mg/dL (0.15-1.2) 05/24/25 05:05 AST 17 U/L (0-32) 05/24/25 05:05 ALT 21 U/L (0-33) 05/24/25 05:05 Alkaline Phosphatase 195 U/L (35-105) H 05/24/25 05:05 Total Protein 5.7 g/dL (6.6-8.7) L 05/24/25 05:05 Albumin 3.3 g/dL (3.5-5.2) L 05/24/25 05:05 Globulin 2.4 g/dL (1.3-4.6) 05/24/25 05:05 TSH 1.25 uIU/mL (0.27-4.20) 05/19/25 05:58 Urine Color Yellow (Yellow) 05/18/25 12:35 Urine Appearance Turbid (CLEAR) A 05/18/25 12:35 Urine pH 5.5 (5-7) 05/18/25 12:35 Ur Specific [place] 1.011 (1.005-1.030) 05/18/25 12:35 Urine Protein 1+ (Negative) A 05/18/25 12:35 Urine Glucose (UA) Negative (Normal) 05/18/25 12:35 Urine Ketones Negative (Negative) 05/18/25 12:35 Urine Blood 2+ (Negative) A 05/18/25 12:35 Urine Nitrate Negative (Negative) 05/18/25 12:35 Urine Bilirubin Negative (Negative) 05/18/25 12:35 Urine Urobilinogen 0.2 mg/dL (Negative) 05/18/25 12:35 Ur Leukocyte Esterase 3+ (Negative) A 05/18/25 12:35 Urine RBC 3-5 /hpf (0-2) 05/18/25 12:35 Urine WBC >100 /hpf (0-5) H 05/18/25 12:35 Ur Squamous Epith Cells 11-20 /hpf (0-5) H 05/18/25 12:35 Amorphous Sediment Not Reportable 05/18/25 12:35 Urine Bacteria 4+ /hpf (NONE) H 05/18/25 12:35 Hyaline Casts 3.48 /lpf 05/18/25 12:35 Vitals Last Vital Signs Temp 97.8 F 05/24/25 07:53 Pulse 75 05/24/25 08:44 Resp 18 05/24/25 08:44 BP 97/67 05/24/25 07:53 Pulse Ox 96 05/24/25 08:44 O2 Del Method Room Air 05/24/25 08:44 FiO2 21 05/21/25 11:09 Discharge Plan Discharge Patient Disposition: Home Condition: Stable Prescriptions: Continued (DME) CAM walker See Rx Instructions .Route .MEDSUPPLY Qty: 1 0RF Rx Instructions: As directed (DME) ASO to left See Rx Instructions .Route .MEDSUPPLY Qty: 1 0RF Rx Instructions: As directed phenazopyridine [Pyridium] 100 mg tablet 100 mg PO TID PRN (Reason: UTI) gabapentin 300 mg capsule 300 mg PO BID omeprazole 20 mg capsule,delayed release(DR/EC) 20 mg PO DAILY levothyroxine 100 mcg capsule 100 mcg PO QAM hydrocodone-acetaminophen 5-325 mg tablet 1 tab PO Q8H PRN (Reason: pain) 7 Days Qty: 21 0RF atorvastatin 20 mg Tablet 20 mg PO QPM docusate sodium [Colace] 100 mg Capsule See Rx Instructions .ROUTE .COMPLEX PRN (Reason: Constipation) Rx Instructions: 100-200mg daily PRN AZO D-Mannose 500 mg Tablet,Chewable 500 mg PO BID diltiazem HCl 240 mg Capsule,Extended Release 24 Hr 240 mg PO QNOON diclofenac sodium 1 % Gel 1 ea TOPICAL BID PRN (Reason: Pain) Rx Instructions: apply to single elbow, wrist or hand; for hand includes palm/fingers/back of hand torsemide 20 mg tablet 20 mg PO BID clobetasol 0.05 % solution See Rx Instructions .ROUTE .COMPLEX Rx Instructions: APPLY TO ITCHY AREAS OF SCALP NEEDED insulin lispro [Humalog KwikPen Insulin] 100 unit/mL insulin pen See Rx Instructions .ROUTE .COMPLEX Rx Instructions: prn per sliding before meals and at bedtime . If blood sugar is less than 60 call MD. If Blood Sugar is 201-250 = 2 units 251-300 = 4units 301-350 = 6units 351-400 = 8units Probiotic 10 billion cell Capsule 10,000 mmu cells PO DAILY Trelegy Ellipta 100-62.5-25 mcg blister with device 1 inh INHALATION DAILY Mounjaro 2.5 mg/0.5 mL pen injector 2.5 mg SUBCUT Q7D Rx Instructions: on Mondays hydroxyzine HCl 10 mg tablet 10 mg PO TID acetaminophen [Tylenol] 325 mg Tablet 650 mg PO QID PRN (Reason: Fever Or Pain) triamcinolone acetonide 0.1 % cream 1 applic TOPICAL BID PRN (Reason: itchy spots ) spironolactone 25 mg tablet 25 mg PO DAILY tacrolimus 0.1 % ointment See Rx Instructions .ROUTE .COMPLEX Rx Instructions: APPLY TO FACE TWICE DAILY FOR TWO WEEKS ON AND TWO WEEKS OFF NEEDED-ALTERNATE WITH STEROID olopatadine [Pataday Twice Daily Relief] 0.1 % Drops 2 drp OPHTHALMIC (EYE) BID PRN (Reason: dry eye ) Rx Instructions: separate doses by at least 6-8 hours nystatin 100,000 unit/gram powder See Rx Instructions .ROUTE .COMPLEX Rx Instructions: APPLY POWDER TOPICALLY TWICE DAILY NEEDED (GROIN AND BREAST FOLD) ondansetron 4 mg tablet,disintegrating 4 mg PO Q4H PRN (Reason: Nausea And Vomiting) isosorbide mononitrate 10 mg tablet 30 mg PO DAILY insulin lispro 100 unit/mL insulin pen 8 unit SUBCUT TIDWMEAL memantine 5 mg tablet 5 mg PO BID albuterol sulfate 0.63 mg/3 mL solution for nebulization 0.63 mg inhalation Q4H PRN (Reason: hypoxia) cephalexin 250 mg capsule 250 mg PO DAILY bisacodyl [Dulcolax (bisacodyl)] 10 mg Suppository 10 mg [place] DAILY PRN (Reason: Constipation) ciclopirox 1 % shampoo 1 ea TOPICAL Q48H calcium carbonate-vitamin D3 600 mg-10 mcg (400 unit) tablet 1 tab PO BID Eliquis 2.5 mg tablet 2.5 mg PO BID Dupixent Syringe 300 mg/2 mL syringe 300 mg SUBCUT Q7D metoprolol succinate 25 mg tablet extended release 24 hr 25 mg PO BID insulin glargine [Lantus Solostar U-100 Insulin] 100 unit/mL (3 mL) insulin pen 30 unit SUBCUT QPM Referrals: Nikole Gilliam [Primary Care Provider] Discharge Diet: Diabetic Discharge Activity: Resume usual activity and Increase activity as tolerated Patient Instructions: Opioid Safety, Patient Portal & Shanae Instructions Activity Restrictions/Additional Instructions: Continue taking ertapenem to finish a course of antibiotics on 05/30. Midline should be removed after finishing of ertapenem course. Discharge Attestations Time Spent in Discharge Care*: greater than 30 min Specific Discharge Activities: educating patient, educating and/or supporting family/caregiver, discussing with pcp/other providers, discussing with porter sample case/social workers/dc planners, documenting/other paperwork and evaluating patient/reviewing data Status at Discharge: Cognitive status at discharge: cognitively intact, Behavioral status at discharge: cooperative, Functional status at discharge: other assisted ambulation, Overall status at discharge: patient is progressing back to baseline Quality Metrics Clinical Quality Measures [ No reported AMI, CVA or VTE this stay] Coding Level of Care Code 62096 Total time (in minutes) for Discharge: 65 Diagnoses Urinary tract infection N39.0 History of ESBL E. coli infection Z86.19 Urinary retention R33.9 Acute on chronic renal insufficiency N28.9; N18.9
[2025-05-24] MEDS: ertapenem 1,000 mg SDV 1000 MG IVP (10:15)
[2025-05-24] MEDS: dilTIAZem ER (24HR) 240 mg Capsule PO (12:08)
[2025-05-24] MEDS: ATORVASTATIN 20 MG TABLET PO (16:11)
[2025-05-24] MEDS: insulin glargine 100 units/1 mL 30 UNIT SUBCUT (16:11)
== END 2025-05-24 16:51 | disposition intermediate care facility (04) | DRG 690 ==
LOC: ER 13:29 → ER IP 14:32 → MEDSURG 16:33
PROVIDERS: Admitting Provider Internal Medicine; Emergency Provider Emergency Medicine; Visit Provider Student in an Organized Health Care Education/Training Program
DX: N39.0 Urinary tract infection, site not specified (principal); I50.42 Chronic combined systolic (congestive) and diastolic (congestive) heart failure; Z16.12 Extended spectrum beta lactamase (ESBL) resistance; Z16.29 Resistance to other single specified antibiotic; R33.9 Retention of urine, unspecified; N28.9 Disorder of kidney and ureter, unspecified; E11.9 Type 2 diabetes mellitus without complications; Z79.4 Long term (current) use of insulin; E78.5 Hyperlipidemia, unspecified; G47.33 Obstructive sleep apnea (adult) (pediatric); E03.9 Hypothyroidism, unspecified; Z95.5 Presence of coronary angioplasty implant and graft; K21.9 Gastro-esophageal reflux disease without esophagitis; I48.91 Unspecified atrial fibrillation; Z79.01 Long term (current) use of anticoagulants; Z87.440 Personal history of urinary (tract) infections; I25.10 Atherosclerotic heart disease of native coronary artery without angina pectoris; Z88.0 Allergy status to penicillin; E66.9 Obesity, unspecified; Z68.36 Body mass index [BMI] 36.0-36.9, adult; Z95.1 Presence of aortocoronary bypass graft; I11.0 Hypertensive heart disease with heart failure; B96.20 Unspecified Escherichia coli [E. coli] as the cause of diseases classified elsewhere; Z79.85 Long-term (current) use of injectable non-insulin antidiabetic drugs; Z95.0 Presence of cardiac pacemaker
CPT/HCPCS: 36415; 36416; 36569; 36592; 51702; 51798; 73610; 74176; 80048; 80053; 81001; 82962; 83036; 83605; 84443; 85025; 87040; 87077; 87086; 87186; 94640; 94664; 96372; 96374; 97110; 97116; 97162; 97166; 97530; 99024; 99285; C1751; J1335; J1815; J2185; J2270; J7030; J7120; J7626; J9999; L1902